=== PATIENT | female | born 1980 | race Caucasian/White ===

== ENCOUNTER → 2016-11-05 | Outpatient (CLI) | payer BC ==
[2016-11-05 16:00] LABS: Rheumatoid Factor, Qnt <9 IU/mL (<12)
[2016-11-06 10:05] LABS: HLA B27 NEGATIVE; HLA B27 Comment SEEBELOW
[2016-11-09 19:39] LABS: Lysozyme, Serum or Body Fluid 7.5 mcg/mL (5.0-11.0)
[2016-11-12 14:20] LABS: Mis test requested (Blood) Myasthenia GravisPnl
== END | disposition home or self-care (01) ==
LOC: LABWHC1 15:08
PROVIDERS: ATTEND Ophthalmology
DX: H20.9 Unspecified iridocyclitis (principal); E06.9 Thyroiditis, unspecified
CPT/HCPCS: 36415; 82164; 83519; 84439; 84443; 85549; 85652; 86038; 86140; 86431; 86812

== ENCOUNTER → 2016-11-22 | Outpatient (CLI) | payer BC ==
[2016-11-22 17:30] LABS: Basophils % (A) 0 %; CH 30.6; CHCM 33.2; Eosinophils # (A) 0.3 k/uL (0-0.7); Eosinophils % (A) 3 %; HCT 48.5 % (34.0-46.0); HDW 2.75; HGB 15.7 gm/dL (11.4-16.0); Luc # (Auto) 0.11; Luc % (Auto) 1; Lymphocytes # (A) 2.6 k/uL (1.0-4.8); Lymphocytes % (A) 25 %; MCH 29.9 pg (25.0-35.0); MCHC 32.3 g/dL (31.0-37.0); MCV 92.7 fL (80.0-100.0); Mean Platelet Volume 7.2; Monocytes # (A) 0.3 k/uL (0-1.0); Monocytes % (A) 3 %; Neutrophils # (A) 6.9 k/uL (1.3-7.7); Neutrophils % (A) 68 %; RBC 5.23 m/uL (3.80-5.40); RDW 13.6 % (11.5-15.5); WBC 10.2 k/uL (3.8-10.6)
[2016-11-22 17:51] LABS: ALT 59 U/L (9-52); AST 50 U/L (14-36); Alkaline Phosphatase 44 U/L (38-126); Anion Gap 10 mmol/L; Blood Urea Nitrogen 14 mg/dL (7-17); Calcium 9.4 mg/dL (8.4-10.2); Carbon Dioxide 24 mmol/L (22-30); Chloride 109 mmol/L (98-107); Glucose 82 mg/dL (74-99); Non-African American GFR(MDRD) >60 (>60 ml/min/1.73 sqM); Potassium 4.4 mmol/L (3.5-5.1); Sodium 143 mmol/L (137-145); Total Bilirubin 0.6 mg/dL (0.2-1.3); Total Protein 7.5 g/dL (6.3-8.2)
[2016-11-23 06:26] LABS: Cyclic Citrullinated Pep IgG 5 UNITS (<20)
== END | disposition home or self-care (01) ==
LOC: LABWHC1 16:38
PROVIDERS: ATTEND Psychiatry & Neurology Pain Medicine
DX: E55.9 Vitamin D deficiency, unspecified (principal); M25.50 Pain in unspecified joint
CPT/HCPCS: 36415; 80053; 82306; 85025; 86200; 86235

== ENCOUNTER → 2016-12-05 | Outpatient (CLI) | payer BC ==
--- NOTE | 2016-12-05 10:53 | MR ---
EXAMINATION TYPE: MR brain wo/w con DATE OF EXAM: 12/05/2016 8:58 AM COMPARISON: NONE HISTORY: Vision changes CONTRAST: Performed utilizing 20 mL intravenous MultiHance gadolinium contrast. TECHNIQUE: Multiplanar, multiecho imaging on a 3.0 Tila magnet is performed through the brain. Stud y is performed within 24 hours of arrival to the hospital. The craniovertebral junction is normal. The pituitary is normal. Optic chiasm is normal. Diffusion-weighted imaging is performed. No abnormal hyperintensity is present to suggest an acute i ntracranial infarct or acute ischemic change. Signal within the brain is unremarkable. Following contrast administration, no abnormal enhancement i s evident. Ventricles and sulci are appropriate for the patient age. IMPRESSIONS: 1. No acute intracranial changes.
== END | disposition home or self-care (01) ==
LOC: RADMRIMAIN 08:15
PROVIDERS: ATTEND Psychiatry & Neurology Pain Medicine
DX: H53.9 Unspecified visual disturbance (principal)
CPT/HCPCS: 70553; A9577

== ENCOUNTER → 2017-02-15 | Outpatient (CLI) | payer BC ==
[2017-02-15 14:53] LABS: Blood Urea Nitrogen 17 mg/dL (7-17); Non-African American GFR(MDRD) >60 (>60 ml/min/1.73 sqM)
== END | disposition home or self-care (01) ==
LOC: LABWHC1 14:07
PROVIDERS: ATTEND Psychiatry & Neurology Pain Medicine
DX: R32 Unspecified urinary incontinence (principal)
CPT/HCPCS: 36415; 82565; 84520

== ENCOUNTER → 2017-02-28 | Outpatient (CLI) | payer BC | LOC: LABWHC1 14:42 | PROVIDERS: ATTEND Psychiatry & Neurology Neurology | DX: E55.9 Vitamin D deficiency, unspecified (principal) | CPT/HCPCS: 36415; 82306 ==

== ENCOUNTER → 2017-03-11 | Outpatient (CLI) | payer BC ==
--- NOTE | 2017-03-11 10:53 | MR ---
EXAMINATION TYPE: MR cspine/lspine wo/w con DATE OF EXAM: 03/11/2017 COMPARISON: Prior lumbar MRI 10/09/2012 HISTORY: cervicalgia, lumbago, ms TECHNIQUE: Multiplanar, multisequence images of the lumbar spine is performed without and with IV contrast, util izing 20 mL intravenous MultiHance FINDINGS: Cervical spine MRI: Cervical vertebral bodies show preserved height, alignment, and bone marrow signa l. Small posterior disc bulge is present at C6-7 causing minimal anterior mass effect on the thecal s ac. No evident foraminal encroachment or significant central canal stenosis. No abnormal enhancement following contrast administration. Cervical cord signal is maintained. IMPRESSION: Mild degenerative disc disease. Lumbar spine MRI: Lumbar vertebral bodies show preserved height and alignment. There is multilevel sp ondylosis, endplate discogenic marrow signal changes are present. No significant foraminal encroachme nt or central canal stenosis. Some loss of disc height and signal present at L5-S1. L5-S1: There is a small posterior central disc bulge possibly contacting the anterior thecal sac. Sim ilar findings on previous exam. L4-5: Mild facet arthropathy with hypertrophy of ligamentum flavum encroaching on the lateral recesse s. L3-4: Unremarkable L2-3: Within normal limits L1-2: No significant abnormality The conus is at T12-L1 shows an unremarkable appearance. Multiple cystic foci are associated with the kidneys as on prior exam, correlate for possible APKD. IMPRESSION: Essentially stable exam. Axial images show no focal disc disease, or facet degenerative change at any lumbar level. There is no spinal canal stenosis, neural foraminal narrowing, or evidence of nerve root compromise. IMPRESSION: Mild degenerative disc disease shows a stable appearance.
== END | disposition home or self-care (01) ==
LOC: RADMRIMAIN 02-16 14:03
PROVIDERS: ATTEND Psychiatry & Neurology Pain Medicine
DX: M51.36 Other intervertebral disc degeneration, lumbar region (principal); M54.2 Cervicalgia
CPT/HCPCS: 72156; 72158; A9577

== ENCOUNTER 2017-03-15 07:09 | Day surgery (SDC) | payer BC ==
[2017-03-13 15:45] VITALS: BMI 49.3
[~2017-03-15 07:09] MED LIST: LACTATED RINGERS 1,000 ML IV SCH; LIDOCAINE 1% 20 ML VIAL (10MG/ML) FOR IV START INTRADERMA PRN
[2017-03-15 07:25] VITALS: TEMP 98.2
[2017-03-15] MEDS ORDERED: PROPOFOL 10 MG/ML 20 ML VIAL IV ONE (08:14)
--- NOTE | 2017-03-15 08:34 | P.PCN ---
Date of Procedure: 03/15/17 Preoperative Diagnosis: Postoperative Diagnosis: Procedure(s) Performed: BRIEF HISTORY: Patient is a 37-year-old pleasant white female, scheduled for an elective colonoscopy as a part of evaluation of change in bowel habits and intermittent fecal incontinence for the last 1 month duration. PROCEDURE PERFORMED: Colonoscopy. PREOPERATIVE DIAGNOSIS: Change in bowel habits. IV sedation per Anesthesia. PROCEDURE: After informed consent was obtained, the patient, was brought into the endoscopy unit. IV sedation was administered by Anesthesia under continuous monitoring. Digital rectal examination was normal. Initially the Olympus CF- 160 flexible video colonoscope was then inserted in the rectum, gradually advanced into the cecum without any difficulty. Careful examination was performed as the scope was gradually being withdrawn. Ileocecal valve and the appendiceal orifice were visualized and appeared normal. Prep was excellent. Mucosa of the cecum, ascending colon, transverse colon, descending colon, sigmoid colon, and rectum appeared normal. Retroflexion was performed in the rectum and no lesions were seen. The patient tolerated the procedure well. IMPRESSION: Normal-appearing colon from rectum to cecum with no evidence of colitis or colorectal neoplasia. RECOMMENDATIONS: Findings of this examination were discussed with the patient as well as a family. She was advised to be a high-fiber diet and take fiber supplements on a regular basis. She can have a repeat colonoscopy at age 50. Implants: Indications for Procedure: Operative Findings: Description of Procedure:
[2017-03-15 08:54] VITALS: BP 132/84; PULSE 81; RESP 16
== END 2017-03-15 09:22 | disposition home or self-care (01) ==
LOC: ORWHC2ENDO 07:09
PROVIDERS: ATTEND Internal Medicine Gastroenterology
DX: R19.4 Change in bowel habit (principal); R15.9 Full incontinence of feces; K21.9 Gastro-esophageal reflux disease without esophagitis; I10 Essential (primary) hypertension; E78.5 Hyperlipidemia, unspecified; E11.9 Type 2 diabetes mellitus without complications; Z79.84 Long term (current) use of oral hypoglycemic drugs; Z79.899 Other long term (current) drug therapy; Z88.2 Allergy status to sulfonamides; Z88.8 Allergy status to other drugs, medicaments and biological substances; Z91.041 Radiographic dye allergy status
CPT/HCPCS: 45378; J2704

== ENCOUNTER 2017-05-26 13:57 | Emergency (ER) | payer BC ==
[2017-05-26 14:36] VITALS: RESP 18
[2017-05-26] MEDS ORDERED: SODIUM CHLORIDE 0.9% 500 ML IV STA (14:59)
[2017-05-26] MEDS ORDERED: KETOROLAC 30 MG/ML 1 ML VIAL IVP STA (14:59)
--- NOTE | 2017-05-26 15:33 | ED ---
General Adult HPI - General Chief complaint: Abdominal Pain Stated complaint: Flank Pain/Nausea Time Seen by Provider: 05/26/17 14:31 Source: patient Mode of arrival: ambulatory Limitations: no limitations - History of Present Illness Initial comments: 37-year-old female with past medical history of CVA/TIA, DM, HLD, HTN , OA, polycystic kidney disease, migraines presented for evaluation of right flank pain with radiation to the right lower quadrant/pelvis. She states that she started to feel nauseated on Saturday and then started having her symptoms a couple days ago. It progressively worsened since that time. She denies any vaginal bleeding/discharge, increased or decreased urinary frequency, hematuria , chest pain, shortness of breath. She went to an urgent care today and was found to have microscopic hematuria and sent to the ED for further treatment and evaluation of kidney stone. She has no history of kidney stones, ovarian cysts, and she still has her appendix. - Related Data Home Medications Medication Instructions Recorded Confirmed ALPRAZolam [Xanax] 0.5 mg PO BID PRN 04/26/14 05/26/17 Fenofibrate Nanocrystallized 145 mg PO HS 09/29/15 05/26/17 [Tricor] Meloxicam 15 mg PO HS 12/31/16 05/26/17 amLODIPine BESYLATE/BENAZEPRIL 1 cap PO HS 03/13/17 05/26/17 [Lotrel 5-10 mg Capsule] metFORMIN HCL [Glucophage] 1,000 mg PO HS 03/13/17 05/26/17 prednisoLONE ACETATE [Pred Forte] 2 drop BOTH EYES DAILY PRN 03/13/17 05/26/17 Baclofen [Lioresal] 20 mg PO HS PRN 05/26/17 05/26/17 Cetirizine HCl [Zyrtec] 10 mg PO HS 05/26/17 05/26/17 Cholecalciferol (Vitamin D3) 2,000 unit PO HS 05/26/17 05/26/17 [Vitamin D3] FLUoxetine HCL [PROzac] 60 mg PO HS 05/26/17 05/26/17 Pramipexole [Mirapex] 0.5 mg PO HS 05/26/17 05/26/17 Previous Rx's Medication Instructions Recorded Ondansetron Odt [Zofran Odt] 4 mg PO Q8HR PRN #7 tab 05/26/17 Allergies Allergy/AdvReac Type Severity Reaction Status Date / Time Sulfa (Sulfonamide Allergy Severe Unknown Verified 05/26/17 15:45 Antibiotics) Childhood Iodinated Contrast- Oral and Allergy Unknown Anaphylaxis Verified 05/26/17 15:45 IV Dye [Iodinated Contrast Media - IV Dye] bupropion HCl AdvReac Severe Seizure Verified 05/26/17 15:45 [From Wellbutrin] Review of Systems ROS Statement: Those systems with pertinent positive or pertinent negative responses have been documented in the HPI. ROS Other: All systems not noted in ROS Statement are negative. Constitutional: Denies: fever, chills Eyes: Denies: eye pain, vision change ENT: Denies: ear pain, throat pain Respiratory: Denies: cough, dyspnea Cardiovascular: Denies: chest pain, palpitations Endocrine: Denies: fatigue, polydipsia Gastrointestinal: Reports: abdominal pain, nausea. Denies: vomiting, diarrhea, constipation, hematemesis, melena, hematochezia Genitourinary: Denies: urgency, dysuria, frequency, hematuria, discharge, abnormal menses Musculoskeletal: Denies: back pain (Although she does state she had some right flank discomfort), arthralgia Skin: Denies: rash, lesions Neurological: Denies: headache, weakness Psychiatric: Denies: anxiety, depression Hematological/Lymphatic: Denies: easy bleeding, easy bruising Past Medical History Past Medical History: CVA/TIA, Diabetes Mellitus, Hyperlipidemia, Hypertension, Osteoarthritis (OA) Additional Past Medical History / Comment(s): polycystic kidney disease, migraines, TIA 2012, varicose veins, hx anemia, History of Any Multi-Drug Resistant Organisms: None Reported Past Surgical History: Hysterectomy, Orthopedic Surgery Additional Past Surgical History / Comment(s): bilateral CTR, D&C, LUMP REMOVED from throat Past Anesthesia/Blood Transfusion Reactions: Previous Problems w/ Anesthesia Additional Past Anesthesia/Blood Transfusion Reaction / Comment(s): "body pain"- severe AFTER D & C Past Psychological History: Anxiety, Depression Smoking Status: Current every day smoker Past Alcohol Use History: Occasional Past Drug Use History: None Reported - Past Family History Mother Family Medical History: Cancer Additional Family Medical History / Comment(s): BREAST,THYROID CANCER General Exam Limitations: no limitations General appearance: alert, in no apparent distress Head exam: Present: atraumatic, normocephalic, normal inspection Eye exam: Present: normal appearance, PERRL, EOMI. Absent: scleral icterus, conjunctival injection, periorbital swelling ENT exam: Present: normal exam, mucous membranes moist Neck exam: Present: normal inspection. Absent: tenderness, meningismus, lymphadenopathy Respiratory exam: Present: normal lung sounds bilaterally. Absent: respiratory distress, wheezes, rales, rhonchi, stridor Cardiovascular Exam: Present: regular rate, normal rhythm, normal heart sounds. Absent: systolic murmur, diastolic murmur, rubs, gallop, clicks GI/Abdominal exam: Present: soft, tenderness (right lower quadrant). Absent: distended, guarding, rebound, rigid Rectal exam: Present: deferred Extremities exam: Present: normal inspection, full ROM, normal capillary refill. Absent: tenderness, pedal edema, joint swelling, calf tenderness Back exam: Present: normal inspection Neurological exam: Present: alert, oriented X3, CN II-XII intact Psychiatric exam: Present: normal affect, normal mood Skin exam: Present: warm, dry, intact, normal color. Absent: rash Course Vital Signs 05/26/17 05/26/17 14:32 18:11 Temperature 98.1 F 97.6 F Pulse Rate 87 85 Respiratory 18 18 Rate Blood Pressure 115/67 139/79 O2 Sat by Pulse 95 96 Oximetry Medical Decision Making - Medical Decision Making 37-year-old female presented for evaluation of right lower quadrant abdominal pain. She states that the pain started in her right flank and around to right lower quadrant. She was seen at an urgent care and they noted that she had discomfort hematuria and center to the ED for further treatment and evaluation. On physical examination she does have tenderness to palpation on the right flank and right lower quadrant of her abdomen however there is no CVA tenderness. Abdomen is soft non-peritoneal without signs of guarding, rigidity , rebound. Concern for ureterolithiasis and will obtain CT renal stone, labs, urinalysis, and provide symptom control. Labs revealed no significant abnormalities and CT renal stone showed a normal appendix and no obstructive uropathy. The patient was reevaluated and had resolution of her symptoms. She is informed of all results and through shared decision making it was determined that she would be discharged with instructions to follow with her primary care physician but to return to this facility if her symptoms should worsen or persist. The patient acknowledged an understanding of all information provided and agreed with this plan of care. - Lab Data Result diagrams: 05/26/17 15:30 05/26/17 15:30 Lab Results 05/26/17 05/26/17 05/26/17 Range/Units 15:30 15:30 15:30 WBC 12.6 H (3.8-10.6) k/uL RBC 5.04 (3.80-5.40) m/uL Hgb 15.4 (11.4-16.0) gm/dL Hct 45.5 (34.0-46.0) % MCV 90.4 (80.0-100.0) fL MCH 30.5 (25.0-35.0) pg MCHC 33.7 (31.0-37.0) g/dL RDW 14.0 (11.5-15.5) % Plt Count 190 (150-450) k/uL Neutrophils % 68 % Lymphocytes % 25 % Monocytes % 4 % Eosinophils % 2 % Basophils % 1 % Neutrophils # 8.6 H (1.3-7.7) k/uL Lymphocytes # 3.1 (1.0-4.8) k/uL Monocytes # 0.5 (0-1.0) k/uL Eosinophils # 0.3 (0-0.7) k/uL Basophils # 0.1 (0-0.2) k/uL ESR 10 (0-20) mm/hr Sodium 138 (137-145) mmol/L Potassium 4.1 (3.5-5.1) mmol/L Chloride 106 (98-107) mmol/L Carbon Dioxide 22 (22-30) mmol/L Anion Gap 10 mmol/L BUN 15 (7-17) mg/dL Creatinine 0.70 (0.52-1.04) mg/dL Est GFR (MDRD) Af Amer >60 (>60 ml/min/1.73 sqM) Est GFR (MDRD) Non-Af >60 (>60 ml/min/1.73 sqM) Glucose 90 (74-99) mg/dL Calcium 9.5 (8.4-10.2) mg/dL C-Reactive Protein 14.8 H (<10.0) mg/L Urine Color Yellow Urine Appearance Clear (Clear) Urine pH 5.5 (5.0-8.0) Ur Specific [place] 1.014 (1.001-1.035) Urine Protein 2+ H (Negative) Urine Glucose (UA) Negative (Negative) Urine Ketones Negative (Negative) Urine Blood Trace H (Negative) Urine Nitrite Negative (Negative) Urine Bilirubin Negative (Negative) Urine Urobilinogen <2.0 (<2.0) mg/dL Ur Leukocyte Esterase Negative (Negative) Urine RBC 1 (0-5) /hpf Urine WBC 2 (0-5) /hpf Ur Squamous Epith Cells 1 (0-4) /hpf Urine Mucus Rare H (None) /hpf Disposition Clinical Impression: Abdominal pain, Nausea Disposition: HOME SELF-CARE Condition: Stable Instructions: Abdominal Pain (ED) Additional Instructions: Please use medication as discussed. Please follow up with family doctor if symptoms have not improved over the next two days. Please return to the emergency room if your symptoms increase or worsen or for any other concerns. Prescriptions: Ondansetron Odt [Zofran Odt] 4 mg PO Q8HR PRN #7 tab PRN Reason: Nausea Referrals: Robinson Okeefe MD [Primary Care Provider] - 1-2 days Time of Disposition: 17:51
[2017-05-26 15:47] LABS: Basophils # (A) 0.1 k/uL (0-0.2); Basophils % (A) 1 %; CH 31.7; CHCM 35.2; Eosinophils # (A) 0.3 k/uL (0-0.7); Eosinophils % (A) 2 %; HCT 45.5 % (34.0-46.0); HDW 2.63; HGB 15.4 gm/dL (11.4-16.0); Luc # (Auto) 0.14; Luc % (Auto) 1; Lymphocytes # (A) 3.1 k/uL (1.0-4.8); Lymphocytes % (A) 25 %; MCH 30.5 pg (25.0-35.0); MCHC 33.7 g/dL (31.0-37.0); MCV 90.4 fL (80.0-100.0); Mean Platelet Volume 8.3; Monocytes # (A) 0.5 k/uL (0-1.0); Monocytes % (A) 4 %; Neutrophils # (A) 8.6 k/uL (1.3-7.7); Neutrophils % (A) 68 %; RBC 5.04 m/uL (3.80-5.40); WBC 12.6 k/uL (3.8-10.6); WBC (Perox) 11.92
[2017-05-26 16:01] LABS: Anion Gap 10 mmol/L; Blood Urea Nitrogen 15 mg/dL (7-17); C Reactive Protein 14.8 mg/L (<10.0); Calcium 9.5 mg/dL (8.4-10.2); Carbon Dioxide 22 mmol/L (22-30); Chloride 106 mmol/L (98-107); Glucose 90 mg/dL (74-99); Non-African American GFR(MDRD) >60 (>60 ml/min/1.73 sqM); Potassium 4.1 mmol/L (3.5-5.1); Sodium 138 mmol/L (137-145)
[2017-05-26 16:10] LABS: Appearance,Urine Clear (Clear); Bilirubin,Urine Negative (Negative); Glucose,Urine (UA) Negative (Negative); Ketones,Urine Negative (Negative); Leukocyte Esterase,Urine Negative (Negative); Mucus,Urine Rare /hpf; Nitrite,Urine Negative (Negative); PH, Urine 5.5 (5.0-8.0); Particle Count 2989; Protein,Urine 2+ (Negative); RBC,Urine 1 /hpf (0-5); Specific Gravity,Urine 1.014 (1.001-1.035); Squamous Epithelial Cell,Urine 1 /hpf (0-4); UA Billing (MACRO vs. MICRO) MICRO; Urobilinogen,Urine <2.0 mg/dL (<2.0); WBC,Urine 2 /hpf (0-5)
[2017-05-26 16:55] LABS: Erythrocyte Sedimentation Rate 10 mm/hr (0-20)
--- NOTE | 2017-05-26 17:20 | CT ---
EXAMINATION TYPE: CT renal stones wo con DATE OF EXAM: 05/26/2017 COMPARISON: NONE INDICATION: Patient complains of RLQ pain. DLP: 1527.1 mGycm, Automated exposure control for dose reduction was used. CONTRAST: 0 mL of Omnipaque 350. Study performed without Oral Contrast TECHNIQUE: Axial images were obtained from above the diaphragm to the pubic rami in the axial plane a t 5 mm thick sections. Reconstructed images are reviewed on the computer in the coronal plane. FINDINGS: Limited CT sections are obtained the lung bases. The lung bases are clear. CT ABDOMEN: Liver: There is moderate fatty infiltration throughout the liver. No discrete masses or cysts are maninder dent. Spleen: Enlarged at 13.7 cm. Normal less than 12.5. Pancreas: Normal Adrenal glands: The adrenal glands are normal. Gallbladder: Normal Kidneys: Polycystic kidneys are present. Numerous cystlike structures extending from the kidneys. The re are some scattered punctate calcifications compatible with small renal stones. No right hydronephr osis is evident. A left hydronephrosis is not evident. No hydroureter is evident. Aorta: Vascular calcification is within the aorta. Inferior vena cava: Normal. CT PELVIS: Loops of bowel within the abdomen and pelvis are normal. Appendix: Normal as visualized. Urinary bladder: Normal. Genitourinary structures: Uterus appears to be absent. Ovaries appear to be normal. Correlate with driscoll rgical history Osseous structures: No suspicious lytic or sclerotic lesions. IMPRESSIONS: 1. Polycystic kidneys. 2. There are multiple punctate calcifications scattered within the kidneys. No hydronephrosis or hydr oureter is evident however. 3. Appendix is normal.
[2017-05-26 18:12] VITALS: BP 139/79; PULSE 85; TEMP 97.6
== END 2017-05-26 18:30 | disposition home or self-care (01) ==
LOC: EC 13:57
DX: R10.31 Right lower quadrant pain (principal); R11.0 Nausea; E11.9 Type 2 diabetes mellitus without complications; E78.5 Hyperlipidemia, unspecified; I10 Essential (primary) hypertension; M19.90 Unspecified osteoarthritis, unspecified site; F32.9 Major depressive disorder, single episode, unspecified; F41.9 Anxiety disorder, unspecified; F17.200 Nicotine dependence, unspecified, uncomplicated; Z86.73 Personal history of transient ischemic attack (TIA), and cerebral infarction without residual deficits; Z79.1 Long term (current) use of non-steroidal anti-inflammatories (NSAID); Z79.84 Long term (current) use of oral hypoglycemic drugs; Z79.899 Other long term (current) drug therapy; Z88.2 Allergy status to sulfonamides; Z88.8 Allergy status to other drugs, medicaments and biological substances; Z91.041 Radiographic dye allergy status; Z90.710 Acquired absence of both cervix and uterus
CPT/HCPCS: 36415; 80048; 85652; 85025; 86140; 81001; 74150; 99284; 96374; J1885

== ENCOUNTER 2017-06-12 23:14 | Emergency (ER) | payer BC ==
[2017-06-12 23:37] VITALS: RESP 16
[2017-06-12] MEDS ORDERED: SODIUM CHLORIDE 0.9% 1,000 ML IV STA (23:48)
[2017-06-13 00:13] LABS: Basophils # (A) 0.1 k/uL (0-0.2); Basophils % (A) 0 %; CH 31.4; CHCM 34.2; Eosinophils # (A) 0.4 k/uL (0-0.7); Eosinophils % (A) 3 %; HCT 45.2 % (34.0-46.0); HDW 2.59; HGB 15.1 gm/dL (11.4-16.0); Luc # (Auto) 0.12; Luc % (Auto) 1; Lymphocytes % (A) 27 %; MCH 30.8 pg (25.0-35.0); MCHC 33.4 g/dL (31.0-37.0); MCV 92.1 fL (80.0-100.0); Mean Platelet Volume 8.3; Monocytes # (A) 0.5 k/uL (0-1.0); Monocytes % (A) 4 %; Neutrophils # (A) 10.1 k/uL (1.3-7.7); Neutrophils % (A) 66 %; WBC 15.2 k/uL (3.8-10.6); WBC (Perox) 14.92
[2017-06-13 00:16] LABS: Appearance,Urine Clear (Clear); Bacteria,Urine Rare /hpf; Bilirubin,Urine Negative (Negative); Glucose,Urine (UA) Negative (Negative); Ketones,Urine Negative (Negative); Leukocyte Esterase,Urine Negative (Negative); Mucus,Urine Rare /hpf; Nitrite,Urine Negative (Negative); PH, Urine 5.5 (5.0-8.0); Particle Count 2437; Protein,Urine 2+ (Negative); RBC,Urine 2 /hpf (0-5); Specific Gravity,Urine 1.015 (1.001-1.035); Squamous Epithelial Cell,Urine 4 /hpf (0-4); UA Billing (MACRO vs. MICRO) MICRO; Urobilinogen,Urine <2.0 mg/dL (<2.0); WBC,Urine 8 /hpf (0-5)
[2017-06-13 00:24] LABS: ALT 56 U/L (9-52); AST 39 U/L (14-36); Alkaline Phosphatase 54 U/L (38-126); Amylase 51 U/L (30-110); Anion Gap 13 mmol/L; Blood Urea Nitrogen 18 mg/dL (7-17); Calcium 9.8 mg/dL (8.4-10.2); Carbon Dioxide 19 mmol/L (22-30); Chloride 106 mmol/L (98-107); Glucose 137 mg/dL (74-99); Non-African American GFR(MDRD) >60 (>60 ml/min/1.73 sqM); Sodium 138 mmol/L (137-145); Total Bilirubin 0.3 mg/dL (0.2-1.3); Total Protein 6.7 g/dL (6.3-8.2)
--- NOTE | 2017-06-13 01:03 | ED ---
Abdominal Pain HPI - General Chief Complaint: Abdominal Pain Stated Complaint: Abd Pain Time Seen by Provider: 06/12/17 23:47 Source: patient, RN notes reviewed Mode of arrival: ambulatory Limitations: no limitations - History of Present Illness Initial Comments: This a 37-year-old female presents emergency Department to complaint of right lower quadrant abdominal pain. Patient states that she had similar pain past few weeks which was in the hospital for. Patient states that he cannot primary care abnormality's. Patient did have some hematuria that time and she follow- up which that continued. Patient states 9 she has sudden onset of worsening pain the right side. Patient states the pain is unbearable states that she hurts diffusely over her abdomen. Patient had some nausea no vomiting no diarrhea no constipation. Patient did have a ball at today without difficulty. She denies any urinary frequency or dysuria. Denies any vaginal bleeding or vaginal discharge that she's had a prior hysterectomy. - Related Data Home Medications Medication Instructions Recorded Confirmed ALPRAZolam [Xanax] 0.5 mg PO BID PRN 04/26/14 06/12/17 Fenofibrate Nanocrystallized 145 mg PO HS 09/29/15 06/12/17 [Tricor] Meloxicam 15 mg PO HS 12/31/16 06/12/17 metFORMIN HCL [Glucophage] 1,000 mg PO HS 03/13/17 06/12/17 prednisoLONE ACETATE [Pred Forte] 2 drop BOTH EYES DAILY PRN 03/13/17 06/12/17 Baclofen [Lioresal] 20 mg PO HS PRN 05/26/17 06/12/17 Cetirizine HCl [Zyrtec] 10 mg PO HS 05/26/17 06/12/17 Cholecalciferol (Vitamin D3) 2,000 unit PO HS 05/26/17 06/12/17 [Vitamin D3] FLUoxetine HCL [PROzac] 40 mg PO HS 05/26/17 06/12/17 Pramipexole [Mirapex] 0.5 mg PO HS 05/26/17 06/12/17 ARIPiprazole [Abilify] 15 mg PO DAILY 06/12/17 06/12/17 amLODIPine BES/OLMESARTAN MED 1 each PO DAILY 06/12/17 06/12/17 [amLODIPine BES/OLMESARTAN MED 5-20 mg] Previous Rx's Medication Instructions Recorded Ondansetron Odt [Zofran Odt] 4 mg PO Q8HR PRN #7 tab 05/26/17 Allergies Allergy/AdvReac Type Severity Reaction Status Date / Time Sulfa (Sulfonamide Allergy Severe Unknown Verified 06/12/17 23:37 Antibiotics) Childhood Iodinated Contrast- Oral and Allergy Unknown Anaphylaxis Verified 06/12/17 23:37 IV Dye [Iodinated Contrast Media - IV Dye] bupropion HCl AdvReac Severe Seizure Verified 06/12/17 23:37 [From Wellbutrin] Review of Systems ROS Statement: Those systems with pertinent positive or pertinent negative responses have been documented in the HPI. ROS Other: All systems not noted in ROS Statement are negative. Past Medical History Past Medical History: CVA/TIA, Diabetes Mellitus, Hyperlipidemia, Hypertension, Osteoarthritis (OA) Additional Past Medical History / Comment(s): polycystic kidney disease, migraines, TIA 2013, varicose veins, hx anemia, History of Any Multi-Drug Resistant Organisms: None Reported Past Surgical History: Hysterectomy, Orthopedic Surgery Additional Past Surgical History / Comment(s): bilateral CTR, D&C, LUMP REMOVED from throat Past Anesthesia/Blood Transfusion Reactions: Previous Problems w/ Anesthesia Additional Past Anesthesia/Blood Transfusion Reaction / Comment(s): "body pain"- severe AFTER D & C Past Psychological History: Anxiety, Depression Smoking Status: Current every day smoker Past Alcohol Use History: Occasional Past Drug Use History: None Reported - Past Family History Mother Family Medical History: Cancer Additional Family Medical History / Comment(s): BREAST,THYROID CANCER General Exam Limitations: no limitations General appearance: alert, in no apparent distress Head exam: Present: atraumatic, normocephalic, normal inspection Respiratory exam: Present: normal lung sounds bilaterally. Absent: respiratory distress, wheezes, rales, rhonchi, stridor Cardiovascular Exam: Present: regular rate, normal rhythm, normal heart sounds. Absent: systolic murmur, diastolic murmur, rubs, gallop, clicks GI/Abdominal exam: Present: soft, tenderness (Moderate right-sided abdominal tenderness), normal bowel sounds. Absent: distended, guarding, rebound, rigid Back exam: Absent: CVA tenderness (R), CVA tenderness (L) Skin exam: Present: warm, dry, intact, normal color. Absent: rash Course Vital Signs 06/12/17 23:31 Temperature 97.1 F L Pulse Rate 98 Respiratory 16 Rate Blood Pressure 145/85 O2 Sat by Pulse 95 Oximetry Medical Decision Making - Medical Decision Making 37-year-old female presented for lower abdominal pain. Patient CT does not show an acute abnormality. Patient's pain may related to her ovarian issues. Patient states her pain is improving with no pain medication here. Patient will follow-up with her primary care physician and [employer]. Return parameters were discussed. - Lab Data Result diagrams: 06/13/17 00:01 06/13/17 00:01 Lab Results 06/13/17 06/13/17 06/13/17 Range/Units 00:01 00:01 00:01 WBC 15.2 H (3.8-10.6) k/uL RBC 4.90 (3.80-5.40) m/uL Hgb 15.1 (11.4-16.0) gm/dL Hct 45.2 (34.0-46.0) % MCV 92.1 (80.0-100.0) fL MCH 30.8 (25.0-35.0) pg MCHC 33.4 (31.0-37.0) g/dL RDW 14.0 (11.5-15.5) % Plt Count 212 (150-450) k/uL Neutrophils % 66 % Lymphocytes % 27 % Monocytes % 4 % Eosinophils % 3 % Basophils % 0 % Neutrophils # 10.1 H (1.3-7.7) k/uL Lymphocytes # 4.0 (1.0-4.8) k/uL Monocytes # 0.5 (0-1.0) k/uL Eosinophils # 0.4 (0-0.7) k/uL Basophils # 0.1 (0-0.2) k/uL Sodium 138 (137-145) mmol/L Potassium 4.0 (3.5-5.1) mmol/L Chloride 106 (98-107) mmol/L Carbon Dioxide 19 L (22-30) mmol/L Anion Gap 13 mmol/L BUN 18 H (7-17) mg/dL Creatinine 0.80 (0.52-1.04) mg/dL Est GFR (MDRD) Af Amer >60 (>60 ml/min/1.73 sqM) Est GFR (MDRD) Non-Af >60 (>60 ml/min/1.73 sqM) Glucose 137 H (74-99) mg/dL Plasma Lactic Acid [place] 1.7 (0.7-2.0) mmol/L Calcium 9.8 (8.4-10.2) mg/dL Total Bilirubin 0.3 (0.2-1.3) mg/dL AST 39 H (14-36) U/L ALT 56 H (9-52) U/L Alkaline Phosphatase 54 (38-126) U/L Total Protein 6.7 (6.3-8.2) g/dL Albumin 4.0 (3.5-5.0) g/dL Amylase 51 (30-110) U/L Lipase 368 H (23-300) U/L Urine Color Urine Appearance (Clear) Urine pH (5.0-8.0) Ur Specific [place] (1.001-1.035) Urine Protein (Negative) Urine Glucose (UA) (Negative) Urine Ketones (Negative) Urine Blood (Negative) Urine Nitrite (Negative) Urine Bilirubin (Negative) Urine Urobilinogen (<2.0) mg/dL Ur Leukocyte Esterase (Negative) Urine RBC (0-5) /hpf Urine WBC (0-5) /hpf Ur Squamous Epith Cells (0-4) /hpf Urine Bacteria (None) /hpf Urine Mucus (None) /hpf 06/13/17 Range/Units 00:01 WBC (3.8-10.6) k/uL RBC (3.80-5.40) m/uL Hgb (11.4-16.0) gm/dL Hct (34.0-46.0) % MCV (80.0-100.0) fL MCH (25.0-35.0) pg MCHC (31.0-37.0) g/dL RDW (11.5-15.5) % Plt Count (150-450) k/uL Neutrophils % % Lymphocytes % % Monocytes % % Eosinophils % % Basophils % % Neutrophils # (1.3-7.7) k/uL Lymphocytes # (1.0-4.8) k/uL Monocytes # (0-1.0) k/uL Eosinophils # (0-0.7) k/uL Basophils # (0-0.2) k/uL Sodium (137-145) mmol/L Potassium (3.5-5.1) mmol/L Chloride (98-107) mmol/L Carbon Dioxide (22-30) mmol/L Anion Gap mmol/L BUN (7-17) mg/dL Creatinine (0.52-1.04) mg/dL Est GFR (MDRD) Af Amer (>60 ml/min/1.73 sqM) Est GFR (MDRD) Non-Af (>60 ml/min/1.73 sqM) Glucose (74-99) mg/dL Plasma Lactic Acid [place] (0.7-2.0) mmol/L Calcium (8.4-10.2) mg/dL Total Bilirubin (0.2-1.3) mg/dL AST (14-36) U/L ALT (9-52) U/L Alkaline Phosphatase (38-126) U/L Total Protein (6.3-8.2) g/dL Albumin (3.5-5.0) g/dL Amylase (30-110) U/L Lipase (23-300) U/L Urine Color Yellow Urine Appearance Clear (Clear) Urine pH 5.5 (5.0-8.0) Ur Specific [place] 1.015 (1.001-1.035) Urine Protein 2+ H (Negative) Urine Glucose (UA) Negative (Negative) Urine Ketones Negative (Negative) Urine Blood Negative (Negative) Urine Nitrite Negative (Negative) Urine Bilirubin Negative (Negative) Urine Urobilinogen <2.0 (<2.0) mg/dL Ur Leukocyte Esterase Negative (Negative) Urine RBC 2 (0-5) /hpf Urine WBC 8 H (0-5) /hpf Ur Squamous Epith Cells 4 (0-4) /hpf Urine Bacteria Rare H (None) /hpf Urine Mucus Rare H (None) /hpf Disposition Clinical Impression: Abdominal pain Disposition: HOME SELF-CARE Condition: Stable Instructions: Abdominal Pain (ED) Additional Instructions: Please return to the Emergency Department if symptoms worsen or any other concerns. Referrals: Robinson Okeefe MD [Primary Care Provider] - 1-2 days Time of Disposition: 01:47
--- NOTE | 2017-06-13 01:04 | XR ---
EXAM: XR Abdomen Complete, 2 or More Views CLINICAL HISTORY: Reason: abdominal pain increasing RLQ pain since 05/26, hysterectomy TECHNIQUE: Frontal view of the abdomen/pelvis with upright view of the abdomen. 3 images COMPARISON: No relevant prior studies available. FINDINGS: Intraperitoneal space: No free air. Gastrointestinal tract: Unremarkable. No dilation. Bones/joints: Unremarkable. IMPRESSION: Normal abdominal x-rays.
--- NOTE | 2017-06-13 01:35 | CT ---
EXAM: CT Abdomen and Pelvis Without Intravenous Contrast CLINICAL HISTORY: Reason: Pain,increasing RLQ pain since 05/26, TECHNIQUE: Axial computed tomography images of the abdomen and pelvis without intravenous contrast. CTDI is 42.70 mGy and DLP is 2346.30 mGy-cm. This CT exam was performed using one or more of the following dose reduction techniques: automated exposure control, adjustment of the mA and/or kV according to patient size, and/or use of iterative reconstruction technique. COMPARISON: 05/26/17 FINDINGS: Lower thorax: No acute findings. ABDOMEN: Liver: Fatty, enlarged liver. Gallbladder and bile ducts: Unremarkable. No calcified stones. No ductal dilation. Pancreas: Unremarkable. No ductal dilation. Spleen: Mild splenomegaly. Adrenals: Unremarkable. No mass. Kidneys and ureters: Polycystic kidneys as on prior. Some low-density and some high density cystic lesions. Somewhat limited evaluation of the lesions on this noncontrast study Some nonobstructing bilateral renal calcifications. No hydroureteronephrosis. Findings are stable. Stomach and bowel: Unremarkable. No obstruction. No mucosal thickening. Appendix: Normal appendix PELVIS: Bladder: Unremarkable. No stones. Reproductive: Hysterectomy. ABDOMEN and PELVIS: Intraperitoneal space: Unremarkable. No free air. No significant fluid collection. Bones/joints: No acute fracture. No dislocation. Soft tissues: Unremarkable. Vasculature: Unremarkable. No abdominal aortic aneurysm. Lymph nodes: Unremarkable. No enlarged lymph nodes. . IMPRESSION: 1. No evidence of acute abnormality. 2. Normal appendix. 3. Polycystic kidneys. 4. Small nonobstructing bilateral renal calcifications. No hydronephrosis.
[2017-06-13 02:04] VITALS: BP 138/75; PULSE 91; TEMP 97.4
== END 2017-06-13 02:03 | disposition home or self-care (01) ==
LOC: EC 23:14
DX: R10.31 Right lower quadrant pain (principal); R11.0 Nausea; E78.5 Hyperlipidemia, unspecified; I10 Essential (primary) hypertension; E11.9 Type 2 diabetes mellitus without complications; M19.90 Unspecified osteoarthritis, unspecified site; F32.9 Major depressive disorder, single episode, unspecified; F41.9 Anxiety disorder, unspecified; F17.200 Nicotine dependence, unspecified, uncomplicated; Z79.1 Long term (current) use of non-steroidal anti-inflammatories (NSAID); Z79.84 Long term (current) use of oral hypoglycemic drugs; Z79.899 Other long term (current) drug therapy; Z88.2 Allergy status to sulfonamides; Z88.8 Allergy status to other drugs, medicaments and biological substances; Z91.041 Radiographic dye allergy status; Z86.73 Personal history of transient ischemic attack (TIA), and cerebral infarction without residual deficits; Z90.710 Acquired absence of both cervix and uterus
CPT/HCPCS: 36415; 74000; 74176; 80053; 81001; 82150; 83605; 83690; 85025; 96360; 99284

== ENCOUNTER → 2017-10-08 | Day surgery (SDC) | payer BC ==
[2017-10-08 12:12] VITALS: BP 108/73; RESP 16; TEMP 98.1; BMI 49.6
--- NOTE | 2017-10-08 13:56 | USB ---
EXAMINATION TYPE: US biopsy breast VAD RT, MG diagnostic mammo RT wo CAD DATE OF EXAM: 10/08/2017 CLINICAL HISTORY: R92.8 Abnormal Mamogram. TECHNIQUE: Ultrasound guided core biopsy of right 10:00 breast. COMPARISON: NONE FINDINGS: The procedure of ultrasound guided core biopsy was explained to the patient. Benefits, alternatives, and risks were discussed. An informed consent was then obtained. The patient was placed in supine positioning for imaging and for the procedure. The overlying skin was prepped and draped in usual sterile fashion. Lidocaine buffered with bicarbonate was used as anesthetic into the skin and subcutaneous tissue up to area of concern in the right 10:00 breast. A roberto was made with surgical scalpel. Under ultrasound guidance, a 12-gauge vacuum assisted biopsy gun device was used to obtain 3 core samples. Following this, a biopsy clip was left in lesion. Postprocedural mammogram demonstrates appropriate clip placement. The patient tolerated the procedure well without any immediate complication. The patient was kept in the radiology department for short stay after the procedure and then discharged home in stable condition. IMPRESSION: Successful, uncomplicated ultrasound guided core biopsy of area of concern in the right 10:00 breast, full pathology results to follow. Pathology Results: Benign BREAST, RIGHT, ULTRASOUND GUIDED CORE BIOPSY: FIBROCYSTIC CHANGE (FIBROSIS, CYST FORMATION, APOCRINE METAPLASIA, ADENOSIS AND DUCT HYPERPLASIA). Recommendation Follow up mammogram of the right breast in 6 months. PEARL
[2017-10-08 14:19] VITALS: PULSE 81
== END ==
LOC: RADUSWWP 11:33
PROVIDERS: ATTEND Surgery
DX: N60.31 Fibrosclerosis of right breast (principal); N60.81 Other benign mammary dysplasias of right breast; N60.21 Fibroadenosis of right breast; N60.91 Unspecified benign mammary dysplasia of right breast
CPT/HCPCS: 88305; 77065; 19083; A4648; J2001

== ENCOUNTER → 2018-03-25 | Outpatient (CLI) | payer BC ==
--- NOTE | 2018-03-25 09:48 | US ---
EXAMINATION TYPE: US liver DATE OF EXAM: 03/25/2018 COMPARISON: 05/26/2017 CT CLINICAL HISTORY: R94.5 ABN LIVER FUNCTIONS. Elevated liver enzymes. Polycystic kidney disease EXAM MEASUREMENTS: Liver Length: 21.4 cm Gallbladder Wall: 0.3 cm CBD: 0.5 cm Right Kidney: 18.8 x 7.2 x 8.7 cm Technical limitations due to patient's body habitus and overlying bowel content Pancreas: Obscured by bowel gas Liver: unable to penetrate, enlarged, attenuating. This finding is most compatible with hepatic stea tosis and limits evaluation for underlying hepatic masses. This was appreciated on the prior CT of . Gallbladder: no evidence of stones Evidence for sonographic Judd's sign: no CBD: limited evaluation Right Kidney: enlarged with multiple cystic areas noted, largest = 5.0 x 4.3 x 4.2cm. multiple dense echogenic areas IMPRESSION: 1. Findings most compatible with hepatic steatosis appearing moderate in degree as seen on the prior CT of 06/13/2017. 2. Redemonstration of polycystic kidney disease with multiple echogenic foci representing cortical an d intracystic calcifications as well as known renal calculi. No hydronephrosis. Surveillance for enha ncing solid masses should be performed with dynamic enhanced CT or MR.
== END | disposition home or self-care (01) ==
LOC: RADUSWWP 07:17
PROVIDERS: ATTEND Internal Medicine
DX: Q61.3 Polycystic kidney, unspecified (principal); N20.0 Calculus of kidney; N28.89 Other specified disorders of kidney and ureter
CPT/HCPCS: 76705

== ENCOUNTER → 2018-03-27 | Outpatient (CLI) | payer BC ==
--- NOTE | 2018-03-27 11:12 | USB ---
Reason for exam: follow-up at short interval from prior study. History: Family history of breast cancer in mother, breast cancer in maternal aunt, and breast cancer in paternal aunt. Benign US biopsy breast VAD RT of the right breast, October 08, 2017. Took hormonal contraceptives for 1 year. Physical Findings: Nurse did not find any significant physical abnormalities on exam. US Breast RT Right complete breast ultrasound includes all four quadrants, the retroareolar region and axilla. Finding demonstrates no cystic or solid lesion seen. The biopsied 10 o'clock area is no longer seen. Mammographic correlation recommended. These results were verbally communicated with the patient and result sheet given to the patient on 03/27/18. ASSESSMENT: Incomplete: need additional imaging evaluation, BI-RAD 0 RECOMMENDATION: Special view mammogram of the right breast.
--- NOTE | 2018-03-27 11:14 | MM ---
Reason for exam: follow-up at short interval from prior study. Last mammogram was performed 6 months ago. History: Family history of breast cancer in mother, breast cancer in maternal aunt, and breast cancer in paternal aunt. Benign US biopsy breast VAD RT of the right breast, October 08, 2017. Took hormonal contraceptives for 1 year. MG Diagnostic Mammo RT w CAD CC, MLO, and LM view(s) were taken of the right breast. Prior study comparison: October 08, 2017, right breast MG diagnostic mammo RT wo CAD. September 02, 2017, bilateral MG diagnostic mammo w CAD DIEGO. There are scattered fibroglandular densities. The previously lateral nodule is no longer identified. Microclip is here from patient's bipsy. No significant new findings when compared with previous films. These results were verbally communicated with the patient and result sheet given to the patient on 03/27/18. ASSESSMENT: Negative, BI-RAD 1 RECOMMENDATION: Routine screening mammogram of both breasts at age 40.
== END | disposition home or self-care (01) ==
LOC: RADUSWWP 09:23
PROVIDERS: ATTEND Internal Medicine
DX: N63.10 Unspecified lump in the right breast, unspecified quadrant (principal); N64.59 Other signs and symptoms in breast; R92.8 Other abnormal and inconclusive findings on diagnostic imaging of breast
CPT/HCPCS: 77065

== ENCOUNTER 2018-11-16 01:40 | Emergency (ER) | payer BC ==
[2018-11-16 01:46] VITALS: BP 144/95; PULSE 88; RESP 18; TEMP 98.1
[2018-11-16] MEDS ORDERED: SODIUM CHLORIDE 0.9% 1,000 ML IV ONE (01:51)
[2018-11-16 01:57] LABS: Glucose,Whole Blood 168 mg/dL (75-99)
--- NOTE | 2018-11-16 02:10 | ED ---
General Adult HPI - General Chief complaint: Recheck/Abnormal Lab/Rx Stated complaint: High Blood Sugar Time Seen by Provider: 11/16/18 01:50 Source: patient, RN notes reviewed, old records reviewed Mode of arrival: ambulatory Limitations: no limitations - History of Present Illness Initial comments: 38-year-old female presents for evaluation of hyper glycemia. Patient states she felt shaky, checked her blood sugar, noted to be over 300. She does have history type 2 diabetes, has been on metformin for the past several years. She is not currently on insulin. Symptoms resolved prior to arrival. She does admit to drinking soda pop and having sinhala fries popcorn. She has no complaints time my evaluation. - Related Data Home Medications Medication Instructions Recorded Confirmed ALPRAZolam [Xanax] 0.5 mg PO BID PRN 04/26/14 10/08/17 Fenofibrate Nanocrystallized 145 mg PO HS 09/29/15 10/08/17 [Tricor] Meloxicam 15 mg PO HS 12/31/16 10/08/17 metFORMIN HCL [Glucophage] 1,000 mg PO HS 03/13/17 10/08/17 prednisoLONE ACETATE [Pred Forte] 2 drop BOTH EYES DAILY PRN 03/13/17 10/08/17 Baclofen [Lioresal] 20 mg PO HS PRN 05/26/17 10/08/17 Cetirizine HCl [Zyrtec] 10 mg PO HS 05/26/17 10/08/17 Cholecalciferol (Vitamin D3) 4,000 unit PO HS 05/26/17 10/08/17 [Vitamin D3] FLUoxetine HCL [PROzac] 40 mg PO HS 05/26/17 10/08/17 Pramipexole [Mirapex] 0.5 mg PO HS 05/26/17 10/08/17 ARIPiprazole [Abilify] 15 mg PO DAILY 06/12/17 10/08/17 amLODIPine BES/OLMESARTAN MED 1 each PO DAILY 06/12/17 10/08/17 [amLODIPine BES/OLMESARTAN MED 5-20 mg] Allergies Allergy/AdvReac Type Severity Reaction Status Date / Time Sulfa (Sulfonamide Allergy Severe Unknown Verified 10/08/17 11:51 Antibiotics) Childhood Iodinated Contrast- Oral and Allergy Unknown Anaphylaxis Verified 10/08/17 11:51 IV Dye [Iodinated Contrast Media - IV Dye] bupropion HCl AdvReac Severe Seizure Verified 10/08/17 11:51 [From Wellbutrin] Review of Systems ROS Statement: Those systems with pertinent positive or pertinent negative responses have been documented in the HPI. ROS Other: All systems not noted in ROS Statement are negative. Past Medical History Past Medical History: CVA/TIA, Diabetes Mellitus, Hyperlipidemia, Hypertension, Osteoarthritis (OA) Additional Past Medical History / Comment(s): polycystic kidney disease, migraines, TIA 2012, varicose veins, hx anemia, History of Any Multi-Drug Resistant Organisms: None Reported Past Surgical History: Hysterectomy, Orthopedic Surgery Additional Past Surgical History / Comment(s): bilateral Carpal tunnel sx, D&C, LUMP REMOVED from throat Past Anesthesia/Blood Transfusion Reactions: Previous Problems w/ Anesthesia Additional Past Anesthesia/Blood Transfusion Reaction / Comment(s): "body pain"- severe AFTER D & C Past Psychological History: Anxiety, Depression Smoking Status: Current every day smoker Past Alcohol Use History: Occasional Past Drug Use History: None Reported - Past Family History Mother Family Medical History: Cancer Additional Family Medical History / Comment(s): BREAST,THYROID CANCER General Exam Limitations: no limitations General appearance: alert, in no apparent distress Head exam: Present: atraumatic, normocephalic Eye exam: Present: normal appearance, PERRL, EOMI ENT exam: Present: normal exam Neck exam: Present: normal inspection. Absent: tenderness, meningismus Respiratory exam: Present: normal lung sounds bilaterally. Absent: respiratory distress, wheezes Cardiovascular Exam: Present: regular rate, normal rhythm GI/Abdominal exam: Present: soft. Absent: distended, tenderness, guarding Extremities exam: Present: normal capillary refill. Absent: pedal edema Neurological exam: Present: alert, oriented X3 Psychiatric exam: Present: normal affect, normal mood Skin exam: Present: warm, dry, intact Course Vital Signs 11/16/18 01:41 Temperature 98.1 F Pulse Rate 88 Respiratory 18 Rate Blood Pressure 144/95 O2 Sat by Pulse 98 Oximetry Medical Decision Making - Medical Decision Making Blood sugar rechecked in the emergency department, 168, down trending from the reported 320 at home. Patient is asymptomatic. She is instructed on dietary recommendations including refraining from sugary beverages, and low carbohydrate diet. She will return with worsening or changing symptoms. She will monitor her blood glucose at home. - Lab Data Lab Results 11/16/18 Range/Units 01:54 POC Glucose (mg/dL) 168 H (75-99) mg/dL POC Glu Voice Coach ID Smiley Lawson Disposition Clinical Impression: Hyperglycemia Disposition: HOME SELF-CARE Condition: Good Instructions (If sedation given, give patient instructions): Diabetes and Nutrition (ED) Is patient prescribed a controlled substance at d/c from ED?: No Referrals: Robinson Okeefe MD [Primary Care Provider] - 1-2 days Time of Disposition: 02:09
== END 2018-11-16 02:23 | disposition home or self-care (01) ==
LOC: EC 01:40
DX: E11.65 Type 2 diabetes mellitus with hyperglycemia (principal); E78.5 Hyperlipidemia, unspecified; I10 Essential (primary) hypertension; M19.90 Unspecified osteoarthritis, unspecified site; F41.9 Anxiety disorder, unspecified; F32.9 Major depressive disorder, single episode, unspecified; F17.200 Nicotine dependence, unspecified, uncomplicated; Z86.73 Personal history of transient ischemic attack (TIA), and cerebral infarction without residual deficits; Z79.1 Long term (current) use of non-steroidal anti-inflammatories (NSAID); Z79.84 Long term (current) use of oral hypoglycemic drugs; Z79.899 Other long term (current) drug therapy; Z88.2 Allergy status to sulfonamides; Z88.8 Allergy status to other drugs, medicaments and biological substances; Z91.041 Radiographic dye allergy status; Z53.8 Procedure and treatment not carried out for other reasons
CPT/HCPCS: 36415; 99284

== ENCOUNTER → 2019-10-30 | Outpatient (CLI) | payer BC ==
--- NOTE | 2019-10-30 11:59 | MR ---
EXAMINATION TYPE: MR knee RT wo con DATE OF EXAM: 10/30/2019 7:18 AM COMPARISON: NONE HISTORY: Right knee pain TECHNIQUE: Multiplanar, multisequence imaging of the right knee was performed. FINDINGS: MEDIAL MENISCUS: There is an oblique tear posterior horn medial meniscus. The body and anterior horn are intact. LATERAL MENISCUS: Anterior and posterior horns are intact without tear. CRUCIATE LIGAMENTS: The anterior and posterior cruciate ligaments are intact and unremarkable. COLLATERAL LIGAMENTS: The medial collateral ligament and lateral collateral ligament complex are intact and unremarkable. EXTENSOR MECHANISM: Visualized quadriceps and patellar tendons are intact. EFFUSION: Small suprapatellar joint effusion noted. Small amount of fluid is seen adjacent to the PCL . POPLITEAL CYST: No popliteal/wilson cyst. TRICOMPARTMENT SPACES: The tricompartment joint spaces appear within normal limits. CARTILAGE: The articular cartilage is maintained without abnormal signal or full-thickness defect. BONE MARROW SIGNAL: No focal abnormal marrow signal is appreciated: OTHER: No additional significant abnormality is appreciated. IMPRESSION: 1. Oblique tear posterior horn medial meniscus and small joint effusion.
== END | disposition home or self-care (01) ==
LOC: RADMRIMAIN 06:47
PROVIDERS: ATTEND Orthopaedic Surgery
DX: S83.241A Other tear of medial meniscus, current injury, right knee, initial encounter (principal)

== ENCOUNTER → 2019-11-18 | Outpatient (CLI) | payer BC ==
[2019-11-18 12:36] LABS: Basophils % (A) 0 %; Eosinophils # (A) 0.3 k/uL (0-0.7); Eosinophils % (A) 3 %; HCT 42.4 % (34.0-46.0); HGB 13.4 gm/dL (11.4-16.0); Lymphocytes # (A) 1.6 k/uL (1.0-4.8); Lymphocytes % (A) 19 %; MCH 29.4 pg (25.0-35.0); MCHC 31.7 g/dL (31.0-37.0); MCV 92.9 fL (80.0-100.0); Mean Platelet Volume 8.4; Monocytes # (A) 0.3 k/uL (0-1.0); Monocytes % (A) 3 %; Neutrophils # (A) 6.2 k/uL (1.3-7.7); Neutrophils % (A) 73 %; Platelet Count 175 k/uL (150-450); RBC 4.57 m/uL (3.80-5.40); RDW 13.4 % (11.5-15.5); WBC 8.5 k/uL (3.8-10.6)
[2019-11-18 12:47] LABS: Potassium 4.5 mmol/L (3.5-5.1)
== END ==
LOC: LABPAT 12:07
PROVIDERS: ATTEND Orthopaedic Surgery
DX: Z01.810 Encounter for preprocedural cardiovascular examination (principal); Z01.812 Encounter for preprocedural laboratory examination
CPT/HCPCS: 36415; 80051; 85025; 93005

== ENCOUNTER 2019-12-01 07:01 | Day surgery (SDC) | payer BC ==
[2019-11-27 11:29] VITALS: BMI 48.6
--- NOTE | 2019-11-30 09:46 | HP ---
HISTORY AND PHYSICAL CHIEF COMPLAINT: Right knee pain. HISTORY OF PRESENT ILLNESS: The patient is a 39-year-old female who presents with right knee pain after an injury June of 2019. She notes persistent pain with twisting along with intermittent giving way. She has tried medications in addition to a previous injection with persistence of her symptoms. She notes the symptoms to limit her daily. PAST MEDICAL HISTORY: Significant for asthma, anemia, type 2 diabetes, hypercholesteremia, hypertension, obesity, polycystic kidney disease. PAST SURGICAL HISTORY: Significant for carpal tunnel release and hysterectomy. CURRENT MEDICATIONS: 1. Diclofenac. 2. Lotrel. 3. Metformin. 4. Prozac. 5. Trileptal. 6. Ventolin. 7. Xanax. ALLERGIES: She has allergies to WELLBUTRIN, SULFA, and IODINE CONTRAST. FAMILY HISTORY: Significant for cancer and multiple sclerosis. SOCIAL HISTORY: Significant for one pack per day tobacco use. REVIEW OF SYSTEMS: Sixteen-point review of systems otherwise reviewed and is noncontributory. PHYSICAL EXAMINATION: On examination, the patient is approximately 5 feet 8 inches, 325 pounds of endomorphic habitus. HEENT exam is nonfocal. Neck is supple. She has painless passive motion of the right hip. Straight leg raise is negative. Active motion right knee -10 to 100 degrees of flexion. She has a moderate effusion. She is tender about the medial joint line. Collaterals are stable, Gisela is negative, Spike's elicits medial pain. Her distal neurovascular exam appears intact in the right lower extremity. MRI report right knee from 10/30/2019 shows a posterior medial meniscal tear. IMPRESSION: 1. Internal derangement right knee with symptomatic medial meniscal tear. 2. Jpx-[id number]-[id number] diabetes. 3. Obesity. RECOMMENDATIONS: I talked to the patient at length regarding her condition and treatment options. At this point, she is quite symptomatic, having pain and mechanical symptoms despite conservative measures. After thorough discussion, she opts to proceed with surgery. We will plan to proceed with arthroscopic evaluation with probable partial medial meniscectomy. We will likely perform that as an outpatient procedure. Risks and benefits were discussed at length in layman's terms. MMODL / IJN: [id number] /
[~2019-12-01 07:01] MED LIST changes: +DEXAMETHASONE SOD PHOSPHATE 10 MG/ML 1 ML VIAL IV ONE; +HYDROmorphone 0.5 MG/0.5 ML SYRINGE IVP PRN; +LIDOCAINE 1% (10MG/ML) FOR IV START INTRADERMA PRN; -LIDOCAINE 1% 20 ML VIAL (10MG/ML) FOR IV START INTRADERMA PRN; +MIDAZOLAM 2 MG/2 ML VIAL IV PRN; +ONDANSETRON 4 MG/2 ML VIAL IVP ONE; +ceFAZolin 3 GM in SODIUM CHLORIDE 0.9% 100 ML IVPB ONE; +fentaNYL (PF) 50 MCG/ML 2 ML AMP IV PRN
[2019-12-01 07:44] LABS: Glucose,Whole Blood 150 mg/dL (75-99)
[2019-12-01] MEDS ORDERED: PROPOFOL 10 MG/ML 20 ML VIAL IV ONE (08:10)
[2019-12-01] MEDS ORDERED: GLYCOPYRROLATE 0.2 MG/ML 2 ML VIAL ONE (08:10)
[2019-12-01] MEDS ORDERED: ROCURONIUM BROMIDE 10 MG/ML 5 ML VIAL IV ONE (08:10)
[2019-12-01] MEDS ORDERED: NEOSTIGMINE 1 MG/ML 10 ML VIAL ONE (08:10)
[2019-12-01] MEDS ORDERED: MIDAZOLAM 2 MG/2 ML VIAL ONE (08:10)
[2019-12-01] MEDS ORDERED: PHENYLEPHRINE-0.9% NACL SYG 1 MG/10 ML SYRINGE ONE (08:10)
[2019-12-01] MEDS ORDERED: LIDOCAINE 1% INJ 10MG/ML (20 ML MDV) ONE (08:10)
[2019-12-01] MEDS ORDERED: fentaNYL (PF) 50 MCG/ML 2 ML AMP ONE (08:10)
--- NOTE | 2019-12-01 09:17 | P.OP ---
Date of Procedure: 12/01/19 Preoperative Diagnosis: Right knee internal derangement Postoperative Diagnosis: Right knee posterior medial meniscal tear/grade 3 chondral injury central posterior medial femoral condyle Procedure(s) Performed: Right knee arthroscopic partial medial meniscectomy/microfracture medial femoral condyle Anesthesia: GETA Surgeon: Jose Redding Estimated Blood Loss (ml): 10 Pathology: none sent Condition: stable Disposition: PACU Indications for Procedure: The patient's a 39-year-old female presents with progressive right knee pain and mechanical symptoms after a recent injury. A discussion of the risks and benefits of operative intervention versus continued conservative measures was made with patient. She opted to proceed with surgery. Operative risks to include infection, neurovascular injury, development of blood clots, possible incomplete resolution of symptoms, possible worsening symptoms and need for subsequent procedures was discussed. Informed consent was obtained. Operative Findings: As below Description of Procedure: The patient was brought to the operating room, and after induction of general anesthesia examined the right knee. Collaterals were stable, Gisela was negative, and posterior drawer was negative. The right lower extremity was prepped and draped in a normal fashion. A lateral portal was made through a 5 mm vertical skin incision lateral to the patella tendon above the joint line. Diagnostic arthroscopy was performed. On inspection of the medial compartment, an oblique tear involving the posterior most aspect the medial meniscus was noted in the white-red junction. This was debrided back to stable base with straight baskets and a motorized shaver. A corresponding grade 3 chondral injury was noted involving the central posterior portion medial femoral condyle. A loose chondral flap was debrided back to stable base with a motorized shaver. Microfracture was performed with a power moreno breaching the subchondral surface down to the bone marrow elements. On inspection of the notch, the anterior cruciate ligament appeared to be intact. On inspection of the lateral compartment, no significant cartilage or meniscal pathology was noted. On inspection of the patellofemoral articulation there was chondral fibrillation however no loose chondral fragments. The gutters were clear debris. The knee was then thoroughly irrigated. The portals were closed with Steri-Strips. A sterile dressing was applied in addition to a compression stocking. The patient was awoken from general anesthesia and transferred to recovery room in good condition. Blood loss was estimated at 10 mL. No complications were incurred.
[2019-12-01 09:20] VITALS: TEMP 98
[2019-12-01 09:32] VITALS: RESP 16
[2019-12-01] MEDS ORDERED: KETOROLAC 30 MG/ML 1 ML VIAL IVP ONE (09:57)
[2019-12-01] MEDS ORDERED: HYDROcodone/APAP 7.5-325MG 1 EACH TAB PO ONE (10:32)
[2019-12-01 10:59] VITALS: BP 118/80; PULSE 85
== END 2019-12-01 11:18 | disposition home or self-care (01) ==
LOC: OR 07:01
PROVIDERS: ATTEND Orthopaedic Surgery
DX: S83.241A Other tear of medial meniscus, current injury, right knee, initial encounter (principal); X58.XXXA Exposure to other specified factors, initial encounter; D64.9 Anemia, unspecified; E11.9 Type 2 diabetes mellitus without complications; E78.00 Pure hypercholesterolemia, unspecified; I10 Essential (primary) hypertension; E66.9 Obesity, unspecified; Z68.42 Body mass index [BMI] 45.0-49.9, adult; Q61.3 Polycystic kidney, unspecified; Z90.710 Acquired absence of both cervix and uterus; Z98.890 Other specified postprocedural states; J44.9 Chronic obstructive pulmonary disease, unspecified; F39 Unspecified mood [affective] disorder; F17.210 Nicotine dependence, cigarettes, uncomplicated; Z79.84 Long term (current) use of oral hypoglycemic drugs; Z79.899 Other long term (current) drug therapy; Z79.52 Long term (current) use of systemic steroids; Z88.2 Allergy status to sulfonamides; Z88.8 Allergy status to other drugs, medicaments and biological substances; Z91.041 Radiographic dye allergy status
CPT/HCPCS: 29881; 29879; J2250; J1100; J2710; J0690; J2405; J2001; J3010; J1885; J2370; J2704; J1170

== ENCOUNTER → 2020-02-24 | Outpatient (CLI) | payer BC | END | disposition home or self-care (01) | LOC: LABWHC1 11:57 | PROVIDERS: ATTEND Internal Medicine Gastroenterology | DX: Z11.59 Encounter for screening for other viral diseases (principal) ==

== ENCOUNTER 2020-02-26 07:23 | Day surgery (SDC) | payer BC ==
[2020-02-24 15:51] VITALS: BMI 49.8
[~2020-02-26 07:23] MED LIST changes: -DEXAMETHASONE SOD PHOSPHATE 10 MG/ML 1 ML VIAL IV ONE; -HYDROmorphone 0.5 MG/0.5 ML SYRINGE IVP PRN; -LIDOCAINE 1% (10MG/ML) FOR IV START INTRADERMA PRN; -MIDAZOLAM 2 MG/2 ML VIAL IV PRN; -ONDANSETRON 4 MG/2 ML VIAL IVP ONE; -ceFAZolin 3 GM in SODIUM CHLORIDE 0.9% 100 ML IVPB ONE; -fentaNYL (PF) 50 MCG/ML 2 ML AMP IV PRN
[2020-02-26 07:47] VITALS: TEMP 98
[2020-02-26 07:54] LABS: Glucose,Whole Blood 165 mg/dL (75-99)
[2020-02-26] MEDS ORDERED: PROPOFOL 10 MG/ML 20 ML VIAL IV ONE (08:02)
[2020-02-26] MEDS ORDERED: LIDOCAINE 1% INJ 10MG/ML (20 ML MDV) ONE (08:02)
--- NOTE | 2020-02-26 08:17 | P.PCN ---
Date of Procedure: 02/26/20 Procedure(s) Performed: BRIEF HISTORY: Patient is a 40-year-old, pleasant, female with history of GERD, is scheduled for an upper endoscopy as a part of evaluation of abdominal pain and nausea vomiting for the last several weeks duration. He has 7-8 episodes of nausea vomiting daily. Has been on omeprazole 20 mg daily with no help. PROCEDURE PERFORMED: Esophagogastroduodenoscopy with biopsy. PREOPERATIVE DIAGNOSIS: GERD/epigastric pain/nausea vomiting for the last few weeks duration. IV sedation per anesthesia. PROCEDURE: After informed consent was obtained, the patient was brought into the endoscopy unit. IV sedation was administered by Anesthesia under continuous monitoring. Initially the Olympus GIF-140 video endoscope was inserted into the mouth. Esophagus intubated without any difficulty. It was gradually advanced into the stomach and duodenum and carefully examined. The bulb and the second part of the duodenum appeared normal. Abscesses were done from the duodenum to rule out celiac disease. The scope at this time was withdrawn to the stomach, adequately insufflated with air, and upon careful examination, mucosa of the antrum had mild gastritis and biopsies were done from this area. The body, cardia and the fundus appeared normal. The scope was then withdrawn into the e sophagus. The GE junction was located at 39 cm from the incisors. The esophagus appeared normal. There were no erosions or ulcerations seen and the patient tolerated the procedure well. IMPRESSION: 1. Mild antral gastritis. 2. No evidence of esophagitis or gastric outlet obstruction. RECOMMENDATIONS: The findings of this examination were discussed with the patient as well as a family. She was advised to increase omeprazole 20 mg twice daily to be taken half hour before breakfast and dinner and follow antireflux measures. She'll be seen back in office in 2 weeks
[2020-02-26] MEDS ORDERED: ONDANSETRON 4 MG/2 ML VIAL IVP ONE (08:26)
[2020-02-26 08:29] VITALS: RESP 18
[2020-02-26 08:42] VITALS: BP 143/83; PULSE 84
== END 2020-02-26 09:00 | disposition home or self-care (01) ==
LOC: ORWHC2ENDO 07:23
PROVIDERS: ATTEND Internal Medicine Gastroenterology
DX: K21.0 Gastro-esophageal reflux disease with esophagitis (principal); K29.50 Unspecified chronic gastritis without bleeding; E11.9 Type 2 diabetes mellitus without complications; I10 Essential (primary) hypertension; E78.5 Hyperlipidemia, unspecified; J45.909 Unspecified asthma, uncomplicated; G47.33 Obstructive sleep apnea (adult) (pediatric); F17.200 Nicotine dependence, unspecified, uncomplicated; Q61.3 Polycystic kidney, unspecified; F41.9 Anxiety disorder, unspecified; F32.9 Major depressive disorder, single episode, unspecified; E66.9 Obesity, unspecified; Z68.42 Body mass index [BMI] 45.0-49.9, adult; Z88.2 Allergy status to sulfonamides; Z91.048 Other nonmedicinal substance allergy status; Z88.8 Allergy status to other drugs, medicaments and biological substances; Z79.51 Long term (current) use of inhaled steroids; Z79.84 Long term (current) use of oral hypoglycemic drugs; Z79.899 Other long term (current) drug therapy; Z99.89 Dependence on other enabling machines and devices; Z86.73 Personal history of transient ischemic attack (TIA), and cerebral infarction without residual deficits; Z90.710 Acquired absence of both cervix and uterus
CPT/HCPCS: 88305; 43239; J2405; J2001; J2704

== ENCOUNTER → 2020-03-04 | Outpatient (CLI) | payer BC ==
[2020-03-05 00:04] LABS: Protein, Total 6.1 g/dL (6.2-8.2)
[2020-03-05 00:19] LABS: Creatine Kinase 69 U/L (26-186); Rheumatoid Factor, Qnt 6 IU/mL (0-15)
[2020-03-05 03:37] LABS: Hemoglobin A1C 8.3 % (4.0-6.0)
[2020-03-08 10:21] LABS: Albumin 3.43 g/dL (3.80-4.90); Gamma Globulin 0.82 g/dL (0.70-1.50)
== END | disposition home or self-care (01) ==
LOC: LABWHC1 13:46
PROVIDERS: ATTEND Psychiatry & Neurology Neurology
DX: M79.10 Myalgia, unspecified site (principal); M25.50 Pain in unspecified joint; G90.09 Other idiopathic peripheral autonomic neuropathy
CPT/HCPCS: 36415; 82175; 82550; 82570; 82607; 82746; 83036; 83655; 83825; 84165; 84439; 84443; 85652; 86038; 86235; 86431; 86618

== ENCOUNTER → 2020-03-10 | Outpatient (CLI) | payer BC ==
[2020-03-13 09:38] LABS: Arsenic Whole Blood <3 mcg/L (< 23); Mercury Whole Blood <2 mcg/L (< 11)
== END | disposition home or self-care (01) ==
LOC: LABWHC1 14:23
PROVIDERS: ATTEND Psychiatry & Neurology Neurology
DX: E11.42 Type 2 diabetes mellitus with diabetic polyneuropathy (principal); M25.50 Pain in unspecified joint; M79.10 Myalgia, unspecified site
CPT/HCPCS: 36415; 82175; 82570; 83655; 83825

== ENCOUNTER → 2020-03-28 | Outpatient (CLI) | payer BC | END | disposition home or self-care (01) | LOC: RADMRIMAIN 07:23 | PROVIDERS: ATTEND Psychiatry & Neurology Neurology | DX: Z53.9 Procedure and treatment not carried out, unspecified reason (principal) ==

== ENCOUNTER → 2020-04-01 | Outpatient (CLI) | payer BC ==
[2020-04-01 13:36] LABS: Appearance,Urine Cloudy (Clear); Bacteria,Urine Rare /hpf; Bilirubin,Urine Negative (Negative); Blood,Urine Negative (Negative); Color,Urine Yellow; Glucose,Urine (UA) Negative (Negative); Ketones,Urine Negative (Negative); Leukocyte Esterase,Urine Negative (Negative); Mucus,Urine Rare /hpf; Nitrite,Urine Negative (Negative); Protein,Urine 1+ (Negative); RBC,Urine 1 /hpf (0-5); Specific Gravity,Urine 1.013 (1.001-1.035); Squamous Epithelial Cell,Urine 5 /hpf (0-4); Urobilinogen,Urine <2.0 mg/dL (<2.0); WBC,Urine 1 /hpf (0-5)
[2020-04-01 19:25] LABS: African American GFR (CKD) 72.7 (60.0-200.0); Albumin 4.5 g/dL (3.80-4.90); Albumin/Globulin Ratio 1.88 (1.60-3.17); Anion Gap 7.9 mmol/L (4.00-12.00); BUN/Creat Ratio 31.82 Ratio (12.00-20.00); Calcium 9.8 mg/dL (8.7-10.3); Carbon Dioxide 24.1 mmol/L (21.6-31.8); Globulin 2.4 g/dL (1.6-3.3); Non-African American GFR(CKD) 62.8 (60.0-200.0); Potassium 4.9 mmol/L (3.5-5.5); Total Bilirubin 0.3 mg/dL (0.2-1.2); Total Protein 6.9 g/dL (6.2-8.2)
== END | disposition home or self-care (01) ==
LOC: LABWHC1 12:07
PROVIDERS: ATTEND Internal Medicine Nephrology
DX: Q61.3 Polycystic kidney, unspecified (principal)
CPT/HCPCS: 36415; 80053; 81001

== ENCOUNTER → 2020-04-11 | Outpatient (CLI) | payer BC ==
--- NOTE | 2020-04-11 12:54 | US ---
EXAMINATION TYPE: US kidneys/renal and bladder DATE OF EXAM: 04/11/2020 COMPARISON: NONE CLINICAL HISTORY: Q61.3 Polycystic kidney disease, unspecified. PKD EXAM MEASUREMENTS: Right Kidney: 13.3 x 7.2 x 5.7 cm Left Kidney: 13.3 x 7.2 x 6.1 cm Right Kidney: Polycystic Left Kidney: Polycystic Bladder: wnl Bilateral Jets seen: Yes Cortical echogenicity is increased, there is loss of cortical medullary differentiation. No hydroneph rosis or pathologic calcification. IMPRESSION: Correlate for autosomal dominant polycystic kidney disease
== END | disposition home or self-care (01) ==
LOC: RADUSWWP 10:11
PROVIDERS: ATTEND Internal Medicine Nephrology
DX: Q61.3 Polycystic kidney, unspecified (principal)
CPT/HCPCS: 76770

== ENCOUNTER 2020-07-05 05:33 | Emergency (ER) | payer BC ==
[2020-07-05] MEDS ORDERED: KETOROLAC 15 MG/ML 1 ML VIAL IVP STA (06:07)
[2020-07-05] MEDS ORDERED: SODIUM CHLORIDE 0.9% 1,000 ML IV ONE (06:07)
[2020-07-05 06:08] LABS: Basophils # (A) 0.1 k/uL (0-0.2); Basophils % (A) 1 %; Eosinophils # (A) 0.5 k/uL (0-0.7); Eosinophils % (A) 3 %; HCT 40.4 % (34.0-46.0); HGB 13.3 gm/dL (11.4-16.0); Lymphocytes # (A) 2.7 k/uL (1.0-4.8); Lymphocytes % (A) 17 %; MCHC 32.8 g/dL (31.0-37.0); MCV 91.4 fL (80.0-100.0); Mean Platelet Volume 7.3; Monocytes # (A) 0.5 k/uL (0-1.0); Monocytes % (A) 3 %; Neutrophils # (A) 11.6 k/uL (1.3-7.7); Neutrophils % (A) 75 %; Platelet Count 223 k/uL (150-450); RBC 4.42 m/uL (3.80-5.40); RDW 13.9 % (11.5-15.5); WBC 15.4 k/uL (3.8-10.6)
[2020-07-05 06:11] LABS: Appearance,Urine Clear (Clear); Bacteria,Urine Rare /hpf; Bilirubin,Urine Negative (Negative); Blood,Urine Negative (Negative); Color,Urine Light Yellow; Glucose,Urine (UA) Negative (Negative); Ketones,Urine Negative (Negative); Leukocyte Esterase,Urine Moderate (Negative); Mucus,Urine Rare /hpf; Nitrite,Urine Negative (Negative); Protein,Urine Trace (Negative); RBC,Urine 1 /hpf (0-5); Specific Gravity,Urine 1.014 (1.001-1.035); Squamous Epithelial Cell,Urine 1 /hpf (0-4); Urobilinogen,Urine <2.0 mg/dL (<2.0); WBC,Urine 1 /hpf (0-5)
[2020-07-05 06:22] LABS: Albumin 4.1 g/dL (3.5-5.0); Calcium 9.9 mg/dL (8.4-10.2); Total Bilirubin 0.4 mg/dL (0.2-1.3); Total Protein 7.3 g/dL (6.3-8.2)
--- NOTE | 2020-07-05 06:26 | ED ---
General Adult HPI - General Chief complaint: Abdominal Pain Stated complaint: ABD PAIN Time Seen by Provider: 07/05/20 06:08 Source: patient, RN notes reviewed Mode of arrival: ambulatory Limitations: no limitations - History of Present Illness Initial comments: 40-year-old female with a past medical history of diabetes mellitus, hyperlipidemia, hypertension, polycystic kidney disease, hysterectomy presents to the emergency room for a chief complaint of abdominal pain. States that when she got off work she went to get in her car and started to have some abdominal pain. This happened around 1245. Patient states that pain is in the lower abdomen. She reports it as a sharp pain. Reports that the pain is constant in nature. Patient reports that standing up straight worsens this pain. She denies any nausea or vomiting. Denies diarrhea. Denies fevers or chills.Patient has no other complaints at this time including shortness of breath, chest pain, abdominal pain, nausea or vomiting, headache, or visual changes. - Related Data Home Medications Medication Instructions Recorded Confirmed ALPRAZolam [Xanax] 0.5 mg PO BID PRN 04/26/14 06/27/20 Fenofibrate Nanocrystallized 145 mg PO HS 09/29/15 06/27/20 [Tricor] Cetirizine HCl [Zyrtec] 10 mg PO HS 05/26/17 06/27/20 FLUoxetine HCL [PROzac] 40 mg PO HS 05/26/17 06/27/20 Pramipexole [Mirapex] 1 mg PO HS 05/26/17 06/27/20 Albuterol Inhaler (Mhu) [Ventolin 1 - 2 puff INHALATION RT-Q6H PRN 11/27/19 06/27/20 Hfa Inhaler] amLODIPine BESYLATE/BENAZEPRIL 1 cap PO HS 11/27/19 06/27/20 [Lotrel 5-20 MG] Beclomethasone Dipropionate [Qvar 2 puff INHALATION BID 02/24/20 06/27/20 40 mcg Redihaler] FLUoxetine HCL [PROzac] 1 tab PO DAILY 06/20/20 06/27/20 metFORMIN HCL 1 tab PO BID 06/20/20 06/27/20 Allergies Allergy/AdvReac Type Severity Reaction Status Date / Time Sulfa (Sulfonamide Allergy Severe Unknown Verified 07/05/20 05:43 Antibiotics) Childhood Iodinated Contrast Media Allergy Unknown Anaphylaxis Verified 07/05/20 05:43 [Iodinated Contrast Media - IV Dye] lactose Allergy Unknown Verified 07/05/20 05:43 bupropion HCl AdvReac Severe Seizure Verified 07/05/20 05:43 [From Wellbutrin] Review of Systems ROS Statement: Those systems with pertinent positive or pertinent negative responses have been documented in the HPI. ROS Other: All systems not noted in ROS Statement are negative. Past Medical History Past Medical History: CVA/TIA, Diabetes Mellitus, Hyperlipidemia, Hypertension, Osteoarthritis (OA) Additional Past Medical History / Comment(s): polycystic kidney disease, migraines, TIA 2012, varicose veins, hx anemia, History of Any Multi-Drug Resistant Organisms: None Reported Past Surgical History: Hysterectomy, Orthopedic Surgery Additional Past Surgical History / Comment(s): bilateral Carpal tunnel sx, D&C, LUMP REMOVED from throat Past Anesthesia/Blood Transfusion Reactions: Previous Problems w/ Anesthesia Additional Past Anesthesia/Blood Transfusion Reaction / Comment(s): "body pain"- severe AFTER D & C Past Psychological History: Anxiety, Depression, PTSD Smoking Status: Current every day smoker Past Alcohol Use History: None Reported Past Drug Use History: None Reported - Past Family History Mother Family Medical History: Cancer Additional Family Medical History / Comment(s): BREAST,THYROID CANCER General Exam Limitations: no limitations General appearance: alert, in no apparent distress Head exam: Present: atraumatic, normocephalic, normal inspection Eye exam: Present: normal appearance, PERRL, EOMI. Absent: scleral icterus, conjunctival injection, periorbital swelling ENT exam: Present: normal exam, mucous membranes moist Neck exam: Present: normal inspection, full ROM. Absent: tenderness, meningismus, lymphadenopathy Respiratory exam: Present: normal lung sounds bilaterally. Absent: respiratory distress, wheezes, rales, rhonchi, stridor Cardiovascular Exam: Present: regular rate, normal rhythm, normal heart sounds. Absent: systolic murmur, diastolic murmur, rubs, gallop, clicks GI/Abdominal exam: Present: soft, tenderness (Tenderness noted throughout the lower abdomen.), normal bowel sounds. Absent: distended, guarding, rebound, rigid Neurological exam: Present: alert Course Vital Signs 07/05/20 07/05/20 07/05/20 05:37 06:43 07:19 Temperature 98 F Pulse Rate 102 H 95 Respiratory 18 16 Rate Blood Pressure 85/32 114/61 107/54 O2 Sat by Pulse 97 96 Oximetry 07/05/20 08:13 Temperature 97.3 F L Pulse Rate 78 Respiratory 18 Rate Blood Pressure 121/51 O2 Sat by Pulse 98 Oximetry Medical Decision Making - Medical Decision Making Patient initially presents hypotensive with a blood pressure 80/32. However on rechecks blood pressures have been normal. Patient does have lower abdominal tenderness without guarding or rebound. CBC does show leukocytosis which is likely reactive in nature. CMP unremarkable. Urinalysis unremarkable. CT abdomen and pelvis was performed without contrast given patient's anaphylactic ALLERGY. This showed likely a hemorrhagic cyst. No evidence of diverticulitis or appendicitis. There are bilateral cysts consistent with polycystic kidney disease. Patient was reevaluated after Toradol and had complete resolution of pain. At this time patient discharged home to follow up with primary care. However I did recommend she return here if symptoms worsen or she develops fevers and she is agreeable to this. - Lab Data Result diagrams: 07/05/20 05:55 07/05/20 05:55 Lab Results 07/05/20 07/05/20 07/05/20 Range/Units 05:55 05:55 05:55 WBC 15.4 H (3.8-10.6) k/uL RBC 4.42 (3.80-5.40) m/uL Hgb 13.3 (11.4-16.0) gm/dL Hct 40.4 (34.0-46.0) % MCV 91.4 (80.0-100.0) fL MCH 30.0 (25.0-35.0) pg MCHC 32.8 (31.0-37.0) g/dL RDW 13.9 (11.5-15.5) % Plt Count 223 (150-450) k/uL Neutrophils % 75 % Lymphocytes % 17 % Monocytes % 3 % Eosinophils % 3 % Basophils % 1 % Neutrophils # 11.6 H (1.3-7.7) k/uL Lymphocytes # 2.7 (1.0-4.8) k/uL Monocytes # 0.5 (0-1.0) k/uL Eosinophils # 0.5 (0-0.7) k/uL Basophils # 0.1 (0-0.2) k/uL Sodium 138 (137-145) mmol/L Potassium 5.0 (3.5-5.1) mmol/L Chloride 109 H (98-107) mmol/L Carbon Dioxide 21 L (22-30) mmol/L Anion Gap 8 mmol/L BUN 34 H (7-17) mg/dL Creatinine 1.06 H (0.52-1.04) mg/dL Est GFR (CKD-EPI)AfAm 76 (>60 ml/min/1.73 sqM) Est GFR (CKD-EPI)NonAf 66 (>60 ml/min/1.73 sqM) Glucose 123 H (74-99) mg/dL Calcium 9.9 (8.4-10.2) mg/dL Total Bilirubin 0.4 (0.2-1.3) mg/dL AST 24 (14-36) U/L ALT 19 (4-34) U/L Alkaline Phosphatase 46 (38-126) U/L Total Protein 7.3 (6.3-8.2) g/dL Albumin 4.1 (3.5-5.0) g/dL Lipase (23-300) U/L Urine Color Light Yellow Urine Appearance Clear (Clear) Urine pH 5.0 (5.0-8.0) Ur Specific [place] 1.014 (1.001-1.035) Urine Protein Trace H (Negative) Urine Glucose (UA) Negative (Negative) Urine Ketones Negative (Negative) Urine Blood Negative (Negative) Urine Nitrite Negative (Negative) Urine Bilirubin Negative (Negative) Urine Urobilinogen <2.0 (<2.0) mg/dL Ur Leukocyte Esterase Moderate H (Negative) Urine RBC 1 (0-5) /hpf Urine WBC 1 (0-5) /hpf Ur Squamous Epith Cells 1 (0-4) /hpf Urine Bacteria Rare H (None) /hpf Urine Mucus Rare H (None) /hpf 07/05/20 Range/Units 05:55 WBC (3.8-10.6) k/uL RBC (3.80-5.40) m/uL Hgb (11.4-16.0) gm/dL Hct (34.0-46.0) % MCV (80.0-100.0) fL MCH (25.0-35.0) pg MCHC (31.0-37.0) g/dL RDW (11.5-15.5) % Plt Count (150-450) k/uL Neutrophils % % Lymphocytes % % Monocytes % % Eosinophils % % Basophils % % Neutrophils # (1.3-7.7) k/uL Lymphocytes # (1.0-4.8) k/uL Monocytes # (0-1.0) k/uL Eosinophils # (0-0.7) k/uL Basophils # (0-0.2) k/uL Sodium (137-145) mmol/L Potassium (3.5-5.1) mmol/L Chloride (98-107) mmol/L Carbon Dioxide (22-30) mmol/L Anion Gap mmol/L BUN (7-17) mg/dL Creatinine (0.52-1.04) mg/dL Est GFR (CKD-EPI)AfAm (>60 ml/min/1.73 sqM) Est GFR (CKD-EPI)NonAf (>60 ml/min/1.73 sqM) Glucose (74-99) mg/dL Calcium (8.4-10.2) mg/dL Total Bilirubin (0.2-1.3) mg/dL AST (14-36) U/L ALT (4-34) U/L Alkaline Phosphatase (38-126) U/L Total Protein (6.3-8.2) g/dL Albumin (3.5-5.0) g/dL Lipase 307 H (23-300) U/L Urine Color Urine Appearance (Clear) Urine pH (5.0-8.0) Ur Specific [place] (1.001-1.035) Urine Protein (Negative) Urine Glucose (UA) (Negative) Urine Ketones (Negative) Urine Blood (Negative) Urine Nitrite (Negative) Urine Bilirubin (Negative) Urine Urobilinogen (<2.0) mg/dL Ur Leukocyte Esterase (Negative) Urine RBC (0-5) /hpf Urine WBC (0-5) /hpf Ur Squamous Epith Cells (0-4) /hpf Urine Bacteria (None) /hpf Urine Mucus (None) /hpf Disposition Clinical Impression: Abdominal pain Disposition: HOME SELF-CARE Condition: Good Instructions (If sedation given, give patient instructions): Ovarian Cyst (ED) Additional Instructions: Please take tylenol for pain. Please follow up with primary care in 1-2 days. Return to the ER for any worsening symptoms. Is patient prescribed a controlled substance at d/c from ED?: No Referrals: Robinson Okeefe MD [Primary Care Provider] - 1-2 days Time of Disposition: 07:58
--- NOTE | 2020-07-05 07:33 | CT ---
EXAM: CT Abdomen and Pelvis Without Intravenous Contrast CLINICAL HISTORY: ITS.REASON CT Reason: pain TECHNIQUE: Axial computed tomography images of the abdomen and pelvis without intravenous contrast. CTDI is 30.227 mGy and DLP is 1841.2 mGy-cm. This CT exam was performed using one or more of the following dose reduction techniques: automated exposure control, adjustment of the mA and/or kV according to patient size, and/or use of iterative reconstruction technique. COMPARISON: CT abdomen and pelvis June 13, 2017 FINDINGS: Lung bases: Atelectasis at the lung bases. Mediastinum: Small hiatal hernia. ABDOMEN: Liver: Hepatic steatosis. Gallbladder and bile ducts: Unremarkable. No calcified stones. No ductal dilation. Pancreas: Unremarkable. No ductal dilation. Spleen: Unremarkable. No splenomegaly. Adrenals: Unremarkable. No mass. Kidneys and ureters: Innumerable bilateral renal cysts consistent with polycystic kidney disease. Many of the cysts demonstrate hyperdensity and may contain hemorrhagic or proteinaceous components. A few cysts demonstrate peripheral calcifications. No hydronephrosis. Stomach and bowel: Mild diverticulosis, without acute diverticulitis. No small bowel obstruction. PELVIS: Appendix: Normal appendix. Bladder: Decompressed urinary bladder. No stones. Reproductive: Status post hysterectomy. Soft tissue densities in the pelvis likely represent the patient's bilateral ovaries. 8 mm hyperdense focus in the presumed right ovary (series 202 image 77), which may represent a hemorrhagic cyst. Since there is lower abdominal pain (and no diverticulitis or appendicitis), correlate with pelvic ultrasound. ABDOMEN and PELVIS: Intraperitoneal space: No free intraperitoneal air. No significant fluid collection. Bones/joints: No acute fracture. No dislocation. Soft tissues: Unremarkable. Vasculature: Unremarkable. No abdominal aortic aneurysm. Lymph nodes: Unremarkable. No enlarged lymph nodes. IMPRESSION: 1. Status post hysterectomy. Soft tissue densities in the pelvis likely represent the patient's bilateral ovaries. Associated, 8 mm hyperdense focus in the presumed right ovary (series 202 image 77), which may represent a hemorrhagic cyst. Since there is lower abdominal pain (and no diverticulitis or appendicitis), correlate with pelvic ultrasound. 2. Innumerable bilateral renal cysts consistent with polycystic kidney disease. Many of the cysts demonstrate hyperdensity and may contain hemorrhagic or proteinaceous components. A few cysts demonstrate peripheral calcifications. No hydronephrosis. 3. Mild diverticulosis, without acute diverticulitis. No small bowel obstruction. Normal appendix. 4. Hepatic steatosis. Small hiatal hernia.
[2020-07-05 08:13] VITALS: BP 121/51; PULSE 78; RESP 18; TEMP 97.3
== END 2020-07-05 08:00 | disposition home or self-care (01) ==
LOC: EC 05:33
DX: N28.1 Cyst of kidney, acquired (principal); I95.9 Hypotension, unspecified; R10.819 Abdominal tenderness, unspecified site; D72.829 Elevated white blood cell count, unspecified; E11.9 Type 2 diabetes mellitus without complications; I10 Essential (primary) hypertension; E78.5 Hyperlipidemia, unspecified; F41.9 Anxiety disorder, unspecified; F32.9 Major depressive disorder, single episode, unspecified; F43.10 Post-traumatic stress disorder, unspecified; F17.200 Nicotine dependence, unspecified, uncomplicated; Z79.84 Long term (current) use of oral hypoglycemic drugs; Z91.041 Radiographic dye allergy status; Z91.011 Allergy to milk products; Z88.8 Allergy status to other drugs, medicaments and biological substances; Z86.73 Personal history of transient ischemic attack (TIA), and cerebral infarction without residual deficits; Z88.2 Allergy status to sulfonamides; Z90.710 Acquired absence of both cervix and uterus
CPT/HCPCS: 99284; 96374; 36415; 80053; 83690; 85025; 81001; 74176; J1885

== ENCOUNTER → 2020-07-29 | Outpatient (CLI) | payer BC ==
--- NOTE | 2020-08-01 11:12 | MM ---
Reason for exam: screening (asymptomatic). Last mammogram was performed 2 years and 4 months ago. History: Family history of breast cancer in mother, breast cancer in maternal aunt, and breast cancer in paternal aunt. Benign US biopsy breast VAD RT of the right breast, October 08, 2017. Took hormonal contraceptives for 1 year. Physical Findings: A clinical breast exam by your physician is recommended on an annual basis and results should be correlated with mammographic findings. MG 3D Screening Mammo W/Cad Bilateral CC and MLO view(s) were taken. Prior study comparison: March 27, 2018, right breast MG diagnostic mammo RT w CAD. October 08, 2017, right breast MG diagnostic mammo RT wo CAD. The breast tissue is heterogeneously dense. This may lower the sensitivity of mammography. There is no discrete abnormality. No significant changes when compared with prior studies. ASSESSMENT: Negative, BI-RAD 1 RECOMMENDATION: Routine screening mammogram of both breasts in 1 year.
== END | disposition home or self-care (01) ==
LOC: RADMAMWWP 07:32
PROVIDERS: ATTEND Internal Medicine
DX: Z12.31 Encounter for screening mammogram for malignant neoplasm of breast (principal); Z80.3 Family history of malignant neoplasm of breast
CPT/HCPCS: 77063; 77067

== ENCOUNTER → 2020-07-29 | Outpatient (CLI) | payer BC ==
--- NOTE | 2020-07-29 11:02 | MR ---
EXAMINATION TYPE: MR brain wo con DATE OF EXAM: 07/29/2020 COMPARISON: Prior MRI brain December 05, 2016 HISTORY: Headaches TECHNIQUE: Multiplanar, multisequence imaging of the brain and brainstem is performed without IV cont rast. FINDINGS: Some motion artifact degradation is present on current study. Diffusion weighted images demonstrate no evidence of a recent infarct or other diffusion abnormality. There is no extraaxial fluid collection or significant white matter signal abnormality. Few scattered tiny white matter changes spell 3 demonstrated, less than 5 tiny lesions noted. The ventricular sys tem and cisternal spaces are normal in size and appearance. The brain volume is age appropriate. Adrian e subcutaneous nodules in the posterior right scalp near axial image 5 reference are redemonstrated p resumed benign. Midline structures demonstrate normal morphology. The craniocervical junction appears within normal limits. Normal vascular flow voids are present. Small mucous retention cyst or polyp in the inferior left maxillary sinus with mild posterior mucosal thickening redemonstrated. Otherwise paranasal sinus es are clear and globes are intact. IMPRESSION: Minimal nonspecific white matter changes could be on the basis of altered vascular mechan ics related to product of migraine headaches. No significant change from prior study. Suboptimal stud y due to motion artifact degradation.
== END | disposition home or self-care (01) ==
LOC: RADMRIMAIN 07:51
PROVIDERS: ATTEND Internal Medicine
DX: R90.82 White matter disease, unspecified (principal)
CPT/HCPCS: 70551

== ENCOUNTER → 2020-10-24 | Outpatient (CLI) | payer BC ==
[2020-10-24 09:00] LABS: Appearance,Urine Clear (Clear); Bilirubin,Urine Negative (Negative); Blood,Urine Negative (Negative); Color,Urine Light Yellow; Glucose,Urine (UA) Negative (Negative); Ketones,Urine Negative (Negative); Leukocyte Esterase,Urine Negative (Negative); Nitrite,Urine Negative (Negative); Protein,Urine Trace (Negative); Specific Gravity,Urine 1.012 (1.001-1.035); Urobilinogen,Urine <2.0 mg/dL (<2.0)
[2020-10-24 15:32] LABS: HCT 43.8 % (37.2-46.3); MCH 30.1 pg (27.0-32.0); MCV 94.2 fL (80.0-97.0); Mean Platelet Volume 11.4 fL (9.5-12.2); Platelet Count 227 X 10*3/uL (140-440); RBC 4.65 X 10*6/uL (4.10-5.20); RDW 12.8 % (11.5-14.5); WBC 13.57 X 10*3/uL (4.50-10.00)
[2020-10-24 16:13] LABS: Ferritin 228.8 ng/mL (10.0-291.0)
[2020-10-24 16:22] LABS: % Iron Saturation 18.71 (12.00-45.00); African American GFR (CKD) 92.7 (60.0-200.0); Albumin 4.4 g/dL (3.80-4.90); Albumin/Globulin Ratio 2.1 (1.60-3.17); BUN/Creat Ratio 24.44 Ratio (12.00-20.00); Calcium 9.3 mg/dL (8.7-10.3); Globulin 2.1 g/dL (1.6-3.3); Magnesium 1.7 mg/dL (1.5-2.4); Phosphorus 3.7 mg/dL (2.4-5.1); Potassium 4.6 mmol/L (3.5-5.5); Total Bilirubin 0.2 mg/dL (0.3-1.2); Total Protein 6.5 g/dL (6.2-8.2); Uric Acid 6.5 mg/dL (2.9-7.7)
[2020-10-25 02:42] LABS: Urine Creatinine 52.9 mg/dL
== END | disposition home or self-care (01) ==
LOC: LABWHC1 08:07
PROVIDERS: ATTEND Nurse Practitioner Family
DX: Q61.3 Polycystic kidney, unspecified (principal)
CPT/HCPCS: 36415; 80053; 81003; 82043; 82306; 82570; 82728; 83540; 83550; 83735; 83970; 84100; 84550; 85027

== ENCOUNTER 2021-07-08 01:41 | Emergency (ER) | payer BC, OTHER ==
[2021-07-08 01:49] VITALS: RESP 20; TEMP 97.8
--- NOTE | 2021-07-08 02:21 | ED ---
Chest Pain HPI - General Chief Complaint: Chest Pain Stated Complaint: Chest Pain Time Seen by Provider: 07/08/21 01:52 Source: patient Mode of arrival: ambulatory - History of Present Illness Complaint: chest pain -: hour(s) Onset: during rest Pain Location: substernal Pain Radiation: none Severity: moderate Quality: tightness Consistency: intermittent Improves With: nothing Worsens With: nothing Treatments Prior to Arrival: other (xanax) - Related Data Home Medications Medication Instructions Recorded Confirmed ALPRAZolam [Xanax] 0.5 mg PO BID PRN 04/26/14 06/27/20 Fenofibrate Nanocrystallized 145 mg PO HS 09/29/15 06/27/20 [Tricor] Cetirizine HCl [Zyrtec] 10 mg PO HS 05/26/17 06/27/20 FLUoxetine HCL [PROzac] 40 mg PO HS 05/26/17 06/27/20 Pramipexole [Mirapex] 1 mg PO HS 05/26/17 06/27/20 Albuterol Inhaler (Mhu) [Ventolin 1 - 2 puff INHALATION RT-Q6H PRN 11/27/19 1 Hfa Inhaler] amLODIPine BESYLATE/BENAZEPRIL 1 cap PO HS 11/27/19 06/27/20 [Lotrel 5-20 MG] Beclomethasone Dipropionate [Qvar 2 puff INHALATION BID 02/24/20 06/27/20 40 mcg Redihaler] FLUoxetine HCL [PROzac] 1 tab PO DAILY 06/20/20 06/27/20 metFORMIN HCL [Glucophage] 1 tab PO BID 06/20/20 06/27/20 Allergies Allergy/AdvReac Type Severity Reaction Status Date / Time Sulfa (Sulfonamide Allergy Severe Unknown Verified 07/05/20 05:43 Antibiotics) Childhood Iodinated Contrast Media Allergy Unknown Anaphylaxis Verified 07/05/20 05:43 [Iodinated Contrast Media - IV Dye] lactose Allergy Unknown Verified 07/05/20 05:43 bupropion HCl AdvReac Severe Seizure Verified 07/05/20 05:43 [From Wellbutrin] iron AdvReac Unknown Verified 07/08/21 01:50 Review of Systems ROS Statement: Those systems with pertinent positive or pertinent negative responses have been documented in the HPI. ROS Other: All systems not noted in ROS Statement are negative. Past Medical History Past Medical History: CVA/TIA, Diabetes Mellitus, Hyperlipidemia, Hypertension, Osteoarthritis (OA) Additional Past Medical History / Comment(s): polycystic kidney disease, migraines, TIA 2013, varicose veins, hx anemia, History of Any Multi-Drug Resistant Organisms: None Reported Past Surgical History: Hysterectomy, Orthopedic Surgery Additional Past Surgical History / Comment(s): bilateral Carpal tunnel sx, D&C, LUMP REMOVED from throat Past Anesthesia/Blood Transfusion Reactions: Previous Problems w/ Anesthesia Additional Past Anesthesia/Blood Transfusion Reaction / Comment(s): "body pain"- severe AFTER D & C Past Psychological History: Anxiety, Depression, PTSD Smoking Status: Current every day smoker, Vaper Past Alcohol Use History: Rare Past Drug Use History: Marijuana - Past Family History Mother Family Medical History: Cancer Additional Family Medical History / Comment(s): BREAST,THYROID CANCER Course Vital Signs 07/08/21 01:43 Temperature 97.8 F Pulse Rate 91 Respiratory 20 Rate Blood Pressure 128/71 O2 Sat by Pulse 98 Oximetry Disposition Clinical Impression: Atypical chest pain Disposition: HOME SELF-CARE Condition: Good Instructions (If sedation given, give patient instructions): Chest Pain (ED) Is patient prescribed a controlled substance at d/c from ED?: No Referrals: Robinson Okeefe MD [Primary Care Provider] - 1-2 days
[2021-07-08 02:58] LABS: Basophils # (A) 0.1 k/uL (0-0.2); Basophils % (A) 1 %; Eosinophils # (A) 0.4 k/uL (0-0.7); Eosinophils % (A) 3 %; HCT 42.9 % (34.0-46.0); HGB 14.1 gm/dL (11.4-16.0); Lymphocytes % (A) 23 %; MCH 30.1 pg (25.0-35.0); MCHC 32.7 g/dL (31.0-37.0); MCV 92.1 fL (80.0-100.0); Mean Platelet Volume 7.9; Monocytes # (A) 0.6 k/uL (0-1.0); Monocytes % (A) 4 %; Neutrophils # (A) 8.8 k/uL (1.3-7.7); Neutrophils % (A) 68 %; Platelet Count 218 k/uL (150-450); RBC 4.66 m/uL (3.80-5.40); RDW 13.2 % (11.5-15.5)
[2021-07-08 03:14] LABS: ALT 19 U/L (4-34); AST 23 U/L (14-36); African American GFR (CKD) >90 (>60 ml/min/1.73 sqM); Albumin 3.7 g/dL (3.5-5.0); Alkaline Phosphatase 47 U/L (38-126); Anion Gap 9 mmol/L; Blood Urea Nitrogen 24 mg/dL (7-17); Calcium 9.2 mg/dL (8.4-10.2); Carbon Dioxide 23 mmol/L (22-30); Chloride 104 mmol/L (98-107); Glucose 194 mg/dL (74-99); Magnesium 1.6 mg/dL (1.6-2.3); Non-African American GFR(CKD) 83 (>60 ml/min/1.73 sqM); Potassium 4.3 mmol/L (3.5-5.1); Sodium 136 mmol/L (137-145); Total Bilirubin 0.2 mg/dL (0.2-1.3); Total Protein 6.6 g/dL (6.3-8.2)
--- NOTE | 2021-07-08 03:21 | XR ---
EXAMINATION TYPE: XR chest 2V DATE OF EXAM: 07/08/2021 COMPARISON: 08/14/2019 HISTORY: Chest pain TECHNIQUE: FINDINGS: Heart and mediastinum are normal. Lungs are clear. Diaphragm is normal. Bony thorax appears normal. There are chest leads. IMPRESSION: Normal chest. No change.
[2021-07-08 04:31] VITALS: BP 110/84; PULSE 81
== END 2021-07-08 04:31 | disposition home or self-care (01) ==
LOC: EC 01:41
DX: R07.89 Other chest pain (principal); E11.9 Type 2 diabetes mellitus without complications; I10 Essential (primary) hypertension; E78.5 Hyperlipidemia, unspecified; M19.90 Unspecified osteoarthritis, unspecified site; F32.9 Major depressive disorder, single episode, unspecified; F41.9 Anxiety disorder, unspecified; F17.290 Nicotine dependence, other tobacco product, uncomplicated; F12.90 Cannabis use, unspecified, uncomplicated; Z79.84 Long term (current) use of oral hypoglycemic drugs; Z79.51 Long term (current) use of inhaled steroids; Z79.899 Other long term (current) drug therapy; Z88.2 Allergy status to sulfonamides
CPT/HCPCS: 36415; 71046; 80053; 83735; 84484; 85025; 93005; 99285

== ENCOUNTER → 2021-08-21 | Outpatient (CLI) | payer OTHER ==
--- NOTE | 2021-08-22 12:01 | MM ---
Reason for exam: screening (asymptomatic). Last mammogram was performed 1 year and 1 month ago. History: Family history of breast cancer in mother, breast cancer in maternal aunt, and breast cancer in paternal aunt. Benign US biopsy breast VAD RT of the right breast, October 08, 2017. Took hormonal contraceptives for 1 year. Physical Findings: A clinical breast exam by your physician is recommended on an annual basis and results should be correlated with mammographic findings. MG 3D Screening Mammo W/Cad Bilateral CC and MLO view(s) were taken. Prior study comparison: July 29, 2020, bilateral MG 3d screening mammo w/cad. March 27, 2018, right breast MG diagnostic mammo RT w CAD. There are scattered fibroglandular densities. There are benign appearing round calcifications bilaterally. Previous mammotome biopsy in the right breast. There is no discrete abnormality. ASSESSMENT: Benign, BI-RAD 2 RECOMMENDATION: Routine screening mammogram of both breasts in 1 year.
== END | disposition home or self-care (01) ==
LOC: RADMAMWWP 08:09
PROVIDERS: ATTEND Internal Medicine
DX: Z12.31 Encounter for screening mammogram for malignant neoplasm of breast (principal); Z80.3 Family history of malignant neoplasm of breast
CPT/HCPCS: 77063; 77067

== ENCOUNTER 2021-09-19 02:51 | Emergency (ER) | payer OTHER ==
[2021-09-19 03:06] VITALS: RESP 18; TEMP 99.3
[2021-09-19] MEDS ORDERED: cloNIDine HCL 0.2 MG TAB PO STA (03:32)
--- NOTE | 2021-09-19 03:33 | ED ---
General Adult HPI - General Chief complaint: Recheck/Abnormal Lab/Rx Stated complaint: High BP Time Seen by Provider: 09/19/21 03:14 Source: patient Mode of arrival: ambulatory Limitations: no limitations - History of Present Illness Initial comments: Patient is a 41-year-old woman with history of hypertension. She presents with complaint that she noticed that her blood pressure is been running high tonight. The patient notice that it was elevated when she routinely took her blood pressure tonight she also has been having a little bit of headache the past she has associated with hypertension. She was recently changed from the Lotrel 02/11 straight amlodipine 5 mg. Patient states she also has had a lot of stress. Her mother at July. Another family member is an ICU. When her blood pressure was elevated tonight she did take an extra. -: hour(s) Location: head Severity scale (1-10): 2 Quality: dull Consistency: constant Improves with: none Worsens with: none Associated Symptoms: denies other symptoms Treatments Prior to Arrival: none - Related Data Home Medications Medication Instructions Recorded Confirmed ALPRAZolam [Xanax] 0.5 mg PO BID PRN 04/26/14 06/27/20 Fenofibrate Nanocrystallized 145 mg PO HS 09/29/15 06/27/20 [Tricor] Cetirizine HCl [Zyrtec] 10 mg PO HS 05/26/17 06/27/20 FLUoxetine HCL [PROzac] 40 mg PO HS 05/26/17 06/27/20 Pramipexole [Mirapex] 1 mg PO HS 05/26/17 06/27/20 Albuterol Inhaler (Mhu) [Ventolin 1 - 2 puff INHALATION RT-Q6H PRN 11/27/19 06/27/20 Hfa Inhaler] amLODIPine BESYLATE/BENAZEPRIL 1 cap PO HS 11/27/19 06/27/20 [Lotrel 5-20 MG] Beclomethasone Dipropionate [Qvar 2 puff INHALATION BID 02/24/20 06/27/20 40 mcg Redihaler] FLUoxetine HCL [PROzac] 1 tab PO DAILY 06/20/20 06/27/20 metFORMIN HCL [Glucophage] 1 tab PO BID 06/20/20 06/27/20 Allergies Allergy/AdvReac Type Severity Reaction Status Date / Time Sulfa (Sulfonamide Allergy Severe Unknown Verified 09/19/21 03:06 Antibiotics) Childhood Iodinated Contrast Media Allergy Unknown Anaphylaxis Verified 09/19/21 03:06 [Iodinated Contrast Media - IV Dye] lactose Allergy Unknown Verified 09/19/21 03:06 bupropion HCl AdvReac Severe Seizure Verified 09/19/21 03:06 [From Wellbutrin] iron AdvReac Unknown Verified 09/19/21 03:06 Review of Systems ROS Statement: Those systems with pertinent positive or pertinent negative responses have been documented in the HPI. ROS Other: All systems not noted in ROS Statement are negative. Constitutional: Denies: fever, chills, weakness Eyes: Denies: eye pain, vision change Respiratory: Denies: cough, dyspnea Cardiovascular: Denies: chest pain, palpitations, orthopnea, edema Gastrointestinal: Denies: abdominal pain, nausea, vomiting Genitourinary: Denies: dysuria, hematuria Musculoskeletal: Denies: back pain Skin: Denies: rash Neurological: Reports: headache. Denies: weakness, numbness Past Medical History Past Medical History: CVA/TIA, Diabetes Mellitus, Hyperlipidemia, Hypertension, Osteoarthritis (OA) Additional Past Medical History / Comment(s): polycystic kidney disease, migraines, TIA 2013, varicose veins, hx anemia, History of Any Multi-Drug Resistant Organisms: None Reported Past Surgical History: Hysterectomy, Orthopedic Surgery Additional Past Surgical History / Comment(s): bilateral Carpal tunnel sx, D&C, LUMP REMOVED from throat Past Anesthesia/Blood Transfusion Reactions: Previous Problems w/ Anesthesia Additional Past Anesthesia/Blood Transfusion Reaction / Comment(s): "body pain"- severe AFTER D & C Past Psychological History: Anxiety, Depression, PTSD Smoking Status: Current every day smoker, Vaper Past Alcohol Use History: Rare Past Drug Use History: Marijuana - Past Family History Mother Family Medical History: Cancer Additional Family Medical History / Comment(s): BREAST,THYROID CANCER General Exam Limitations: no limitations General appearance: alert, in no apparent distress Head exam: Present: atraumatic, normocephalic Eye exam: Present: normal appearance, PERRL, EOMI. Absent: scleral icterus, conjunctival injection ENT exam: Present: normal oropharynx Neck exam: Present: normal inspection Respiratory exam: Present: normal lung sounds bilaterally. Absent: respiratory distress, wheezes, rales, rhonchi, stridor Cardiovascular Exam: Present: regular rate, normal rhythm, normal heart sounds. Absent: systolic murmur, diastolic murmur, rubs, gallop GI/Abdominal exam: Present: soft. Absent: distended, tenderness, guarding, rebound, rigid, mass Extremities exam: Present: normal inspection, normal capillary refill. Absent: pedal edema, calf tenderness Back exam: Present: normal inspection. Absent: CVA tenderness (R), CVA t enderness (L) Neurological exam: Present: alert, oriented X3, CN II-XII intact. Absent: motor sensory deficit Skin exam: Present: warm, dry, intact, normal color. Absent: rash Course Vital Signs 09/19/21 09/19/21 03:05 03:35 Temperature 99.3 F Pulse Rate 99 108 H Respiratory 18 18 Rate Blood Pressure 143/91 161/97 O2 Sat by Pulse 98 96 Oximetry Disposition Clinical Impression: Hypertension Disposition: HOME SELF-CARE Condition: Good Instructions (If sedation given, give patient instructions): Hypertension (ED) Is patient prescribed a controlled substance at d/c from ED?: No Referrals: Robinson Okeefe MD [Primary Care Provider] - 1-2 days
[2021-09-19 04:30] VITALS: BP 127/67; PULSE 96
== END 2021-09-19 04:33 | disposition home or self-care (01) ==
LOC: EC 02:51
DX: I10 Essential (primary) hypertension (principal); E11.9 Type 2 diabetes mellitus without complications; E78.5 Hyperlipidemia, unspecified; M19.90 Unspecified osteoarthritis, unspecified site; F32.A Depression, unspecified; F41.9 Anxiety disorder, unspecified; F17.200 Nicotine dependence, unspecified, uncomplicated; F12.90 Cannabis use, unspecified, uncomplicated; Z79.84 Long term (current) use of oral hypoglycemic drugs; Z79.51 Long term (current) use of inhaled steroids; Z79.899 Other long term (current) drug therapy
CPT/HCPCS: 99283

== ENCOUNTER → 2021-11-01 | Outpatient (CLI) | payer OTHER ==
[2021-11-01 17:01] LABS: ALT 36 U/L (8-44); AST 27 U/L (13-35); African American GFR (CKD) 78.2 (60.0-200.0); Albumin/Globulin Ratio 1.57 (1.60-3.17); Alkaline Phosphatase 61 U/L (41-126); BUN/Creat Ratio 15.53 Ratio (12.00-20.00); Calcium 9.5 mg/dL (8.7-10.3); Carbon Dioxide 26.9 mmol/L (20.0-27.5); Chloride 100 mmol/L (96-109); Globulin 2.6 g/dL (1.6-3.3); Glucose 160 mg/dL (70-110); Non-African American GFR(CKD) 67.5 (60.0-200.0); Sodium 140 mmol/L (135-145); Total Bilirubin <0.15 mg/dL (0.30-1.20); Total Protein 6.6 g/dL (6.2-8.2)
== END | disposition home or self-care (01) ==
LOC: LABWHC1 06:54
PROVIDERS: ATTEND Internal Medicine
DX: Q61.3 Polycystic kidney, unspecified (principal)
CPT/HCPCS: 36415; 80053

== ENCOUNTER → 2021-11-30 | Outpatient (CLI) | payer OTHER ==
[2021-11-30 11:41] LABS: ALT 37 U/L (4-34); AST 34 U/L (14-36); African American GFR (CKD) 84 (>60 ml/min/1.73 sqM); Albumin 3.9 g/dL (3.5-5.0); Albumin/Globulin Ratio 1.1; Alkaline Phosphatase 54 U/L (38-126); Anion Gap 9 mmol/L; Blood Urea Nitrogen 18 mg/dL (7-17); Calcium 9.3 mg/dL (8.4-10.2); Carbon Dioxide 24 mmol/L (22-30); Chloride 105 mmol/L (98-107); Globulin 3.6 g/dL; Glucose 125 mg/dL (74-99); Non-African American GFR(CKD) 73 (>60 ml/min/1.73 sqM); Potassium 4.3 mmol/L (3.5-5.1); Sodium 138 mmol/L (137-145); Total Bilirubin 0.5 mg/dL (0.2-1.3); Total Protein 7.5 g/dL (6.3-8.2)
== END | disposition home or self-care (01) ==
LOC: LABWHC1 10:13
PROVIDERS: ATTEND Internal Medicine
DX: Q61.3 Polycystic kidney, unspecified (principal)
CPT/HCPCS: 36415; 80053

== ENCOUNTER 2021-12-19 15:16 | Emergency (ER) | payer OTHER ==
[2021-12-19 15:38] VITALS: PULSE 92; RESP 18
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
[2021-12-19 17:12] LABS: Amphetamine Screen,Urine Not Detected (NotDetected); Barbiturate Screen,Urine Not Detected (NotDetected); Benzodiazepines Screen,Urine Detected (NotDetected); Cocaine Screen,Urine Not Detected (NotDetected); Methadone Screen, Urine Not Detected (NotDetected); Opiate Screen,Urine Not Detected (NotDetected); Oxycodone Screen, Urine Not Detected (NotDetected); Phencyclidine Screen,Urine Not Detected (NotDetected); Tricyclic Antidepressant,Urine Not Detected (NotDetected); Urn Cannabinoid Scrn Not Detected (NotDetected)
[2021-12-19 19:18] VITALS: BP 140/102; TEMP 97.3
== END 2021-12-19 19:53 | disposition home or self-care (01) ==
LOC: EC 15:16
DX: F41.9 Anxiety disorder, unspecified (principal); F43.9 Reaction to severe stress, unspecified; E11.9 Type 2 diabetes mellitus without complications; E78.5 Hyperlipidemia, unspecified; I10 Essential (primary) hypertension; M19.90 Unspecified osteoarthritis, unspecified site; F32.A Depression, unspecified; F43.10 Post-traumatic stress disorder, unspecified; F17.290 Nicotine dependence, other tobacco product, uncomplicated; F12.90 Cannabis use, unspecified, uncomplicated; Z79.84 Long term (current) use of oral hypoglycemic drugs; Z88.2 Allergy status to sulfonamides; Z88.1 Allergy status to other antibiotic agents; Z86.73 Personal history of transient ischemic attack (TIA), and cerebral infarction without residual deficits; Z90.49 Acquired absence of other specified parts of digestive tract
CPT/HCPCS: 80306; 82075; 99284

== ENCOUNTER 2022-01-08 23:18 | Emergency (ER) | payer OTHER ==
[2022-01-08 23:37] VITALS: RESP 20
[2022-01-09] MEDS ORDERED: ONDANSETRON 4 MG/2 ML VIAL IVP STA (02:39)
[2022-01-09] MEDS ORDERED: SODIUM CHLORIDE 0.9% 1,000 ML IV STA (02:39)
[2022-01-09] MEDS ORDERED: KETOROLAC 15 MG/ML 1 ML VIAL IVP STA (02:40)
--- NOTE | 2022-01-09 02:45 | ED ---
General Adult HPI - General Source: patient, RN notes reviewed, old records reviewed Mode of arrival: ambulatory Limitations: no limitations - History of Present Illness -: days(s) (1) Location: abdomen (Diffuse) Radiation: back (From shoulder blades to tailbone) Severity scale (1-10): 10 Quality: constant Consistency: constant Improves with: none Associated Symptoms: nausea/vomiting Treatments Prior to Arrival: none <Marc Art - Last Filed: 01/09/22 04:03> <Daniel Farrell - Last Filed: 01/09/22 04:58> - General Chief complaint: Nausea/Vomiting/Diarrhea Stated complaint: vomiting, abdominal pain Time Seen by Provider: 01/08/22 23:47 - History of Present Illness Initial comments: 41-year-old female, well-appearing alert and oriented 4 presents with complaints of sudden onset of nausea and vomiting at 8:30. She states that she has vomited 6 times looks like chunks of food, denies any blood. She states that she has been in the waiting room for a couple hours has not vomited here. She states she has diffuse abdominal pain radiates into her back from her shoul sunitha blades down to her tailbone. She states that she started to have a panic attack and started a chest pain which brought her to the emergency room. She denies any fevers. No diarrhea. No cough. She does have a history of stroke, diabetes, hypertension. She denies any abdominal surgeries. (Marc Art) - Related Data Home Medications Medication Instructions Recorded Confirmed ALPRAZolam [Xanax] 0.5 mg PO DAILY PRN 04/26/14 12/19/21 Fenofibrate Nanocrystallized 145 mg PO DAILY 09/29/15 12/19/21 [Tricor] Cetirizine HCl [Zyrtec] 10 mg PO DAILY 05/26/17 12/19/21 Beclomethasone Dipropionate [Qvar 2 puff INHALATION RT-BID 02/24/20 12/19/21 40 mcg Redihaler] metFORMIN HCL [Glucophage] 1,000 mg PO BID 06/20/20 12/19/21 Albuterol Sulfate [Ventolin HFA] 2 puff INHALATION RT-Q6H PRN 12/19/21 12/19/21 FLUoxetine HCL [Sarafem] 60 mg PO DAILY 12/19/21 12/19/21 Ferrous Sulfate [Slow Release Iron] 140 mg PO CHASE 12/19/21 12/19/21 Furosemide [Lasix] 20 mg PO DAILY 12/19/21 12/19/21 Oxybutynin Chloride [Ditropan XL] 5 mg PO DAILY 12/19/21 12/19/21 Pramipexole [Mirapex] 1 mg PO HS 12/19/21 12/19/21 Spironolactone [Aldactone] 12.5 mg PO DAILY 12/19/21 12/19/21 Tolvaptan [Jynarque] 15 mg PO BID 12/19/21 12/19/21 amLODIPine [Norvasc] 10 mg PO DAILY 12/19/21 12/19/21 Allergies Allergy/AdvReac Type Severity Reaction Status Date / Time Sulfa (Sulfonamide Allergy Severe Unknown Verified 01/08/22 23:37 Antibiotics) Childhood Iodinated Contrast Media Allergy Unknown Anaphylaxis Verified 01/08/22 23:37 [Iodinated Contrast Media - IV Dye] lactose Allergy Unknown Verified 01/08/22 23:37 bupropion HCl AdvReac Severe Seizure Verified 01/08/22 23:37 [From Wellbutrin] iron AdvReac NAUSEA, Verified 01/08/22 23:37 VOMITING. Review of Systems ROS Other: All systems not noted in ROS Statement are negative. <Marc Art - Last Filed: 01/09/22 04:03> ROS Other: All systems not noted in ROS Statement are negative. <Daniel Farrell - Last Filed: 01/09/22 04:58> ROS Statement: Those systems with pertinent positive or pertinent negative responses have been documented in the HPI. Past Medical History Past Medical History: CVA/TIA, Diabetes Mellitus, Hyperlipidemia, Hypertension, Osteoarthritis (OA) Additional Past Medical History / Comment(s): polycystic kidney disease, migraines, TIA 2012, varicose veins, hx anemia, History of Any Multi-Drug Resistant Organisms: None Reported Past Surgical History: Hysterectomy, Orthopedic Surgery Additional Past Surgical History / Comment(s): bilateral Carpal tunnel sx, D&C, LUMP REMOVED from throat Past Anesthesia/Blood Transfusion Reactions: Previous Problems w/ Anesthesia Additional Past Anesthesia/Blood Transfusion Reaction / Comment(s): "body pain"- severe AFTER D & C Past Psychological History: Anxiety, Depression, PTSD Smoking Status: Current every day smoker, Vaper Past Alcohol Use History: Rare Past Drug Use History: Marijuana - Past Family History Mother Family Medical History: Cancer Additional Family Medical History / Comment(s): BREAST,THYROID CANCER <Marc Art - Last Filed: 01/09/22 04:03> General Exam Limitations: no limitations General appearance: alert, in no apparent distress Eye exam: Absent: scleral icterus, conjunctival injection Respiratory exam: Absent: respiratory distress, accessory muscle use Cardiovascular Exam: Present: tachycardia, normal heart sounds GI/Abdominal exam: Present: distended, tenderness, hyperactive bowel sounds. Absent: guarding, rebound, rigid Extremities exam: Present: normal capillary refill. Absent: pedal edema Back exam: Present: full ROM, tenderness (Tenderness to light touch entire back, no bruising or erythema noted). Absent: rash noted Neurological exam: Present: alert, oriented X3 Psychiatric exam: Present: anxious Skin exam: Present: warm, dry, normal color. Absent: rash, cyanosis, diaphoretic, erythema, petechiae, pallor, mottled <Marc Art - Last Filed: 01/09/22 04:03> Course - Reevaluation(s) Time: 04:04 <Marc Art - Last Filed: 01/09/22 04:03> Vital Signs 01/08/22 23:35 Temperature 98.3 F Pulse Rate 118 H Respiratory 20 Rate Blood Pressure 121/76 O2 Sat by Pulse 96 Oximetry - Reevaluation(s) Reevaluation #1: 01/09/22 04:04 (Marc Art) EKG Findings - EKG Results: EKG: sinus rhythm (EKG shows sinus rhythm with a ventricular rate of 91, OR interval 0.143, QRS 0.84, QTC 0.397), normal axis, not changed from: (07/08/21) <Marc Art - Last Filed: 01/09/22 04:03> Medical Decision Making - Lab Data Result diagrams: 01/09/22 02:52 01/09/22 02:52 <Marc Art - Last Filed: 01/09/22 04:03> - Lab Data Result diagrams: 01/09/22 02:52 01/09/22 02:52 <Daniel Farrell - Last Filed: 01/09/22 04:58> - Medical Decision Making Patient presents with sudden onset of nausea and vomiting last night. She is also complaining of diffuse abdominal pain that radiates into her back pain from her shoulder blades to her tailbone. She denies any dysuria or hematemesis. No diarrhea. No fevers, cough or sick contacts. Patient does have a history of diabetes and diverticulosis. Influenza and coronavirus swabs are negative X-ray shows a nonacute abdomen with no evidence of obstruction or pneumoperiton eum. No calcifications of the kidneys. Due to patient's complaints of chest pain, which she contributed to anxiety, a Troponin was drawn and negative at 0.012, EKG shows sinus rhythm with no ST elevation or acute changes. Patient's sodium was 130, glucose 200 therefore she was given a liter of normal saline. Labs show leukocytosis and with patient's history of diverticulosis and diffuse abdominal pain, a CT was ordered to rule out diverticulitis. Case was signed out to Dr. Farrell who will follow-up on the CT. (Marc Art) - Lab Data Lab Results 01/09/22 01/09/22 01/09/22 Range/Units 02:52 02:52 02:52 WBC 17.6 H (3.8-10.6) k/uL RBC 4.60 (3.80-5.40) m/uL Hgb 14.2 (11.4-16.0) gm/dL Hct 42.6 (34.0-46.0) % MCV 92.6 (80.0-100.0) fL MCH 30.8 (25.0-35.0) pg MCHC 33.3 (31.0-37.0) g/dL RDW 14.4 (11.5-15.5) % Plt Count 194 (150-450) k/uL MPV 8.3 Neutrophils % 88 % Lymphocytes % 7 % Monocytes % 3 % Eosinophils % 2 % Basophils % 0 % Neutrophils # 15.4 H (1.3-7.7) k/uL Lymphocytes # 1.1 (1.0-4.8) k/uL Monocytes # 0.6 (0-1.0) k/uL Eosinophils # 0.3 (0-0.7) k/uL Basophils # 0.0 (0-0.2) k/uL Sodium 130 L (137-145) mmol/L Potassium 5.3 H (3.5-5.1) mmol/L Chloride 103 (98-107) mmol/L Carbon Dioxide 22 (22-30) mmol/L Anion Gap 5 mmol/L BUN 25 H (7-17) mg/dL Creatinine 1.00 (0.52-1.04) mg/dL Est GFR (CKD-EPI)AfAm 81 (>60 ml/min/1.73 sqM) Est GFR (CKD-EPI)NonAf 71 (>60 ml/min/1.73 sqM) Glucose 200 H (74-99) mg/dL Plasma Lactic Acid [place] (0.7-2.0) mmol/L Calcium 7.9 L (8.4-10.2) mg/dL Total Bilirubin 0.9 (0.2-1.3) mg/dL AST 54 H (14-36) U/L ALT 25 (4-34) U/L Alkaline Phosphatase 28 L (38-126) U/L Troponin I (0.000-0.034) ng/mL Total Protein 6.6 (6.3-8.2) g/dL Albumin 3.3 L (3.5-5.0) g/dL Amylase 54 (30-110) U/L Lipase 288 (23-300) U/L Urine Color Yellow Urine Appearance Clear (Clear) Urine pH 6.0 (5.0-8.0) Ur Specific [place] 1.015 (1.001-1.035) Urine Protein 3+ H (Negative) Urine Glucose (UA) 1+ H (Negative) Urine Ketones Negative (Negative) Urine Blood Trace H (Negative) Urine Nitrite Negative (Negative) Urine Bilirubin Negative (Negative) Urine Urobilinogen <2.0 (<2.0) mg/dL Ur Leukocyte Esterase Negative (Negative) Urine RBC 1 (0-5) /hpf Urine WBC 3 (0-5) /hpf Ur Squamous Epith Cells 2 (0-4) /hpf Urine Bacteria Occasional H (None) /hpf Urine Mucus Rare H (None) /hpf Influenza Type A (PCR) (Not Detectd) Influenza Type B (PCR) (Not Detectd) RSV (PCR) (Not Detectd) SARS-CoV-2 (PCR) (Not Detectd) 01/09/22 01/09/22 01/09/22 Range/Units 02:52 02:52 03:20 WBC (3.8-10.6) k/uL RBC (3.80-5.40) m/uL Hgb (11.4-16.0) gm/dL Hct (34.0-46.0) % MCV (80.0-100.0) fL MCH (25.0-35.0) pg MCHC (31.0-37.0) g/dL RDW (11.5-15.5) % Plt Count (150-450) k/uL MPV Neutrophils % % Lymphocytes % % Monocytes % % Eosinophils % % Basophils % % Neutrophils # (1.3-7.7) k/uL Lymphocytes # (1.0-4.8) k/uL Monocytes # (0-1.0) k/uL Eosinophils # (0-0.7) k/uL Basophils # (0-0.2) k/uL Sodium (137-145) mmol/L Potassium (3.5-5.1) mmol/L Chloride (98-107) mmol/L Carbon Dioxide (22-30) mmol/L Anion Gap mmol/L BUN (7-17) mg/dL Creatinine (0.52-1.04) mg/dL Est GFR (CKD-EPI)AfAm (>60 ml/min/1.73 sqM) Est GFR (CKD-EPI)NonAf (>60 ml/min/1.73 sqM) Glucose (74-99) mg/dL Plasma Lactic Acid [place] 1.1 (0.7-2.0) mmol/L Calcium (8.4-10.2) mg/dL Total Bilirubin (0.2-1.3) mg/dL AST (14-36) U/L ALT (4-34) U/L Alkaline Phosphatase (38-126) U/L Troponin I <0.012 (0.000-0.034) ng/mL Total Protein (6.3-8.2) g/dL Albumin (3.5-5.0) g/dL Amylase (30-110) U/L Lipase (23-300) U/L Urine Color Urine Appearance (Clear) Urine pH (5.0-8.0) Ur Specific [place] (1.001-1.035) Urine Protein (Negative) Urine Glucose (UA) (Negative) Urine Ketones (Negative) Urine Blood (Negative) Urine Nitrite (Negative) Urine Bilirubin (Negative) Urine Urobilinogen (<2.0) mg/dL Ur Leukocyte Esterase (Negative) Urine RBC (0-5) /hpf Urine WBC (0-5) /hpf Ur Squamous Epith Cells (0-4) /hpf Urine Bacteria (None) /hpf Urine Mucus (None) /hpf Influenza Type A (PCR) Not Detected (Not Detectd) Influenza Type B (PCR) Not Detected (Not Detectd) RSV (PCR) Not Detected (Not Detectd) SARS-CoV-2 (PCR) Not Detected (Not Detectd) Disposition <Marc Art - Last Filed: 01/09/22 04:03> Is patient prescribed a controlled substance at d/c from ED?: No <Daniel Farrell - Last Filed: 01/09/22 04:58> Clinical Impression: Abdominal pain Disposition: HOME SELF-CARE Condition: Good Instructions (If sedation given, give patient instructions): Abdominal Pain (ED) Additional Instructions: As we discussed, if you have other episodes of pain similar to this follow with the surgeon to see about having a HIDA scan. Referrals: Robinson Okeefe MD [Primary Care Provider] - 1-2 days Ernie Jo MD [STAFF PHYSICIAN] - 1-2 days
[2022-01-09 03:11] LABS: Basophils % (A) 0 %; Eosinophils # (A) 0.3 k/uL (0-0.7); Eosinophils % (A) 2 %; HCT 42.6 % (34.0-46.0); HGB 14.2 gm/dL (11.4-16.0); Lymphocytes # (A) 1.1 k/uL (1.0-4.8); Lymphocytes % (A) 7 %; MCH 30.8 pg (25.0-35.0); MCHC 33.3 g/dL (31.0-37.0); MCV 92.6 fL (80.0-100.0); Mean Platelet Volume 8.3; Monocytes # (A) 0.6 k/uL (0-1.0); Monocytes % (A) 3 %; Neutrophils # (A) 15.4 k/uL (1.3-7.7); Neutrophils % (A) 88 %; Platelet Count 194 k/uL (150-450); RDW 14.4 % (11.5-15.5); WBC 17.6 k/uL (3.8-10.6)
[2022-01-09] MEDS ORDERED: HYDROmorphone 0.5 MG/0.5 ML SYRINGE IVP PRN (03:24)
[2022-01-09 03:25] LABS: Albumin 3.3 g/dL (3.5-5.0); Calcium 7.9 mg/dL (8.4-10.2); Total Bilirubin 0.9 mg/dL (0.2-1.3); Total Protein 6.6 g/dL (6.3-8.2)
[2022-01-09 03:29] LABS: Appearance,Urine Clear (Clear); Bacteria,Urine Occasional /hpf; Bilirubin,Urine Negative (Negative); Blood,Urine Trace (Negative); Color,Urine Yellow; Glucose,Urine (UA) 1+ (Negative); Ketones,Urine Negative (Negative); Leukocyte Esterase,Urine Negative (Negative); Mucus,Urine Rare /hpf; Nitrite,Urine Negative (Negative); Protein,Urine 3+ (Negative); RBC,Urine 1 /hpf (0-5); Specific Gravity,Urine 1.015 (1.001-1.035); Squamous Epithelial Cell,Urine 2 /hpf (0-4); Urobilinogen,Urine <2.0 mg/dL (<2.0); WBC,Urine 3 /hpf (0-5)
--- NOTE | 2022-01-09 03:35 | XR ---
EXAMINATION TYPE: XR KUB DATE OF EXAM: 01/09/2022 COMPARISON: 06/13/2017 HISTORY: Pain TECHNIQUE: 2 views FINDINGS: There is no sign of intestinal obstruction or pneumoperitoneum. Fecal pattern is normal. Th ere is no evidence of a mass. There are no calcifications over the kidneys. IMPRESSION: Nonacute abdomen. No adverse change.
[2022-01-09 03:42] LABS: Potassium 5.3 mmol/L (3.5-5.1)
--- NOTE | 2022-01-09 04:08 | CT ---
EXAMINATION TYPE: CT abdomen pelvis wo con DATE OF EXAM: 01/09/2022 COMPARISON: 07/05/2020 HISTORY: Abd Pain CT DLP: 2259 mGycm Automated exposure control for dose reduction was used. Images obtained from the diaphragm to the floor of the pelvis without contrast. Lung bases are clear of infiltrate. No pleural effusion. Heart size is normal. No pericardial effusio n. There is fatty infiltration of the liver. Spleen is intact. There is no pancreatic mass. Stomach is i ntact. The bile ducts are not dilated. Gallbladder appears normal. There are numerous cysts in both kidneys. Some of these contain calcium. The largest cyst measures 6 cm. There is no hydronephrosis. Ureters are not dilated. There is no retroperitoneal adenopathy. Blad sunitha distends smoothly. There is no inguinal hernia. There is no free fluid in the pelvis. There is no mesenteric edema. No ascites or free air. There is no bowel obstruction. Appendix appears normal. The lumbar vertebrae have normal alignment. Disc spaces are normal. Posterior elements are intact. No compression fracture. Bony pelvis is intact. Hip joints are intact. IMPRESSION: Numerous renal cysts consistent with adult type polycystic kidney disease. No renal obstruction. Fatt y infiltration of the liver. No adverse change compared to old exam
[2022-01-09 05:28] VITALS: BP 135/72; PULSE 85; TEMP 97.8
== END 2022-01-09 05:28 | disposition home or self-care (01) ==
LOC: EC 23:18
DX: R10.9 Unspecified abdominal pain (principal); I10 Essential (primary) hypertension; E11.9 Type 2 diabetes mellitus without complications; Z86.73 Personal history of transient ischemic attack (TIA), and cerebral infarction without residual deficits; F17.200 Nicotine dependence, unspecified, uncomplicated; Z20.822 Contact with and (suspected) exposure to COVID-19; Z88.2 Allergy status to sulfonamides; Z91.041 Radiographic dye allergy status; Z91.011 Allergy to milk products; Z88.5 Allergy status to narcotic agent; Z91.048 Other nonmedicinal substance allergy status
CPT/HCPCS: 36415; 93005; 80053; 82150; 83605; 83690; 84484; 85025; 81001; 87636; 74018; 74176; 99284; 96374; 96375; 96361; J2405; J1885

== ENCOUNTER → 2022-01-24 | Outpatient (CLI) | payer OTHER ==
--- NOTE | 2022-01-25 06:37 | US ---
EXAMINATION TYPE: US abdomen limited DATE OF EXAM: 01/24/2022 COMPARISON: CT January 09, 2022 CLINICAL HISTORY: K80.50 CALCULUS OF BILE DUCT WITHOUT CHOLANGITIS. Biliary colic per order, hx polyc ystic kidney disease. EXAM MEASUREMENTS: Liver Length: Limited, measured at 23.9 cm Gallbladder Wall: 0.29 cm CBD: Obscured Right Kidney: Limited, measured at 14.2 x 8.3 x 7.2 cm. Borders are unclear. Very limited exam due to patient body habitus and overlying bowel gas. Pancreas: Limited visibility. Liver: Appears enlarged and very heterogeneous/coarse. Increased attenuation. Increased echogenicity . Gallbladder: Appears distended measuring 11.3 cm. in length and 3.7 cm in width. Evidence for sonographic Judd's sign: No CBD: Obscured. Right Kidney: Appears enlarged. Multiple anechoic and septated anechoic areas seen throughout the kid reg. Very limited visibility of kidney borders. Large anechoic area seen lower pole: 6.0 x 5.3 x 5.6 cm. Largest septated anechoic area seen upper pole: 5.2 x 7.3 x 4.4 cm. Visualized portion of pancreas shows no worrisome mass or ductal dilatation. Visualized liver is rachel edly heterogeneously hyperechoic in appearance and enlarged in size. Evaluation for masses suboptimal due to the heterogeneity. Gallbladder has distended margins without mobile shadowing gallstones. No surrounding fluid or wall thickening. Suboptimal visualization of the common bile duct. Right kidney is poorly visualized due to its large size and cortical volume loss. There are thin-wall ed cysts of varying size and shape noted. No obvious hydronephrosis. IMPRESSION: Suboptimal study without obvious biliary dilatation. Hepatomegaly with fatty infiltrated hepatocellular disease redemonstrated. Innumerable cysts in the right kidney seen better on recent CT versus ultrasound.
== END | disposition home or self-care (01) ==
LOC: RADUSWWP 16:06
PROVIDERS: ATTEND Emergency Medicine
DX: R16.0 Hepatomegaly, not elsewhere classified (principal); K76.0 Fatty (change of) liver, not elsewhere classified
CPT/HCPCS: 76705

== ENCOUNTER → 2022-02-14 | Outpatient (CLI) | payer OTHER ==
[2022-02-14 13:23] LABS: ALT 51 U/L (4-34); AST 60 U/L (14-36); African American GFR (CKD) 87 (>60 ml/min/1.73 sqM); Albumin 3.6 g/dL (3.5-5.0); Albumin/Globulin Ratio 1.2; Alkaline Phosphatase 66 U/L (38-126); Amylase 48 U/L (30-110); Anion Gap 7 mmol/L; Blood Urea Nitrogen 21 mg/dL (7-17); Calcium 8.2 mg/dL (8.4-10.2); Carbon Dioxide 26 mmol/L (22-30); Chloride 102 mmol/L (98-107); Globulin 3.1 g/dL; Glucose 295 mg/dL (74-99); Lipase 286 U/L (23-300); Non-African American GFR(CKD) 75 (>60 ml/min/1.73 sqM); Potassium 4.6 mmol/L (3.5-5.1); Sodium 135 mmol/L (137-145); Total Bilirubin 0.3 mg/dL (0.2-1.3); Total Protein 6.7 g/dL (6.3-8.2)
[2022-02-14 13:24] LABS: Basophils # (A) 0.1 k/uL (0-0.2); Basophils % (A) 1 %; Eosinophils # (A) 0.3 k/uL (0-0.7); Eosinophils % (A) 2 %; HCT 45.9 % (34.0-46.0); HGB 14.4 gm/dL (11.4-16.0); Lymphocytes # (A) 2.4 k/uL (1.0-4.8); Lymphocytes % (A) 19 %; MCH 29.5 pg (25.0-35.0); MCHC 31.4 g/dL (31.0-37.0); MCV 93.9 fL (80.0-100.0); Mean Platelet Volume 8.1; Monocytes # (A) 0.5 k/uL (0-1.0); Monocytes % (A) 4 %; Neutrophils # (A) 9.1 k/uL (1.3-7.7); Neutrophils % (A) 73 %; Platelet Count 206 k/uL (150-450); RBC 4.89 m/uL (3.80-5.40); RDW 13.7 % (11.5-15.5); WBC 12.6 k/uL (3.8-10.6)
== END | disposition home or self-care (01) ==
LOC: LABWHC1 12:03
PROVIDERS: ATTEND Physician Assistant Medical
DX: R10.9 Unspecified abdominal pain (principal)
CPT/HCPCS: 36415; 80053; 82150; 83690; 85025

== ENCOUNTER 2022-02-16 13:22 | Emergency (ER) | payer OTHER ==
[2022-02-16 13:45] VITALS: TEMP 98.4
[2022-02-16] MEDS ORDERED: ONDANSETRON 4 MG/2 ML VIAL IVP STA (16:36)
[2022-02-16] MEDS ORDERED: SODIUM CHLORIDE 0.9% 1,000 ML IV STA (16:36)
[2022-02-16] MEDS ORDERED: ONDANSETRON ODT 4 MG TAB PO STA (16:39)
--- NOTE | 2022-02-16 16:46 | ED ---
Recheck HPI - General Chief Complaint: Recheck/Abnormal Lab/Rx Stated Complaint: Abnormal labs/Recheck Time Seen by Provider: 02/16/22 15:31 Source: patient, RN notes reviewed Mode of arrival: ambulatory Limitations: no limitations - History of Present Illness Initial Comments: This is a 42-year-old female who presents to the emergency department for abn ormal lab work. Her PCP, a colleague of Dr. Winchester, instructed her to come to the emergency department for abnormal labs. Patient states that she was not told which lab work was abnormal. Lab work was obtained at this facility 2 days ago. She does note that she has been sick over the last 2 weeks, and has been treated for pneumonia, UTI, kidney infection, oral HSV and a yeast infection. She has been taking Keflex since January 25 and started Acyclovir and Jardiance on February 14. Jardiance was started due to poorly controlled blood sugar per the patient. She does voice concern about her liver enzymes, states that she is on Jynarque for polycystic kidney disease, and requires lab work each month. She is told that with any elevation of liver enzymes, she must discontinue this medication. She sees Dr. Cullen, nephrology, for PCKD. Denies any fevers, chills, sore throat, cough, dyspnea, chest pain, palpitations, abdominal pain, nausea, vomiting, diarrhea, back pain, or headach es. Complaint: abnormal lab - Related Data Home Medications Medication Instructions Recorded Confirmed ALPRAZolam [Xanax] 0.5 mg PO DAILY PRN 04/26/14 12/19/21 Fenofibrate Nanocrystallized 145 mg PO DAILY 09/29/15 12/19/21 [Tricor] Cetirizine HCl [Zyrtec] 10 mg PO DAILY 05/26/17 12/19/21 Beclomethasone Dipropionate [Qvar 2 puff INHALATION RT-BID 02/24/20 12/19/21 40 mcg Redihaler] metFORMIN HCL [Glucophage] 1,000 mg PO BID 06/20/20 12/19/21 Albuterol Sulfate [Ventolin HFA] 2 puff INHALATION RT-Q6H PRN 12/19/21 12/19/21 FLUoxetine HCL [Sarafem] 60 mg PO DAILY 12/19/21 12/19/21 Ferrous Sulfate [Slow Release Iron] 140 mg PO CHASE 12/19/21 12/19/21 Furosemide [Lasix] 20 mg PO DAILY 12/19/21 12/19/21 Oxybutynin Chloride [Ditropan XL] 5 mg PO DAILY 12/19/21 12/19/21 Pramipexole [Mirapex] 1 mg PO HS 12/19/21 12/19/21 Spironolactone [Aldactone] 12.5 mg PO DAILY 12/19/21 12/19/21 Tolvaptan [Jynarque] 15 mg PO BID 12/19/21 12/19/21 amLODIPine [Norvasc] 10 mg PO DAILY 12/19/21 12/19/21 Allergies Allergy/AdvReac Type Severity Reaction Status Date / Time Sulfa (Sulfonamide Allergy Severe Unknown Verified 01/08/22 23:37 Antibiotics) Childhood Iodinated Contrast Media Allergy Unknown Anaphylaxis Verified 01/08/22 23:37 [Iodinated Contrast Media - IV Dye] lactose Allergy Unknown Verified 01/08/22 23:37 bupropion HCl AdvReac Severe Seizure Verified 01/08/22 23:37 [From Wellbutrin] iron AdvReac NAUSEA, Verified 01/08/22 23:37 VOMITING. Review of Systems ROS Statement: Those systems with pertinent positive or pertinent negative responses have been documented in the HPI. ROS Other: All systems not noted in ROS Statement are negative. Past Medical History Past Medical History: CVA/TIA, Diabetes Mellitus, Hyperlipidemia, Hypertension, Osteoarthritis (OA) Additional Past Medical History / Comment(s): polycystic kidney disease, migraines, TIA 2012, varicose veins, hx anemia, History of Any Multi-Drug Resistant Organisms: None Reported Past Surgical History: Hysterectomy, Orthopedic Surgery Additional Past Surgical History / Comment(s): bilateral Carpal tunnel sx, D&C, LUMP REMOVED from throat Past Anesthesia/Blood Transfusion Reactions: Previous Problems w/ Anesthesia Additional Past Anesthesia/Blood Transfusion Reaction / Comment(s): "body pain"- severe AFTER D & C Past Psychological History: Anxiety, Depression, PTSD Smoking Status: Current every day smoker, Vaper Past Alcohol Use History: Rare Past Drug Use History: Marijuana - Past Family History Mother Family Medical History: Cancer Additional Family Medical History / Comment(s): BREAST,THYROID CANCER General Exam Limitations: no limitations General appearance: alert, in no apparent distress Head exam: Present: atraumatic, normocephalic, normal inspection Respiratory exam: Present: normal lung sounds bilaterally. Absent: respiratory distress, wheezes, rales, rhonchi, stridor Cardiovascular Exam: Present: regular rate, normal rhythm, normal heart sounds. Absent: systolic murmur, diastolic murmur, rubs, gallop, clicks GI/Abdominal exam: Present: soft, normal bowel sounds. Absent: distended, tenderness, guarding, rebound, rigid Neurological exam: Present: alert, oriented X3, CN II-XII intact Psychiatric exam: Present: normal affect, normal mood Skin exam: Present: warm, dry, intact, normal color. Absent: rash Course Vital Signs 02/16/22 02/16/22 13:39 17:51 Temperature 98.4 F Pulse Rate 102 H 100 Respiratory 18 16 Rate Blood Pressure 139/85 155/90 O2 Sat by Pulse 96 98 Oximetry Medical Decision Making - Medical Decision Making This is a 42-year-old female who presents to the emergency department for abnormal lab work. Upon review of her lab work, both Dr. Gilbert and I could find no acute irregularities that would be managed in the emergency department. CBC and CMP were repeated for further evaluation. We did try to contact her primary care provider's office regarding their concern on her lab work, however they were not open when we tried to reach them. Repeat lab work also revealed no acute actionable results. I also reached out to Dr. Cullen, nephrology, regarding the Jynarque, and he advised that she hold the medication for now, she does have a minor increase in her liver enzymes. Patient did have 2 episodes of emesis in the emergency department. She declined treatment with any Zofran or fluids. States that she has been vomiting all month, and has a prescription for Zofran at home. Instructed her to continue taking the medications she has prescribed, and to contact her primary care provider's office next week to see which lab values they were concerned about. Also instructed her to follow up with Dr. Cullen, regarding the PCKD and Jynarque. Return precautions reviewed in depth, the patient is instructed to return to the emergency department with any new, worsening, or concerning symptoms. Patient verbalized understanding. This case was discussed in detail with the attending ED physician. Presentation, findings, and treatment plan discussed in detail as well. - Lab Data Result diagrams: 02/16/22 Unknown 02/16/22 Unknown Lab Results 02/16/22 02/16/22 Range/Units Unknown Unknown WBC 13.7 H (3.8-10.6) k/uL RBC 4.82 (3.80-5.40) m/uL Hgb 14.5 (11.4-16.0) gm/dL Hct 44.8 (34.0-46.0) % MCV 93.0 (80.0-100.0) fL MCH 30.2 (25.0-35.0) pg MCHC 32.5 (31.0-37.0) g/dL RDW 14.4 (11.5-15.5) % Plt Count 213 (150-450) k/uL MPV 7.9 Neutrophils % 75 % Lymphocytes % 18 % Monocytes % 3 % Eosinophils % 1 % Basophils % 0 % Neutrophils # 10.3 H (1.3-7.7) k/uL Lymphocytes # 2.5 (1.0-4.8) k/uL Monocytes # 0.5 (0-1.0) k/uL Eosinophils # 0.2 (0-0.7) k/uL Basophils # 0.1 (0-0.2) k/uL Sodium 135 L (137-145) mmol/L Potassium 4.1 (3.5-5.1) mmol/L Chloride 103 (98-107) mmol/L Carbon Dioxide 22 (22-30) mmol/L Anion Gap 10 mmol/L BUN 19 H (7-17) mg/dL Creatinine 1.18 H (0.52-1.04) mg/dL Est GFR (CKD-EPI)AfAm 66 (>60 ml/min/1.73 sqM) Est GFR (CKD-EPI)NonAf 57 (>60 ml/min/1.73 sqM) Glucose 274 H (74-99) mg/dL Calcium 9.2 (8.4-10.2) mg/dL Total Bilirubin 0.3 (0.2-1.3) mg/dL AST 41 H (14-36) U/L ALT 46 H (4-34) U/L Alkaline Phosphatase 72 (38-126) U/L Total Protein 7.3 (6.3-8.2) g/dL Albumin 3.9 (3.5-5.0) g/dL Disposition Clinical Impression: Elevated liver enzymes Disposition: HOME SELF-CARE Additional Instructions: Return to the emergency department with any new, worsening, or concerning symptoms. Contact your primary care provider's office on Saturday to discuss what their concerns were with your labs. Do not take your Jynarque until following up with Dr. Cullen. Continue your other medications as prescribed. Is patient prescribed a controlled substance at d/c from ED?: No Referrals: Allen Winchester MD [Primary Care Provider] - 1-2 days
[2022-02-16 17:16] LABS: Basophils # (A) 0.1 k/uL (0-0.2); Basophils % (A) 0 %; Eosinophils # (A) 0.2 k/uL (0-0.7); Eosinophils % (A) 1 %; HCT 44.8 % (34.0-46.0); HGB 14.5 gm/dL (11.4-16.0); Lymphocytes # (A) 2.5 k/uL (1.0-4.8); Lymphocytes % (A) 18 %; MCH 30.2 pg (25.0-35.0); MCHC 32.5 g/dL (31.0-37.0); Mean Platelet Volume 7.9; Monocytes # (A) 0.5 k/uL (0-1.0); Monocytes % (A) 3 %; Neutrophils # (A) 10.3 k/uL (1.3-7.7); Neutrophils % (A) 75 %; Platelet Count 213 k/uL (150-450); RBC 4.82 m/uL (3.80-5.40); RDW 14.4 % (11.5-15.5); WBC 13.7 k/uL (3.8-10.6)
[2022-02-16 17:22] LABS: Albumin 3.9 g/dL (3.5-5.0); Calcium 9.2 mg/dL (8.4-10.2); Potassium 4.1 mmol/L (3.5-5.1); Total Bilirubin 0.3 mg/dL (0.2-1.3); Total Protein 7.3 g/dL (6.3-8.2)
[2022-02-16 17:56] VITALS: BP 155/90; PULSE 100; RESP 16
== END 2022-02-16 17:56 | disposition home or self-care (01) ==
LOC: EC 13:22
DX: R74.8 Abnormal levels of other serum enzymes (principal); F17.290 Nicotine dependence, other tobacco product, uncomplicated; I10 Essential (primary) hypertension; E11.9 Type 2 diabetes mellitus without complications; E78.5 Hyperlipidemia, unspecified; M19.90 Unspecified osteoarthritis, unspecified site; Z79.84 Long term (current) use of oral hypoglycemic drugs; Z86.73 Personal history of transient ischemic attack (TIA), and cerebral infarction without residual deficits; Z88.2 Allergy status to sulfonamides; Z91.041 Radiographic dye allergy status; Z91.011 Allergy to milk products; Z88.8 Allergy status to other drugs, medicaments and biological substances; Z79.899 Other long term (current) drug therapy
CPT/HCPCS: 36415; 80053; 85025; 99283

== ENCOUNTER → 2022-03-07 | Outpatient (CLI) | payer OTHER ==
--- NOTE | 2022-03-07 14:53 | CT ---
EXAMINATION TYPE: CT abdomen pelvis wo con DATE OF EXAM: 03/07/2022 COMPARISON: CT dated 01/09/2022 HISTORY: Abdominal pain, vomiting. CT DLP: 1163 mGycm Automated exposure control for dose reduction was used. TECHNIQUE: Helical acquisition of images was performed from the lung bases through the pelvis. FINDINGS: LUNG BASES: No significant abnormality is appreciated. LIVER/GB: Enlarged liver with severe steatosis. With this limitation, no definite hepatic focal lesio n identified. No radiodense gallbladder calculi. PANCREAS: No significant abnormality is seen. SPLEEN: No significant abnormality is seen. ADRENALS: No significant abnormality is seen. KIDNEYS: Multiple variable size simple and hemorrhagic/proteinaceous renal cysts likely representing polycystic kidney disease. Other complex cyst, infection or small renal lesion cannot be excluded. No hydroureter or hydronephrosis. FREE AIR: No free air is visualized RETROPERITONEAL ADENOPATHY: No pathologically enlarged lymph nodes. REPRODUCTIVE ORGANS: Previous hysterectomy. Bilateral ovarian follicles/cysts, suboptimally assessed by this CT scan and expected for the patient's age. URINARY BLADDER: No significant abnormality is seen. PELVIC ADENOPATHY: No pathologically enlarged pelvic lymph nodes. OSSEOUS STRUCTURES: No significant abnormality is seen. BOWEL: No significant abnormality is seen. OTHER: Minimal arterial atherosclerotic calcifications. No ascites. Pelvic adhesions. IMPRESSION: Polycystic kidney disease as described above. New complicated cyst, small renal lesion or associated infection cannot be excluded by this CT scan. Hepatomegaly with severe hepatic steatosis. Other findings as described above.
== END | disposition home or self-care (01) ==
LOC: RADCTMAIN 12:48
PROVIDERS: ATTEND Family Medicine
DX: Q61.3 Polycystic kidney, unspecified (principal); K76.0 Fatty (change of) liver, not elsewhere classified
CPT/HCPCS: 74176

== ENCOUNTER → 2022-03-14 | Outpatient (CLI) | payer OTHER ==
--- NOTE | 2022-03-14 09:16 | MM ---
Reason for Exam: Clinical finding. Last screening mammogram was performed 7 month(s) ago. Indicated Problems: Lump or thickening of the right side (size 15) for 2 Month(s). Patient History: Menarche at age 13. First Full-Term at age 20. Hysterectomy at age 36. Patient used Hormonal Contraceptives for 1 year. 10/08/2017, Benign Core Biopsy on the right side. Paternal aunt had breast cancer, age 41. Maternal aunt had breast cancer, age 33. Paternal grandmother had breast cancer under age 50. Paternal aunt (karan) had breast cancer, age 43. Mother had breast cancer, age 52. Risk Values: Bonnie 5 year model risk: 2.0%. NCI Lifetime model risk: 21.6%. Prior Study Comparison: 03/27/2018 Right Diagnostic Mammogram, [facility]. 07/29/2020 Bilateral Screening Mammogram, [facility]. 08/21/2021 Bilateral Screening Mammogram, [facility]. Tissue Density: Right: The breast tissue is almost entirely fat. Findings: Analyzed By CAD. No discrete mass identified. Microclip marker at the site of clinical concern. No suspicious calcifications evident. Overall Assessment: Benign, BI-RAD 2 Management: Screening Mammogram of both breasts in 5 months. A clinical breast exam by your physician is recommended on an annual basis and results should be correlated with mammographic findings. This exam should not preclude additional follow-up of suspicious palpable abnormalities. Results were given to the patient verbally at the time of exam. Electronically signed and approved by: Jake Hillman M.D. Radiologis
== END | disposition home or self-care (01) ==
LOC: RADMAMWWP 07:58
PROVIDERS: ATTEND Family Medicine
DX: R92.8 Other abnormal and inconclusive findings on diagnostic imaging of breast (principal); Z80.3 Family history of malignant neoplasm of breast; Z78.0 Asymptomatic menopausal state
CPT/HCPCS: 77061; 77065

== ENCOUNTER 2022-03-27 19:58 | Emergency (ER) | payer OTHER ==
[2022-03-27 20:11] VITALS: TEMP 98.4
[2022-03-27] MEDS ORDERED: SODIUM CHLORIDE 0.9% 500 ML 500 ML IV STA (20:30)
--- NOTE | 2022-03-27 20:53 | ED ---
General Adult HPI - General Chief complaint: Chest Pain Stated complaint: Chest Pain, HBP, History of TIA Time Seen by Provider: 03/27/22 20:12 Source: patient, RN notes reviewed, old records reviewed Mode of arrival: ambulatory Limitations: no limitations - History of Present Illness Initial comments: 42-year-old female presents for evaluation of lightheadedness, and hypertension. She states she felt somewhat lightheaded at home and checked her blood pressure was 160 systolic. She contacted her primary care physician and was able to speak with the physician information technology assistant who recommended she recheck her pressure and presented emergency department if her symptoms persisted. Patient denied focal numbness or weakness. She is doing with multiple health issues over the past several months. She is a diabetic. She has a history of hypertension. She has a history of polycystic kidney disease. - Related Data Home Medications Medication Instructions Recorded Confirmed ALPRAZolam [Xanax] 0.5 mg PO DAILY PRN 04/26/14 03/09/22 Fenofibrate Nanocrystallized 145 mg PO DAILY 09/29/15 03/09/22 [Tricor] Cetirizine HCl [Zyrtec] 10 mg PO DAILY 05/26/17 03/09/22 Beclomethasone Dipropionate [Qvar 2 puff INHALATION RT-BID 02/24/20 03/09/22 40 mcg Redihaler] metFORMIN HCL [Glucophage] 1,000 mg PO BID 06/20/20 03/09/22 Albuterol Sulfate [Ventolin HFA] 2 puff INHALATION RT-Q6H PRN 12/19/21 03/09/22 FLUoxetine HCL [Sarafem] 60 mg PO DAILY 12/19/21 03/09/22 Ferrous Sulfate [Slow Release Iron] 140 mg PO CHASE 12/19/21 03/09/22 Furosemide [Lasix] 20 mg PO DAILY 12/19/21 03/09/22 Oxybutynin Chloride [Ditropan XL] 5 mg PO DAILY 12/19/21 03/09/22 Pramipexole [Mirapex] 1 mg PO HS 12/19/21 03/09/22 Spironolactone [Aldactone] 12.5 mg PO DAILY 12/19/21 03/09/22 amLODIPine [Norvasc] 10 mg PO DAILY 12/19/21 03/09/22 Allergies Allergy/AdvReac Type Severity Reaction Status Date / Time Sulfa (Sulfonamide Allergy Severe Unknown Verified 03/27/22 20:11 Antibiotics) Childhood Iodinated Contrast Media Allergy Unknown Anaphylaxis Verified 03/27/22 20:11 [Iodinated Contrast Media - IV Dye] lactose Allergy Unknown Verified 03/27/22 20:11 bupropion HCl AdvReac Severe Seizure Verified 03/27/22 20:11 [From Wellbutrin] iron AdvReac NAUSEA, Verified 03/27/22 20:11 VOMITING. Review of Systems ROS Statement: Those systems with pertinent positive or pertinent negative responses have been documented in the HPI. ROS Other: All systems not noted in ROS Statement are negative. Past Medical History Past Medical History: CVA/TIA, Diabetes Mellitus, Hyperlipidemia, Hypertension, Osteoarthritis (OA) Additional Past Medical History / Comment(s): polycystic kidney disease, migraines, TIA 2012, varicose veins, hx anemia, History of Any Multi-Drug Resistant Organisms: None Reported Past Surgical History: Hysterectomy, Orthopedic Surgery Additional Past Surgical History / Comment(s): bilateral Carpal tunnel sx, D&C, LUMP REMOVED from throat Past Anesthesia/Blood Transfusion Reactions: Previous Problems w/ Anesthesia Additional Past Anesthesia/Blood Transfusion Reaction / Comment(s): "body pain"- severe AFTER D & C Past Psychological History: Anxiety, Depression, PTSD Smoking Status: Former smoker Past Alcohol Use History: Rare Past Drug Use History: Marijuana - Past Family History Mother Family Medical History: Cancer Additional Family Medical History / Comment(s): BREAST,THYROID CANCER General Exam Limitations: no limitations General appearance: alert, in no apparent distress Head exam: Present: atraumatic, normocephalic Eye exam: Present: normal appearance, PERRL ENT exam: Present: normal exam Neck exam: Present: normal inspection. Absent: tenderness, meningismus Respiratory exam: Present: normal lung sounds bilaterally. Absent: respiratory distress, wheezes Cardiovascular Exam: Present: regular rate, normal rhythm GI/Abdominal exam: Present: soft. Absent: distended, tenderness Extremities exam: Present: normal inspection, normal capillary refill. Absent: pedal edema Neurological exam: Present: alert, oriented X3, CN II-XII intact. Absent: motor sensory deficit Psychiatric exam: Present: normal affect, normal mood Skin exam: Present: warm, dry, intact. Absent: cyanosis, diaphoretic, erythema Course Vital Signs 03/27/22 03/27/22 20:05 21:08 Temperature 98.4 F Pulse Rate 84 90 Respiratory 20 18 Rate Blood Pressure 149/98 150/93 O2 Sat by Pulse 95 98 Oximetry EKG Findings - EKG Comments: EKG Findings:: EKG: Sinus rhythm with a rate of 87, SD interval 148, QRS duration 94, QTC [address] segment changes. Medical Decision Making - Medical Decision Making 42-year-old female presents with lightheadedness, elevated blood pressure. Patient is mildly hypertensive in the emergency department with a history of hypertension. She does have polycystic kidney disease and follows with nephrology. EKG showing sinus rhythm without ST segment elevation, chest x-rays clear, normal CBC, CMP shows a mild elevation in serum creatinine. Urinalysis shows glucose without ketosis or signs of infection. Patient should maintain hydration. She should follow closely with her primary care physician and her machine setter automatic. Return parameters discussed. - Lab Data Result diagrams: 03/27/22 20:30 03/27/22 21:26 Lab Results 03/27/22 03/27/22 03/27/22 Range/Units 20:30 20:30 20:30 WBC 10.1 (3.8-10.6) k/uL RBC 4.21 (3.80-5.40) m/uL Hgb 13.1 (11.4-16.0) gm/dL Hct 39.0 (34.0-46.0) % MCV 92.8 (80.0-100.0) fL MCH 31.1 (25.0-35.0) pg MCHC 33.5 (31.0-37.0) g/dL RDW 14.1 (11.5-15.5) % Plt Count 181 (150-450) k/uL MPV 8.1 Neutrophils % 73 % Lymphocytes % 20 % Monocytes % 3 % Eosinophils % 3 % Basophils % 1 % Neutrophils # 7.4 (1.3-7.7) k/uL Lymphocytes # 2.0 (1.0-4.8) k/uL Monocytes # 0.3 (0-1.0) k/uL Eosinophils # 0.3 (0-0.7) k/uL Basophils # 0.1 (0-0.2) k/uL PT 10.5 (9.0-12.0) sec INR 1.0 (<1.2) APTT 24.0 (22.0-30.0) sec Sodium (137-145) mmol/L Potassium (3.5-5.1) mmol/L Chloride (98-107) mmol/L Carbon Dioxide (22-30) mmol/L Anion Gap mmol/L BUN (7-17) mg/dL Creatinine (0.52-1.04) mg/dL Est GFR (CKD-EPI)AfAm (>60 ml/min/1.73 sqM) Est GFR (CKD-EPI)NonAf (>60 ml/min/1.73 sqM) Glucose (74-99) mg/dL Calcium (8.4-10.2) mg/dL Magnesium (1.6-2.3) mg/dL Total Bilirubin (0.2-1.3) mg/dL AST (14-36) U/L ALT (4-34) U/L Alkaline Phosphatase (38-126) U/L Troponin I (0.000-0.034) ng/mL Total Protein (6.3-8.2) g/dL Albumin (3.5-5.0) g/dL Urine Color Light Yellow Urine Appearance Clear (Clear) Urine pH 6.5 (5.0-8.0) Ur Specific Central 1.017 (1.001-1.035) Urine Protein 2+ H (Negative) Urine Glucose (UA) 4+ H (Negative) Urine Ketones Negative (Negative) Urine Blood Trace H (Negative) Urine Nitrite Negative (Negative) Urine Bilirubin Negative (Negative) Urine Urobilinogen <2.0 (<2.0) mg/dL Ur Leukocyte Esterase Negative (Negative) Urine RBC 5 (0-5) /hpf Urine WBC 1 (0-5) /hpf Urine Bacteria Rare H (None) /hpf 03/27/22 03/27/22 Range/Units 21:26 21:26 WBC (3.8-10.6) k/uL RBC (3.80-5.40) m/uL Hgb (11.4-16.0) gm/dL Hct (34.0-46.0) % MCV (80.0-100.0) fL MCH (25.0-35.0) pg MCHC (31.0-37.0) g/dL RDW (11.5-15.5) % Plt Count (150-450) k/uL MPV Neutrophils % % Lymphocytes % % Monocytes % % Eosinophils % % Basophils % % Neutrophils # (1.3-7.7) k/uL Lymphocytes # (1.0-4.8) k/uL Monocytes # (0-1.0) k/uL Eosinophils # (0-0.7) k/uL Basophils # (0-0.2) k/uL PT (9.0-12.0) sec INR (<1.2) APTT (22.0-30.0) sec Sodium 136 L (137-145) mmol/L Potassium 3.7 (3.5-5.1) mmol/L Chloride 104 (98-107) mmol/L Carbon Dioxide 27 (22-30) mmol/L Anion Gap 5 mmol/L BUN 30 H (7-17) mg/dL Creatinine 1.47 H (0.52-1.04) mg/dL Est GFR (CKD-EPI)AfAm 50 (>60 ml/min/1.73 sqM) Est GFR (CKD-EPI)NonAf 44 (>60 ml/min/1.73 sqM) Glucose 207 H (74-99) mg/dL Calcium 8.4 (8.4-10.2) mg/dL Magnesium 1.7 (1.6-2.3) mg/dL Total Bilirubin 0.2 (0.2-1.3) mg/dL AST 30 (14-36) U/L ALT 26 (4-34) U/L Alkaline Phosphatase 47 (38-126) U/L Troponin I <0.012 (0.000-0.034) ng/mL Total Protein 6.4 (6.3-8.2) g/dL Albumin 3.4 L (3.5-5.0) g/dL Urine Color Urine Appearance (Clear) Urine pH (5.0-8.0) Ur Specific Central (1.001-1.035) Urine Protein (Negative) Urine Glucose (UA) (Negative) Urine Ketones (Negative) Urine Blood (Negative) Urine Nitrite (Negative) Urine Bilirubin (Negative) Urine Urobilinogen (<2.0) mg/dL Ur Leukocyte Esterase (Negative) Urine RBC (0-5) /hpf Urine WBC (0-5) /hpf Urine Bacteria (None) /hpf Disposition Clinical Impression: Chronic hypertension, Lightheaded Disposition: HOME SELF-CARE Instructions (If sedation given, give patient instructions): Chronic Hypertension (ED), Lightheadedness (ED) Is patient prescribed a controlled substance at d/c from ED?: No Referrals: Allen Winchester MD [Primary Care Provider] - 1-2 days Time of Disposition: 22:37
[2022-03-27 21:09] VITALS: RESP 18
[2022-03-27 21:12] LABS: Basophils # (A) 0.1 k/uL (0-0.2); Basophils % (A) 1 %; Eosinophils # (A) 0.3 k/uL (0-0.7); Eosinophils % (A) 3 %; HGB 13.1 gm/dL (11.4-16.0); Lymphocytes % (A) 20 %; MCH 31.1 pg (25.0-35.0); MCHC 33.5 g/dL (31.0-37.0); MCV 92.8 fL (80.0-100.0); Mean Platelet Volume 8.1; Monocytes # (A) 0.3 k/uL (0-1.0); Monocytes % (A) 3 %; Neutrophils # (A) 7.4 k/uL (1.3-7.7); Neutrophils % (A) 73 %; Platelet Count 181 k/uL (150-450); RBC 4.21 m/uL (3.80-5.40); RDW 14.1 % (11.5-15.5); WBC 10.1 k/uL (3.8-10.6)
--- NOTE | 2022-03-27 21:31 | XR ---
EXAMINATION TYPE: XR chest 2V DATE OF EXAM: 03/27/2022 COMPARISON: 09/08/2021 HISTORY: Chest pain TECHNIQUE: FINDINGS: Heart and mediastinum are normal. Lungs are clear. Diaphragm is normal. Bony thorax is inta ct. There are chest leads. IMPRESSION: Normal chest. No change.
[2022-03-27 21:39] LABS: Appearance,Urine Clear (Clear); Bacteria,Urine Rare /hpf; Bilirubin,Urine Negative (Negative); Blood,Urine Trace (Negative); Color,Urine Light Yellow; Glucose,Urine (UA) 4+ (Negative); Ketones,Urine Negative (Negative); Leukocyte Esterase,Urine Negative (Negative); Nitrite,Urine Negative (Negative); PH, Urine 6.5 (5.0-8.0); Protein,Urine 2+ (Negative); RBC,Urine 5 /hpf (0-5); Specific Gravity,Urine 1.017 (1.001-1.035); Urobilinogen,Urine <2.0 mg/dL (<2.0); WBC,Urine 1 /hpf (0-5)
[2022-03-27 21:43] LABS: Prothrombin Time 10.5 sec (9.0-12.0)
[2022-03-27 21:55] LABS: Albumin 3.4 g/dL (3.5-5.0); Calcium 8.4 mg/dL (8.4-10.2); Magnesium 1.7 mg/dL (1.6-2.3); Potassium 3.7 mmol/L (3.5-5.1); Total Bilirubin 0.2 mg/dL (0.2-1.3); Total Protein 6.4 g/dL (6.3-8.2)
[2022-03-27 22:55] VITALS: BP 149/95; PULSE 86
== END 2022-03-27 22:55 | disposition home or self-care (01) ==
LOC: EC 19:58
DX: I10 Essential (primary) hypertension (principal); E11.9 Type 2 diabetes mellitus without complications; E78.5 Hyperlipidemia, unspecified; M19.90 Unspecified osteoarthritis, unspecified site; F32.A Depression, unspecified; F41.9 Anxiety disorder, unspecified; Z86.73 Personal history of transient ischemic attack (TIA), and cerebral infarction without residual deficits; Z87.891 Personal history of nicotine dependence; Z88.2 Allergy status to sulfonamides; Z91.041 Radiographic dye allergy status; Z91.011 Allergy to milk products; Z88.8 Allergy status to other drugs, medicaments and biological substances; L23.0 Allergic contact dermatitis due to metals; Z79.899 Other long term (current) drug therapy; Z79.84 Long term (current) use of oral hypoglycemic drugs
CPT/HCPCS: 36415; 71046; 80053; 81001; 83735; 84484; 85025; 85610; 85730; 93005; 99284

== ENCOUNTER → 2022-05-05 | Outpatient (CLI) | payer OTHER ==
--- NOTE | 2022-05-06 07:35 | MR ---
EXAMINATION TYPE: MR kidney wo/w con DATE OF EXAM: 05/05/2022 COMPARISON: None HISTORY: Renal cyst CONTRAST: Standard multiplanar, multisequence MRI departmental protocol images were obtained without contrast a nd with 14 mL intravenous Gadavist gadolinium contrast. Visualized liver and spleen appear intact. The bile ducts are not dilated. No evidence of pancreatic mass. Pancreatic duct is not dilated. The stomach is intact. There is no evidence of adrenal mass. There is extensive cystic changes throughout both kidneys which are enlarged. These cysts have variab le size and signal pattern. This is consistent with different amounts of calcium and protein. There i s no pathologic renal enhancement. No sign of hydronephrosis. The left kidney measures 17 cm. The rig ht kidney measures 15 cm. No retroperitoneal adenopathy. No sign of ascites. No evidence of bowel obs truction. IMPRESSION: Numerous bilateral renal cysts. Enlarged kidneys. Appearance is consistent with adult type polycystic kidney disease. No suspicious renal mass. No sign of renal obstruction.
== END | disposition home or self-care (01) ==
LOC: RADMRIMAIN 11:50
PROVIDERS: ATTEND Urology
DX: Q61.2 Polycystic kidney, adult type (principal)
CPT/HCPCS: 74183; A9585

== ENCOUNTER → 2022-08-01 | Outpatient (CLI) | payer OTHER ==
--- NOTE | 2022-08-01 11:39 | XR ---
EXAMINATION TYPE: XR hand complete RT DATE OF EXAM: 08/01/2022 CLINICAL HISTORY: Contusion injury with pain TECHNIQUE: Frontal, lateral and oblique images of the right hand are obtained. COMPARISON: None. FINDINGS: There is no acute fracture/dislocation evident in the right hand. Mild narrowing base of f irst metacarpal. The joint spaces in the right hand otherwise appear within normal limits. The overl amaris soft tissue appears unremarkable. IMPRESSION: There is no acute fracture or dislocation in the right hand.
== END | disposition home or self-care (01) ==
LOC: RADXRMAIN 11:20
PROVIDERS: ATTEND Emergency Medicine
DX: M79.641 Pain in right hand (principal)

== ENCOUNTER → 2022-08-24 | Outpatient (CLI) | payer OTHER ==
--- NOTE | 2022-08-25 08:00 | US ---
EXAMINATION TYPE: US thyroid st tissue head/neck DATE OF EXAM: 08/24/2022 COMPARISON: NONE CLINICAL HISTORY: R59.0 LOCALIZED ENLARGED LYMPH NODES. Patient states having a visual and physical p alp lump left lateral inferior neck x 6 weeks ago. Technique: Limited ultrasound of the neck in the area of concern Findings: Area of concern scanned. Superficial oval lesion seen which is hyperechoic and nonvascular measuring 1.6 x 1.3 x 0.6 cm. No suspicious masses or organizing fluid collections. Contralateral images taken. IMPRESSION: Area of concern to is favored to represent lipomatous lesion such as a lipoma. No suspicious masses o r organizing fluid collections.
== END | disposition home or self-care (01) ==
LOC: RADUSWWP 15:31
PROVIDERS: ATTEND Family Medicine
DX: R59.0 Localized enlarged lymph nodes (principal)
CPT/HCPCS: 76536

== ENCOUNTER → 2022-08-31 | Outpatient (CLI) | payer OTHER ==
--- NOTE | 2022-09-03 10:39 | MM ---
Reason for Exam: Screening (asymptomatic). Last mammogram was performed 1 year(s) and 1 month(s) ago. Patient History: Menarche at age 13. First Full-Term at age 20. Hysterectomy at age 36. Patient used Hormonal Contraceptives for 1 year. 10/08/2017, Benign Core Biopsy on the right side. Paternal aunt had breast cancer, age 41. Maternal aunt had breast cancer, age 33. Paternal grandmother had breast cancer under age 50. Paternal aunt (karan) had breast cancer, age 43. Mother had breast cancer, age 52. Risk Values: Bonnie 5 year model risk: 2.0%. NCI Lifetime model risk: 21.6%. Prior Study Comparison: 07/29/2020 Bilateral Screening Mammogram, [facility]. 08/21/2021 Bilateral Screening Mammogram, [facility]. 03/14/2022 Right MG 3D diag mammo w/cad RT, [facility]. Tissue Density: There are scattered fibroglandular densities. Findings: Analyzed By CAD. Right breast biopsy clip. There is no suspicious group of microcalcifications or new suspicious mass in either breast. Overall Assessment: Negative, BI-RAD 1 Management: Screening Mammogram of both breasts in 1 year. A clinical breast exam by your physician is recommended on an annual basis and results should be correlated with mammographic findings. [facility] will attempt to contact patient to return for supplemental views and ultrasound if indicated. Electronically signed and approved by: Dony West DO
== END | disposition home or self-care (01) ==
LOC: RADMAMWWP 10:29
PROVIDERS: ATTEND Family Medicine
DX: Z12.31 Encounter for screening mammogram for malignant neoplasm of breast (principal); Z80.3 Family history of malignant neoplasm of breast
CPT/HCPCS: 77063; 77067

== ENCOUNTER 2022-10-01 05:10 | Emergency (ER) | payer OTHER ==
[2022-10-01 05:25] VITALS: RESP 18; TEMP 97.9
[2022-10-01] MEDS ORDERED: KETOROLAC 15 MG/ML 1 ML VIAL IM STA (05:45)
--- NOTE | 2022-10-01 06:37 | XR ---
EXAMINATION TYPE: XR ankle complete LT, XR foot complete LT DATE OF EXAM: 10/01/2022 CLINICAL HISTORY: Twisting injury with pain TECHNIQUE: Frontal, lateral and oblique images of the left ankle and foot are obtained. COMPARISON: None. FINDINGS: There is no acute fracture/dislocation evident in the left ankle. The ankle mortise appea rs within normal limits. The overlying soft tissue appears unremarkable. There is no acute fracture or dislocation evident in the left foot. There is moderate to large size i nferior calcaneal spur. There is some calcification posterior superior calcaneus at distal Achilles t endon insertion. There is moderate midfoot spurring along the dorsal surface. Flexion in the toes is seen. Overlying soft tissue is unremarkable. IMPRESSION: There is no acute fracture or dislocation in the left ankle or foot.
--- NOTE | 2022-10-01 06:39 | ED ---
General Adult HPI - General Chief complaint: Extremity Injury, Lower Stated complaint: twisted ankle (work injury) Time Seen by Provider: 10/01/22 05:37 Source: patient Mode of arrival: wheelchair Limitations: no limitations - History of Present Illness Initial comments: This is a 42-year-old female with a past medical history including hypertension, diabetes and polycystic kidney disease presents emergency department for a left foot and ankle injury. The patient stated that she was at work when she backed up and had her left foot go into a square hole in the floor. The patient stated that she had pain at the base of her left heel and the sole of her left foot. The patient had full range of motion however and denied of any deformities noted. The patient stated that she had slightly decreased range of motion secondary to pain however was able to ambulate on the foot with discomfort. The patient denied falling, hitting her head or losing consciousness. - Related Data Home Medications Medication Instructions Recorded Confirmed ALPRAZolam [Xanax] 0.5 mg PO DAILY PRN 04/26/14 03/09/22 Fenofibrate Nanocrystallized 145 mg PO DAILY 09/29/15 03/09/22 [Tricor] Cetirizine HCl [Zyrtec] 10 mg PO DAILY 05/26/17 03/09/22 Beclomethasone Dipropionate [Qvar 2 puff INHALATION RT-BID 02/24/20 03/09/22 40 mcg Redihaler] metFORMIN HCL [Glucophage] 1,000 mg PO BID 06/20/20 03/09/22 Albuterol Sulfate [Ventolin HFA] 2 puff INHALATION RT-Q6H PRN 12/19/21 03/09/22 FLUoxetine HCL [Sarafem] 60 mg PO DAILY 12/19/21 03/09/22 Ferrous Sulfate [Slow Release Iron] 140 mg PO CHASE 12/19/21 03/09/22 Furosemide [Lasix] 20 mg PO DAILY 12/19/21 03/09/22 Oxybutynin Chloride [Ditropan XL] 5 mg PO DAILY 12/19/21 03/09/22 Pramipexole [Mirapex] 1 mg PO HS 12/19/21 03/09/22 Spironolactone [Aldactone] 12.5 mg PO DAILY 12/19/21 03/09/22 amLODIPine [Norvasc] 10 mg PO DAILY 12/19/21 03/09/22 Allergies Allergy/AdvReac Type Severity Reaction Status Date / Time Sulfa (Sulfonamide Allergy Severe Unknown Verified 10/01/22 05:22 Antibiotics) Childhood Iodinated Contrast Media Allergy Unknown Anaphylaxis Verified 10/01/22 05:22 [Iodinated Contrast Media - IV Dye] lactose Allergy Unknown Verified 10/01/22 05:22 bupropion HCl AdvReac Severe Seizure Verified 10/01/22 05:22 [From Wellbutrin] iron AdvReac NAUSEA, Verified 10/01/22 05:22 VOMITING. Review of Systems ROS Statement: Those systems with pertinent positive or pertinent negative responses have been documented in the HPI. ROS Other: All systems not noted in ROS Statement are negative. Past Medical History Past Medical History: CVA/TIA, Diabetes Mellitus, Hyperlipidemia, Hypertension, Osteoarthritis (OA) Additional Past Medical History / Comment(s): polycystic kidney disease, migraines, TIA 2012, varicose veins, hx anemia, History of Any Multi-Drug Resistant Organisms: None Reported Past Surgical History: Hysterectomy, Orthopedic Surgery Additional Past Surgical History / Comment(s): bilateral Carpal tunnel sx, D&C, LUMP REMOVED from throat Past Anesthesia/Blood Transfusion Reactions: Previous Problems w/ Anesthesia Additional Past Anesthesia/Blood Transfusion Reaction / Comment(s): "body pain"-severe AFTER D & C Past Psychological History: Anxiety, Depression, PTSD Smoking Status: Current every day smoker Past Alcohol Use History: Rare Past Drug Use History: Marijuana - Past Family History Mother Family Medical History: Cancer Additional Family Medical History / Comment(s): BREAST,THYROID CANCER General Exam Limitations: no limitations General appearance: alert, in no apparent distress, obese Head exam: Present: atraumatic, normocephalic, normal inspection Eye exam: Present: normal appearance, PERRL Pupils: Present: normal accommodation ENT exam: Present: normal exam, normal oropharynx, mucous membranes moist Neck exam: Present: normal inspection, full ROM Respiratory exam: Present: normal lung sounds bilaterally Cardiovascular Exam: Present: regular rate, normal rhythm, normal heart sounds GI/Abdominal exam: Present: soft, normal bowel sounds Extremities exam: Present: normal inspection, full ROM, other (Tenderness to palpation noted to the left lateral ankle however there was no decreased range of motion noted.) Back exam: Present: normal inspection, full ROM Neurological exam: Present: alert, oriented X3, CN II-XII intact Psychiatric exam: Present: normal affect, normal mood Skin exam: Present: warm, dry Course Vital Signs 10/01/22 05:22 Temperature 97.9 F Pulse Rate 94 Respiratory 18 Rate Blood Pressure 150/89 O2 Sat by Pulse 98 Oximetry Medical Decision Making - Medical Decision Making Was pt. sent in by a medical professional or institution (, BELINDA, STRAIGHT PIN MAKING MACHINE OPERATOR, urgent care, hospital, or fci...) When possible be specific @ -No Did you speak to anyone other than the patient for history (EMS, parent, family, police, friend...)? What history was obtained from this source @ -No Did you review nursing and triage notes (agree or disagree)? Why? @ -I reviewed and agree with nursing and triage notes Were old charts reviewed (outside hosp., previous admission, EMS record, old EKG, old radiological studies, urgent care reports/EKG's, fci records)? Report findings @ -No old charts were reviewed Differential Diagnosis (chest pain, altered mental status, abdominal pain women, abdominal pain men, vaginal bleeding, weakness, fever, dyspnea, syncope, headache, dizziness, GI bleed, back pain, seizure, CVA, palpatations, mental health)? @ -Left foot fracture, left ankle fracture, left ankle sprain EKG interpreted by me (3pts min.). @ -None X-rays interpreted by me (1pt min.). @ -X-ray of the left foot and left ankle were obtained and were interpreted by myself showing no acute fracture dislocation the left ankle or foot. CT interpreted by me (1pt min.). @ -None done U/S interpreted by me (1pt. min.). @ -None done What testing was considered but not performed or refused? (CT, X-rays, U/S, labs)? Why? @ -None What meds were considered but not given or refused? Why? @ -None Did you discuss the management of the patient with other professionals (professionals i.e. BELINDA Parrish, STRAIGHT PIN MAKING MACHINE OPERATOR, lab, RT, psych nurse, manager social media, perfect binder setter, teacher, court officer, case management director)? Give summary @ -No Was smoking cessation discussed for >3mins.? @ -Yes Was critical care preformed (if so, how long)? @ -No Were there social determinants of health that impacted care today? How? (Homelessness, low income, unemployed, alcoholism, drug addiction, transportation, low edu. Level, literacy, decrease access to med. care, care home, rehab)? @ -No Was there de-escalation of care discussed even if they declined (Discuss DNR or withdrawal of care, Hospice)? DNR status @ -No What co-morbidities impacted this encounter? (DM, HTN, Smoking, COPD, CAD, Cancer, CVA, ARF, Chemo, Hep., AIDS, mental health diagnosis, sleep apnea, morbid obesity)? @ -Hypertension, diabetes, polycystic kidney disease Was patient admitted / discharged? Hospital course, mention meds given and route, prescriptions, significant lab abnormalities, going to OR and other pertinent info. @ -Was seen and evaluated in the emergency department. Vital signs were stable. X-rays were obtained and were negative for any fractures. The patient had a left ankle sprain was placed in an Joe wrap. The patient did have improvement with Toradol and she was advised to use Tylenol at home for the pain. The patient was agreeable to this and all her questions were answered. The patient was discharged home in stable condition. Undiagnosed new problem with uncertain prognosis? @ -No Drug Therapy requiring intensive monitoring for toxicity (Heparin, Nitro, Insulin, Cardizem)? @ -No Were any procedures done? @ -No Diagnosis/symptom? @ -Left ankle sprain Acute, or Chronic, or Acute on Chronic? @ -Acute Uncomplicated (without systemic symptoms) or Complicated (systemic symptoms)? @ -Uncomplicated Side effects of treatment? @ -No Exacerbation, Progression, or Severe Exacerbation? @ -No Poses a threat to life or bodily function? How? (Chest pain, [place], NH, pneumonia, PE, COPD, DKA, ARF, appy, cholecystitis, CVA, Diverticulitis, Homicidal, Suicidal, threat to staff... and all critical care pts) @ -No Disposition Clinical Impression: Left ankle sprain Disposition: HOME SELF-CARE Condition: Stable Instructions (If sedation given, give patient instructions): Ankle Sprain (ED) Is patient prescribed a controlled substance at d/c from ED?: No Referrals: Allen Winchester MD [Primary Care Provider] - 1-2 days Time of Disposition: 06:35
[2022-10-01 07:02] VITALS: BP 153/98; PULSE 86
== END 2022-10-01 07:02 | disposition home or self-care (01) ==
LOC: EC 05:10
DX: S93.402A Sprain of unspecified ligament of left ankle, initial encounter (principal); I10 Essential (primary) hypertension; F32.A Depression, unspecified; F41.9 Anxiety disorder, unspecified; M19.90 Unspecified osteoarthritis, unspecified site; E11.9 Type 2 diabetes mellitus without complications; E78.5 Hyperlipidemia, unspecified; F17.200 Nicotine dependence, unspecified, uncomplicated; Z79.51 Long term (current) use of inhaled steroids; Z79.84 Long term (current) use of oral hypoglycemic drugs; Z79.899 Other long term (current) drug therapy; Z88.1 Allergy status to other antibiotic agents; Z88.2 Allergy status to sulfonamides; Z88.8 Allergy status to other drugs, medicaments and biological substances; X50.1XXA Overexertion from prolonged static or awkward postures, initial encounter
CPT/HCPCS: 73610; 73630; 99283; 96372; J1885

== ENCOUNTER → 2022-10-10 | Outpatient (CLI) | payer OTHER ==
--- NOTE | 2022-10-10 15:54 | XR ---
EXAMINATION TYPE: XR foot complete LT DATE OF EXAM: 10/10/2022 COMPARISON: 10/01/2022 HISTORY: Pain TECHNIQUE: Three views are submitted. FINDINGS: There is no acute fracture/dislocation evident in the left ankle. The ankle mortise appears within no rmal limits. The overlying soft tissue appears unremarkable. There is no acute fracture or dislocatio n evident in the left foot. There is moderate to large size inferior calcaneal spur. There is some calcification posterior superi or calcaneus at distal Achilles tendon insertion. There is moderate midfoot spurring along the dorsal surface. Flexion in the toes is seen. Overlying soft tissue is unremarkable. IMPRESSION: 1. No acute fracture or dislocation. If symptoms persist, follow-up exam in 7 to 10 days could be ob tained.
== END | disposition home or self-care (01) ==
LOC: RADXRMAIN 15:34
PROVIDERS: ATTEND Emergency Medicine
DX: S93.602A Unspecified sprain of left foot, initial encounter (principal)

== ENCOUNTER 2023-01-08 09:07 | Emergency (ER) | payer OTHER ==
[2023-01-08] MEDS ORDERED: SODIUM CHLORIDE 0.9% 1,000 ML IV ONE (09:21)
[2023-01-08] MEDS ORDERED: ONDANSETRON 4 MG/2 ML VIAL IVP STA (09:21)
[2023-01-08] MEDS ORDERED: FAMOTIDINE 20 MG/2 ML VIAL IV STA (09:21)
[2023-01-08 09:22] VITALS: RESP 18; TEMP 98
[2023-01-08 09:49] VITALS: BP 114/87; PULSE 110
--- NOTE | 2023-01-08 11:05 | ED ---
Allergic Reaction HPI - General Chief complaint: Allergic Reaction Stated complaint: Vomiting Time Seen by Provider: 01/08/23 09:15 Source: patient Mode of arrival: ambulatory Limitations: no limitations - History of Present Illness Initial Comments: 42-year-old female past history of CVA, diabetes, hypertension, hyperlipidemia who presents to the emergency department reporting ALLERGIC reaction. States that she was in outpatient CT getting a CAT scan of her chest. She does have an ALLERGY to contrast. They did treat treat her outpatient with Benadryl and steroids. States that she went for her imaging and when they placed the contrast she immediately had the sensation that she was going to pass out. She felt like her throat was closing off. She became flushed, nauseated with an episode of vomiting. She denies chest pain. Does admit to shortness of breath. No abdominal pain. No fevers. Did not feel ill before getting the contrast. No other alleviating, precipitating or modifying factors - Related Data Home Medications Medication Instructions Recorded Confirmed ALPRAZolam [Xanax] 0.5 mg PO DAILY PRN 04/26/14 11/15/22 Cetirizine HCl [Zyrtec] 10 mg PO DAILY 05/26/17 11/15/22 Albuterol Sulfate [Ventolin HFA] 2 puff INHALATION RT-Q6H PRN 12/19/21 11/15/22 Ferrous Sulfate [Slow Release Iron] 140 mg PO CHASE 12/19/21 11/15/22 Furosemide [Lasix] 20 mg PO DAILY 12/19/21 11/15/22 Azithromycin [Zithromax] 250 mg PO DAILY 11/01/22 11/15/22 Empagliflozin [Jardiance] 25 mg PO DAILY 11/01/22 11/15/22 Fluticasone/Umeclidin/Vilanter 1 puff INHALATION DAILY 11/01/22 11/15/22 [Trelegy Ellipta 200-62.5-25] Losartan Potassium 50 mg PO DAILY 11/01/22 11/15/22 Rosuvastatin [Crestor] 10 mg PO DAILY 11/01/22 11/15/22 Allergies Allergy/AdvReac Type Severity Reaction Status Date / Time Sulfa (Sulfonamide Allergy Severe Unknown Verified 01/08/23 09:22 Antibiotics) Childhood Iodinated Contrast Media Allergy Unknown Anaphylaxis Verified 01/08/23 09:22 [Iodinated Contrast Media - IV Dye] lactose Allergy Unknown Verified 01/08/23 09:22 bupropion HCl AdvReac Severe Seizure Verified 01/08/23 09:22 [From Wellbutrin] iron AdvReac NAUSEA, Verified 01/08/23 09:22 VOMITING. Review of Systems ROS Statement: Those systems with pertinent positive or pertinent negative responses have been documented in the HPI. ROS Other: All systems not noted in ROS Statement are negative. Past Medical History Past Medical History: CVA/TIA, Diabetes Mellitus, Hyperlipidemia, Hypertension, Osteoarthritis (OA) Additional Past Medical History / Comment(s): polycystic kidney disease, migraines, TIA 2012, varicose veins, hx anemia, History of Any Multi-Drug Resistant Organisms: None Reported Past Surgical History: Hysterectomy, Orthopedic Surgery Additional Past Surgical History / Comment(s): bilateral Carpal tunnel sx, D&C, LUMP REMOVED from throat Past Anesthesia/Blood Transfusion Reactions: Previous Problems w/ Anesthesia Additional Past Anesthesia/Blood Transfusion Reaction / Comment(s): "body pain"- severe AFTER D & C Past Psychological History: Anxiety, Depression, PTSD Smoking Status: Current every day smoker Past Alcohol Use History: None Reported Past Drug Use History: None Reported - Past Family History Mother Family Medical History: Cancer Additional Family Medical History / Comment(s): BREAST,THYROID CANCER General Exam Limitations: no limitations General appearance: alert, anxious, in distress Head exam: Present: atraumatic, normocephalic, normal inspection Eye exam: Present: normal appearance, PERRL, EOMI. Absent: scleral icterus, conjunctival injection, periorbital swelling ENT exam: Present: normal exam, mucous membranes moist Neck exam: Present: normal inspection. Absent: tenderness, meningismus, lymphadenopathy Respiratory exam: Present: normal lung sounds bilaterally. Absent: respiratory distress, wheezes, rales, rhonchi, stridor Cardiovascular Exam: Present: normal rhythm, tachycardia, normal heart sounds. Absent: systolic murmur, diastolic murmur, rubs, gallop, clicks GI/Abdominal exam: Present: soft, normal bowel sounds. Absent: distended, tenderness, guarding, rebound, rigid Extremities exam: Present: normal inspection, full ROM, normal capillary refill. Absent: tenderness, pedal edema, joint swelling, calf tenderness Back exam: Present: normal inspection Neurological exam: Present: alert, oriented X3, CN II-XII intact Psychiatric exam: Present: normal affect, normal mood Skin exam: Present: warm, dry, intact, normal color. Absent: rash Course Vital Signs 01/08/23 01/08/23 09:11 09:48 Temperature 98 F Pulse Rate 109 H 110 H Respiratory 18 18 Rate Blood Pressure 100/75 114/87 O2 Sat by Pulse 94 L Oximetry Medical Decision Making - Medical Decision Making Was pt. sent in by a medical professional or institution (BELINDA Parrish, [facility], urgent care, hospital, or usp...) When possible be specific @ -outpatient CT Did you speak to anyone other than the patient for history (EMS, parent, family, police, friend...)? What history was obtained from this source @ -No Did you review nursing and triage notes (agree or disagree)? Why? @ -I reviewed and agree with nursing and triage notes Were old charts reviewed (outside hosp., previous admission, EMS record, old EKG, old radiological studies, urgent care reports/EKG's, usp records)? Report findings @ -No old charts were reviewed Differential Diagnosis (chest pain, altered mental status, abdominal pain women, abdominal pain men, vaginal bleeding, weakness, fever, dyspnea, syncope, headache, dizziness, GI bleed, back pain, seizure, CVA, palpatations, mental health, musculoskeletal)? @ -allergic reaction, anaphylaxis, anxiety EKG interpreted by me (3pts min.). @ -Yes X-rays interpreted by me (1pt min.). @ -None done CT interpreted by me (1pt min.). @ -None done U/S interpreted by me (1pt. min.). @ -None done What testing was considered but not performed or refused? (CT, X-rays, U/S, labs)? Why? @ -None What meds were considered but not given or refused? Why? @ -benadryl - patient refused Did you discuss the management of the patient with other professionals (professionals i.e. EBLINDA Parrish, DIN[employer] COOK, lab, RT, psych nurse, social worker masters, mini baccarat dealer, teacher, resident medical officer, family service caseworker)? Give summary @ -No Was smoking cessation discussed for >3mins.? @ -No Was critical care preformed (if so, how long)? @ -No Were there social determinants of health that impacted care today? How? (Homelessness, low income, unemployed, alcoholism, drug addiction, transportation, low edu. Level, literacy, decrease access to med. care, assisted, rehab)? @ -No Was there de-escalation of care discussed even if they declined (Discuss DNR or withdrawal of care, Hospice)? DNR status @ -No What co-morbidities impacted this encounter? (DM, HTN, Smoking, COPD, CAD, Cancer, CVA, ARF, Chemo, Hep., AIDS, mental health diagnosis, sleep apnea, morbid obesity)? @ -obesity, dm Was patient admitted / discharged? Hospital course, mention meds given and route, prescriptions, significant lab abnormalities, going to OR and other pertinent info. @ -Upon arrival patient was placed into trauma 3. History and physical exam is performed. IV is established. She is given 20 mg of Pepcid. Benadryl and steroids are discussed with the patient however she reports she started feeling better at this time. She is given a liter bolus normal saline. Watched in the emergency department for several hours with complete resolution in her symptoms. Feels comfortable going home at this time. I did discuss the diagnosis and treatment plan. Offered to give the patient a perception for steroids for the next 2 days. She states that she would rather take Benadryl at home for her ALLERGY. She is injected to return for any new or worsening symptoms. Patient discharged home in stable condition Undiagnosed new problem with uncertain prognosis? Undiagnosed new problem with uncertain prognosis? @ -Yes Drug Therapy requiring intensive monitoring for toxicity (Heparin, Nitro, Insulin, Cardizem)? @ -No Were any procedures done? @ -No Diagnosis/symptom? @ -acute nausea and vomiting, acute tachycardia, suspected allergic reaction to contrast dye Acute, or Chronic, or Acute on Chronic? @ -acute Uncomplicated (without systemic symptoms) or Complicated (systemic symptoms)? @ -complicated Side effects of treatment? @ -No Exacerbation, Progression, or Severe Exacerbation? @ -No Poses a threat to life or bodily function? How? (Chest pain, [place], [place], pneumonia, PE, COPD, DKA, ARF, appy, cholecystitis, CVA, Diverticulitis, Homicidal, Suicidal, threat to staff... and all critical care pts) @ -yes - EKG Data EKG Comments: EKG done straight sinus tachycardia with a rate of 104. [place] interval 124. QRS 88. QTC of 412. No acute ST segment elevations or depressions Disposition Clinical Impression: Contrast reaction after premedication Disposition: HOME SELF-CARE Condition: Stable Instructions (If sedation given, give patient instructions): General Allergic Reaction (ED) Additional Instructions: Please take Benadryl every 6 hours. Follow-up with your doctor and return for any new or worsening symptoms. Recommend not using contrast in the future Is patient prescribed a controlled substance at d/c from ED?: No Referrals: Allen Winchester MD [Primary Care Provider] - 1-2 days Time of Disposition: 11:05
== END 2023-01-08 11:20 | disposition home or self-care (01) ==
LOC: EC 09:07
DX: R11.2 Nausea with vomiting, unspecified (principal); T50.8X5A Adverse effect of diagnostic agents, initial encounter; E11.9 Type 2 diabetes mellitus without complications; E78.5 Hyperlipidemia, unspecified; I10 Essential (primary) hypertension; M19.90 Unspecified osteoarthritis, unspecified site; Z86.73 Personal history of transient ischemic attack (TIA), and cerebral infarction without residual deficits; F41.9 Anxiety disorder, unspecified; F32.A Depression, unspecified; F17.200 Nicotine dependence, unspecified, uncomplicated; Z88.2 Allergy status to sulfonamides; Z91.041 Radiographic dye allergy status; Z91.011 Allergy to milk products; Z88.8 Allergy status to other drugs, medicaments and biological substances; Z79.899 Other long term (current) drug therapy
CPT/HCPCS: 93005; 99284; 96374; 96375; 96361; J2405

== ENCOUNTER → 2023-01-08 | Outpatient (CLI) | payer OTHER ==
--- NOTE | 2023-01-08 10:38 | CT ---
CT CHEST FOR PULMONARY EMBOLISM. EXAMINATION TYPE: CT angio chest DATE OF EXAM: 01/08/2023 INDICATION: Thoracic aortic ectasia. CT DLP: 1521.5 mGycm, Automated exposure control for dose reduction was used. CONTRAST: Patient injected with 100 mL of Isovue 370. Patient was premedicated but had a reaction to the contrast. Patient complained of throat swab tightening and diffuse redness. Patient was transferr ed to the ER. COMPARISON: None TECHNIQUE: CT of the chest is performed on a spiral scan at 5 mm thick sections. Study is performed w ithout intravenous contrast. 2 mm reconstructed axial coronal and sagittal plane images were obtained . Three-D reconstructed images FINDINGS: No persistent filling defects are evident to suggest an acute pulmonary embolism. Contrast timing was optimized for evaluation of the aorta limiting pulmonary embolism evaluation. Aorta tapers normally through its visualized course. Ascending thoracic aorta at the aortic root is 4 .1 cm. Ascending thoracic aorta the main pulmonary artery is 4.0 cm. Thoracic aorta transverse dimens ion at the aortic arch is 2.5 cm. Descending thoracic aorta at the level of the diaphragm is 2.1 cm. Celiac axis and superior mesenteric arteries appear normal. Renal artery takeoff within the field of view appears normal. No mediastinal or hilar adenopathy enlarged by CT criteria is evident. The ascending aorta diameter at the level of the main pulmonary artery is 4.0 cm. The main pulmonary artery diameter at the bifur cation is 3.5 cm. Lung windows are clear. Limited CT section through the upper abdomen. Extensive cysts on the bilateral kidneys is present. Th ere is a small cyst in the anterior tip of the spleen. Adrenal glands appear normal. Fatty infiltrati on of liver is present. IMPRESSIONS: 1. Contrast reaction despite premedication. Patient was transferred to the ER for further evaluation and treatment. 2. Mild ascending thoracic aortic aneurysm of 4.1 cm at the aortic root.
== END | disposition home or self-care (01) ==
LOC: RADCTMAIN 08:05
PROVIDERS: ATTEND Family Medicine
DX: I71.21 Aneurysm of the ascending aorta, without rupture (principal)
CPT/HCPCS: 82565; 84520; 71275; 36415; Q9967

== ENCOUNTER → 2023-01-09 | Outpatient (CLI) | payer OTHER ==
--- NOTE | 2023-01-09 18:48 | US ---
EXAMINATION TYPE: US thyroid st tissue head/neck DATE OF EXAM: 01/09/2023 COMPARISON: US 08-24-22, but patient states this is a different area of concern. CLINICAL INDICATION: Female, 42 years old with history of R22.1 LOCALIZED SWELLING, MASS AND LUMP, NE CK; Palpable areas within the right and left lateral neck x 2 months. FINDINGS/IMPRESSION: Bilateral neck scanned at patient's palpable areas of concern. No abnormalities seen within the right lateral neck at patient's palpable area. Scanned patient's lef t lateral neck at palpable. Benign-appearing lymph node with central fatty hilum. This measures 0.9 x 1.1 x 0.6 cm. No organized fluid collection or other abnormality identified.
== END | disposition home or self-care (01) ==
LOC: RADUSWWP 15:24
PROVIDERS: ATTEND Family Medicine
DX: R22.1 Localized swelling, mass and lump, neck (principal)
CPT/HCPCS: 76536

== ENCOUNTER 2023-01-12 13:29 | Observation (INO) | payer OTHER ==
--- NOTE | 2023-01-12 14:13 | ED ---
General Adult HPI - General Chief complaint: Chest Pain Stated complaint: chest pain Source: patient Mode of arrival: ambulatory Limitations: no limitations - History of Present Illness Initial comments: 42-year-old female with a past medical history of TIA, diabetes mellitus, hy perlipidemia, hypertension, polycystic kidney disease, migraines presents to the emergency room for a chief complaint of chest pain. Patient describes the pain as a dull ache in the center of her chest. Patient states it has been ongoing for the past 5 days. It started when she was getting a CT scan of her chest with contrast had an ALLERGIC reaction despite premedication. Of note, patient's doctor ordered the CT scan after an XR was obtained for cough and thought the mediastinum was widened. Patient states that when she gets really worked up the pain worsens. When that happenstThe pain radiates down her left shoulder into her back. She states that climbing the stairs to her house she felt short of breath. Patient does have a smoking history as well as diabetes. Patient has no other complaints at this time including abdominal pain, nausea or vomiting, headache, or visual changes. - Related Data Home Medications Medication Instructions Recorded Confirmed ALPRAZolam [Xanax] 0.5 mg PO DAILY PRN 04/26/14 01/12/23 Cetirizine HCl [Zyrtec] 10 mg PO DAILY 05/26/17 01/12/23 Albuterol Sulfate [Ventolin HFA] 2 puff INHALATION RT-Q6H PRN 12/19/21 01/12/23 Ferrous Sulfate [Slow Release Iron] 140 mg PO CHASE 12/19/21 01/12/23 Furosemide [Lasix] 20 mg PO DAILY 12/19/21 01/12/23 Empagliflozin [Jardiance] 25 mg PO DAILY 11/01/22 01/12/23 Fluticasone/Umeclidin/Vilanter 1 puff INHALATION RT-DAILY 11/01/22 01/12/23 [Trelegy Ellipta 200-62.5-25] Losartan Potassium 50 mg PO DAILY 11/01/22 01/12/23 Rosuvastatin [Crestor] 10 mg PO DAILY 11/01/22 01/12/23 Dulaglutide [Trulicity] 1.5 mg SQ SA 01/12/23 01/12/23 FLUoxetine HCL [PROzac] 20 mg PO DAILY 01/12/23 01/12/23 Imiquimod [Aldara] 1 packet TOPICAL HS 01/12/23 01/12/23 Allergies Allergy/AdvReac Type Severity Reaction Status Date / Time Sulfa (Sulfonamide Allergy Severe Unknown Verified 01/12/23 16:42 Antibiotics) Childhood Iodinated Contrast Media Allergy Unknown Anaphylaxis Verified 01/12/23 16:42 [Iodinated Contrast Media - IV Dye] lactose Allergy Unknown Verified 01/12/23 16:42 bupropion HCl AdvReac Severe Seizure Verified 01/12/23 16:42 [From Wellbutrin] iron AdvReac NAUSEA, Verified 01/12/23 16:42 VOMITING. Review of Systems ROS Statement: Those systems with pertinent positive or pertinent negative responses have been documented in the HPI. ROS Other: All systems not noted in ROS Statement are negative. Past Medical History Past Medical History: CVA/TIA, Diabetes Mellitus, Hyperlipidemia, Hypertension, Osteoarthritis (OA) Additional Past Medical History / Comment(s): polycystic kidney disease, migraines, TIA 2012, varicose veins, hx anemia, AORTIC ANEURSYM History of Any Multi-Drug Resistant Organisms: None Reported Past Surgical History: Hysterectomy, Orthopedic Surgery Additional Past Surgical History / Comment(s): bilateral Carpal tunnel sx, D&C, LUMP REMOVED from throat Past Anesthesia/Blood Transfusion Reactions: Previous Problems w/ Anesthesia Additional Past Anesthesia/Blood Transfusion Reaction / Comment(s): "body pain"- severe AFTER D & C Past Psychological History: Anxiety, Depression, PTSD Smoking Status: Current every day smoker Past Alcohol Use History: None Reported Past Drug Use History: None Reported - Past Family History Mother Family Medical History: Cancer Additional Family Medical History / Comment(s): BREAST,THYROID CANCER General Exam Limitations: no limitations General appearance: alert, in no apparent distress Head exam: Present: atraumatic Eye exam: Present: normal appearance, PERRL, EOMI. Absent: scleral icterus, conjunctival injection ENT exam: Present: normal exam, mucous membranes moist Neck exam: Present: normal inspection, full ROM. Absent: tenderness Respiratory exam: Present: normal lung sounds bilaterally. Absent: respiratory distress, wheezes Cardiovascular Exam: Present: regular rate, normal rhythm, normal heart sounds GI/Abdominal exam: Present: soft, normal bowel sounds. Absent: distended, tenderness Neurological exam: Present: alert Course Vital Signs 01/12/23 13:34 Temperature 98.8 F Pulse Rate 95 Respiratory 16 Rate Blood Pressure 165/105 O2 Sat by Pulse 97 Oximetry EKG Findings - EKG Comments: EKG Findings:: Normal sinus rhythm, ventricular rate 92, TN interval 154, QTC 408 Medical Decision Making - Medical Decision Making Vitals are stable. HPI and physical exam as documented. Pain started during a CT which did not show any evidence of dissection. CT was reviewed. Lab evaluation is unremarkable. Troponin negative. Chest x-ray shows no acute process. However given patient's clinical presentation of chest pain and shortness of breath she will be admitted with cardiology consultation. Home meds were not ordered as they were not yet confirmed. Was pt. sent in by a medical professional or institution ([facility]INDA Parrish, AUDOGRAPH OPERATOR, urgent care, hospital, or skilled nursing...) When possible be specific @ -yes, her doctor Did you speak to anyone other than the patient for history (EMS, parent, family, police, friend...)? What history was obtained from this source @ -family member Did you review nursing and triage notes (agree or disagree)? Why? @ -I reviewed and agree with nursing and triage notes Were old charts reviewed (outside hosp., previous admission, EMS record, old EK G, old radiological studies, urgent care reports/EKG's, skilled nursing records)? Report findings @ -yes, old charts were reviewed over the past 2 years Differential Diagnosis (chest pain, altered mental status, abdominal pain women, abdominal pain men, vaginal bleeding, weakness, fever, dyspnea, syncope, headache, dizziness, GI bleed, back pain, seizure, CVA, palpatations, mental health)? @ -chest pain, msk pain, PNA EKG interpreted by me (3pts min.). @ -As above X-rays interpreted by me (1pt min.). @ -CXR CT interpreted by me (1pt min.). @ -none U/S interpreted by me (1pt. min.). @ -None done What testing was considered but not performed or refused? (CT, X-rays, U/S, labs)? Why? @ -None What meds were considered but not given or refused? Why? @ -None Did you discuss the management of the patient with other professionals (professionals i.e. BELINDA Parrish, AUDOGRAPH OPERATOR, lab, RT, psych nurse, social media project manager, plating department helper, teacher, transport corps officer, rn case manager)? Give summary @ -Dr Andrew Was smoking cessation discussed for >3mins.? @ -No Was critical care preformed (if so, how long)? @ -No Were there social determinants of health that impacted care today? How? (Homelessness, low income, unemployed, alcoholism, drug addiction, transportation, low edu. Level, literacy, decrease access to med. care, nursing home, rehab)? @ -No Was there de-escalation of care discussed even if they declined (Discuss DNR or withdrawal of care, Hospice)? DNR status @ -No What co-morbidities impacted this encounter? (DM, HTN, Smoking, COPD, CAD, Cancer, CVA, ARF, Chemo, Hep., AIDS, mental health diagnosis, sleep apnea, morbid obesity)? @ -DM, smoking Was patient admitted / discharged? Hospital course, mention meds given and route, prescriptions, significant lab abnormalities, going to OR and other pertinent info. @ - Vitals are stable. HPI and physical exam as documented. Pain started during a CT which did not show any evidence of dissection. CT was reviewed. Lab evaluation is unremarkable. Troponin negative. Chest x-ray shows no acute process. However given patient's clinical presentation of chest pain and shortness of breath she will be admitted with cardiology consultation. Undiagnosed new problem with uncertain prognosis? @ -yes Drug Therapy requiring intensive monitoring for toxicity (Heparin, Nitro, Insulin, Cardizem)? @ -No Were any procedures done? @ -No Diagnosis/symptom? @ -chest pain Acute, or Chronic, or Acute on Chronic? @ -acute Uncomplicated (without systemic symptoms) or Complicated (systemic symptoms)? @ -complicatedn Side effects of treatment? @ -No Exacerbation, Progression, or Severe Exacerbation? @ -No Poses a threat to life or bodily function? How? (Chest pain, [place], [place], pneumonia, PE, COPD, DKA, ARF, appy, cholecystitis, CVA, Diverticulitis, Homicidal, Suicidal, threat to staff... and all critical care pts) @ -yes, chest pain - Lab Data Result diagrams: 01/12/23 14:03 01/12/23 14:03 Lab Results 01/12/23 01/12/23 01/12/23 Range/Units 14:03 14:03 14:03 WBC 12.8 H (3.8-10.6) k/uL RBC 5.22 (3.80-5.40) m/uL Hgb 16.2 H (11.4-16.0) gm/dL Hct 48.7 H (34.0-46.0) % MCV 93.4 (80.0-100.0) fL MCH 30.9 (25.0-35.0) pg MCHC 33.1 (31.0-37.0) g/dL RDW 14.1 (11.5-15.5) % Plt Count 159 (150-450) k/uL MPV 8.2 Neutrophils % 77 % Lymphocytes % 16 % Monocytes % 3 % Eosinophils % 3 % Basophils % 1 % Neutrophils # 9.8 H (1.3-7.7) k/uL Lymphocytes # 2.1 (1.0-4.8) k/uL Monocytes # 0.4 (0-1.0) k/uL Eosinophils # 0.4 (0-0.7) k/uL Basophils # 0.1 (0-0.2) k/uL PT 9.5 (9.0-12.0) sec INR 0.9 (<1.2) APTT 24.4 (22.0-30.0) sec Sodium 138 (137-145) mmol/L Potassium 4.0 (3.5-5.1) mmol/L Chloride 107 (98-107) mmol/L Carbon Dioxide 25 (22-30) mmol/L Anion Gap 6 mmol/L BUN 24 H (7-17) mg/dL Creatinine 1.08 H (0.52-1.04) mg/dL Est GFR (CKD-EPI)AfAm 73 (>60 ml/min/1.73 sqM) Est GFR (CKD-EPI)NonAf 64 (>60 ml/min/1.73 sqM) Glucose 89 (74-99) mg/dL Calcium 8.8 (8.4-10.2) mg/dL Magnesium 1.7 (1.6-2.3) mg/dL Total Bilirubin 0.3 (0.2-1.3) mg/dL AST 18 (14-36) U/L ALT 25 (4-34) U/L Alkaline Phosphatase 75 (38-126) U/L Troponin I (0.000-0.034) ng/mL NT-Pro-B Natriuret Pep pg/mL Total Protein 6.6 (6.3-8.2) g/dL Albumin 3.7 (3.5-5.0) g/dL Lipase 393 H (23-300) U/L 01/12/23 01/12/23 Range/Units 14:03 14:03 WBC (3.8-10.6) k/uL RBC (3.80-5.40) m/uL Hgb (11.4-16.0) gm/dL Hct (34.0-46.0) % MCV (80.0-100.0) fL MCH (25.0-35.0) pg MCHC (31.0-37.0) g/dL RDW (11.5-15.5) % Plt Count (150-450) k/uL MPV Neutrophils % % Lymphocytes % % Monocytes % % Eosinophils % % Basophils % % Neutrophils # (1.3-7.7) k/uL Lymphocytes # (1.0-4.8) k/uL Monocytes # (0-1.0) k/uL Eosinophils # (0-0.7) k/uL Basophils # (0-0.2) k/uL PT (9.0-12.0) sec INR (<1.2) APTT (22.0-30.0) sec Sodium (137-145) mmol/L Potassium (3.5-5.1) mmol/L Chloride (98-107) mmol/L Carbon Dioxide (22-30) mmol/L Anion Gap mmol/L BUN (7-17) mg/dL Creatinine (0.52-1.04) mg/dL Est GFR (CKD-EPI)AfAm (>60 ml/min/1.73 sqM) Est GFR (CKD-EPI)NonAf (>60 ml/min/1.73 sqM) Glucose (74-99) mg/dL Calcium (8.4-10.2) mg/dL Magnesium (1.6-2.3) mg/dL Total Bilirubin (0.2-1.3) mg/dL AST (14-36) U/L ALT (4-34) U/L Alkaline Phosphatase (38-126) U/L Troponin I <0.012 (0.000-0.034) ng/mL NT-Pro-B Natriuret Pep 58 pg/mL Total Protein (6.3-8.2) g/dL Albumin (3.5-5.0) g/dL Lipase (23-300) U/L Disposition Clinical Impression: Chest pain Disposition: ADMITTED IP TO THIS HOSP Is patient prescribed a controlled substance at d/c from ED?: No Referrals: Allen Winchester MD [Primary Care Provider] - 1-2 days Time of Disposition: 16:57
[2023-01-12 14:39] LABS: Basophils # (A) 0.1 k/uL (0-0.2); Basophils % (A) 1 %; Eosinophils # (A) 0.4 k/uL (0-0.7); Eosinophils % (A) 3 %; HCT 48.7 % (34.0-46.0); HGB 16.2 gm/dL (11.4-16.0); Lymphocytes # (A) 2.1 k/uL (1.0-4.8); Lymphocytes % (A) 16 %; MCH 30.9 pg (25.0-35.0); MCHC 33.1 g/dL (31.0-37.0); MCV 93.4 fL (80.0-100.0); Mean Platelet Volume 8.2; Monocytes # (A) 0.4 k/uL (0-1.0); Monocytes % (A) 3 %; Neutrophils # (A) 9.8 k/uL (1.3-7.7); Neutrophils % (A) 77 %; Platelet Count 159 k/uL (150-450); RBC 5.22 m/uL (3.80-5.40); RDW 14.1 % (11.5-15.5); WBC 12.8 k/uL (3.8-10.6)
[2023-01-12 14:44] LABS: Albumin 3.7 g/dL (3.5-5.0); Calcium 8.8 mg/dL (8.4-10.2); Magnesium 1.7 mg/dL (1.6-2.3); Total Bilirubin 0.3 mg/dL (0.2-1.3); Total Protein 6.6 g/dL (6.3-8.2)
--- NOTE | 2023-01-12 14:46 | XR ---
EXAMINATION TYPE: XR chest 2V DATE OF EXAM: 01/12/2023 COMPARISON: 06/02/2022 HISTORY: Chest pain TECHNIQUE: Frontal and lateral views of the chest are obtained. FINDINGS: There is no focal air space opacity. No evidence for pneumothorax. No pleural effusion. The cardiac silhouette size is within normal limits. The osseous structures are grossly intact. IMPRESSION: 1. No acute cardiopulmonary process.
[2023-01-12 14:48] LABS: INR 0.9 (<1.2); Partial Thromboplastin Time 24.4 sec (22.0-30.0); Prothrombin Time 9.5 sec (9.0-12.0)
[2023-01-12] MEDS ORDERED: MORPHINE SULFATE 2 MG/ML SYRINGE IVP PRN (16:37)
[2023-01-12] MEDS ORDERED: DEXTROSE 50% SYRINGE 50 ML IVP PRN ×2 (16:38)
[2023-01-12] MEDS ORDERED: ASPIRIN 325 MG TAB PO STA (16:39)
[2023-01-12 17:06] VITALS: RESP 18
[2023-01-12] MEDS ORDERED: NALOXONE 0.4 MG/ML 1 ML VIAL IVP PRN (17:10)
[2023-01-12] MEDS ORDERED: ACETAMINOPHEN TAB 325 MG TAB PO PRN (17:10)
[2023-01-12] MEDS ORDERED: NITROGLYCERIN SL TABS 0.4 MG TAB SUBLINGUAL PRN (17:12)
[2023-01-12] MEDS ORDERED: ALPRAZolam 0.5 MG TAB PO PRN (17:13)
[2023-01-12] MEDS ORDERED: ALBUTEROL NEBULIZED 2.5 MG/3 ML INHALATION PRN (17:13)
--- NOTE | 2023-01-12 17:21 | P.HPIM ---
History of Present Illness H&P Date: 01/12/23 Chief Complaint: chest pain 42-year-old woman with medical history of TIA, polycystic kidney disease, moderate persistent asthma, hypertension, hyperlipidemia, diabetes type 2 presented with chest pain. Patient says that her chest pain started after she received a computed tomography scan proximally 4 days ago. The pain is dull and in the center of her chest. She denies fevers, chills, nausea, vomiting, palpitations, syncope, presyncope, cough, abdominal pain, constipation, diarrhea, dysuria, dyschezia, numbness/weakness of extremities. She does report associated dyspnea. She denies diaphoresis. In the emergency room, patient was afebrile, 165/105, heart rate 95, 97% on room air. CBC had mild leukocytosis of 12.8, otherwise unremarkable. Chemistries showed BUN 24, creatinine of 1.08 which is close to her baseline. Liver function tests are unremarkable. BNP was 58, troponin was less than 0.012. Lipase was 393. Coags were negative. EKG showed normal sinus rhythm with no evidence of ischemia. Chest x-ray showed no acute cardiopulmonary pathology. This was discussed the emergency room provider decision was made to admit the patient to observation for chest pain. All Systems reviewed and pertinent positives and negatives noted in HPI, all other symptoms are negative Gen: in no apparent distress, resting comfortably in bed Eyes: PERRL, no scleral injection or icterus HENT: normocephalic, atraumatic, good hearing acuity, moist mucous membranes Neck: no tracheal deviation, full range of motion Resp: good air exchange, breathing comfortably with no accessory muscle use, no tactile fremitus CVS: good distal perfusion x 4, no pitting edema GI: soft, NTTP, ND, no hepatosplenomegaly : no suprapubic tenderness, no CVAT, odom catheter [is/not] present MSK: no clubbing, no cyanosis, no noted contractures of extremities Skin: no noted rashes, petechiae; temperature of skin is appropriate Neuro: moving all extremities without signs of weakness, CN II-XII intact Psych: cooperative, euthymic mood, insight and judgment intact Assessment: Chest pain History of TIA Hypertension Hyperlipidemia Diabetes type 2 Moderate persistent asthma Polycystic kidney disease Plan: Vital signs reviewed and noted in HPI Lab work reviewed and noted in HPI EKG and chest x-ray personally interpreted in noted in HPI Case was discussed the emergency room provider and decision was made to admit the patient to observation Ordered CBC, basic metabolic panel, magnesium, TSH, A1c, lipid panel for tomorrow Agree with trending troponins every 3 hours Start aspirin 81 mg daily, atorvastatin 80 mg daily at bedtime 0.4 mg sublingual nitro when necessary for chest pain EKG when necessary for chest pain Patient will be monitored on telemetry We will defer beta geeta at this time in case of stress test Patient is full code Past Medical History Past Medical History: CVA/TIA, Diabetes Mellitus, Hyperlipidemia, Hypertension, Osteoarthritis (OA) Additional Past Medical History / Comment(s): polycystic kidney disease, migraines, TIA 2012, varicose veins, hx anemia, AORTIC ANEURSYM History of Any Multi-Drug Resistant Organisms: None Reported Past Surgical History: Hysterectomy, Orthopedic Surgery Additional Past Surgical History / Comment(s): bilateral Carpal tunnel sx, D&C, LUMP REMOVED from throat Past Anesthesia/Blood Transfusion Reactions: Previous Problems w/ Anesthesia Additional Past Anesthesia/Blood Transfusion Reaction / Comment(s): "body pain"-severe AFTER D & C Past Psychological History: Anxiety, Depression, PTSD Smoking Status: Current every day smoker Past Alcohol Use History: None Reported Past Drug Use History: None Reported - Past Family History Mother Family Medical History: Cancer Additional Family Medical History / Comment(s): BREAST,THYROID CANCER Medications and Allergies Home Medications Medication Instructions Recorded Confirmed Type ALPRAZolam [Xanax] 0.5 mg PO DAILY PRN 04/26/14 01/12/23 History Cetirizine HCl [Zyrtec] 10 mg PO DAILY 05/26/17 01/12/23 History Albuterol Sulfate [Ventolin HFA] 2 puff INHALATION RT-Q6H PRN 12/19/21 01/12/23 History Ferrous Sulfate [Slow Release Iron] 140 mg PO CHASE 12/19/21 01/12/23 History Furosemide [Lasix] 20 mg PO DAILY 12/19/21 01/12/23 History Empagliflozin [Jardiance] 25 mg PO DAILY 11/01/22 01/12/23 History Fluticasone/Umeclidin/Vilanter 1 puff INHALATION RT-DAILY 02/09/23 04/22/23 History [Trelegy Ellipta 200-62.5-25] Losartan Potassium 50 mg PO DAILY 11/01/22 01/12/23 History Rosuvastatin [Crestor] 10 mg PO DAILY 11/01/22 01/12/23 History Dulaglutide [Trulicity] 1.5 mg SQ SA 01/12/23 01/12/23 History FLUoxetine HCL [PROzac] 20 mg PO DAILY 01/12/23 01/12/23 History Imiquimod [Aldara] 1 packet TOPICAL HS 01/12/23 01/12/23 History Allergies Allergy/AdvReac Type Severity Reaction Status Date / Time Sulfa (Sulfonamide Allergy Severe Unknown Verified 01/12/23 16:42 Antibiotics) Childhood Iodinated Contrast Media Allergy Unknown Anaphylaxis Verified 01/12/23 16:42 [Iodinated Contrast Media - IV Dye] lactose Allergy Unknown Verified 01/12/23 16:42 bupropion HCl AdvReac Severe Seizure Verified 01/12/23 16:42 [From Wellbutrin] iron AdvReac NAUSEA, Verified 01/12/23 16:42 VOMITING. Physical Exam Osteopathic Statement: *. No significant issues noted on an osteopathic structural exam other than those noted in the History and Physical/Consult. Vitals: Vital Signs Temp Pulse Resp BP Pulse Ox 01/12/23 17:05 86 18 146/60 98 01/12/23 13:34 98.8 F 95 16 165/105 97 Intake and Output 01/12/23 01/12/23 01/12/23 06:59 14:59 22:59 Other: Weight 136.078 kg Results CBC & Chem 7: 01/12/23 14:03 01/12/23 14:03 Labs: Abnormal Lab Results - Last 24 Hours (Table) 01/12/23 01/12/23 Range/Units 14:03 14:03 WBC 12.8 H (3.8-10.6) k/uL Hgb 16.2 H (11.4-16.0) gm/dL Hct 48.7 H (34.0-46.0) % Neutrophils # 9.8 H (1.3-7.7) k/uL BUN 24 H (7-17) mg/dL Creatinine 1.08 H (0.52-1.04) mg/dL Lipase 393 H (23-300) U/L
[2023-01-12 18:18] VITALS: BP 153/84; PULSE 83; TEMP 98.4
[2023-01-12] MEDS ORDERED: ATORVASTATIN 80 MG TAB PO SCH (21:00)
[2023-01-13] MEDS ORDERED: FERROUS SULFATE 325 MG TAB PO SCH (07:30)
[2023-01-13] MEDS ORDERED: IPRATROPIUM 0.5 MG/2.5 ML NEBU INHALATION SCH (08:00)
[2023-01-13] MEDS ORDERED: SYMBICORT 160-4.5 MCG INHALER INHALATION SCH (08:00)
[2023-01-13] MEDS ORDERED: NON FORMULARY DRUG (Fluticasone/Umeclidin/Vilanter [Trelegy Ellipta 200-62.5-25] 1 EACH Bl INHALATION SCH (08:00)
[2023-01-13] MEDS ORDERED: LORATADINE 10 MG TAB PO SCH (09:00)
[2023-01-13] MEDS ORDERED: FUROSEMIDE 20 MG TAB PO SCH (09:00)
[2023-01-13] MEDS ORDERED: ASPIRIN 81 MG PO SCH (09:00)
[2023-01-13] MEDS ORDERED: LOSARTAN 50 MG TAB PO SCH (09:00)
[2023-01-13] MEDS ORDERED: FLUoxetine HCL 20 MG CAP PO SCH (09:00)
--- NOTE | 2023-01-13 13:48 | P.DS ---
Providers Date of admission: 01/12/23 16:04 Expected date of discharge: 01/13/23 Attending physician: Nicholas Hoffman MD Primary care physician: Allen Winchester [facility] Course: Assessment: Chest pain History of TIA Hypertension Hyperlipidemia Diabetes type 2 Moderate persistent asthma Polycystic kidney disease 42-year-old woman with medical history of TIA, polycystic kidney disease, moderate persistent asthma, hypertension, hyperlipidemia, diabetes type 2 presented with chest pain. In the emergency room, patient was afebrile, 165/105, heart rate 95, 97% on room air. CBC had mild leukocytosis of 12.8, otherwise unremarkable. Chemistries showed BUN 24, creatinine of 1.08 which is close to her baseline. Liver function tests are unremarkable. BNP was 58, troponin was less than 0.012. Lipase was 393. Coags were negative. EKG showed normal sinus rhythm with no evidence of ischemia. Chest x-ray showed no acute cardiopulmonary pathology. This was discussed the emergency room provider decision was made to admit the patient to observation for chest pain. Patient had negative troponins x 3. She was scheduled to be monitored overnight, but then decided to leave [facility] prior to my evaluation this morning. Patient Condition at Discharge: Undetermined Plan - Discharge Summary Discharge Rx Participant: No New Discharge Prescriptions: No Action ALPRAZolam [Xanax] 0.5 mg PO DAILY PRN PRN Reason: Anxiety Cetirizine HCl [Zyrtec] 10 mg PO DAILY Albuterol Sulfate [Ventolin HFA] 2 puff INHALATION RT-Q6H PRN PRN Reason: Shortness Of Breath Ferrous Sulfate [Slow Release Iron] 140 mg PO CHASE Furosemide [Lasix] 20 mg PO DAILY Losartan Potassium 50 mg PO DAILY Fluticasone/Umeclidin/Vilanter [Trelegy Ellipta 200-62.5-25] 1 puff INHALATION RT-DAILY Dulaglutide [Trulicity] 1.5 mg SQ SA Imiquimod [Aldara] 1 packet TOPICAL HS Rosuvastatin [Crestor] 10 mg PO DAILY Empagliflozin [Jardiance] 25 mg PO DAILY FLUoxetine HCL [PROzac] 20 mg PO DAILY Discharge Medication List ALPRAZolam [Xanax] 0.5 mg PO DAILY PRN 04/26/14 [History] Cetirizine HCl [Zyrtec] 10 mg PO DAILY 05/26/17 [History] Albuterol Sulfate [Ventolin HFA] 2 puff INHALATION RT-Q6H PRN 12/19/21 [History] Ferrous Sulfate [Slow Release Iron] 140 mg PO CHASE 12/19/21 [History] Furosemide [Lasix] 20 mg PO DAILY 12/19/21 [History] Empagliflozin [Jardiance] 25 mg PO DAILY 11/01/22 [History] Fluticasone/Umeclidin/Vilanter [Trelegy Ellipta 200-62.5-25] 1 puff INHALATION RT-DAILY 11/01/22 [History] Losartan Potassium 50 mg PO DAILY 11/01/22 [History] Rosuvastatin [Crestor] 10 mg PO DAILY 11/01/22 [History] Dulaglutide [Trulicity] 1.5 mg SQ SA 01/12/23 [History] FLUoxetine HCL [PROzac] 20 mg PO DAILY 01/12/23 [History] Imiquimod [Aldara] 1 packet TOPICAL HS 01/12/23 [History] Follow up Appointment(s)/Referral(s): Allen Winchester MD [Primary Care Provider] - 1-2 days Discharge Disposition: Left Against Medical Advice
== END 2023-01-12 20:47 | disposition left against medical advice (07) ==
LOC: EC 13:29 → 6NMEDSUR 16:04
PROVIDERS: ADMIT Internal Medicine; ATTEND Internal Medicine
DX: R07.89 Other chest pain (principal); J45.40 Moderate persistent asthma, uncomplicated; E11.9 Type 2 diabetes mellitus without complications; I10 Essential (primary) hypertension; D72.829 Elevated white blood cell count, unspecified; E78.5 Hyperlipidemia, unspecified; Q61.3 Polycystic kidney, unspecified; G43.909 Migraine, unspecified, not intractable, without status migrainosus; Z53.29 Procedure and treatment not carried out because of patient's decision for other reasons; D64.9 Anemia, unspecified; I83.90 Asymptomatic varicose veins of unspecified lower extremity; I71.9 Aortic aneurysm of unspecified site, without rupture; M19.90 Unspecified osteoarthritis, unspecified site; F32.A Depression, unspecified; F43.10 Post-traumatic stress disorder, unspecified; F41.9 Anxiety disorder, unspecified; F17.200 Nicotine dependence, unspecified, uncomplicated; Z79.84 Long term (current) use of oral hypoglycemic drugs; Z79.899 Other long term (current) drug therapy; Z79.51 Long term (current) use of inhaled steroids; Z79.85 Long-term (current) use of injectable non-insulin antidiabetic drugs; Z88.2 Allergy status to sulfonamides; Z88.8 Allergy status to other drugs, medicaments and biological substances; Z91.041 Radiographic dye allergy status; Z91.011 Allergy to milk products; Z90.710 Acquired absence of both cervix and uterus; Z98.890 Other specified postprocedural states; Z86.73 Personal history of transient ischemic attack (TIA), and cerebral infarction without residual deficits; Z80.8 Family history of malignant neoplasm of other organs or systems; Z80.3 Family history of malignant neoplasm of breast
CPT/HCPCS: 99285; 36415; 93005; 83880; 80053; 83690; 83735; 84484; 85025; 85610; 85730; 71046; G0378

== ENCOUNTER → 2023-01-18 | Outpatient (CLI) | payer OTHER ==
[~2023-01-18] MED LIST changes: -LACTATED RINGERS 1,000 ML IV SCH; +REGADENOSON 0.4 MG/5 ML SYRINGE IV ONE
--- NOTE | 2023-01-18 19:42 | CA ---
Lexiscan Nuclear Stress Test Report Name: Dawna Bustamante Exam Date: 01/18/2023 14:09 Exam Location: [facility] Ht (in): 67 Wt (lb): 300 BSA: 2.40 Ordering Phys: Allen Winchester MD Referring Phys: Paulette Pineda PAC Technologist: Tyrese Salmeron Age: 42 Gender: F : 1980 Procedure CPT: Indications: R07.89 ICD-10 Codes: Patient History: Medications: Meds past 24 hrs: Pretest Chest Pain: STRESS TEST Lexiscan Protocol Exercise Duration (min:sec): 02:[address] Depressions (mm): Angina Score: Bah Score: Resting HR (bpm): 83 Peak HR (bpm): 119 Resting BP (mmHg): 163 / 81 Peak BP (mmHg): 211 / 81 MPHR: 178 Target HR: 151 % MPHR: 67 METS: 1.0 Total Dose: Peak Dose: Atropine: Double Product: 56669 BP Response: Stress Termination: PROTOCOL COMPLETE Stress Symptoms: NO SYMPTOMS Stress Summary: ECG ANALYSIS Resting ECG: Stress ECG: CONCLUSIONS Nondiagnostic electrocardiogram stress testing Dr. Rich Blackman MD (Electronically Signed) Final Date: 18 January 2023 19:41
--- NOTE | 2023-01-21 13:00 | NM ---
EXAMINATION TYPE: NM stress cardiolite complete DATE OF EXAM: 01/21/2023 COMPARISON: NONE CLINICAL INDICATION: Female, 42 years old with history of R07.89; TECHNIQUE: After the intravenous administration of 10.2 mCi Tc 99m Sestamibi - Rest images obtained 60 minutes post injection. The patient was unable to tolerate exercise protocol and exam was convert ed to a Lexiscan with 0.4 mg IV Lexiscan administered. Subsequent 25.3 mCi Tc 99m Sestamibi - Stress images obtained 30 minutes post injection. FINDINGS: Targeted heart rate (151 BPM) cannot be achieved. Patient could not tolerate the exercise stress. Exa m converted to Lexiscan with administration of 0.4 mg IV Lexiscan. Review of stress and rest SPECT im ages demonstrates large area of decreased perfusion along the anterior wall. This slightly accentuate s on stress images. Gated analysis shows mild global hypokinesis with estimated left ventricular ejec tion fraction of 43 %. TID is normal at 0.89. IMPRESSION: 1. Decreased LVEF of 43%. 2. Large area of fixed perfusion defect along the anterior wall could represent combination of old in farct and body wall attenuation artifact. Correlate with patient's history. 3. Positive findings suggesting the presence of inducible ebonie-infarct ischemia.
== END | disposition home or self-care (01) ==
LOC: RADNMMAIN 08:09
PROVIDERS: ATTEND Family Medicine
DX: R07.89 Other chest pain (principal)
CPT/HCPCS: 93017; 78452; A9500

== ENCOUNTER 2023-01-24 12:11 | Observation (INO) | payer OTHER ==
[2023-01-24] MEDS ORDERED: ASPIRIN 81 MG PO STA (13:10)
[2023-01-24] MEDS ORDERED: NITROGLYCERIN OINT 1 INCH/GM PACKET TOPICAL STA (13:10)
[2023-01-24 13:42] LABS: Basophils % (A) 0 %; Eosinophils # (A) 0.2 k/uL (0-0.7); Eosinophils % (A) 2 %; HCT 45.6 % (34.0-46.0); Lymphocytes % (A) 16 %; MCH 29.7 pg (25.0-35.0); MCHC 32.8 g/dL (31.0-37.0); MCV 90.6 fL (80.0-100.0); Mean Platelet Volume 8.2; Monocytes # (A) 0.4 k/uL (0-1.0); Monocytes % (A) 4 %; Neutrophils # (A) 9.2 k/uL (1.3-7.7); Neutrophils % (A) 77 %; Platelet Count 169 k/uL (150-450); RBC 5.03 m/uL (3.80-5.40); RDW 14.2 % (11.5-15.5); WBC 11.9 k/uL (3.8-10.6)
--- NOTE | 2023-01-24 13:42 | ED ---
General Adult HPI - General Chief complaint: Chest Pain Stated complaint: Chest Pain Time Seen by Provider: 01/24/23 12:30 Source: patient, RN notes reviewed, old records reviewed Mode of arrival: ambulatory Limitations: no limitations - History of Present Illness Initial comments: This is a 42-year-old female presents emergency department stating that she had seen her primary care doctor and had a chest x-ray done that showed a questionable aneurysm on CAT scan done that showed a 4.1 cm thoracic aneurysm. Patient had a stress test and it showed some inducible ischemia and a 43% ejection fraction. Patient states the chest pain is been occurring for the last 3 weeks has been constant going from a 5 to about an 8 but never getting any better. Patient also states she's has occasional shortness of breath - Related Data Home Medications Medication Instructions Recorded Confirmed ALPRAZolam [Xanax] 0.5 mg PO DAILY PRN 04/26/14 01/24/23 Cetirizine HCl [Zyrtec] 10 mg PO DAILY 05/26/17 01/24/23 Albuterol Sulfate [Ventolin HFA] 2 puff INHALATION RT-Q6H PRN 12/19/21 01/24/23 Ferrous Sulfate [Slow Release Iron] 140 mg PO CHASE 12/19/21 01/24/23 Furosemide [Lasix] 20 mg PO DAILY 12/19/21 01/24/23 Empagliflozin [Jardiance] 25 mg PO DAILY 11/01/22 01/24/23 Fluticasone/Umeclidin/Vilanter 1 puff INHALATION RT-DAILY 11/01/22 01/24/23 [Trelegy Ellipta 200-62.5-25] Losartan Potassium 50 mg PO DAILY 11/01/22 01/24/23 Rosuvastatin [Crestor] 10 mg PO DAILY 11/01/22 01/24/23 Dulaglutide [Trulicity] 1.5 mg SQ SA 01/12/23 01/24/23 FLUoxetine HCL [PROzac] 20 mg PO DAILY 01/12/23 01/24/23 Imiquimod [Aldara] 1 packet TOPICAL HS 01/12/23 01/24/23 Allergies Allergy/AdvReac Type Severity Reaction Status Date / Time Sulfa (Sulfonamide Allergy Severe Unknown Verified 01/24/23 14:08 Antibiotics) Childhood Iodinated Contrast Media Allergy Unknown Anaphylaxis Verified 01/24/23 14:08 [Iodinated Contrast Media - IV Dye] lactose Allergy Unknown Verified 01/24/23 14:08 bupropion HCl AdvReac Severe Seizure Verified 01/24/23 14:08 [From Wellbutrin] iron AdvReac NAUSEA, Verified 01/24/23 14:08 VOMITING. Review of Systems ROS Statement: Those systems with pertinent positive or pertinent negative responses have been documented in the HPI. ROS Other: All systems not noted in ROS Statement are negative. Past Medical History Past Medical History: CVA/TIA, Diabetes Mellitus, Hyperlipidemia, Hypertension, Osteoarthritis (OA) Additional Past Medical History / Comment(s): polycystic kidney disease, migraines, TIA 2012, varicose veins, hx anemia, AORTIC ANEURSYM History of Any Multi-Drug Resistant Organisms: None Reported Past Surgical History: Hysterectomy, Orthopedic Surgery Additional Past Surgical History / Comment(s): bilateral Carpal tunnel sx, D&C, LUMP REMOVED from throat Past Anesthesia/Blood Transfusion Reactions: Previous Problems w/ Anesthesia Additional Past Anesthesia/Blood Transfusion Reaction / Comment(s): "body pain"- severe AFTER D & C Past Psychological History: Anxiety, Depression, PTSD Smoking Status: Current every day smoker Past Alcohol Use History: None Reported Past Drug Use History: None Reported - Past Family History Mother Family Medical History: Cancer Additional Family Medical History / Comment(s): BREAST,THYROID CANCER General Exam - General Exam Comments Initial Comments: GENERAL: Patient is well-developed and well-nourished. Patient is nontoxic and well- hydrated and is in mild distress. ENT: Neck is soft and supple. No significant lymphadenopathy is noted. Oropharynx is clear. Moist mucous membranes. Neck has full range of motion without eliciting any pain. EYES: The sclera were anicteric and conjunctiva were pink and moist. Extraocular movements were intact and pupils were equal round and reactive to light. Eyelids were unremarkable. PULMONARY: Unlabored respirations. Good breath sounds bilaterally. No audible rales rhonchi or wheezing was noted. CARDIOVASCULAR: There is a regular rate and rhythm without any murmurs gallops or rubs. ABDOMEN: Soft and nontender with normal bowel sounds. SKIN: Skin is clear with no lesions or rashes and otherwise unremarkable. NEUROLOGIC: Patient is alert and oriented x3. Cranial nerves II through XII are grossly intact. Motor and sensory are also intact. Normal speech, volume and content. Symmetrical smile. MUSCULOSKELETAL: Normal extremities with adequate strength and full range of motion. LYMPHATICS: No significant lymphadenopathy is noted PSYCHIATRIC: Normal psychiatric evaluation. Limitations: no limitations Course Vital Signs 01/24/23 01/24/23 01/24/23 12:26 14:00 14:38 Temperature 98.6 F Pulse Rate 88 87 Respiratory 16 18 Rate Blood Pressure 142/82 121/79 130/74 O2 Sat by Pulse 96 95 Oximetry Medical Decision Making - Medical Decision Making EKG is interpreted by myself shows a sinus rhythm at 86 bpm SD interval 155 QRSs 88 QT interval 364 QTC is 397. Patient's EKG shows no ST segment elevation or depression Was pt. sent in by a medical professional or institution (, PA, ROBOTICS APPLICATION ENGINEER, urgent care, hospital, or correction...) When possible be specific @ -The physician assistant food service director sent the patient to be evaluated in the emergency department Did you speak to anyone other than the patient for history (EMS, parent, family, police, friend...)? What history was obtained from this source @ -Physician assistant food service director called me and gave me a breakdown of the history on this patient. Did you review nursing and triage notes (agree or disagree)? Why? @ -[I reviewed and agree with nursing and triage notes] Were old charts reviewed (outside hosp., previous admission, EMS record, old EKG, old radiological studies, urgent care reports/EKG's, correction records)? Report findings @ -I reviewed prior stress tests prior CAT scans prior lab work on this patient Differential Diagnosis (chest pain, altered mental status, abdominal pain women, abdominal pain men, vaginal bleeding, weakness, fever, dyspnea, syncope, headache, dizziness, GI bleed, back pain, seizure, CVA, palpatations, mental health, musculoskeletal)? @ -Differential Chest Pain: Stable Angina, Unstable Angina, STEMI, NSTEMI Aortic Dissection, Pneumothorax, Musculoskeletal, Esophageal Spasm GERD, Cholecystitis, Pancreatitis, Zoster, this is not meant to be an all-inclusive list. EKG interpreted by me (3pts min.). @ -[As above] X-rays interpreted by me (1pt min.). @ -Chest x-ray was interpreted by myself as no acute abnormalities CT interpreted by me (1pt min.). @ -[None done] U/S interpreted by me (1pt. min.). @ -[None done] What testing was considered but not performed or refused? (CT, X-rays, U/S, labs)? Why? @ -[None] What meds were considered but not given or refused? Why? @ -[None] Did you discuss the management of the patient with other professionals (professionals i.e. , PA, ROBOTICS APPLICATION ENGINEER, lab, RT, psych nurse, elementary school social worker, facilities painter, teacher, correction officer head, director of casework)? Give summary @ -I spoke with Dr. Hoffman he agreed to admit the patient Was smoking cessation discussed for >3mins.? @ -[No] Was critical care preformed (if so, how long)? @ -[No] Were there social determinants of health that impacted care today? How? (Homelessness, low income, unemployed, alcoholism, drug addiction, transportation, low edu. Level, literacy, decrease access to med. care, assisted, rehab)? @ -[No] Was there de-escalation of care discussed even if they declined (Discuss DNR or withdrawal of care, Hospice)? DNR status @ -[No] What co-morbidities impacted this encounter? (DM, HTN, Smoking, COPD, CAD, Cancer, CVA, ARF, Chemo, Hep., AIDS, mental health diagnosis, sleep apnea, morbid obesity)? @ -[None] Was patient admitted / discharged? Hospital course, mention meds given and route, prescriptions, significant lab abnormalities, going to OR and other pertinent info. @ -Patient has a descending aortic aneurysm that measures 4.1 cm on the prior CAT scan. Patient also had a stress test that showed inducible ischemia. I spoke with Dr. Hoffman he agreed to admit the patient admitted the patient remaining orders I consulted cardiology. Undiagnosed new problem with uncertain prognosis? @ -[No] Drug Therapy requiring intensive monitoring for toxicity (Heparin, Nitro, Insulin, Cardizem)? @ -[No] Were any procedures done? @ -[No] Diagnosis/symptom? @ -Chest pain Acute, or Chronic, or Acute on Chronic? @ -Acute Uncomplicated (without systemic symptoms) or Complicated (systemic symptoms)? @ -Complicated Side effects of treatment? @ -[No] Exacerbation, Progression, or Severe Exacerbation? @ -[No] Poses a threat to life or bodily function? How? (Chest pain, USA, MD, pneumonia, PE, COPD, DKA, ARF, appy, cholecystitis, CVA, Diverticulitis, Homicidal, Suicidal, threat staff... and all critical care pts) @ -Yes this could lead to cardiac ischemia and significant morbidity - Lab Data Result diagrams: 01/24/23 13:14 01/24/23 13:14 Lab Results 01/24/23 01/24/23 01/24/23 Range/Units 13:14 13:14 13:14 WBC 11.9 H (3.8-10.6) k/uL RBC 5.03 (3.80-5.40) m/uL Hgb 15.0 (11.4-16.0) gm/dL Hct 45.6 (34.0-46.0) % MCV 90.6 (80.0-100.0) fL MCH 29.7 (25.0-35.0) pg MCHC 32.8 (31.0-37.0) g/dL RDW 14.2 (11.5-15.5) % Plt Count 169 (150-450) k/uL MPV 8.2 Neutrophils % 77 % Lymphocytes % 16 % Monocytes % 4 % Eosinophils % 2 % Basophils % 0 % Neutrophils # 9.2 H (1.3-7.7) k/uL Lymphocytes # 2.0 (1.0-4.8) k/uL Monocytes # 0.4 (0-1.0) k/uL Eosinophils # 0.2 (0-0.7) k/uL Basophils # 0.0 (0-0.2) k/uL PT 9.7 (9.0-12.0) sec INR 0.9 (<1.2) APTT 24.5 (22.0-30.0) sec Sodium 138 (137-145) mmol/L Potassium 4.2 (3.5-5.1) mmol/L Chloride 107 (98-107) mmol/L Carbon Dioxide 23 (22-30) mmol/L Anion Gap 8 mmol/L BUN 21 H (7-17) mg/dL Creatinine 1.04 (0.52-1.04) mg/dL Est GFR (CKD-EPI)AfAm 77 (>60 ml/min/1.73 sqM) Est GFR (CKD-EPI)NonAf 67 (>60 ml/min/1.73 sqM) Glucose 98 (74-99) mg/dL Calcium 8.5 (8.4-10.2) mg/dL Magnesium 1.7 (1.6-2.3) mg/dL Total Bilirubin 0.3 (0.2-1.3) mg/dL AST 17 (14-36) U/L ALT 19 (4-34) U/L Alkaline Phosphatase 66 (38-126) U/L Troponin I (0.000-0.034) ng/mL Total Protein 6.4 (6.3-8.2) g/dL Albumin 3.5 (3.5-5.0) g/dL 01/24/23 Range/Units 13:14 WBC (3.8-10.6) k/uL RBC (3.80-5.40) m/uL Hgb (11.4-16.0) gm/dL Hct (34.0-46.0) % MCV (80.0-100.0) fL MCH (25.0-35.0) pg MCHC (31.0-37.0) g/dL RDW (11.5-15.5) % Plt Count (150-450) k/uL MPV Neutrophils % % Lymphocytes % % Monocytes % % Eosinophils % % Basophils % % Neutrophils # (1.3-7.7) k/uL Lymphocytes # (1.0-4.8) k/uL Monocytes # (0-1.0) k/uL Eosinophils # (0-0.7) k/uL Basophils # (0-0.2) k/uL PT (9.0-12.0) sec INR (<1.2) APTT (22.0-30.0) sec Sodium (137-145) mmol/L Potassium (3.5-5.1) mmol/L Chloride (98-107) mmol/L Carbon Dioxide (22-30) mmol/L Anion Gap mmol/L BUN (7-17) mg/dL Creatinine (0.52-1.04) mg/dL Est GFR (CKD-EPI)AfAm (>60 ml/min/1.73 sqM) Est GFR (CKD-EPI)NonAf (>60 ml/min/1.73 sqM) Glucose (74-99) mg/dL Calcium (8.4-10.2) mg/dL Magnesium (1.6-2.3) mg/dL Total Bilirubin (0.2-1.3) mg/dL AST (14-36) U/L ALT (4-34) U/L Alkaline Phosphatase (38-126) U/L Troponin I <0.012 (0.000-0.034) ng/mL Total Protein (6.3-8.2) g/dL Albumin (3.5-5.0) g/dL Disposition Clinical Impression: Chest pain Disposition: ADMITTED IP TO THIS HOSP Referrals: Allen Winchester MD [Primary Care Provider] - 1-2 days Time of Disposition: 14:47
--- NOTE | 2023-01-24 13:56 | XR ---
EXAMINATION TYPE: XR chest 2V DATE OF EXAM: 01/24/2023 1:40 PM COMPARISON: Chest radiographs from 01/12/2023 TECHNIQUE: XR chest 2V Frontal and lateral views of the chest. CLINICAL INDICATION:Female, 42 years old with history of Chest Pain; FINDINGS: Lungs/Pleura: There is no evidence of pleural effusion, focal consolidation, or pneumothorax. Pulmonary vascularity: Unremarkable. Heart/mediastinum: Cardiomediastinal silhouette is unremarkable. Musculoskeletal: No acute osseous pathology. IMPRESSION: No acute cardiopulmonary disease/process.
[2023-01-24 14:03] LABS: INR 0.9 (<1.2); Partial Thromboplastin Time 24.5 sec (22.0-30.0); Prothrombin Time 9.7 sec (9.0-12.0)
[2023-01-24 14:17] LABS: Albumin 3.5 g/dL (3.5-5.0); Calcium 8.5 mg/dL (8.4-10.2); Magnesium 1.7 mg/dL (1.6-2.3); Potassium 4.2 mmol/L (3.5-5.1); Total Bilirubin 0.3 mg/dL (0.2-1.3); Total Protein 6.4 g/dL (6.3-8.2)
[2023-01-24] MEDS ORDERED: NITROGLYCERIN SL TABS 0.4 MG TAB SUBLINGUAL PRN (14:48)
[2023-01-24] MEDS ORDERED: ALPRAZolam 0.5 MG TAB PO PRN (16:24)
[2023-01-24] MEDS ORDERED: ALBUTEROL HFA INHALER INHALATION PRN (16:24)
--- NOTE | 2023-01-24 16:38 | P.HPIM ---
History of Present Illness H&P Date: 01/24/23 Chief Complaint: Chest pain 42-year-old woman with medical history of TIA, polycystic kidney disease, moderate persistent asthma, hypertension, hyperlipidemia, diabetes type 2 presented with chest pain. Patient says that her chest pain started after she received a computed tomography scan approximately 2 weeks ago. She presented to the hospital for this complaint on January 12, and was supposed to stay for chest pain rule out, however, patient left AGAINST MEDICAL ADVICE. She did follow-up with her ostomy rn who recommended stress testing. She was asked to come ba ck to her ostomy rn office today to discuss results of stress testing and was told that she had evidence of reversible ischemia, therefore it was recommended she come to the hospital to be admitted for left heart catheterization. Patient continues to report ongoing chest pressure. She denies fevers, chills, nausea, vomiting, palpitations, syncopal, presyncopal, cough, dyspnea, abdominal pain, constipation, diarrhea, dysuria, dyschezia, numbness/weakness of extremities. In the emergency room, patient was afebrile, 142/82, heart rate 88, 96% on room air. Chemistries were unremarkable. Liver function tests were unremarkable. Troponin is less than 0.012. Coags were unremarkable. EKG demonstrated normal sinus rhythm with appropriate axis, no evidence of active ischemia. Chest x-ray shows clear parenchyma bilaterally with a normal sized heart with evidence of left atrial enlargement. Lexiscan stress test from 01/21 was reviewed and showed reduced ejection fraction of 43%, large area of fixed perfusion defect along the anterior wall could represent combination of old infarct and body wall attenuation artifact which slightly attenuates on stress imaging. Case was discussed with the emergency room physician and decision was made to admit the patient for cardiology evaluation and likely left heart catheterization. All Systems reviewed and pertinent positives and negatives noted in HPI, all other symptoms are negative Gen: in no apparent distress, resting comfortably in bed Eyes: PERRL, no scleral injection or icterus HENT: normocephalic, atraumatic, good hearing acuity, moist mucous membranes Neck: no tracheal deviation, full range of motion Resp: good air exchange, breathing comfortably with no accessory muscle use, no tactile fremitus, clear to auscultation bilaterally CVS: good distal perfusion x 4, trace bilateral pitting edema, regular rate and rhythm without murmurs GI: soft, NTTP, ND, no hepatosplenomegaly : no suprapubic tenderness, no CVAT, odom catheter not present MSK: no clubbing, no cyanosis, no noted contractures of extremities Skin: no noted rashes, petechiae; temperature of skin is appropriate Neuro: moving all extremities without signs of weakness, CN II-XII intact Psych: cooperative, euthymic mood, insight and judgment intact Labs and imaging as above Assessment: Chest pain in setting of positive stress test History of TIA Hypertension Hyperlipidemia Diabetes type 2 Moderate persistent asthma Polycystic kidney disease Plan: Vital signs reviewed and noted in HPI Lab work reviewed and noted in HPI EKG and chest x-ray personally interpreted in noted in HPI Case was discussed the emergency room provider and decision was made to admit the patient to observation Ordered CBC, basic metabolic panel, magnesium, TSH, A1c, lipid panel for tomorrow Continue ASA 81mg daily Continue Rosuvastatin 10mg daily Pending cardiology consultation, NPO for consideration of LHC Continue SL Nitro PRN Continue losartan 50mg daily Continue Trelegy Patient is full code Past Medical History Past Medical History: CVA/TIA, Diabetes Mellitus, Hyperlipidemia, Hypertension, Osteoarthritis (OA) Additional Past Medical History / Comment(s): polycystic kidney disease, migraines, TIA 2012, varicose veins, hx anemia, AORTIC ANEURSYM History of Any Multi-Drug Resistant Organisms: None Reported Past Surgical History: Hysterectomy, Orthopedic Surgery Additional Past Surgical History / Comment(s): bilateral Carpal tunnel sx, D&C, LUMP REMOVED from throat Past Anesthesia/Blood Transfusion Reactions: Previous Problems w/ Anesthesia Additional Past Anesthesia/Blood Transfusion Reaction / Comment(s): "body pain"- severe AFTER D & C Past Psychological History: Anxiety, Depression, PTSD Smoking Status: Current every day smoker Past Alcohol Use History: None Reported Past Drug Use History: None Reported - Past Family History Mother Family Medical History: Cancer Additional Family Medical History / Comment(s): BREAST,THYROID CANCER Medications and Allergies Home Medications Medication Instructions Recorded Confirmed Type ALPRAZolam [Xanax] 0.5 mg PO DAILY PRN 04/26/14 01/24/23 History Cetirizine HCl [Zyrtec] 10 mg PO DAILY 05/26/17 01/24/23 History Albuterol Sulfate [Ventolin HFA] 2 puff INHALATION RT-Q6H PRN 12/19/21 01/24/23 History Ferrous Sulfate [Slow Release Iron] 140 mg PO CHASE 12/19/21 01/24/23 History Furosemide [Lasix] 20 mg PO DAILY 12/19/21 01/24/23 History Empagliflozin [Jardiance] 25 mg PO DAILY 11/01/22 01/24/23 History Fluticasone/Umeclidin/Vilanter 1 puff INHALATION RT-DAILY 11/01/22 01/24/23 History [Trelegy Ellipta 200-62.5-25] Losartan Potassium 50 mg PO DAILY 11/01/22 01/24/23 History Rosuvastatin [Crestor] 10 mg PO DAILY 11/01/22 01/24/23 History Dulaglutide [Trulicity] 1.5 mg SQ SA 01/12/23 01/24/23 History FLUoxetine HCL [PROzac] 20 mg PO DAILY 01/12/23 01/24/23 History Imiquimod [Aldara] 1 packet TOPICAL HS 01/12/23 01/24/23 History Allergies Allergy/AdvReac Type Severity Reaction Status Date / Time Sulfa (Sulfonamide Allergy Severe Unknown Verified 01/24/23 14:08 Antibiotics) Childhood Iodinated Contrast Media Allergy Unknown Anaphylaxis Verified 01/24/23 14:08 [Iodinated Contrast Media - IV Dye] lactose Allergy Unknown Verified 01/24/23 14:08 bupropion HCl AdvReac Severe Seizure Verified 01/24/23 14:08 [From Wellbutrin] iron AdvReac NAUSEA, Verified 01/24/23 14:08 VOMITING. Physical Exam Osteopathic Statement: *. No significant issues noted on an osteopathic structural exam other than those noted in the History and Physical/Consult. Vitals: Vital Signs Temp Pulse Resp BP Pulse Ox 01/24/23 16:04 87 22 110/71 96 01/24/23 14:38 130/74 01/24/23 14:00 87 18 121/79 95 01/24/23 12:26 98.6 F 88 16 142/82 96 Intake and Output 01/24/23 01/24/23 01/24/23 06:59 14:59 22:59 Other: Weight 136.078 kg Results CBC & Chem 7: 01/24/23 13:14 01/24/23 13:14 Labs: Abnormal Lab Results - Last 24 Hours (Table) 01/24/23 01/24/23 Range/Units 13:14 13:14 WBC 11.9 H (3.8-10.6) k/uL Neutrophils # 9.2 H (1.3-7.7) k/uL BUN 21 H (7-17) mg/dL
[2023-01-24] MEDS ORDERED: DEXTROSE 50% SYRINGE 50 ML IVP PRN ×2 (17:34)
[2023-01-24 17:36] LABS: Glucose,Whole Blood 96 mg/dL (70-110)
[2023-01-24] MEDS: INSULIN ASPART (NovoLOG) 100 UNIT/ML VIAL SQ SCH ×2 (17:39→21:38)
[2023-01-24] MEDS ORDERED: NITROGLYCERIN OINT 1 INCH/GM PACKET TOPICAL SCH (18:00)
[2023-01-24 20:48] LABS: Glucose,Whole Blood 112 mg/dL (70-110)
[2023-01-24] MEDS ORDERED: IMIQUIMOD TOPICAL SCH (21:00)
[2023-01-25 03:04] VITALS: RESP 16
[2023-01-25] MEDS ORDERED: ACETAMINOPHEN TAB 325 MG TAB PO PRN (03:06)
[2023-01-25 05:40] LABS: Glucose,Whole Blood 104 mg/dL (70-110)
[2023-01-25] MEDS: INSULIN ASPART (NovoLOG) 100 UNIT/ML VIAL SQ SCH ×2 (06:11→13:14)
[2023-01-25] MEDS ORDERED: HEPARIN SODIUM,PORCINE 2,500 UNIT in SODIUM CHLORIDE 0.9% 250 ML IRRIGATION PRN (07:00)
[2023-01-25] MEDS ORDERED: HEPARIN SODIUM,PORCINE 10,000 UNIT in SODIUM CHLORIDE 0.9% 1,000 ML IRRIGATION PRN (07:00)
[2023-01-25] MEDS ORDERED: SYMBICORT 160-4.5 MCG INHALER INHALATION SCH (08:00)
[2023-01-25 08:34] LABS: Basophils # (A) 0.04 X 10*3/uL (0.00-0.10); Basophils % (A) 0.3 %; Eosinophils # (A) 0.24 X 10*3/uL (0.04-0.35); HCT 43.9 % (37.2-46.3); Immature Grans, Automated 0.6 %; Lymphocytes # (A) 2.54 X 10*3/uL (0.90-5.00); Lymphocytes % (A) 21.7 %; MCH 30.2 pg (27.0-32.0); MCHC 31.9 g/dL (32.0-37.0); MCV 94.6 fL (80.0-97.0); Mean Platelet Volume 11.4 fL (9.5-12.2); Monocytes # (A) 0.65 X 10*3/uL (0.20-1.00); Monocytes % (A) 5.5 %; NRBC Per 100 WBC 0 /100 WBCS (0.0-0.0); Neutrophils # (A) 8.18 X 10*3/uL (1.80-7.70); Neutrophils % (A) 69.9 %; Platelet Count 162 X 10*3/uL (140-440); RBC 4.64 X 10*6/uL (4.10-5.20); WBC 11.72 X 10*3/uL (4.50-10.00)
[2023-01-25] MEDS ORDERED: ALPRAZolam 0.5 MG TAB PO PRN (08:39)
[2023-01-25] MEDS ORDERED: NITROGLYCERIN SL TABS 0.4 MG TAB SUBLINGUAL PRN (08:39)
[2023-01-25] MEDS ORDERED: ATORVASTATIN 80 MG TAB PO STA (08:39)
[2023-01-25] MEDS ORDERED: ASPIRIN 325 MG TAB PO STA (08:39)
[2023-01-25] MEDS ORDERED: ALPRAZolam 0.25 MG TAB PO PRN (08:39)
[2023-01-25] MEDS: IPRATROPIUM 0.5 MG/2.5 ML NEBU INHALATION SCH ×2 (08:48→12:06)
[2023-01-25] MEDS ORDERED: FUROSEMIDE 20 MG TAB PO SCH (09:00)
[2023-01-25] MEDS ORDERED: FLUoxetine HCL 20 MG CAP PO SCH (09:00)
[2023-01-25] MEDS ORDERED: ASPIRIN 81 MG PO SCH (09:00)
[2023-01-25] MEDS ORDERED: LOSARTAN 50 MG TAB PO SCH (09:00)
[2023-01-25] MEDS ORDERED: LORATADINE 10 MG TAB PO SCH (09:00)
[2023-01-25] MEDS ORDERED: ASPIRIN 325 MG TAB PO SCH (09:00)
[2023-01-25] MEDS ORDERED: ATORVASTATIN 20 MG TAB PO SCH (09:00)
[2023-01-25] MEDS ORDERED: IV FLUID CONTINUATION 1,000 ML IV ONE (09:48)
--- NOTE | 2023-01-25 09:49 | P.CRDCN ---
History of Present Illness Consult date: 01/25/23 Consult reason: chest pain History of present illness: History of present illness: This is a 42 year old female with past medical history of diabetes mellitus type 2, hypertension, hyperlipidemia. She does not have a previous cardiac history. Patient gives history that she has a constant dull ache in her chest on the left upper anterior area. It is worse when she lays on her side or sometimes with activity or when she gets upset. Pain has been present since January 08 at which time she underwent a CAT scan angiogram of the chest. This test revealed mild ascending thoracic aortic aneurysm of 4.1 cm at the aortic root. Patient unfortunately had a contrast reaction despite being premedicated before the test and was sent to the ER for additional treatment. Patient then presented on 01/12 with complaints of dull chest pain and had troponins negative 3 but decided to leave AMA from the hospital. Patient subsequently had an outpatient Lexiscan stress test that revealed EF of 43%. Large area of fixed perfusion defect along the anterior wall could represent combination of old infarct and body wall attenuation artifact. Positive findings suggesting the presence of inducible ebonie-infarct ischemia. Results of stress test reviewed with the patient and recommendation for cardiac catheterization was made and patient was agreeable to move forward. EKG normal sinus rhythm with no acute ST changes Chest x-ray: No acute cardiopulmonary disease. WBC 11.7, hemoglobin 14, platelet count 162. INR 0.9. Electrolytes normal. BUN 21 creatinine 1.04. Liver function tests are normal. Troponin negative 3. Home cardiac medications: Lasix 20 mg daily, losartan 50 mg daily, Crestor 10 mg daily Review Of Systems: At the time of my evaluation: Constitutional: No fever, no chills. No weakness, fatigue or lethargy. EENT: No headache. No dizziness. Lungs: No shortness of breath, cough, no sputum production. No wheezing. Occas ional dyspnea with exertion Cardiovascular: Reports chest pain, no lower extremity edema. No palpitations. No paroxysmal nocturnal dyspnea. No orthopnea. Occasional lightheadedness or dizziness. No syncopal episodes. Abdominal: No abdominal pain. No nausea, vomiting. No diarrhea. No constipa tion. No bloody or tarry stools. Genitourinary: No dysuria.. No urinary retention. Musculoskeletal: No myalgias. No muscle weakness, no frequent falls. No back pain. No neck pain. Integumentary: No wounds. No rash. No unusual bruising. Neurologic: No aphasia. No facial droop. No change in mentation. No head injury. No headache. Physical examination: Gen: This is a morbidly obese 42-year-old female. She is resting in bed and appears to be comfortable and in no acute distress VS: reviewed HEENT: Head is atraumatic, normocephalic. Pupils equal, round. Sclerae is anicteric. NECK: Supple. No JVD. . LUNGS: Clear to auscultation. No wheezes or rhonchi. No intercostal retra ctions. HEART: Regular rate and rhythm. No murmur. ABDOMEN: Soft No tenderness. EXTREMITIES: No pedal edema. No calf tenderness. NEUROLOGICAL: Patient is awake, alert and oriented x3. Assessment: Chest pain with abnormal Lexiscan stress test Diabetes mellitus type 2 Hypertension Hyperlipidemia Morbid obesity Plan: Continue patient's home cardiac medications Patient scheduled for cardiac catheterization today with Dr. Elizabeth Obtain 2-D echocardiogram and Doppler study to assess cardiac structure and function Further recommendations to follow based upon clinical course Thank you kindly for this consultation. Nurse practitioner note has been reviewed, I agree with documented findings and plan of care. Patient was seen and examined. Past Medical History Past Medical History: CVA/TIA, Diabetes Mellitus, Hyperlipidemia, Hypertension, Osteoarthritis (OA) Additional Past Medical History / Comment(s): polycystic kidney disease, migraines, TIA 2012, varicose veins, hx anemia, AORTIC ANEURSYM History of Any Multi-Drug Resistant Organisms: None Reported Past Surgical History: Hysterectomy, Orthopedic Surgery Additional Past Surgical History / Comment(s): bilateral Carpal tunnel sx, D&C, LUMP REMOVED from throat Past Anesthesia/Blood Transfusion Reactions: Previous Problems w/ Anesthesia Additional Past Anesthesia/Blood Transfusion Reaction / Comment(s): "body pain"- severe AFTER D & C Past Psychological History: Anxiety, Depression, PTSD Smoking Status: Current every day smoker Past Alcohol Use History: None Reported Past Drug Use History: None Reported - Past Family History Mother Family Medical History: Cancer Additional Family Medical History / Comment(s): BREAST,THYROID CANCER Medications and Allergies Home Medications Medication Instructions Recorded Confirmed Type ALPRAZolam [Xanax] 0.5 mg PO DAILY PRN 04/26/14 01/24/23 History Cetirizine HCl [Zyrtec] 10 mg PO DAILY 05/26/17 01/24/23 History Albuterol Sulfate [Ventolin HFA] 2 puff INHALATION RT-Q6H PRN 12/19/21 01/24/23 History Ferrous Sulfate [Slow Release Iron] 140 mg PO CHASE 12/19/21 01/24/23 History Furosemide [Lasix] 20 mg PO DAILY 12/19/21 01/24/23 History Empagliflozin [Jardiance] 25 mg PO DAILY 11/01/22 01/24/23 History Fluticasone/Umeclidin/Vilanter 1 puff INHALATION RT-DAILY 11/01/22 01/24/23 History [Trelegy Ellipta 200-62.5-25] Losartan Potassium 50 mg PO DAILY 11/01/22 01/24/23 History Rosuvastatin [Crestor] 10 mg PO DAILY 11/01/22 01/24/23 History Dulaglutide [Trulicity] 1.5 mg SQ SA 01/12/23 01/24/23 History FLUoxetine HCL [PROzac] 20 mg PO DAILY 01/12/23 01/24/23 History Imiquimod [Aldara] 1 packet TOPICAL HS 01/12/23 01/24/23 History Allergies Allergy/AdvReac Type Severity Reaction Status Date / Time Sulfa (Sulfonamide Allergy Severe Unknown Verified 01/24/23 14:08 Antibiotics) Childhood Iodinated Contrast Media Allergy Unknown Anaphylaxis Verified 01/24/23 14:08 [Iodinated Contrast Media - IV Dye] lactose Allergy Unknown Verified 01/24/23 14:08 bupropion HCl AdvReac Severe Seizure Verified 01/24/23 14:08 [From Wellbutrin] iron AdvReac NAUSEA, Verified 01/24/23 14:08 VOMITING. Physical Exam Vitals: Vital Signs Temp Pulse Pulse Resp BP BP Pulse Ox 01/25/23 02:12 97.9 F 79 16 111/68 97 01/24/23 19:17 98.0 F 82 17 110/64 96 01/24/23 16:47 98.0 F 90 16 123/78 97 01/24/23 16:43 22 01/24/23 16:04 87 22 110/71 96 01/24/23 14:38 130/74 01/24/23 14:00 87 18 121/79 95 01/24/23 12:26 98.6 F 88 16 142/82 96 Intake and Output 01/24/23 01/25/23 01/25/23 22:59 06:59 14:59 Intake Total 480 Balance 480 Intake: Oral 480 Other: Voiding Method Toilet # Voids 1 2 Weight 136.078 kg Results 01/25/23 05:32 01/24/23 13:14 Cardiac Enzymes 01/24/23 01/24/23 01/24/23 Range/Units 13:14 13:14 15:54 AST 17 (14-36) U/L Troponin I <0.012 <0.012 (0.000-0.034) ng/mL 01/24/23 Range/Units 18:13 AST (14-36) U/L Troponin I <0.012 (0.000-0.034) ng/mL Coagulation 01/24/23 Range/Units 13:14 PT 9.7 (9.0-12.0) sec APTT 24.5 (22.0-30.0) sec CBC 01/24/23 Range/Units 13:14 WBC 11.9 H (3.8-10.6) k/uL RBC 5.03 (3.80-5.40) m/uL Hgb 15.0 (11.4-16.0) gm/dL Hct 45.6 (34.0-46.0) % Plt Count 169 (150-450) k/uL Comprehensive Metabolic Panel 01/24/23 Range/Units 13:14 Sodium 138 (137-145) mmol/L Potassium 4.2 (3.5-5.1) mmol/L Chloride 107 (98-107) mmol/L Carbon Dioxide 23 (22-30) mmol/L BUN 21 H (7-17) mg/dL Creatinine 1.04 (0.52-1.04) mg/dL Glucose 98 (74-99) mg/dL Calcium 8.5 (8.4-10.2) mg/dL AST 17 (14-36) U/L ALT 19 (4-34) U/L Alkaline Phosphatase 66 (38-126) U/L Total Protein 6.4 (6.3-8.2) g/dL Albumin 3.5 (3.5-5.0) g/dL Current Medications Generic Name Dose Route Start Last Admin Trade Name Freq PRN Reason Stop Dose Admin Acetaminophen 650 mg 01/25/23 03:06 01/25/23 03:10 Acetaminophen Tab 325 Mg Tab PO 650 mg Q4HR PRN Administration Fever and/ or Pain Albuterol Sulfate 2 puff 01/24/23 16:24 Albuterol Hfa Inhaler INHALATION RT-Q6H PRN Shortness Of Breath Alprazolam 0.5 mg 01/24/23 16:24 Alprazolam 0.5 Mg Tab PO DAILY PRN Anxiety Aspirin 81 mg 01/25/23 09:00 Aspirin 81 Mg PO DAILY [facility]1983 Atorvastatin Calcium 20 mg 01/25/23 09:00 Atorvastatin 20 Mg Tab PO DAILY [facility]1983 Budesonide/Formoterol Fumarate 2 puff 01/25/23 08:00 Symbicort 160-4.5 Mcg Inhaler INHALATION RT-BID [facility]–1983 Dextrose/Water 25 ml 01/24/23 17:34 Dextrose 50% Syringe 50 Ml IVP PER PROTOCOL PRN Hypoglycemia Protocol Dextrose/Water 50 ml 01/24/23 17:34 Dextrose 50% Syringe 50 Ml IVP PER PROTOCOL PRN Hypoglycemia Protocol Fluoxetine HCl 20 mg 01/25/23 09:00 Fluoxetine Hcl 20 Mg Cap PO DAILY [facility]1983 Furosemide 20 mg 01/25/23 09:00 Furosemide 20 Mg Tab PO DAILY [facility]1983 Insulin Aspart 0 unit 01/24/23 17:34 01/25/23 06:11 Insulin Aspart (Novolog) 100 Unit/Ml Vial SQ Not Given ACHS [facility]–1983 Protocol Ipratropium [place] 0.5 mg 01/25/23 08:00 Ipratropium 0.5 Mg/2.5 Ml Nebu INHALATION RT-QID [facility]1983 Loratadine 10 mg 01/25/23 09:00 Loratadine 10 Mg Tab PO DAILY [facility] Losartan Potassium 50 mg 01/25/23 09:00 Losartan 50 Mg Tab PO DAILY [facility] Nitroglycerin 0.4 mg 01/24/23 14:48 Nitroglycerin Sl Tabs 0.4 Mg Tab SUBLINGUAL Q5M PRN Chest Pain Ferrous Sulfate [ 140 mg 01/27/23 09:00 Slow Release Iron] PO 140 Mg Tablet CHASE [facility] Imiquimod [Aldara] 1 1 packet 01/24/23 21:00 01/24/23 19:50 Each Cream.Pack TOPICAL Not Given HS BENNY Intake and Output 01/24/23 01/25/23 01/25/23 22:59 06:59 14:59 Intake Total 480 Balance 480 Intake: Oral 480 Other: Voiding Method Toilet # Voids 1 2 Weight 136.078 kg 01/24/23 13:14 01/24/23 13:14
[2023-01-25] MEDS ORDERED: HEPARIN SODIUM 1,000 UN/ML (10ML VL) ONE (09:51)
[2023-01-25] MEDS ORDERED: VERAPAMIL 2.5 MG/ML 2 ML AMP ONE (09:51)
[2023-01-25] MEDS ORDERED: diphenhydrAMINE 50 MG/ML 1 ML VIAL ONE (09:52)
[2023-01-25] MEDS ORDERED: fentaNYL (PF) 50 MCG/ML 2 ML AMP ONE (09:53)
[2023-01-25] MEDS ORDERED: methylPREDNISolone SOD SUCCI 125 MG/2 ML VIAL ONE (09:53)
[2023-01-25 09:54] LABS: African American GFR (CKD) 71.7 (60.0-200.0); BUN/Creat Ratio 19.73 Ratio (12.00-20.00); Blood Urea Nitrogen 21.7 mg/dL (9.0-27.0); Calcium 8.4 mg/dL (8.7-10.3); Carbon Dioxide 22.5 mmol/L (20.0-27.5); Chloride 108 mmol/L (96-109); Chol/HDL Ratio 4.72 Ratio; Glucose 96 mg/dL (70-110); LDL Cholesterol,Calculated 49.9 mg/dL (0.0-131.0); Magnesium 1.8 mg/dL (1.5-2.4); Non-African American GFR(CKD) 61.9 (60.0-200.0); Potassium 4.2 mmol/L (3.5-5.5); Sodium 140 mmol/L (135-145)
[2023-01-25] MEDS ORDERED: diphenhydrAMINE 50 MG/ML 1 ML VIAL IVP ONE (10:00)
[2023-01-25] MEDS ORDERED: methylPREDNISolone SOD SUCCI 125 MG/2 ML VIAL IV ONE (10:00)
[2023-01-25] MEDS ORDERED: fentaNYL (PF) 50 MCG/ML 2 ML AMP IV ONE (10:10)
[2023-01-25] MEDS ORDERED: LIDOCAINE 1% INJ 10MG/ML (5 ML VIAL-PF) SQ ONE (10:13)
[2023-01-25] MEDS: VERAPAMIL SYRINGE (5 MG/10 ML) INTRAARTER ONE ×2 (10:14→10:25)
[2023-01-25] MEDS: MIDAZOLAM 2 MG/2 ML VIAL IV ONE ×2 (10:18→10:23)
[2023-01-25] MEDS ORDERED: HEPARIN SODIUM 1,000 UN/ML (10ML VL) IV ONE (10:22)
[2023-01-25] MEDS ORDERED: IOPAMIDOL-370 100ML BTL INJ ONE (10:25)
[2023-01-25] MEDS ORDERED: ONDANSETRON 4 MG/2 ML VIAL ONE (10:31)
[2023-01-25] MEDS ORDERED: ONDANSETRON 4 MG/2 ML VIAL IVP ONE (10:35)
[2023-01-25] MEDS ORDERED: RX INFO: IV CONTRAST WAS GIVEN 1 EACH MISC MISCELLANE PRN (10:38)
[2023-01-25] MEDS ORDERED: SODIUM CHLORIDE 0.9% 1,000 ML IV SCH (10:45)
--- NOTE | 2023-01-25 10:45 | P.CARDCATH ---
Date of Procedure: 01/25/23 Description of Procedure: Cardiac Catheterization: The patient is a 42-year-old female with known history of diabetes, tobacco use, hypertension and hyperlipidemia who presented with chest discomfort and had an abnormal MPI. Recommendations were made regarding cardiac catheterization, the risks and the complications were discussed with the patient who is in full understanding and agreement. Procedure Description: Patient was brought to radiographer cardiac catheterization in fasting semi-sedated state after receiving Fentanyl and Benadryl achieiving moderate conscious sedated state. Using Xylocaine Anesthesia and Seldinger technique, a 6-Palauan sheath was introduced in the right radial artery . Subsequently, selective coronary angiography was performed using a 5-Palauan 3.5 bend right Margie and 6-Palauan 3.5 bend left Margie catheter. Multiple views of the coronary artery including hemiaxial views were obtained. The left Margie catheter was used to cross the aortic valve and LVEDP was calculated. Following that, catheter and sheath were removed. Hemostasis was obtained with deployment of TR band . There was no immediate complication. Patient was returned to room in stable condition. Of note, the patient received a total of 5000 units of intravenous heparin as well as intra-arterial verapamil. Findings: Left main: This is a large size vessel, bifurcating into LAD and left circumflex, left main has no high-grade stenosis LAD: This is a large size vessel, reaching to the apex with a wraparound the apex segment giving rise to 2 large diagonal branch, the LAD has no obstructive disease Left circumflex: This is a nondominant vessel large in caliber, giving rise to a large first marginal branch that has no evidence of high-grade stenosis RCA: This is a dominant vessel bifurcating distally PDA and PLV the distal RCA has 10-20% plaque with no high-grade stenosis Left Ventriculogram: Not performed Hemodynamics: There was no gradient across the aortic valve, LVEDP was 10-12 mmHg Conclusion: 1. Minimal obstructive disease in the distal RCA 2. Normal LAD and left circumflex 3. Right dominance 4. Normal LVEDP Recommendations: Have recommended to continue medical therapy with the aggressive coronary risk modification. The findings and the recommendations were discussed with the patient and the family and they were in full understanding and agreement. Duration of sedation is 18 minutes.
[2023-01-25 12:46] LABS: Glucose,Whole Blood 229 mg/dL (70-110)
--- NOTE | 2023-01-25 14:40 | P.DS ---
Providers Date of admission: 01/24/23 14:49 Expected date of discharge: 01/25/23 Attending physician: Nicholas Hoffman MD Consults: 01/24/23 14:48 Consult Physician Urgent Consulting Provider: [facility] Consult Reason/Comments: Chest pain Do you want consulting provider notified?: Yes Primary care physician: Allen Winchester Hospital Course: Assessment: Chest pain in setting of positive stress test History of TIA Hypertension Hyperlipidemia Diabetes type 2 Moderate persistent asthma Polycystic kidney disease Hospital Course: 42-year-old woman with medical history of TIA, polycystic kidney disease, moderate persistent asthma, hypertension, hyperlipidemia, diabetes type 2 presented with chest pain. In the emergency room, patient was afebrile, 142/82, heart rate 88, 96% on room air. Chemistries were unremarkable. Liver function tests were unremarkable. Troponin is less than 0.012. Coags were unremarkable. EKG demonstrated normal sinus rhythm with appropriate axis, no evidence of active ischemia. Chest x-ray shows clear parenchyma bilaterally with a normal sized heart with evidence of left atrial enlargement. Lexiscan stress test from 01/21 was reviewed and showed reduced ejection fraction of 43%, large area of fixed perfusion defect along the anterior wall could represent combination of old infarct and body wall attenuation artifact which slightly attenuates on stress imaging. Case was discussed with the emergency room physician and decision was made to admit the patient for cardiology evaluation and likely left heart catheterization. Patient was seen by cardiology and taken to the catheterization suite today on 01/25, and was found to have nonobstructive coronary disease of the distal RCA. She was advised for aggressive medical risk factor modification as well as initiation of aspirin. She should follow-up with her primary care physician as well as her clipper and turner. I spent 34 minutes corrugating this discharge and 01/25 Gen: in no apparent distress, resting comfortably in bed Eyes: PERRL, no scleral injection or icterus HENT: normocephalic, atraumatic, good hearing acuity, moist mucous membranes Neck: no tracheal deviation, full range of motion Resp: good air exchange, breathing comfortably with no accessory muscle use, no tactile fremitus, clear to auscultation bilaterally CVS: good distal perfusion x 4, trace bilateral pitting edema, regular rate and rhythm without murmurs GI: soft, NTTP, ND, no hepatosplenomegaly : no suprapubic tenderness, no CVAT, odom catheter not present MSK: no clubbing, no cyanosis, no noted contractures of extremities Skin: no noted rashes, petechiae; temperature of skin is appropriate Neuro: moving all extremities without signs of weakness, CN II-XII intact Psych: cooperative, euthymic mood, insight and judgment intact Patient Condition at Discharge: Good Plan - Discharge Summary Discharge Rx Participant: No New Discharge Prescriptions: New Aspirin 81 mg PO DAILY #30 tab Acetaminophen Tab [Tylenol] 650 mg PO Q4HR PRN tab PRN Reason: Fever And/ Or Pain Continue ALPRAZolam [Xanax] 0.5 mg PO DAILY PRN PRN Reason: Anxiety Cetirizine HCl [Zyrtec] 10 mg PO DAILY Albuterol Sulfate [Ventolin HFA] 2 puff INHALATION RT-Q6H PRN PRN Reason: Shortness Of Breath Ferrous Sulfate [Slow Release Iron] 140 mg PO CHASE Furosemide [Lasix] 20 mg PO DAILY Losartan Potassium 50 mg PO DAILY Fluticasone/Umeclidin/Vilanter [Trelegy Ellipta 200-62.5-25] 1 puff INHALATION RT-DAILY Dulaglutide [Trulicity] 1.5 mg SQ SA Imiquimod [Aldara] 1 packet TOPICAL HS Rosuvastatin [Crestor] 10 mg PO DAILY Empagliflozin [Jardiance] 25 mg PO DAILY FLUoxetine HCL [PROzac] 20 mg PO DAILY Discharge Medication List ALPRAZolam [Xanax] 0.5 mg PO DAILY PRN 04/26/14 [History] Cetirizine HCl [Zyrtec] 10 mg PO DAILY 05/26/17 [History] Albuterol Sulfate [Ventolin HFA] 2 puff INHALATION RT-Q6H PRN 12/19/21 [History] Ferrous Sulfate [Slow Release Iron] 140 mg PO CHASE 12/19/21 [History] Furosemide [Lasix] 20 mg PO DAILY 12/19/21 [History] Empagliflozin [Jardiance] 25 mg PO DAILY 11/01/22 [History] Fluticasone/Umeclidin/Vilanter [Trelegy Ellipta 200-62.5-25] 1 puff INHALATION RT-DAILY 11/01/22 [History] Losartan Potassium 50 mg PO DAILY 11/01/22 [History] Rosuvastatin [Crestor] 10 mg PO DAILY 11/01/22 [History] Dulaglutide [Trulicity] 1.5 mg SQ SA 01/12/23 [History] FLUoxetine HCL [PROzac] 20 mg PO DAILY 01/12/23 [History] Imiquimod [Aldara] 1 packet TOPICAL HS 01/12/23 [History] Acetaminophen Tab [Tylenol] 650 mg PO Q4HR PRN tab 01/25/23 [Rx] Aspirin 81 mg PO DAILY #30 tab 01/25/23 [Rx] Follow up Appointment(s)/Referral(s): Grupo Elizabeth MD [STAFF PHYSICIAN] - 02/05/23 2:30 pm Allen Winchester MD [Primary Care Provider] - 1-2 days Discharge Disposition: HOME SELF-CARE
[2023-01-25 16:04] VITALS: BP 141/92; PULSE 96; TEMP 97.4
--- NOTE | 2023-01-25 17:49 | CA ---
Transthoracic Echo Report Name: Dawna Bustamante Age: 42 Gender: F : 1980 Exam Date: 01/25/2023 12:34 Exam Location: [facility] Ht (in): 67 Wt (lb): 300 Ordering Physician: Grupo Elizabeth MD ([id number]) Attending/Referring Phys: Photography Professor Torito King RDCS Procedure CPT: Indications: CP Cardiac Hx: HTN; Obesity Technical Quality: Fair Contrast 1: Total Dose (mL): Contrast 2: Total Dose (mL): MEASUREMENTS (Male / Female) Normal Values 2D ECHO LV Diastolic Diameter PLAX 4.0 cm 4.2 - 5.9 / 3.9 - 5.3 cm LV Systolic Diameter PLAX 2.8 cm LV Fractional Shortening PLAX 31.3 % IVS Diastolic Thickness 1.3 cm 0.6 - 1.0 / 0.6 - 0.9 cm IVS Systolic Thickness 1.8 cm LVPW Diastolic Thickness 1.6 cm 0.6 - 1.0 / 0.6 - 0.9 cm LVPW Systolic Thickness 2.0 cm LV Relative Wall Thickness 0.7 RV Internal Dim ED PLAX 3.5 cm LVOT Diameter 3.4 cm Aortic Root Diameter 3.9 cm LA Systolic Diameter LX 2.3 cm 3.0 - 4.0 / 2.7 - 3.8 cm LA Ao Ratio 0.6 LV Diastolic Volume MOD BP 143.2 cm??? 67 - 155 / 56 - 104 cm??? LV Systolic Volume MOD BP 73.2 cm??? 22 - 58 / 19 - 49 cm??? LV Ejection Fraction MOD BP 48.9 % >= 55 % LV Stroke Volume MOD BP 70.0 cm??? LV Diastolic Volume MOD 4C 167.3 cm??? LV Systolic Volume MOD 4C 82.3 cm??? LV Ejection Fraction MOD 4C 50.8 % LV Stroke Volume MOD 4C 85.0 cm??? LV Diastolic Length 4C 7.8 cm LV Systolic Length 4C 6.5 cm LV Diastolic Volume MOD 2C 117.9 cm??? LV Systolic Volume MOD 2C 64.7 cm??? LV Ejection Fraction MOD 2C 45.1 % LV Stroke Volume MOD 2C 53.2 cm??? LV Diastolic Length 2C 7.4 cm LV Systolic Length 2C 6.4 cm M-MODE Aortic Root Diameter MM 4.0 cm LA Systolic Diameter MM 4.3 cm LA Ao Ratio MM 1.1 MV E Point Septal Separation 1.1 cm AV Cusp Separation MM 1.8 cm DOPPLER AV Peak Velocity 143.9 cm/s AV Peak Gradient 8.3 mmHg MR Peak Velocity 131.8 cm/s MR Peak Gradient 7.0 mmHg Mitral E Point Velocity 80.3 cm/s Mitral A Point Velocity 86.4 cm/s Mitral E to A Ratio 0.9 MV Deceleration Time 141.6 ms MV E' Velocity 8.9 cm/s Mitral E to MV E' Ratio 9.1 TR Peak Velocity 120.6 cm/s TR Peak Gradient 5.8 mmHg Right Ventricular Systolic Press 15.8 mmHg PV Peak Velocity 111.1 cm/s PV Peak Gradient 4.9 mmHg FINDINGS Left Ventricle Left ventricular ejection fraction is estimated at 55-60 %. Left ventricular cavity size normal. Normal left ventricular diastolic filling pattern. Right Ventricle Normal right ventricular size and function. Right Atrium Normal right atrial size. Left Atrium Mild left atrial dilatation. Mitral Valve Mitral valve thickened. No mitral stenosis. Mild mitral regurgitation. Aortic Valve Trileaflet aortic valve. No aortic valve stenosis or regurgitation. Tricuspid Valve Mild tricuspid regurgitation.structurally normal tricuspid valve. Pulmonic Valve Pulmonic valve not well visualized.trace pulmonic regurgitation. Pericardium Normal pericardium. No pericardial effusion. Aorta Mildly dilated ascending aorta CONCLUSIONS 1. Normal ventricle size and systolic function 2. Mild mitral and tricuspid regurgitation Previewed by: Dr. Grupo Elizabeth MD (Electronically Signed) Final Date: 25 Jan 2023 17:48
[2023-01-26] MEDS ORDERED: ATORVASTATIN 20 MG TAB PO SCH (09:00)
[2023-01-26] MEDS ORDERED: ASPIRIN 81 MG PO SCH (09:00)
[2023-01-27] MEDS ORDERED: FERROUS SULFATE 140 MG PO SCH (09:00)
== END 2023-01-25 18:10 | disposition home or self-care (01) ==
LOC: EC 12:11 → 6NMEDSUR 14:49
PROVIDERS: ADMIT Internal Medicine; ATTEND Internal Medicine
DX: I25.10 Atherosclerotic heart disease of native coronary artery without angina pectoris (principal); E78.5 Hyperlipidemia, unspecified; E11.9 Type 2 diabetes mellitus without complications; I10 Essential (primary) hypertension; G43.909 Migraine, unspecified, not intractable, without status migrainosus; F32.A Depression, unspecified; F43.10 Post-traumatic stress disorder, unspecified; Q61.3 Polycystic kidney, unspecified; J45.40 Moderate persistent asthma, uncomplicated; F17.200 Nicotine dependence, unspecified, uncomplicated; E66.01 Morbid (severe) obesity due to excess calories; Z86.73 Personal history of transient ischemic attack (TIA), and cerebral infarction without residual deficits; Z79.899 Other long term (current) drug therapy; Z79.82 Long term (current) use of aspirin; Z79.84 Long term (current) use of oral hypoglycemic drugs; Z79.51 Long term (current) use of inhaled steroids; Z79.85 Long-term (current) use of injectable non-insulin antidiabetic drugs; Z88.2 Allergy status to sulfonamides
CPT/HCPCS: 36415; 71046; 80048; 80053; 80061; 83735; 84484; 85025; 85610; 85730; 93005; 93306; 99285

== ENCOUNTER → 2023-06-03 | Outpatient (CLI) | payer OTHER ==
--- NOTE | 2023-06-03 07:46 | USB ---
Reason for Exam: Additional evaluation requested from prior study. Patient History: Menarche at age 13. First Full-Term at age 20. Hysterectomy at age 36. Patient used Hormonal Contraceptives for 1 year. 10/08/2017, Benign Core Biopsy on the right side. Paternal aunt had breast cancer, age 41. Maternal aunt had breast cancer, age 33. Paternal grandmother had breast cancer under age 50. Paternal aunt (karan) had breast cancer, age 43. Mother had breast cancer, age 52. Risk Values: Bonnie 5 year model risk: 2.2%. NCI Lifetime model risk: 21.4%. Technique: Method: Targeted. Prior Study Comparison: 08/21/2021 Bilateral Screening Mammogram, [facility]. 03/14/2022 Right MG 3D diag mammo w/cad RT, [facility]. 08/31/2022 Bilateral MG 3D screening mammo w/cad, [facility]. Findings: The lower inner quadrant of the left breast and the retroareolar of the left breast were scanned. Lobulated cystic structure at the left o'clock position measuring 0.9 x 0.4 cm with internal echoes. No solid mass is detected. This likely reflects a complex cyst. Overall Assessment: Probably benign, BI-RAD 3 Management: Diagnostic Breast Ultrasound of the left breast in 6 months. A clinical breast exam by your physician is recommended on an annual basis and results should be correlated with mammographic findings. This exam should not preclude additional follow-up of suspicious palpable abnormalities. Results were given to the patient verbally at the time of exam. Electronically signed and approved by: Jake Hillman M.D. Radiologis
--- NOTE | 2023-06-04 09:11 | MM ---
Reason for Exam: Clinical finding. Last screening mammogram was performed 9 month(s) ago. Patient History: Menarche at age 13. First Full-Term at age 20. Hysterectomy at age 36. Patient used Hormonal Contraceptives for 1 year. 10/08/2017, Benign Core Biopsy on the right side. Paternal aunt had breast cancer, age 41. Maternal aunt had breast cancer, age 33. Paternal grandmother had breast cancer under age 50. Paternal aunt (karan) had breast cancer, age 43. Mother had breast cancer, age 52. Risk Values: Bonnie 5 year model risk: 2.2%. NCI Lifetime model risk: 21.4%. Tissue Density: There are scattered fibroglandular densities. Findings: Analyzed By CAD. There is evidence of breast asymmetry with the left breast being smaller in size in the right-sided breasts. There is a nodular density lower inner left breast 2.7 cm from the nipple measuring 8 mm in size. Ultrasound is recommended. No suspicious calcifications within either breast. No right-sided breast mass is seen at this time. Overall Assessment: Incomplete: need additional imaging evaluation, BI-RAD 0 Management: Diagnostic Breast Ultrasound of the left breast. Results were given to the patient verbally at the time of exam. Patient should continue monthly self-breast exams. A clinical breast exam by your physician is recommended on an annual basis. This exam should not preclude additional follow-up of suspicious palpable abnormalities. Note on Bonnie scores and lifetime risk: 1. A Bonnie score greater than 3% is considered moderate risk. If this is the case, consider specialist referral to assess eligibility for a risk reducing agent. 2. If overall lifetime risk for the development of breast cancer is 20% or higher, the patient may qualify for future screening with alternating mammogram and breast MRI. Electronically signed and approved by: Jake Hillman M.D. Radiologis
== END | disposition home or self-care (01) ==
LOC: RADMAMWWP 06:45
PROVIDERS: ATTEND Family Medicine
DX: N63.24 Unspecified lump in the left breast, lower inner quadrant (principal); N63.10 Unspecified lump in the right breast, unspecified quadrant; Z80.3 Family history of malignant neoplasm of breast
CPT/HCPCS: 77066; 76642; G0279; 77062

== ENCOUNTER → 2023-06-27 | Outpatient (CLI) | payer OTHER ==
--- NOTE | 2023-06-27 15:31 | P.GSHP ---
History of Present Illness H&P Date: 06/27/23 Chief Complaint: Abnormal left breast ultrasound Dawna is a 43-year-old white female who presents with a complaint of left breast pain. She had a bilateral mammogram on . This was followed by a left breast ultrasound. This revealed a lobulated cystic structure in the left breast felt to be a complex cyst. This was BIRADS 3 and repeat left breast ultrasound in 6 months was recommended. She is complaining of pain in her left breast posterior to the nipple without radiation. It is intermittent, it is random in nature. It is sharp. It has been happening for about two months, it occurs every several days. There is no nipple discharge. There is no recent trauma or infection. She had a needle biopsy of the right breast in the past which was benign. The patient used tamoxifen intermittently for 6 months but could not tolerate this. She has had genetic testing done twice which was negative. Bonnie 5 year risk 2.2% NCI lifetime risk 21.4% Note Loreto Pineda PA-C reviewed 06-05-23 caffiene: 1-2 pops/day nicotine: 1/2 PPD for > 30 years chocolate: rare BCP: used them for a year in the remote past hormones: none Family History: mother: from breast cancer, diagnosed at 52 at 65; was on Ibrance but it stopped working; also had thyroid cancer maternal 1/2 sister: breast cancer at 33 maternal great aunt: breast cancer maternal 2nd cousins: breast cancer ? how many maternal: great grandmother breast cancer paternal aunt: 2 diagnosed at 31 and 34 with breast cancer paternal gransmother: breast cancer Hormonal History: menarche: 11 M2, age at first : 20, breast fed: yes Partial hysterectomy in 2016 for cancer cells and uterus hormones: none Surgical History: hysterectomy carpel tunnel lump removed in throat knee surgery torn meniscus Medical History: Polycystic kidney disease diabetic HTN heart aneurysm high WBC, tested every 6 months for [address] Dr[address] Figueroa iron infusion therapy; DR. Carolina VEGAS many Social History: nicotine: as per HPI alcohol: occasional drugs: Marijuana occasionally - Constitutional Constitutional: Denies chills, Denies fever - EENT Eyes: denies blurred vision, denies pain Ears: deny: decreased hearing, tinnitus Ears, nose, mouth and throat: Denies headache, Denies sore throat - Breasts Breasts: bilateral: as per HPI - Cardiovascular Cardiovascular: Reports as per HPI, Reports chest pain, Denies shortness of breath - Respiratory Respiratory: Denies cough, Denies 7 - Gastrointestinal Gastrointestinal: Denies abdominal pain, Denies diarrhea, Denies nausea, Denies vomiting - Genitourinary (Female) Genitourinary: Denies dysuria, Denies hematuria - Menstruation Menstruation: Reports post hysterectomy - Musculoskeletal Musculoskeletal: Denies myalgias - Integumentary Comment: nipple itching Integumentary: Reports pruritus - Neurological Comment: CVA Neurological: Denies numbness, Denies weakness - Psychiatric Psychiatric: Reports anxiety, Reports depression - Endocrine Endocrine: Denies fatigue, Denies weight change - Hematologic/Lymphatic Comment: anemic - Allergic/Immunologic Allergic/Immunologic: Reports seasonal allergies Past Medical History Past Medical History: CVA/TIA, Diabetes Mellitus, Hyperlipidemia, Hypertension, Osteoarthritis (OA) Additional Past Medical History / Comment(s): polycystic kidney disease, migraines, TIA 2012, varicose veins, hx anemia, AORTIC ANEURSYM History of Any Multi-Drug Resistant Organisms: None Reported Past Surgical History: Hysterectomy, Orthopedic Surgery Additional Past Surgical History / Comment(s): bilateral Carpal tunnel sx, D&C, LUMP REMOVED from throat Past Anesthesia/Blood Transfusion Reactions: Previous Problems w/ Anesthesia Additional Past Anesthesia/Blood Transfusion Reaction / Comment(s): "body pain"- severe AFTER D & C Past Psychological History: Anxiety, Depression, PTSD Smoking Status: Current every day smoker Past Alcohol Use History: None Reported Past Drug Use History: None Reported - Past Family History Mother Family Medical History: Cancer Additional Family Medical History / Comment(s): BREAST,THYROID CANCER Medications and Allergies Home Medications Medication Instructions Recorded Confirmed Type ALPRAZolam [Xanax] 0.5 mg PO DAILY PRN 04/26/14 06/27/23 History Cetirizine HCl [Zyrtec] 10 mg PO DAILY 05/26/17 06/27/23 History Albuterol Sulfate [Ventolin HFA] 2 puff INHALATION RT-Q6H PRN 12/19/21 06/27/23 History Ferrous Sulfate [Slow Release Iron] 140 mg PO CHASE 12/19/21 06/27/23 History Furosemide [Lasix] 20 mg PO DAILY 12/19/21 06/27/23 History Empagliflozin [Jardiance] 25 mg PO DAILY 11/01/22 06/27/23 History Fluticasone/Umeclidin/Vilanter 1 puff INHALATION RT-DAILY 11/01/22 06/27/23 History [Trelegy Ellipta 200-62.5-25] Losartan Potassium 50 mg PO DAILY 11/01/22 06/27/23 History Rosuvastatin [Crestor] 10 mg PO DAILY 11/01/22 06/27/23 History Dulaglutide [Trulicity] 1.5 mg SQ SA 01/12/23 06/27/23 History FLUoxetine HCL [PROzac] 20 mg PO DAILY 01/12/23 06/27/23 History Imiquimod [Aldara] 1 packet TOPICAL HS 01/12/23 06/27/23 History Aspirin 81 mg PO DAILY #30 tab 01/25/23 06/27/23 Rx Allergies Allergy/AdvReac Type Severity Reaction Status Date / Time Sulfa (Sulfonamide Allergy Severe Unknown Verified 06/27/23 14:56 Antibiotics) Childhood Iodinated Contrast Media Allergy Unknown Anaphylaxis Verified 06/27/23 14:56 [Iodinated Contrast Media - IV Dye] lactose Allergy Unknown Verified 06/27/23 14:56 bupropion HCl AdvReac Severe Seizure Verified 06/27/23 14:56 [From Wellbutrin] iron AdvReac NAUSEA, Verified 06/27/23 14:56 VOMITING. Surgical - Exam - General moderate distress - Eyes normal ocular movement - Neck trachea midline - Respiratory normal respiratory effort, clear to auscultation - Cardiovascular Rhythm: regular Heart Sounds: normal: S1, S2 - Abdomen Abdomen: soft, non tender, no guarding, no rigid, no rebound - Integumentary normal turgor - Musculoskeletal normal gait, normal posture - Psychiatric oriented to time, oriented to person, oriented to place, speech is normal, memory intact Breast Exam: BRA: 44DD Inspection: Bilateral grade 2 ptosis, left breast smaller than right breast Palpation: Right breast: Multiple positional exam fibrocystic changes no dominant masses or nodules of concern Right axilla: No adenopathy of concern Left breast: Multi-positional exam fibrocystic changes no dominant masses or nodules of concern Left axilla: No adenopathy of concern Results Mammogram and ultrasound reviewed Assessment and Plan Assessment: Impression: Asymmetry of the breast Left breast mastodynia Abnormal left breast ultrasound with 0.9 x 0.4 cm lobulated cystic structure Bonnie five-year risk 2.2%, NCI lifetime risk 21.4% Genetic testing negative in the past Strong family history of breast cancer Plan: Alternating MRI and mammogram every 6 months Consider chemoprophylaxis to discuss with Dr. Figueroa BRCA given on breast pain At this time there is nothing discrete on examination or radiographically to warrant interventional biopsy CC: Dr. Winchester
[2023-06-27 15:49] VITALS: BP 130/87; PULSE 91; RESP 17; TEMP 98.3
== END ==
LOC: WWCWWP 14:47
PROVIDERS: ATTEND Surgery
DX: N60.02 Solitary cyst of left breast (principal); N64.4 Mastodynia; N64.89 Other specified disorders of breast; Q61.3 Polycystic kidney, unspecified; M19.90 Unspecified osteoarthritis, unspecified site; I10 Essential (primary) hypertension; F32.A Depression, unspecified; F17.210 Nicotine dependence, cigarettes, uncomplicated; E11.9 Type 2 diabetes mellitus without complications; E78.5 Hyperlipidemia, unspecified; F41.9 Anxiety disorder, unspecified; Z79.82 Long term (current) use of aspirin; Z79.84 Long term (current) use of oral hypoglycemic drugs; Z80.3 Family history of malignant neoplasm of breast; Z86.73 Personal history of transient ischemic attack (TIA), and cerebral infarction without residual deficits; Z88.1 Allergy status to other antibiotic agents; Z88.2 Allergy status to sulfonamides; Z88.8 Allergy status to other drugs, medicaments and biological substances; Z79.85 Long-term (current) use of injectable non-insulin antidiabetic drugs; Z91.041 Radiographic dye allergy status; Z91.011 Allergy to milk products

== ENCOUNTER → 2023-07-10 | Day surgery (SDC) | payer OTHER ==
--- NOTE | 2023-07-12 13:57 | MM ---
Reason for Exam: Post Procedure Mammogram. Last screening mammogram was performed 1 month(s) ago. Patient History: Menarche at age 13. First Full-Term at age 20. Hysterectomy at age 36. Patient used Hormonal Contraceptives for 1 year. 10/08/2017, Benign Core Biopsy on the right side. Paternal aunt had breast cancer, age 41. Maternal aunt had breast cancer, age 33. Paternal grandmother had breast cancer under age 50. Paternal aunt (karan) had breast cancer, age 43. Mother had breast cancer, age 52. Risk Values: Bonnie 5 year model risk: 2.2%. NCI Lifetime model risk: 21.4%. Prior Study Comparison: 03/14/2022 Right MG 3D diag mammo w/cad RT, [facility]. 08/31/2022 Bilateral MG 3D screening mammo w/cad, [facility]. 06/03/2023 Bilateral MG 3D diag mammo w/cad [place], [facility]. Tissue Density: Left: There are scattered fibroglandular densities. Pathology Description: Location: 8 o'clock. Marker Left Behind. Needle Type: CelVaximm Cores: 2 Gauge: 12 The procedure of ultrasound guided core biopsy was explained to the patient. Benefits, alternatives, and risks were discussed. An informed consent was then obtained. The patient was placed in supine positioning for imaging and for the procedure. The overlying skin was prepped and draped in usual sterile fashion. Lidocaine buffered with bicarbonate was used as anesthetic into the skin and subcutaneous tissue up to area of concern in the left 8:00 breast. A roberto was made with surgical scalpel. Under ultrasound guidance, a 12-gauge vacuum assisted biopsy gun device was used to obtain 2 core samples. Following this, a biopsy clip was left in lesion. The patient tolerated the procedure well without any immediate complication. The patient was kept in the radiology department for short stay after the procedure and then discharged home in stable condition. Postprocedure mammogram: The patient was transferred to mammography for physician ordered post procedure mammogram for clip placement verification. Impression: Successful, uncomplicated ultrasound guided core biopsy of area of concern in the left 8:00 breast, full pathology results to follow. 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 LEFT BREAST, EIGHT O'CLOCK, ULTRASOUND GUIDED NEEDLE CORE BIOPSY: Intraductal papilloma and background fibrocystic changes. Overall Assessment: High risk Assessment: MG diagnostic mammo LT wo CAD. - Left: Suspicious, BI-RAD 4. Management: Surgical Consultation of the left breast. Electronically signed and approved by: Jake Hillman M.D. Radiologis
== END ==
LOC: RADUSWWP 10:19
PROVIDERS: ATTEND Surgery
DX: D24.2 Benign neoplasm of left breast (principal); N60.12 Diffuse cystic mastopathy of left breast; Z80.3 Family history of malignant neoplasm of breast
CPT/HCPCS: 88305; 77065; 19083; A4648

== ENCOUNTER → 2023-07-31 | Outpatient (CLI) | payer OTHER ==
--- NOTE | 2023-07-31 14:54 | US ---
EXAMINATION TYPE: US arterial LE single level DATE OF EXAM: 07/31/2023 2:22 PM CLINICAL INDICATION: Female, 43 years old with history of G25.81 RESTLESS LEG SYNDROME; History of: Smoker: Yes Hypertension: Yes Diabetic: Yes Hyperlipidemia: Yes TIA/CVA: Yes Previous Vascular Surgery: No CAD: No PR: No Vascular Ulcers: No Claudication: No Gangrene: No Right Brachial Pressure: 143 Left Brachial Pressure: 138 Ankle-Brachial Indices: Right: 1.04 Left: 0.99 Toe Brachial Indices: Right: 0.67 Left: 0.73 IMPRESSION: 1. Normal bilateral REKHA indices.
== END | disposition home or self-care (01) ==
LOC: RADUSWWP 13:22
PROVIDERS: ATTEND Family Medicine
DX: G25.81 Restless legs syndrome (principal); I10 Essential (primary) hypertension; E78.5 Hyperlipidemia, unspecified; E11.9 Type 2 diabetes mellitus without complications
CPT/HCPCS: 93922

== ENCOUNTER 2023-08-19 06:04 | Day surgery (SDC) | payer OTHER ==
[~2023-08-19 06:04] MED LIST changes: +ACETAMINOPHEN TAB 500 MG TAB PO PRN; +DEXAMETHASONE SOD PHOSPHATE 4 MG/ML 1 ML VIAL IV ONE; +HEPARIN SODIUM,PORCINE/PF 5,000 UNIT/0.5 ML SYRINGE SQ PRN; +HYDROmorphone 0.5 MG/0.5 ML SYRINGE IVP PRN; +LACTATED RINGERS 1,000 ML IV SCH; +LIDOCAINE 1% (10MG/ML) FOR IV START INTRADERMA PRN; +ONDANSETRON 4 MG/2 ML VIAL IVP ONE; -REGADENOSON 0.4 MG/5 ML SYRINGE IV ONE; +ceFAZolin 3 GM in SODIUM CHLORIDE 0.9% 100 ML IVPB PRN; +droPERidol 5 MG/2 ML VIAL IVP PRN
--- NOTE | 2023-08-19 07:32 | P.GSHP ---
History of Present Illness H&P Date: 08/19/23 Chief Complaint: Abnormal left mammogram 43-year-old female underwent recent left breast workup. Patient found have an atypical lesion left breast on mammogram and ultrasound. She underwent ultrasound-guided core biopsy showing intraductal papilloma. No atypia was seen. Patient very apprehensive about any breast abnormalities given a strong family history of breast cancer. The patient is interested in surgical excision. Past Medical History Past Medical History: Asthma, Chest Pain / Angina, CVA/TIA, Diabetes Mellitus, Hyperlipidemia, Hypertension, Liver Disease, Osteoarthritis (OA), Sleep Apnea/CPAP/BIPAP Additional Past Medical History / Comment(s): polycystic kidney disease, migraines, TIA 2012, varicose veins, hx anemia, AORTIC ANEURSYM, Type 2. fatty liver, stage 3 kidney disease. wears cpap. History of Any Multi-Drug Resistant Organisms: None Reported Past Surgical History: Hysterectomy, Orthopedic Surgery Additional Past Surgical History / Comment(s): bilateral Carpal tunnel sx, D&C, LUMP REMOVED from throat, Right knee meniscus repair 2020 Past Anesthesia/Blood Transfusion Reactions: Previous Problems w/ Anesthesia Additional Past Anesthesia/Blood Transfusion Reaction / Comment(s): "body pain"- severe with several procedure. Smoking Status: Current every day smoker - Past Family History Mother Family Medical History: Cancer Additional Family Medical History / Comment(s): BREAST,THYROID CANCER Medications and Allergies Home Medications Medication Instructions Recorded Confirmed Type ALPRAZolam [Xanax] 0.5 mg PO DAILY PRN 04/26/14 08/19/23 History Cetirizine HCl [Zyrtec] 10 mg PO HS 05/26/17 08/19/23 History Albuterol Sulfate [Ventolin HFA] 2 puff INHALATION RT-Q6H PRN 12/19/21 08/19/23 History Ferrous Sulfate [Slow Release Iron] 140 mg PO CHASE 12/19/21 08/19/23 History Furosemide [Lasix] 20 mg PO HS 12/19/21 08/19/23 History Empagliflozin [Jardiance] 25 mg PO HS 11/01/22 08/19/23 History Fluticasone/Umeclidin/Vilanter 1 puff INHALATION HS 11/01/22 08/19/23 History [Trelegy Ellipta 200-62.5-25] Losartan Potassium 50 mg PO HS 11/01/22 08/19/23 History Rosuvastatin [Crestor] 5 mg PO HS 11/01/22 08/19/23 History FLUoxetine HCL [PROzac] 40 mg PO HS 01/12/23 08/19/23 History Pramipexole [Mirapex] 1 mg PO HS 07/04/23 08/19/23 History Aspirin 81 mg PO HS 08/14/23 08/19/23 History Unk Garlic 1 tab PO HS 08/14/23 08/19/23 History Unk Vitamin C 1 tab PO HS 08/14/23 08/19/23 History Unk Vitamin D 1 tab PO HS 08/14/23 08/19/23 History Unk Zinc 1 tab PO HS 08/14/23 08/19/23 History Allergies Allergy/AdvReac Type Severity Reaction Status Date / Time Iodinated Contrast Media Allergy Anaphylaxis Verified 08/19/23 06:57 Sulfa (Sulfonamide Allergy Unknown Verified 08/19/23 06:57 Antibiotics) Childhood bupropion HCl AdvReac Severe Seizure Verified 08/19/23 06:57 [From Wellbutrin] iron AdvReac NAUSEA, Verified 08/19/23 06:57 VOMITING. Surgical - Exam Vital Signs Temp Pulse Resp BP Pulse Ox 98.5 F 89 16 136/64 97 08/19/23 07:05 08/19/23 07:05 08/19/23 07:05 08/19/23 07:05 08/19/23 07:05 Physical exam: General: Well-developed, well-nourished HEENT: Normocephalic, sclerae nonicteric Right breast: No masses, no adenopathy Left breast: No masses, no adenopathy, recent biopsy site noted Abdomen: Nontender, nondistended Extremities: No edema Neuro: Alert and oriented Assessment and Plan (1) Abnormality of left breast on screening mammogram Narrative/Plan: 43-year-old female with intraductal papilloma left breast. We'll proceed with wire localization excisional biopsy left breast. Likely benign nature discussed in detail with the patient. Observation discussed as an option but patient would like to proceed with excision. Risks of bleeding, infection, scarring, dimpling, possible need for further surgery reviewed with the patient. She understands and wishes to proceed. Current Visit: Yes Status: Acute Code(s): R92.8 - OTH ABN AND INCONCLUSIVE FINDINGS ON DX IMAGING OF BREAST SNOMED Code(s): 761010539
[2023-08-19 07:42] LABS: Glucose,Whole Blood 148 mg/dL (70-110)
[2023-08-19] MEDS ORDERED: FAMOTIDINE 20 MG/2 ML VIAL IVP ONE (07:46)
[2023-08-19] MEDS ORDERED: LIDOCAINE 1% INJ 10MG/ML (20 ML MDV) SQ ONE (08:15)
[2023-08-19] MEDS ORDERED: LIDOCAINE 1% INJ 10MG/ML (20 ML MDV) ONE (08:54)
[2023-08-19] MEDS ORDERED: PHENYLEPHRINE-0.9% NACL SYG 1,000 MCG/10 ML SYRINGE ONE (08:54)
[2023-08-19] MEDS ORDERED: SUCCINYLCHOLINE CHLORIDE 200 MG/10 ML VIAL IV ONE (08:54)
[2023-08-19] MEDS ORDERED: ROCURONIUM 10 MG/ML (5 ML VIAL) IV ONE (08:54)
[2023-08-19] MEDS ORDERED: fentaNYL (PF) 50 MCG/ML 2 ML AMP ONE (08:54)
[2023-08-19] MEDS ORDERED: PROPOFOL 10 MG/ML 20 ML VIAL IV ONE (08:54)
[2023-08-19] MEDS ORDERED: MIDAZOLAM 2 MG/2 ML VIAL ONE (08:54)
[2023-08-19] MEDS ORDERED: BUPIVACAINE (PF) 0.25% 30 ML VIAL SQ ONE ×2 (09:12→09:30)
[2023-08-19] MEDS ORDERED: HYDROcodone/APAP 5-325MG 1 EACH TAB PO PRN (09:39)
[2023-08-19] MEDS ORDERED: NALOXONE 0.4 MG/ML 1 ML VIAL IV PRN (09:39)
--- NOTE | 2023-08-19 09:44 | P.OP ---
Date of Procedure: 08/19/23 Procedure(s) Performed: PREOPERATIVE DIAGNOSIS: Abnormal left mammogram POSTOPERATIVE DIAGNOSIS: Same PROCEDURE: Left Breast wire localization biopsy SURGEON: Maurice EBL: Minimal ANESTHESIA: General plus local COMPLICATIONS: None OPERATIVE PROCEDURE: Patient was placed on the operating room table in the supi ne position. The patient's breast was prepped and draped in usual sterile fashion. A curvilinear incision was made adjacent to the areola medially. The wire was present at that location.. I followed the wire down into the breast tissue. The breast tissue around the tip of the wire was fully excised using electrocautery. The specimen was sent for specimen radiogram. The clip was present within the specimen. The subcutaneous tissues were inspected. No bleeding was seen. The subcutaneous tissues were closed using 3-0 Vicryl sutures. The skin was closed using a running 4-0 Monocryl stitch. Skin glue and sterile dressings were applied. DISPOSITION: Stable to recovery room
[2023-08-19 09:57] VITALS: TEMP 97
[2023-08-19] MEDS ORDERED: ONDANSETRON 4 MG/2 ML VIAL IVP ONE (10:35)
[2023-08-19] MEDS ORDERED: hydrALAZINE HCL 20 MG/ML 1 ML VIAL IVP ONE (10:55)
[2023-08-19 11:58] VITALS: BP 144/83; PULSE 89; RESP 18
--- NOTE | 2023-08-26 11:02 | MM ---
Risk Values: Bonnie 5 year model risk: 3.6%. NCI Lifetime model risk: 27.3%. Pathology Description: Approach: Medial to Lateral Needle Type: 5 cm K[place] The procedure of needle localization with wire placement and than surgical excision was explained to the patient. Benefits, alternatives, and risks were discussed. An informed consent was then obtained. The shortest pathway for procedure was chosen. The overlying skin was prepped and draped in usual sterile fashion. Lidocaine was used as anesthetic into the skin and subcutaneous tissue up to the level of area of concern. A 5 cm needle was used. It was placed via a lateral approach under mammographic guidance. Subsequent 90 degrees mammogram show the needle to be in satisfactory position relative to the targeted area. At this point, wire was placed and the needle was withdrawn. The wire was fixed to patient's skin. Images were marked for surgeon. The patient tolerated the procedure well without any immediate complication. The patient was kept in the radiology department for short stay after the procedure and then taken to surgery for surgical excision. Targeted clip and wire are identified in specimen mammogram. The patient was kept in hospital for short stay after the procedure and then discharged home in stable condition. Impression: Successful, uncomplicated needle localization with wire placement and surgical excision of suspicious group of calcifications in the left breast, full pathology results to follow. 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 LEFT BREAST, NEEDLE LOCALIZATION EXCISION: Intraductal papilloma, margins negative. Focal atypical lobular hyperplasia (ALH), background fibrocystic changes and previous biopsy site. See note. Notes E-Cadherin immunostain performed on block A1 and evaluated with an appropriate positive control shows absent staining of atypical cells within enlarged lobular units. The resutls confirm the diagnosis of focal atypical lobular hyperplasia. Overall Assessment: High risk Management: Special View Mammogram of the left breast in 6 months. Surgical Consultation of the left breast. Electronically signed and approved by: Dony West DO
== END 2023-08-19 12:33 | disposition home or self-care (01) ==
LOC: OR 06:04
PROVIDERS: ATTEND Surgery
DX: R92.8 Other abnormal and inconclusive findings on diagnostic imaging of breast (principal); J45.909 Unspecified asthma, uncomplicated; E11.9 Type 2 diabetes mellitus without complications; E78.5 Hyperlipidemia, unspecified; M19.90 Unspecified osteoarthritis, unspecified site; G47.33 Obstructive sleep apnea (adult) (pediatric); K76.0 Fatty (change of) liver, not elsewhere classified; I12.9 Hypertensive chronic kidney disease with stage 1 through stage 4 chronic kidney disease, or unspecified chronic kidney disease; N18.30 Chronic kidney disease, stage 3 unspecified; F17.200 Nicotine dependence, unspecified, uncomplicated; Z86.73 Personal history of transient ischemic attack (TIA), and cerebral infarction without residual deficits; Z90.710 Acquired absence of both cervix and uterus; Z98.890 Other specified postprocedural states; Z79.51 Long term (current) use of inhaled steroids; Z91.041 Radiographic dye allergy status; Z88.2 Allergy status to sulfonamides; Z88.8 Allergy status to other drugs, medicaments and biological substances
CPT/HCPCS: 19125; 94660; 88342; 88307; 76098; 19281; C1819; J2250; J0330; J0360; J1100; J0690; J2405; J2001; J3010; J3490; J2704; J1644; J2371; J0665

== ENCOUNTER → 2023-10-15 | Outpatient (CLI) | payer BC, OTHER ==
--- NOTE | 2023-10-20 17:15 | MR ---
EXAMINATION TYPE: MR cervical spine wo con DATE OF EXAM: 10/15/2023 COMPARISON: None HISTORY: 43-year-old female M54.2, Neck pain, worse in lower neck, headaches. TECHNIQUE: Multiplanar, multisequence images of the cervical spine were acquired without contrast. FINDINGS: No craniocervical junction abnormality, predental space widening, or prevertebral soft tissue swellin g. Diffusely diminished bone marrow signal intensity likely relates to the presence of prominent red mar row in keeping with patient's age. It may also relate to underlying obesity or smoking, correlate cli nically. No suspicious bone marrow replacement Mild multilevel degenerative disc. Posterior disc bulging at C4-C5, C6, and C6-C7. No focal disc herniation or significant spinal canal stenosis. Straightening of the normal cervical lordosis. Preserved alignment. There is mild facet arthropathy. Mild right-sided neuroforaminal narrowing C4-C5. Otherwise, no signi ficant neuroforaminal stenosis. Normal course, caliber, and signal intensity of the cervical spinal cord. A couple incidental mucosal retention cysts left maxillary sinus measuring up to 1.8 cm. Nodule measuring up to 9 mm left lobe of thyroid gland. IMPRESSION: 1. Straightening of the normal cervical lordosis could be positional or due to muscle spasm. 2. There is mild degenerative disc desiccation and minimal disc bulging. No focal disc herniation or significant spinal canal stenosis. 3. Scattered early facet degenerative change. This contributes to a mild left-sided neural foraminal narrowing at C4-C5.
== END | disposition home or self-care (01) ==
LOC: RADMRIMAIN 11:24
PROVIDERS: ATTEND Family Medicine
DX: M50.20 Other cervical disc displacement, unspecified cervical region (principal); M47.812 Spondylosis without myelopathy or radiculopathy, cervical region; M99.71 Connective tissue and disc stenosis of intervertebral foramina of cervical region
CPT/HCPCS: 72141

== ENCOUNTER → 2023-10-22 | Outpatient (CLI) | payer BC, OTHER ==
[2023-10-22 18:00] LABS: % Iron Saturation 15.52 (12.00-45.00); ALT 17 U/L (8-44); AST 15 U/L (13-35); Albumin 3.7 g/dL (3.8-4.9); Albumin/Globulin Ratio 1.42 Ratio (1.60-3.17); Alkaline Phosphatase 72 U/L (41-126); BUN/Creat Ratio 18.55 Ratio (12.00-20.00); Blood Urea Nitrogen 20.4 mg/dL (9.0-27.0); Calcium 9.2 mg/dL (8.7-10.3); Carbon Dioxide 19.7 mmol/L (21.6-31.8); Chloride 110 mmol/L (96-109); Creatine Kinase 43 U/L (26-186); Globulin 2.6 g/dL (1.6-3.3); Glucose 101 mg/dL (70-110); Iron 43 UG/DL (50-170); Magnesium 1.6 mg/dL (1.5-2.4); Potassium 4.5 mmol/L (3.5-5.5); Rheumatoid Factor, Qnt <15 IU/mL (0-15); Sodium 141 mmol/L (135-145); Total Bilirubin <0.2 mg/dL (0.3-1.2); Total Iron Binding Capacity 277 UG/DL (228-460); Total Protein 6.3 g/dL (6.2-8.2)
[2023-10-22 19:40] LABS: Basophils # (A) 0.05 X 10*3/uL (0.00-0.10); Basophils % (A) 0.5 %; Eosinophils # (A) 0.28 X 10*3/uL (0.04-0.35); Eosinophils % (A) 2.6 %; HCT 45.7 % (37.2-46.3); HGB 14.5 g/dL (12.0-15.0); Lymphocytes % (A) 21.3 %; MCH 29.6 pg (27.0-32.0); MCHC 31.7 g/dL (32.0-37.0); MCV 93.3 FL (80.0-97.0); Mean Platelet Volume 11.1 FL (9.5-12.2); Monocytes # (A) 0.71 X 10*3/uL (0.20-1.00); Monocytes % (A) 6.6 %; NRBC Per 100 WBC 0 X 10*3/uL (0.00-0.01); Neutrophils # (A) 7.41 X 10*3/uL (1.80-7.70); Neutrophils % (A) 68.4 %; Platelet Count 168 X 10*3/uL (140-440); WBC 10.82 X 10*3/uL (4.50-10.00)
[2023-10-22 19:48] LABS: Erythrocyte Sedimentation Rate 51 mm/Hr (0-20)
== END | disposition home or self-care (01) ==
LOC: LABWHC1 12:05
PROVIDERS: ATTEND Family Medicine
DX: M25.50 Pain in unspecified joint (principal)
CPT/HCPCS: 36415; 80053; 82550; 82728; 83540; 83550; 83735; 85025; 85652; 86038; 86140; 86431

== ENCOUNTER → 2023-12-11 | Outpatient (CLI) | payer BC, OTHER ==
--- NOTE | 2023-12-11 17:24 | US ---
EXAMINATION TYPE: US kidneys/renal and bladder DATE OF EXAM: 12/11/2023 COMPARISON: CT 2021; US 2021 CLINICAL INDICATION: Female, 43 years old with history of Q61.3 POLYCYSTIC KIDNEY, UNSPECIFIED; EXAM MEASUREMENTS: Right Kidney: 18.1 x 8.2 x 7.0 cm Left Kidney: 18.7 x 8.6 x 8.5 cm Right Kidney: Loss of cortical medullary differentiation. Multiple cystic areas noted throughout the hypertrophic kidney. Left Kidney: Loss of cortical medullary differentiation. Multiple cystic areas noted throughout the h ypertrophic kidney. Bladder: Not fully distended Bilateral Jets seen: No There is no evidence for hydronephrosis at this point in time. No nephrolithiasis is seen. No velma s are identified. The urinary bladder is anechoic. Bilateral ureteral jets are seen. Incidental finding: hypoechoic circumscribed area noted superior to bladder and adjacent to iliac v essels - ovary versus mass within right adnexa. IMPRESSION: 1. Polycystic kidneys with enlarged kidneys. Consider MRI for complete evaluation of the cyst. 2. Possible ovary versus mass seen in the pelvis. Cross-sectional imaging of the pelvis recommended.
== END | disposition home or self-care (01) ==
LOC: RADUSWWP 16:20
PROVIDERS: ATTEND Internal Medicine
DX: Q61.3 Polycystic kidney, unspecified (principal); N28.89 Other specified disorders of kidney and ureter
CPT/HCPCS: 76770

== ENCOUNTER → 2023-12-24 | Outpatient (CLI) | payer BC, OTHER | END | disposition home or self-care (01) | LOC: RADMRIMAIN 09:10 | PROVIDERS: ATTEND Surgery | DX: Z53.9 Procedure and treatment not carried out, unspecified reason (principal) ==

== ENCOUNTER → 2023-12-27 | Outpatient (CLI) | payer BC, OTHER ==
--- NOTE | 2023-12-27 16:55 | US ---
EXAMINATION TYPE: US pelvic complete DATE OF EXAM: 12/27/2023 COMPARISON: US 12/11/2023 CLINICAL INDICATION: Female, 43 years old with history of N83.291 OVARIAN CYST; ? Pelvic mass seen on renal US TECHNIQUE: . Transabdominal sonographic images of the pelvis were acquired. Transvaginal sonographi c images were not medically necessary due to the lie of the ovaries Date of LMP: 2015 EXAM MEASUREMENTS: Uterus: Surgically absent cm Endometrial Stripe: Surgically absent cm Right Ovary: 3.5 x 3.8 x 2.5 cm Left Ovary: 3.2 x 4.4 x 3.1 cm 1. Uterus: Surgically absent 2. Endometrium: Surgically absent 3. Right Ovary: wnl 4. Left Ovary: wnl 5. Bilateral Adnexa: wnl 6. Posterior cul-de-sac: wnl ? Ovary noted on renal exam; ovaries lie superior and superficial IMPRESSION No discrete abnormality appreciated at this time.
== END | disposition home or self-care (01) ==
LOC: RADUSWWP 15:14
PROVIDERS: ATTEND Internal Medicine Hematology & Oncology
DX: N83.291 Other ovarian cyst, right side (principal); D50.9 Iron deficiency anemia, unspecified; D72.829 Elevated white blood cell count, unspecified; Z80.3 Family history of malignant neoplasm of breast; Z71.3 Dietary counseling and surveillance; Z90.710 Acquired absence of both cervix and uterus
CPT/HCPCS: 76856

== ENCOUNTER → 2023-12-31 | Outpatient (CLI) | payer BC, OTHER ==
--- NOTE | 2023-12-31 10:59 | CT ---
EXAMINATION TYPE: CT chest wo con CT DLP: 723.6 mGycm, Automated exposure control for dose reduction was used. DATE OF EXAM: 12/31/2023 10:46 AM COMPARISON: 01/08/2023 CLINICAL INDICATION:Female, 43 years old with history of I71.20 thoracic aortic aneurysm; PHH, thorac ic aortic aneurysm TECHNIQUE: Multiple axial images were obtained through the chest. Sagittal and coronal reformats were created for review. Contrast used: mL of (None if empty) Oral contrast used: (None if empty) FINDINGS: LUNGS/ PLEURA: The lung parenchyma appears unremarkable. AIRWAY: Patent and unremarkable. HEART: Size within normal limits. Mild atherosclerotic pulsations of the aorta. MEDIASTINUM: No gross evidence of adenopathy. VASCULATURE: No aortic aneurysm. Ascending thoracic aorta is borderline ectatic measuring 40 mm. MUSCULOSKELETAL: No acute osseous abnormalities SOFT TISSUES/LYMPH NODES: Unremarkable. LOWER NECK: No significant findings. UPPER ABDOMEN: Multicystic kidneys bilaterally. No liver is enlarged for size is low-attenuation. The spleen is enlarged for size measuring up to 16 mm. IMPRESSION: 1. Borderline ectasia of the ascending thoracic aorta. No evidence for aortic aneurysm. Hepatospleno megaly. 2. Polycystic kidneys. 3. Hepatic steatosis.
== END | disposition home or self-care (01) ==
LOC: RADCTMAIN 10:02
PROVIDERS: ATTEND Surgery
DX: I71.20 Thoracic aortic aneurysm, without rupture, unspecified (principal); Q61.3 Polycystic kidney, unspecified; K76.0 Fatty (change of) liver, not elsewhere classified; R16.2 Hepatomegaly with splenomegaly, not elsewhere classified
CPT/HCPCS: 71250

== ENCOUNTER → 2024-02-10 | Outpatient (CLI) | payer BC, OTHER ==
[2024-02-10 21:16] LABS: NT-Pro-B-Type Natriuretic Pept 571 pg/mL (0-125)
[2024-02-10 21:17] LABS: BUN/Creat Ratio 20.18 Ratio (12.00-20.00); Blood Urea Nitrogen 22.2 mg/dL (9.0-27.0); Calcium 9.2 mg/dL (8.7-10.3); Carbon Dioxide 17.7 mmol/L (21.6-31.8); Chloride 107 mmol/L (96-109); Glucose 113 mg/dL (70-110); Potassium 4.3 mmol/L (3.5-5.5); Sodium 140 mmol/L (135-145)
== END | disposition home or self-care (01) ==
LOC: LABWHC1 12:47
PROVIDERS: ATTEND Nurse Practitioner Adult Health
DX: R60.0 Localized edema (principal)
CPT/HCPCS: 36415; 80048; 83880

== ENCOUNTER 2024-02-14 12:30 | Observation (INO) | payer BC, OTHER ==
[2024-02-14 13:32] LABS: Basophils % (A) 0 %; Eosinophils # (A) 0.2 k/uL (0-0.7); Eosinophils % (A) 3 %; HCT 45.3 % (34.0-46.0); Lymphocytes # (A) 1.9 k/uL (1.0-4.8); Lymphocytes % (A) 20 %; MCH 30.9 pg (25.0-35.0); MCV 93.5 fL (80.0-100.0); Monocytes # (A) 0.4 k/uL (0-1.0); Monocytes % (A) 5 %; Neutrophils # (A) 6.7 k/uL (1.3-7.7); Neutrophils % (A) 71 %; Platelet Count 138 k/uL (150-450); RBC 4.85 m/uL (3.80-5.40); WBC 9.4 k/uL (3.8-10.6)
[2024-02-14 13:42] LABS: INR 0.9 (<1.2); Partial Thromboplastin Time 26.5 sec (22.0-30.0)
[2024-02-14 13:59] LABS: ALT 22 U/L (4-34); AST 24 U/L (14-36); African American GFR (CKD) 67 (>60 ml/min/1.73 sqM); Albumin 3.7 g/dL (3.5-5.0); Alkaline Phosphatase 65 U/L (38-126); Anion Gap 7 mmol/L; Blood Urea Nitrogen 23 mg/dL (7-17); Calcium 8.5 mg/dL (8.4-10.2); Carbon Dioxide 17 mmol/L (22-30); Chloride 113 mmol/L (98-107); Glucose 116 mg/dL (74-99); Magnesium 1.7 mg/dL (1.6-2.3); Non-African American GFR(CKD) 59 (>60 ml/min/1.73 sqM); Potassium 4.2 mmol/L (3.5-5.1); Sodium 137 mmol/L (137-145); Total Bilirubin 0.5 mg/dL (0.2-1.3); Total Protein 6.7 g/dL (6.3-8.2)
[2024-02-14 14:07] LABS: NT-Pro-B-Type Natriuretic Pept 75 pg/mL
--- NOTE | 2024-02-14 15:01 | ED ---
General Adult HPI - General Chief complaint: Chest Pain Stated complaint: Dizziness,AMS Time Seen by Provider: 02/14/24 14:38 Source: patient Mode of arrival: ambulatory Limitations: no limitations - History of Present Illness Initial comments: Dictation was produced using [employer] dictation software. please excuse any grammatical, word or spelling errors. Chief Complaint: 43-year-old female presents emergency department for chest pain and dizziness History of Present Illness: Patient is a 43-year-old female she has extensive medical history including thoracic aneurysm, allegedly heart failure, coronary artery disease and polycystic kidney disease. Patient has chronic chest pain however it felt slightly worse along with worsening dizziness that occurred today. Patient states that the pain is general pressure. Nonradiating. Not associated with any diaphoresis. She has follow-up with cardiothoracic and cardiology on multiple occasions in the past. The ROS documented in this emergency department record has been reviewed and confirmed by me. Those systems with pertinent positive or negative responses have been documented in the HPI. All other systems are other negative and/or noncontributory. - Related Data Home Medications Medication Instructions Recorded Confirmed ALPRAZolam [Xanax] 0.5 mg PO DAILY PRN 04/26/14 08/19/23 Cetirizine HCl [Zyrtec] 10 mg PO HS 05/26/17 08/19/23 Albuterol Sulfate [Ventolin HFA] 2 puff INHALATION RT-Q6H PRN 12/19/21 08/19/23 Ferrous Sulfate [Slow Release Iron] 140 mg PO CHASE 12/19/21 08/19/23 Furosemide [Lasix] 20 mg PO HS 12/19/21 08/19/23 Empagliflozin [Jardiance] 25 mg PO HS 11/01/22 08/19/23 Fluticasone/Umeclidin/Vilanter 1 puff INHALATION HS 11/01/22 08/19/23 [Trelegy Ellipta 200-62.5-25] Losartan Potassium 50 mg PO HS 11/01/22 08/19/23 Rosuvastatin [Crestor] 5 mg PO HS 11/01/22 08/19/23 FLUoxetine HCL [PROzac] 40 mg PO HS 01/12/23 08/19/23 Pramipexole [Mirapex] 1 mg PO HS 07/04/23 08/19/23 Aspirin 81 mg PO HS 08/14/23 08/19/23 Unk Garlic 1 tab PO HS 08/14/23 08/19/23 Unk Vitamin C 1 tab PO HS 08/14/23 08/19/23 Unk Vitamin D 1 tab PO HS 08/14/23 08/19/23 Unk Zinc 1 tab PO HS 08/14/23 08/19/23 Previous Rx's Medication Instructions Recorded HYDROcodone/APAP 5-325MG [[place] 1 tab PO Q6HR PRN 3 Days #6 tab 08/19/23 5-325] Allergies Allergy/AdvReac Type Severity Reaction Status Date / Time Iodinated Contrast Media Allergy Anaphylaxis Verified 02/14/24 15:46 Sulfa (Sulfonamide Allergy Unknown Verified 02/14/24 15:46 Antibiotics) Childhood bupropion HCl AdvReac Severe Seizure Verified 02/14/24 15:46 [From Wellbutrin] iron AdvReac NAUSEA, Verified 02/14/24 15:46 VOMITING. Review of Systems ROS Statement: Those systems with pertinent positive or pertinent negative responses have been documented in the HPI. ROS Other: All systems not noted in ROS Statement are negative. Past Medical History Past Medical History: Heart Failure, CVA/TIA, Diabetes Mellitus, Hyperlipidemia, Hypertension, Osteoarthritis (OA) Additional Past Medical History / Comment(s): polycystic kidney disease, migraines, TIA 2012, varicose veins, hx anemia, AORTIC ANEURSYM, Type 2 DM History of Any Multi-Drug Resistant Organisms: None Reported Past Surgical History: Hysterectomy, Orthopedic Surgery Additional Past Surgical History / Comment(s): bilateral Carpal tunnel sx, D&C, LUMP REMOVED from throat, Right knee meniscus repair 2019 Past Anesthesia/Blood Transfusion Reactions: Previous Problems w/ Anesthesia Additional Past Anesthesia/Blood Transfusion Reaction / Comment(s): "body pain"- severe AFTER D & C Past Psychological History: Anxiety, Depression, PTSD Smoking Status: Current every day smoker Past Alcohol Use History: None Reported Past Drug Use History: Marijuana - Past Family History Mother Family Medical History: Cancer Additional Family Medical History / Comment(s): BREAST,THYROID CANCER General Exam - General Exam Comments Initial Comments: PHYSICAL EXAM: General Impression: Alert and oriented x3, not in acute distress HEENT: Normocephalic atraumatic, extra-ocular movements intact, pupils equal and reactive to light bilaterally, mucous membranes moist. Cardiovascular: Heart regular rate and rhythm Chest: Able to complete full sentences, no retractions, no tachypnea Abdomen: abdomen soft, non-tender, non-distended, no organomegaly Musculoskeletal: Pulses present and equal in all extremities, no peripheral edema Motor: no focal deficits noted Neurological: CN II-XII grossly intact, no focal motor or sensory deficits noted Skin: Intact with no visualized rashes Psych: Normal affect and mood Limitations: no limitations Course Vital Signs 02/14/24 12:49 Temperature 98.5 F Pulse Rate 81 Respiratory 20 Rate Blood Pressure 126/82 O2 Sat by Pulse 97 Oximetry EKG Findings - EKG Comments: EKG Findings:: My EKG interpretation: Ventricular rate 78, sinus rhythm,. 140, QRS 93, QTc 4 5. No TX prolongation, no QTC prolongation, no ST or T-wave changes noted. Overall, this EKG is unremarkable Medical Decision Making - Medical Decision Making Was pt. sent in by a medical professional or institution (, PA, TONSORIAL ARTIST, urgent care, hospital, or fdc...) When possible be specific @ -No Did you speak to anyone other than the patient for history (EMS, parent, family, police, friend...)? What history was obtained from this source @ -No Did you review nursing and triage notes (agree or disagree)? Why? @ -I reviewed and agree with nursing and triage notes Were old charts reviewed (outside hosp., previous admission, EMS record, old EKG, old radiological studies, urgent care reports/EKG's, fdc records)? Report findings @ -Cardiac cath reviewed showing that patient has some coronary artery disease Differential Diagnosis (chest pain, altered mental status, abdominal pain women, abdominal pain men, vaginal bleeding, musculoskeletal, weakness, fever, dyspnea, syncope, headache, dizziness, GI bleed, back pain, seizure, CVA, palpatations, mental health)? @ -Differential Chest Pain: Stable Angina, Unstable Angina, STEMI, NSTEMI Aortic Dissection, Pneumothorax, Musculoskeletal, Esophageal Spasm GERD, Cholecystitis, Pancreatitis, Zoster, thi s is not meant to be an all-inclusive list. EKG interpreted by me (3pts min.). @ -See above X-rays interpreted by me (1pt min.). @ -Chest x-ray is nonacute CT interpreted by me (1pt min.). @ -None done U/S interpreted by me (1pt. min.). @ -None done What testing was considered but not performed or refused? (CT, X-rays, U/S, labs)? Why? @ -None What meds were considered but not given or refused? Why? @ -None Did you discuss the management of the patient with other professionals (professionals i.e. Dr., PA, TONSORIAL ARTIST, lab, RT, psych nurse, social worker health services, continuous wave operator, teacher, legal officer, machine adjuster leader case trim)? Give summary @ -Case discussed with hospitalist for admission Was smoking cessation discussed for >3mins.? @ -No Was critical care preformed (if so, how long)? @ -No Were there social determinants of health that impacted care today? How? (Homelessness, low income, unemployed, alcoholism, drug addiction, transportation, low edu. Level, literacy, decrease access to med. care, half-way, rehab)? @ -No Was there de-escalation of care discussed even if they declined (Discuss DNR or withdrawal of care, Hospice)? DNR status @ -No What co-morbidities impacted this encounter? (DM, HTN, Smoking, COPD, CAD, Cancer, CVA, ARF, Chemo, Hep., AIDS, mental health diagnosis, sleep apnea, morbid obesity)? @ -None Was patient admitted / discharged? Hospital course, mention meds given and route, prescriptions, significant lab abnormalities, going to OR and other pertinent info. @ -43-year-old female presents emergency department chest pain and dizziness. Vital signs upon arrival are within acceptable limits. Cardiac catheter was reviewed showing that patient does have some nonobstructive disease. EKG is unremarkable. Laboratory evaluation is unremarkable. Patient will be admitted consultation to cardiology. Patient given aspirin Undiagnosed new problem with uncertain prognosis? @ -No Drug Therapy requiring intensive monitoring for toxicity (Heparin, Nitro, Insulin, Cardizem)? @ -No Were any procedures done? @ -No Diagnosis/symptom? Acute, or Chronic, or Acute on Chronic? Uncomplicated (without systemic symptoms) or Complicated (systemic symptoms)? @ -Chest pain Side effects of treatment? @ -No Exacerbation, Progression, or Severe Exacerbation? @ -No Poses a threat to life or bodily function? How? (Chest pain, [place], [place], pneumonia, PE, COPD, DKA, ARF, appy, cholecystitis, CVA, Diverticulitis, Homicidal, Suicidal, threat to staff... and all critical care pts) @ -yes - Lab Data Result diagrams: 02/14/24 12:58 02/14/24 12:58 Lab Results 02/14/24 02/14/24 02/14/24 Range/Units 12:58 12:58 12:58 WBC 9.4 (3.8-10.6) k/uL RBC 4.85 (3.80-5.40) m/uL Hgb 15.0 (11.4-16.0) gm/dL Hct 45.3 (34.0-46.0) % MCV 93.5 (80.0-100.0) fL MCH 30.9 (25.0-35.0) pg MCHC 33.0 (31.0-37.0) g/dL RDW 14.0 (11.5-15.5) % Plt Count 138 L (150-450) k/uL MPV 9.0 Neutrophils % 71 % Lymphocytes % 20 % Monocytes % 5 % Eosinophils % 3 % Basophils % 0 % Neutrophils # 6.7 (1.3-7.7) k/uL Lymphocytes # 1.9 (1.0-4.8) k/uL Monocytes # 0.4 (0-1.0) k/uL Eosinophils # 0.2 (0-0.7) k/uL Basophils # 0.0 (0-0.2) k/uL PT 10.0 (10.0-12.5) sec INR 0.9 (<1.2) APTT 26.5 (22.0-30.0) sec Sodium 137 (137-145) mmol/L Potassium 4.2 (3.5-5.1) mmol/L Chloride 113 H (98-107) mmol/L Carbon Dioxide 17 L (22-30) mmol/L Anion Gap 7 mmol/L BUN 23 H (7-17) mg/dL Creatinine 1.15 H (0.52-1.04) mg/dL Est GFR (CKD-EPI)AfAm 67 (>60 ml/min/1.73 sqM) Est GFR (CKD-EPI)NonAf 59 (>60 ml/min/1.73 sqM) Glucose 116 H (74-99) mg/dL Calcium 8.5 (8.4-10.2) mg/dL Magnesium 1.7 (1.6-2.3) mg/dL Total Bilirubin 0.5 (0.2-1.3) mg/dL AST 24 (14-36) U/L ALT 22 (4-34) U/L Alkaline Phosphatase 65 (38-126) U/L Troponin I (0.000-0.034) ng/mL NT-Pro-B Natriuret Pep 75 pg/mL Total Protein 6.7 (6.3-8.2) g/dL Albumin 3.7 (3.5-5.0) g/dL 02/14/24 Range/Units 12:58 WBC (3.8-10.6) k/uL RBC (3.80-5.40) m/uL Hgb (11.4-16.0) gm/dL Hct (34.0-46.0) % MCV (80.0-100.0) fL MCH (25.0-35.0) pg MCHC (31.0-37.0) g/dL RDW (11.5-15.5) % Plt Count (150-450) k/uL MPV Neutrophils % % Lymphocytes % % Monocytes % % Eosinophils % % Basophils % % Neutrophils # (1.3-7.7) k/uL Lymphocytes # (1.0-4.8) k/uL Monocytes # (0-1.0) k/uL Eosinophils # (0-0.7) k/uL Basophils # (0-0.2) k/uL PT (10.0-12.5) sec INR (<1.2) APTT (22.0-30.0) sec Sodium (137-145) mmol/L Potassium (3.5-5.1) mmol/L Chloride (98-107) mmol/L Carbon Dioxide (22-30) mmol/L Anion Gap mmol/L BUN (7-17) mg/dL Creatinine (0.52-1.04) mg/dL Est GFR (CKD-EPI)AfAm (>60 ml/min/1.73 sqM) Est GFR (CKD-EPI)NonAf (>60 ml/min/1.73 sqM) Glucose (74-99) mg/dL Calcium (8.4-10.2) mg/dL Magnesium (1.6-2.3) mg/dL Total Bilirubin (0.2-1.3) mg/dL AST (14-36) U/L ALT (4-34) U/L Alkaline Phosphatase (38-126) U/L Troponin I <0.012 (0.000-0.034) ng/mL NT-Pro-B Natriuret Pep pg/mL Total Protein (6.3-8.2) g/dL Albumin (3.5-5.0) g/dL Disposition Clinical Impression: Chest pain Disposition: ADMITTED IP TO THIS HOSP Condition: Fair Referrals: Allen Winchester MD [Primary Care Provider] - 1-2 days Decision Time: 15:00
--- NOTE | 2024-02-14 15:01 | XR ---
EXAMINATION TYPE: XR chest 2V DATE OF EXAM: 02/14/2024 2:15 PM CLINICAL INDICATION:Female, 43 years old with history of Chest Pain; H COMPARISON: CT chest 12/31/2023 TECHNIQUE: XR chest 2V. Frontal and lateral views of the chest.. FINDINGS: Lines/Tubes/Devices: No indwelling lines are seen. Heart/mediastinum: Heart size is normal. Mediastinal silhouette appears normal. Mildly tortuous mil dly ectatic aorta. Pulmonary vascularity: Not increased, Lungs/Pleura: There is no evidence of sizable pleural effusion, focal consolidation, or pneumothorax. Tiny left effusion cannot be ruled out. Musculoskeletal: No acute osseous abnormality demonstrated in the limits of the exam. Mild degenerat king changes. Other findings: None. IMPRESSION: No acute cardiopulmonary abnormality.
[2024-02-14] MEDS ORDERED: NITROGLYCERIN SL TABS 0.4 MG TAB SUBLINGUAL PRN (15:49)
--- NOTE | 2024-02-14 16:59 | P.HPIM ---
History of Present Illness H&P Date: 02/14/24 History of Presenting Illness: Patient is a very pleasant 43-year-old female with a past medical history of hypertension, hyperlipidemia, chronic diastolic congestive heart failure, type II jvs-lsisusi-xhljxoaii diabetes mellitus, migraine headaches, TIA, polycystic kidney disease with stage IIIa CKD, aortic aneurysm (reports follows with Dr. Elizabeth), anxiety, depression, and nicotine dependence. She presented to the emergency department with a chief complaint of dizziness and chest pain. 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 She thought maybe this was secondary to not eating breakfast so after the appointment they went down and got some breakfast in the cafeteria but reports dizziness remained then became accompanied by mild chest discomfort/pain, double vision, and a brain fog/fuzziness with her memory. Reports dizziness and double vision remains at rest and with movement and even with her eyes closed. She states chest pain seems to have improved at this current time. Patient denies having any diaphoresis, chills, headache, tinnitus, or changes in hearing, palpitations, shortness of breath, cough or congestion, abdominal pain, nausea, vomiting, or experiencing any numbness/tingling/weakness/swelling in her e xtremities. Upon arrival to the emergency department, patient underwent evaluation. Vital signs upon arrival show blood pressure 126/82, heart rate 81, respiratory rate 20, temp 98.5 F, and SpO2 of 97% on room air. EKG was completed showing normal sinus rhythm at 78 bpm with no noted T wave or ST abnormalities showing no signs of acute ischemia upon personal review and interpretation. Chest x-ray negative for acute cardiopulmonary process. Labs completed and reviewed. CBC unremarkable with exception of thrombocytopenia with platelet count of 138. Coagulation profile normal findings. BMP showing mild metabolic acidosis with chloride of 113, bicarb of 17, and anion gap of 7 with renal function at baseline with BUN of 23, creatinine 1.15, and GFR 59 with baseline creatinine of 1.1. Glucose 116. Magnesium slightly low at 1.7. Liver profile unremarkable. Troponin negative at less than 0.012. proBNP 75. Patient being admitted under our services with consultation to cardiology and neurology. Review of systems: Pertinent positives and negatives as discussed in HPI, a complete review of systems was performed and all other systems are negative. Physical exam: Vital signs reviewed and stable. General: Nontoxic, no distress and appears stated age. Derm: Skin warm and dry, normal coloration for ethnicity. Head: Atraumatic, normocephalic and symmetric. Eyes: EOMs intact, no lid lag, and anicteric sclera Mouth: no lip lesions, mucus membranes moist Cardiovascular: regular rate and rhythm with normal S1S2, no murmur, positive posterior tibial pulses bilaterally, and cap refill < 2 seconds. Lungs: Respirations even, regular, and unlabored on room air. Lungs CTA bilaterally, no rhonchi, no rales, no wheezing, and no accessory muscle usage. Abdominal: soft, nontender to palpation, no guarding, no appreciable organomegaly Ext: ROM intact. No gross muscle atrophy, no edema, no contractures Neuro: Speech clear, face symmetrical and CN II-XII grossly intact with no noted focal neuro deficits Psych: Alert and oriented to person, place, time, and situation. Appropriate and pleasant affect. Assessment and Plan of Care: Intractable dizziness with double vision and reports of brain fog/fuzziness Chest pain, rule out acute coronary event Hypertension Hyperlipidemia HFpEF History of TIA History of migraine headaches History of aortic aneurysm -Cardiology consulted, appreciate recommendations -Neurology consulted, appreciate recommendations -Telemetry monitoring -Trend troponins -Cardiac diet, NPO at midnight -Continue cardiac medication regimen with aspirin 81 mg daily, atorvastatin 10 mg daily, furosemide 20 mg daily, and losartan 50 mg daily. -Lipid profile with a.m. labs. -Order placed for CT head -D-dimer to be obtained -Neurochecks every 4 hours and fall precautions in place. -Visual acuity Ygh-dzlimuu-qddlnzyvy diabetes mellitus Hold Jardiance and Ozempic and place patient on glycemic protocol with NovoLog sliding scale. Polycystic kidney disease with stage IIIa chronic kidney disease Renal function stable and at baseline. Patient to follow-up outpatient with magnet maker, Dr. Cullen for continued monitoring and management. Data and imaging reviewed: As stated above in HPI The patient is admitted with an anticipated less than 2 midnight stay for evaluation of intractable dizziness and chest pain CODE STATUS: Full code DVT prophylaxis: Lovenox Anticipated discharge date: Clinical course to determine likely 24 to [address]: Home Patient was seen independently by Nurse Practitioner. This document was prepared using [employer] dictation software. Please allow for errors in bag cutter while rare they do occur. Sujit Mckee NP rendered care for this patient independently, reviewed the findings and plan as documented in the note above. I did not physically speak with or examine the patient on this date. Past Medical History Past Medical History: Heart Failure, CVA/TIA, Diabetes Mellitus, Hyperlipidemia, Hypertension, Osteoarthritis (OA) Additional Past Medical History / Comment(s): polycystic kidney disease, migraines, TIA 2012, varicose veins, hx anemia, AORTIC ANEURSYM, Type 2 DM History of Any Multi-Drug Resistant Organisms: None Reported Past Surgical History: Hysterectomy, Orthopedic Surgery Additional Past Surgical History / Comment(s): bilateral Carpal tunnel sx, D&C, LUMP REMOVED from throat, Right knee meniscus repair 2020 Past Anesthesia/Blood Transfusion Reactions: Previous Problems w/ Anesthesia Additional Past Anesthesia/Blood Transfusion Reaction / Comment(s): "body pain"- severe AFTER D & C Past Psychological History: Anxiety, Depression, PTSD Smoking Status: Current every day smoker Past Alcohol Use History: None Reported Past Drug Use History: Marijuana - Past Family History Mother Family Medical History: Cancer Additional Family Medical History / Comment(s): BREAST,THYROID CANCER Medications and Allergies Home Medications Medication Instructions Recorded Confirmed Type Cetirizine HCl [Zyrtec] 10 mg PO DAILY 05/26/17 02/14/24 History Albuterol Sulfate [Ventolin HFA] 2 puff INHALATION RT-Q6H PRN 12/19/21 02/14/24 History Furosemide [Lasix] 20 mg PO DAILY 12/19/21 02/14/24 History Empagliflozin [Jardiance] 25 mg PO DAILY 11/01/22 02/14/24 History Fluticasone/Umeclidin/Vilanter 1 puff INHALATION RT-DAILY 11/01/22 02/14/24 History [Trelegy Ellipta 200-62.5-25] Losartan Potassium 50 mg PO DAILY 11/01/22 02/14/24 History Aspirin 81 mg PO DAILY 08/14/23 02/14/24 History ALPRAZolam [Xanax] 0.25 mg PO DAILY PRN 02/14/24 02/14/24 History Amoxic-Pot Clav 875-125Mg 1 tab PO BID 02/14/24 02/14/24 History [Augmentin 875-125] Cyclobenzaprine [Flexeril] 10 mg PO TID PRN 02/14/24 02/14/24 History DULoxetine HCL [Cymbalta] 30 mg PO DAILY 02/14/24 02/14/24 History Ergocalciferol [Vitamin D2 (1250 1,250 mcg PO CHASE 02/14/24 02/14/24 History Mcg = 83434 Iu)] Mirabegron [Myrbetriq] 50 mg PO DAILY 02/14/24 02/14/24 History Nicotine 21Mg/24Hr Patch [Habitrol] 1 patch TRANSDERM DAILY 02/14/24 02/14/24 History Ozempic 0.5mg 0.5 mg SQ DIRECTED 02/14/24 02/14/24 History Pregabalin [Lyrica] 75 mg PO BID 02/14/24 02/14/24 History Rosuvastatin Calcium 5 mg PO DAILY 02/14/24 02/14/24 History Tramadol 100mg 1 tab PO BID PRN 02/14/24 02/14/24 History Allergies Allergy/AdvReac Type Severity Reaction Status Date / Time Iodinated Contrast Media Allergy Anaphylaxis Verified 02/14/24 15:46 Sulfa (Sulfonamide Allergy Unknown Verified 02/14/24 15:46 Antibiotics) Childhood bupropion HCl AdvReac Severe Seizure Verified 02/14/24 15:46 [From Wellbutrin] iron AdvReac NAUSEA, Verified 02/14/24 15:46 VOMITING. Physical Exam Vitals: Vital Signs Temp Pulse Resp BP Pulse Ox 02/14/24 12:49 98.5 F 81 20 126/82 97 Intake and Output 02/14/24 02/14/24 02/14/24 06:59 14:59 22:59 Other: Weight 136.078 kg Results CBC & Chem 7: 02/14/24 12:58 02/14/24 12:58 Labs: Abnormal Lab Results - Last 24 Hours (Table) 02/14/24 02/14/24 Range/Units 12:58 12:58 Plt Count 138 L (150-450) k/uL Chloride 113 H (98-107) mmol/L Carbon Dioxide 17 L (22-30) mmol/L BUN 23 H (7-17) mg/dL Creatinine 1.15 H (0.52-1.04) mg/dL Glucose 116 H (74-99) mg/dL
[2024-02-14] MEDS ORDERED: traMADol 50 MG TAB PO PRN (17:04)
[2024-02-14] MEDS ORDERED: ALPRAZolam 0.25 MG TAB PO PRN (17:04)
[2024-02-14] MEDS ORDERED: ALBUTEROL HFA INHALER INHALATION PRN (17:04)
[2024-02-14] MEDS ORDERED: DEXTROSE 50% SYRINGE 50 ML IVP PRN ×2 (17:24)
--- NOTE | 2024-02-14 17:43 | CT ---
EXAMINATION TYPE: CT brain wo con DATE OF EXAM: 02/14/2024 COMPARISON: 03/01/2013 INDICATION: dizziness DLP: 1214.4 mGycm, Automated exposure control for dose reduction was used. CONTRAST: None CT of the brain is performed utilizing 3 mm thick sections through the posterior fossa and 3 mm thick sections through the remaining calvarium. Study is performed within 24 hours of arrival to the hosp [facility]. No abnormal hyperdensity is present to suggest an acute intracranial hemorrhage. No mass lesion is evident. No acute infarcts are evident. Ventricles and sulci are appropriate for the patient age. There is a retention cyst within the left maxillary sinus. Remaining paranasal sinuses and mastoid ai r cells are clear. IMPRESSION: 1. No acute intracranial process radiographically apparent. Follow-up MRI can be performed as clini sonja indicated.
[2024-02-14] MEDS: ASPIRIN 81 MG PO STA (19:00)
[2024-02-14] MEDS: INSULIN ASPART (NovoLOG) 100 UNIT/ML VIAL SQ SCH (19:01)
[2024-02-14] MEDS: MAGNESIUM OXIDE 400 MG TAB PO STA (19:11)
[2024-02-14] MEDS: IPRATROPIUM 0.5 MG/2.5 ML NEBU INHALATION SCH (19:38)
[2024-02-14 21:34] LABS: Glucose,Whole Blood 177 mg/dL (70-110)
[2024-02-14] MEDS: PREGABALIN 75 MG CAP PO SCH (21:42)
[2024-02-15 07:37] LABS: Glucose,Whole Blood 102 mg/dL (70-110)
[2024-02-15 08:24] VITALS: BP 120/81; RESP 17; TEMP 98
[2024-02-15] MEDS: ENOXAPARIN 40 MG/0.4 ML SYRINGE SQ SCH (08:28)
[2024-02-15] MEDS: NON FORMULARY DRUG (Mirabegron [Myrbetriq] 50 MG Tab.Er.24h) PO SCH (08:29)
[2024-02-15] MEDS: ASPIRIN 81 MG PO SCH (08:29)
[2024-02-15] MEDS: NICOTINE 21MG/24HR PATCH TRANSDERM SCH (08:29)
[2024-02-15] MEDS: LORATADINE 10 MG TAB PO SCH (08:29)
[2024-02-15] MEDS: FUROSEMIDE 20 MG TAB PO SCH (08:29)
[2024-02-15] MEDS: DULoxetine HCL 30 MG CAPSULE.DR PO SCH (08:29)
[2024-02-15] MEDS: LOSARTAN 50 MG TAB PO SCH (08:29)
[2024-02-15] MEDS: ATORVASTATIN 10 MG TAB PO SCH (08:29)
[2024-02-15] MEDS ORDERED: ASPIRIN 325 MG TAB PO SCH (09:00)
[2024-02-15] MEDS: SYMBICORT 80-4.5 MCG INHALER INHALATION SCH (09:12)
[2024-02-15 10:03] VITALS: PULSE 70
[2024-02-15 10:34] LABS: Chol/HDL Ratio 4.93 Ratio; LDL Cholesterol,Calculated 54.6 mg/dL (0.0-131.0)
[2024-02-15 11:37] LABS: Glucose,Whole Blood 139 mg/dL (70-110)
--- NOTE | 2024-02-15 11:45 | CA ---
Transthoracic Echo Report Name: Dawna Hickman Age: 43 Gender: F : 1980 Exam Date: 02/15/2024 10:24 Exam Location: [place] [facility] Ht (in): 67 Wt (lb): 300 Ordering Physician: Mei Elmore Attending/Referring Phys: Washer Engineer Cindy Oropeza RDCS Procedure CPT: Indications: chest pain, shortness of breath Cardiac Hx: Technical Quality: Fair Contrast 1: Total Dose (mL): Contrast 2: Total Dose (mL): MEASUREMENTS (Male / Female) Normal Values 2D ECHO LV Diastolic Diameter PLAX 6.3 cm 4.2 - 5.9 / 3.9 - 5.3 cm LV Systolic Diameter PLAX 4.7 cm IVS Diastolic Thickness 0.8 cm 0.6 - 1.0 / 0.6 - 0.9 cm LVPW Diastolic Thickness 0.8 cm 0.6 - 1.0 / 0.6 - 0.9 cm LV Relative Wall Thickness 0.2 RV Internal Dim ED PLAX 3.1 cm LVOT Diameter 2.3 cm LV Diastolic Volume MOD BP 146.0 cm??? 67 - 155 / 56 - 104 cm??? LV Systolic Volume MOD BP 66.3 cm??? 22 - 58 / 19 - 49 cm??? LV Ejection Fraction MOD BP 54.6 % >= 55 % LV Cardiac Index MOD BP 2229.4 cm???/min???m??? LV Diastolic Volume MOD 4C 156.7 cm??? LV Systolic Volume MOD 4C 77.8 cm??? LV Ejection Fraction MOD 4C 50.4 % LV Cardiac Index MOD 4C 2205.8 cm???/min???m??? LV Diastolic Length 4C 8.9 cm LV Systolic Length 4C 7.2 cm LV Diastolic Volume MOD 2C 134.3 cm??? LV Systolic Volume MOD 2C 57.1 cm??? LV Ejection Fraction MOD 2C 57.5 % LV Cardiac Index MOD 2C 2157.8 cm???/min???m??? LV Diastolic Length 2C 8.7 cm LV Systolic Length 2C 7.1 cm LA Volume 60.1 cm??? 18 - 58 / 22 - 52 cm??? LA Volume Index 23.0 cm???/m??? 16 - 28 cm???/m??? Ascending Aorta Diameter 3.6 cm DOPPLER AV Peak Velocity 138.9 cm/s AV Peak Gradient 7.7 mmHg AV Mean Velocity 100.1 cm/s AV Mean Gradient 4.5 mmHg AV Velocity Time Integral 27.6 cm MV Area PHT 4.6 cm??? Mitral E Point Velocity 66.2 cm/s Mitral A Point Velocity 64.3 cm/s Mitral E to A Ratio 1.0 MV Deceleration Time 163.8 ms PV Peak Velocity 87.5 cm/s PV Peak Gradient 3.1 mmHg FINDINGS Left Ventricle Left ventricular ejection fraction is estimated at 50-55 %. Severely increased left ventricular diastolic diameter. Severely increased left ventricular diastolic volume. Moderately increased left ventricular systolic volume. Mildly decreased left ventricular ejection fraction. No obvious regional wall motion abnormalities. Right Ventricle Normal right ventricular size and function. Unable to estimate the right ventricular systolic pressure. Right Atrium Normal right atrial size. Left Atrium Mildly increased left atrial volume. Mildly increased left atrial area. Mitral Valve Structurally normal mitral valve. No evidence for mitral valve prolapse. No mitral stenosis. Trace mitral regurgitation. Aortic Valve Trileaflet aortic valve. No aortic stenosis. Trace aortic regurgitation. Tricuspid Valve Structurally normal tricuspid valve. No tricuspid stenosis. No tricuspid regurgitation. Pulmonic Valve Pulmonic valve not well visualized. No pulmonic stenosis. No pulmonic regurgitation. Pericardium No pericardial effusion. Aorta Normal size aortic root and proximal ascending aorta. CONCLUSIONS Left ventricular ejection fraction 50-55% Mildly dilated left atrium Trace mitral regurgitation Trace aortic regurgitation No pericardial effusion Previewed by: Dr. Lee Borrego DO (Electronically Signed) Final Date: 15 Feb 2024 11:44
--- NOTE | 2024-02-15 12:04 | P.CRDCN ---
History of Present Illness Consult date: 02/15/24 Consult reason: chest pain Chief complaint: chest pain, dizziness, shortness of breath History of present illness: History of present illness: Pleasant 43-year-old female with significant past medical history of hyperte nsion, hyperlipidemia, chronic diastolic congestive heart failure, diabetes type 2, migraine headaches, AAA, polycystic kidney disease, aortic aneurysm, anxiety, and tobacco use who presented to the emergency department with dizziness and chest pain. He does follow with Dr. Elizabeth in the office and was seen approximately 1 week ago and has a repeat echo scheduled for March. Her BNP was elevated 571 at that time. 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 Said for a couple hours and was not getting better therefore she sought care. She was still having symptoms of until this morning. She did have a recent kidney infection. She also has a recent ear infection and is still on Augmentin for this. Labs reviewed: Troponin negative x 3, D-dimer negative, creatinine 1.15, BNP 75. Head CT was negative. Prior workup with left heart catheterization 01/24/2023 revealed mild CAD 10-20% RCA. Prior echocardiogram 01/25/2023 with EF 55-60%, mild mitral and tricuspid regurgitation. She also reports that she was having increased breast swelling about a month ago and was concerned about retaining fluid also states that she has been having difficulty with her memory. She does get short of breath that is worse with activity over the past few weeks. This morning she is feeling better with no further chest pain. She feels back to her baseline other than some difficulty remembering things. She is ambulatory in the room without difficulty. REVIEW OF SYSTEMS: No fever or chills. No cough or expectoration. No diaphoresis. Patient denies headache, dizziness, blurred vision, double vision. Patient denies any stomach discomfort. No nausea, vomiting. No hematochezia. No hematemesis. Denies any black stools or blood in his stools. Denies dysuria or hematuria. No muscle weakness or numbness. No chest pain or pressure. PHYSICAL EXAMINATION: This is a 43-year-old in no apparent distress at the time of my examination. HEENT: Head is atraumatic, normocephalic. Pupils are equal, round. Sclerae anicteric. Conjunctivae are clear. Mucous membranes of the mouth are moist. Neck is supple. There is no jugular venous distention. No carotid bruit is heard. CHEST EXAMINATION: Lungs are clear to auscultation. No chest wall tenderness is noted on palpation or with deep breathing. HEART EXAMINATION: Heart regular rate and rhythm. S1, S2 heard. No murmurs, gallops or rub. ABDOMEN: Soft, nontender. Bowel sounds are heard. EXTREMITIES: 2+ peripheral pulses with trace peripheral edema and no calf tenderness noted. NEUROLOGIC EXAMINATION: Patient is awake, alert and oriented x3. IMPRESSION AND PLAN: Hypertension Hyperlipidemia Chest pain Chronic diastolic heart failure Diabetes type 2 Shortness of breath Aortic aneurysm Migraine headaches Polycystic kidney disease Tobacco use Dizziness PLAN: We checked Echocardiogram which revealed EF 50-55%, no significant valve issues, no pericardial effusion. BNP normal. She is feeling back to her baseline. Continue with current medications. Monitor blood pressure at home once daily and keep a log. Cleared for discharge to home from cardiology standpoint. Follow in office in 1-2 weeks. I am dictating on behalf of Dr. Lee Borrego's history/physical and assessment/plan. Past Medical History Past Medical History: Heart Failure, CVA/TIA, Diabetes Mellitus, Hyperlipidemia, Hypertension, Osteoarthritis (OA) Additional Past Medical History / Comment(s): polycystic kidney disease, migraines, TIA 2012, varicose veins, hx anemia, AORTIC ANEURSYM, Type 2 DM History of Any Multi-Drug Resistant Organisms: None Reported Past Surgical History: Hysterectomy, Orthopedic Surgery Additional Past Surgical History / Comment(s): bilateral Carpal tunnel sx, D&C, LUMP REMOVED from throat, Right knee meniscus repair 2019 Past Anesthesia/Blood Transfusion Reactions: Previous Problems w/ Anesthesia Additional Past Anesthesia/Blood Transfusion Reaction / Comment(s): "body pain"- severe AFTER D & C Past Psychological History: Anxiety, Depression, PTSD Smoking Status: Current every day smoker Past Alcohol Use History: None Reported Past Drug Use History: Marijuana - Past Family History Mother Family Medical History: Cancer Additional Family Medical History / Comment(s): BREAST,THYROID CANCER Medications and Allergies Home Medications Medication Instructions Recorded Confirmed Type Cetirizine HCl [Zyrtec] 10 mg PO DAILY 05/26/17 02/14/24 History Albuterol Sulfate [Ventolin HFA] 2 puff INHALATION RT-Q6H PRN 12/19/21 02/14/24 History Furosemide [Lasix] 20 mg PO DAILY 12/19/21 02/14/24 History Empagliflozin [Jardiance] 25 mg PO DAILY 11/01/22 02/14/24 History Fluticasone/Umeclidin/Vilanter 1 puff INHALATION RT-DAILY 11/01/22 02/14/24 His tory [Trelegy Ellipta 200-62.5-25] Losartan Potassium 50 mg PO DAILY 11/01/22 02/14/24 History Aspirin 81 mg PO DAILY 08/14/23 02/14/24 History ALPRAZolam [Xanax] 0.25 mg PO DAILY PRN 02/14/24 02/14/24 History Amoxic-Pot Clav 875-125Mg 1 tab PO BID 02/14/24 02/14/24 History [Augmentin 875-125] Cyclobenzaprine [Flexeril] 10 mg PO TID PRN 02/14/24 02/14/24 History DULoxetine HCL [Cymbalta] 30 mg PO DAILY 02/14/24 02/14/24 History Ergocalciferol [Vitamin D2 (1250 1,250 mcg PO CHASE 02/14/24 02/14/24 History Mcg = 90077 Iu)] Mirabegron [Myrbetriq] 50 mg PO DAILY 02/14/24 02/14/24 History Nicotine 21Mg/24Hr Patch [Habitrol] 1 patch TRANSDERM DAILY 02/14/24 02/14/24 H istory Ozempic 0.5mg 0.5 mg SQ DIRECTED 02/14/24 02/14/24 History Pregabalin [Lyrica] 75 mg PO BID 02/14/24 02/14/24 History Rosuvastatin Calcium 5 mg PO DAILY 02/14/24 02/14/24 History Tramadol 100mg 1 tab PO BID PRN 02/14/24 02/14/24 History Allergies Allergy/AdvReac Type Severity Reaction Status Date / Time Iodinated Contrast Media Allergy Anaphylaxis Verified 02/14/24 15:46 Sulfa (Sulfonamide Allergy Unknown Verified 02/14/24 15:46 Antibiotics) Childhood bupropion HCl AdvReac Severe Seizure Verified 02/14/24 15:46 [From Wellbutrin] iron AdvReac NAUSEA, Verified 02/14/24 15:46 VOMITING. Physical Exam Vitals: Vital Signs Temp Pulse Pulse Pulse Resp BP BP 02/15/24 09:24 70 02/15/24 09:14 68 02/15/24 07:00 98.0 F 84 17 120/81 02/15/24 02:21 97.4 F L 90 15 102/65 02/14/24 22:15 97.9 F 95 16 166/89 02/14/24 19:04 76 02/14/24 18:51 97.1 F L 81 20 132/91 02/14/24 18:00 20 02/14/24 12:49 98.5 F 81 20 126/82 Pulse Ox 02/15/24 09:24 02/15/24 09:14 02/15/24 07:00 97 02/15/24 02:21 95 02/14/24 22:15 96 02/14/24 19:04 02/14/24 18:51 98 02/14/24 18:00 02/14/24 12:49 97 Intake and Output 02/14/24 02/15/24 02/15/24 22:59 06:59 14:59 Other: # Voids 1 2 Weight 136.078 kg Results 02/14/24 12:58 02/14/24 12:58 Cardiac Enzymes 02/14/24 02/14/24 02/14/24 Range/Units 12:58 12:58 16:48 AST 24 (14-36) U/L Troponin I <0.012 <0.012 (0.000-0.034) ng/mL 02/14/24 Range/Units 19:34 AST (14-36) U/L Troponin I <0.012 (0.000-0.034) ng/mL Coagulation 02/14/24 Range/Units 12:58 PT 10.0 (10.0-12.5) sec APTT 26.5 (22.0-30.0) sec CBC 02/14/24 Range/Units 12:58 WBC 9.4 (3.8-10.6) k/uL RBC 4.85 (3.80-5.40) m/uL Hgb 15.0 (11.4-16.0) gm/dL Hct 45.3 (34.0-46.0) % Plt Count 138 L (150-450) k/uL Comprehensive Metabolic Panel 02/14/24 Range/Units 12:58 Sodium 137 (137-145) mmol/L Potassium 4.2 (3.5-5.1) mmol/L Chloride 113 H (98-107) mmol/L Carbon Dioxide 17 L (22-30) mmol/L BUN 23 H (7-17) mg/dL Creatinine 1.15 H (0.52-1.04) mg/dL Glucose 116 H (74-99) mg/dL Calcium 8.5 (8.4-10.2) mg/dL AST 24 (14-36) U/L ALT 22 (4-34) U/L Alkaline Phosphatase 65 (38-126) U/L Total Protein 6.7 (6.3-8.2) g/dL Albumin 3.7 (3.5-5.0) g/dL Current Medications Generic Name Dose Route Start Last Admin Trade Name Freq PRN Reason Stop Dose Admin Albuterol Sulfate 2 puff 02/14/24 17:04 Albuterol Hfa Inhaler INHALATION RT-Q6H PRN Shortness Of Breath Alprazolam 0.25 mg 02/14/24 17:04 Alprazolam 0.25 Mg Tab PO DAILY PRN Anxiety Aspirin 81 mg 02/15/24 09:00 02/15/24 08:29 Aspirin 81 Mg PO 81 mg DAILY BENNY Administration Atorvastatin Calcium 10 mg 02/15/24 09:00 02/15/24 08:29 Atorvastatin 10 Mg Tab PO 10 mg DAILY BENNY Administration Budesonide/Formoterol Fumarate 2 puff 02/15/24 08:00 02/15/24 09:12 Symbicort 80-4.5 Mcg Inhaler INHALATION 2 puff RT-BID BENNY Administration Dextrose/Water 25 ml 02/14/24 17:24 Dextrose 50% Syringe 50 Ml IVP PER PROTOCOL PRN Hypoglycemia Protocol Dextrose/Water 50 ml 02/14/24 17:24 Dextrose 50% Syringe 50 Ml IVP PER PROTOCOL PRN Hypoglycemia Protocol Duloxetine HCl 30 mg 02/15/24 09:00 02/15/24 08:29 Duloxetine Hcl 30 Mg Capsule. PO 30 mg DAILY BENNY Administration Enoxaparin Sodium 40 mg 02/15/24 09:00 02/15/24 08:28 Enoxaparin 40 Mg/0.4 Ml Syringe SQ Not Given DAILY [facility] Furosemide 20 mg 02/15/24 09:00 02/15/24 08:29 Furosemide 20 Mg Tab PO 20 mg DAILY BENNY Administration Insulin Aspart 0 unit 02/14/24 17:30 02/15/24 07:37 Insulin Aspart (Novolog) 100 Unit/Ml Vial SQ Not Given ACHS [facility] Protocol Ipratropium [place] 0.5 mg 02/14/24 20:00 02/15/24 09:13 Ipratropium 0.5 Mg/2.5 Ml Nebu INHALATION 0.5 mg RT-QID [facility] Administration Loratadine 10 mg 02/15/24 09:00 02/15/24 08:29 Loratadine 10 Mg Tab PO 10 mg DAILY [facility] Administration Losartan Potassium 50 mg 02/15/24 09:00 02/15/24 08:29 Losartan 50 Mg Tab PO 50 mg DAILY [facility] Administration Nicotine 1 patch 02/15/24 09:00 02/15/24 08:29 Nicotine 21mg/24hr Patch TRANSDERM 1 patch DAILY [facility] Administration Nitroglycerin 0.4 mg 02/14/24 15:49 Nitroglycerin Sl Tabs 0.4 Mg Tab SUBLINGUAL Q5M PRN Chest Pain Non-Formulary Medication 50 mg 02/15/24 09:00 02/15/24 08:29 Mirabegron [Myrbetriq] PO Not Given DAILY [facility] Pregabalin 75 mg 02/14/24 21:00 02/15/24 08:29 Pregabalin 75 Mg Cap PO 75 mg BID [facility] Administration Tramadol HCl 1 mg 02/14/24 17:04 Tramadol 50 Mg Tab PO BID PRN Pain Intake and Output 02/14/24 02/15/24 02/15/24 22:59 06:59 14:59 Other: # Voids 1 2 Weight 136.078 kg 02/14/24 12:58 02/14/24 12:58
--- NOTE | 2024-02-15 12:39 | P.CNNES ---
History of Present Illness Consult date: 02/15/24 Requesting physician: Sujit Mckee Reason for Consult: intracratable dizzines, double vision and reprots brain fog/fuzziness. History of Present Illness: This is a 43-year-old woman with history of migraine, congestive heart failure, diabetes mellitus, hypertension presents to the emergency department because of chest pain. Neurology is consulted for dizziness. Patient stated that she had recent ear infection and she is on antibiotic and she has 2 more days left. Yesterday she noticed to having dizziness mostly with movement but at rest but mostly with movement more than rest. She had nausea but no vomiting. Denies any visual disturbance. Denies any focal weakness or numbness. She felt she was kind of foggy yesterday. But currently she is back to baseline. The dizziness is drastically better. Denies of any headache any nausea any vomiting any focal deficit. No further fogginess sensation. Denies any history of stroke. She had MRI of head and was told looked normal in past and had screening for a neurysm of head in past and was told negative and she stated was 2-3 years ago. Some of the workup during this hospital visit consisted of: CT of the head is reported as no acute intracranial process. I personally reviewed the CT and agree with the report. Echo is reported as left ventricular ejection fraction 50 to 55%. Mild dilated left atrium. Review of Systems The positive and negative as per HPI. Past Medical History Past Medical History: Heart Failure, CVA/TIA, Diabetes Mellitus, Hyperlipidemia, Hypertension, Osteoarthritis (OA) Additional Past Medical History / Comment(s): polycystic kidney disease, migraines, TIA 2012, varicose veins, hx anemia, AORTIC ANEURSYM, Type 2 DM History of Any Multi-Drug Resistant Organisms: None Reported Past Surgical History: Hysterectomy, Orthopedic Surgery Additional Past Surgical History / Comment(s): bilateral Carpal tunnel sx, D&C, LUMP REMOVED from throat, Right knee meniscus repair 2019 Past Anesthesia/Blood Transfusion Reactions: Previous Problems w/ Anesthesia Additional Past Anesthesia/Blood Transfusion Reaction / Comment(s): "body pain"- severe AFTER D & C Past Psychological History: Anxiety, Depression, PTSD Smoking Status: Current every day smoker Past Alcohol Use History: None Reported Past Drug Use History: Marijuana - Past Family History Mother Family Medical History: Cancer Additional Family Medical History / Comment(s): BREAST,THYROID CANCER Medications and Allergies Home Medications Medication Instructions Recorded Confirmed Type Cetirizine HCl [Zyrtec] 10 mg PO DAILY 05/26/17 02/14/24 History Albuterol Sulfate [Ventolin HFA] 2 puff INHALATION RT-Q6H PRN 12/19/21 02/14/24 History Furosemide [Lasix] 20 mg PO DAILY 12/19/21 02/14/24 History Empagliflozin [Jardiance] 25 mg PO DAILY 11/01/22 02/14/24 History Fluticasone/Umeclidin/Vilanter 1 puff INHALATION RT-DAILY 11/01/22 02/14/24 History [Trelegy Ellipta 200-62.5-25] Losartan Potassium 50 mg PO DAILY 11/01/22 02/14/24 History Aspirin 81 mg PO DAILY 08/14/23 02/14/24 History ALPRAZolam [Xanax] 0.25 mg PO DAILY PRN 02/14/24 02/14/24 History Amoxic-Pot Clav 875-125Mg 1 tab PO BID 02/14/24 02/14/24 History [Augmentin 875-125] Cyclobenzaprine [Flexeril] 10 mg PO TID PRN 02/14/24 02/14/24 History DULoxetine HCL [Cymbalta] 30 mg PO DAILY 02/14/24 02/14/24 History Ergocalciferol [Vitamin D2 (1250 1,250 mcg PO CHASE 02/14/24 02/14/24 History Mcg = 45182 Iu)] Mirabegron [Myrbetriq] 50 mg PO DAILY 02/14/24 02/14/24 History Nicotine 21Mg/24Hr Patch [Habitrol] 1 patch TRANSDERM DAILY 02/14/24 02/14/24 History Ozempic 0.5mg 0.5 mg SQ DIRECTED 02/14/24 02/14/24 History Pregabalin [Lyrica] 75 mg PO BID 02/14/24 02/14/24 History Rosuvastatin Calcium 5 mg PO DAILY 02/14/24 02/14/24 History Tramadol 100mg 1 tab PO BID PRN 02/14/24 02/14/24 History Allergies Allergy/AdvReac Type Severity Reaction Status Date / Time Iodinated Contrast Media Allergy Anaphylaxis Verified 02/14/24 15:46 Sulfa (Sulfonamide Allergy Unknown Verified 02/14/24 15:46 Antibiotics) Childhood bupropion HCl AdvReac Severe Seizure Verified 02/14/24 15:46 [From Wellbutrin] iron AdvReac NAUSEA, Verified 02/14/24 15:46 VOMITING. Physical Examination - Vital Signs Vital Signs: Vital Signs Temp Pulse Pulse Pulse Resp BP BP 02/15/24 09:24 70 02/15/24 09:14 68 02/15/24 07:00 98.0 F 84 17 120/81 02/15/24 02:21 97.4 F L 90 15 102/65 02/14/24 22:15 97.9 F 95 16 166/89 02/14/24 19:04 76 02/14/24 18:51 97.1 F L 81 20 132/91 02/14/24 18:00 20 02/14/24 12:49 98.5 F 81 20 126/82 Pulse Ox 02/15/24 09:24 02/15/24 09:14 02/15/24 07:00 97 02/15/24 02:21 95 02/14/24 22:15 96 02/14/24 19:04 02/14/24 18:51 98 02/14/24 18:00 02/14/24 12:49 97 Intake and Output 02/14/24 02/15/24 02/15/24 22:59 06:59 14:59 Other: Voiding Method Toilet # Voids 1 2 Weight 136.078 kg GENERAL: The patient is lying in bed and is not in acute distress. NEUROLOGICAL: Higher mental function: The patient is awake, alert, oriented to self, place and time. Patient is following commands. No aphasia and no neglect. Cranial nerves: The pupils are round, equal and reactive to light and accommodation. Visual torres are full to confrontation throughout. Extraocular movement is intact no nystagmus is noted. Facial sensation is normal to touch throughout. The facial strength is normal throughout. Hearing is normal bilaterally to hand rub. Tongue is midline and moved [id number] without any difficulty. No dysarthria is noted. Shoulder shrug is normal bilaterally. Motor: Gait is normal. The strength is 5 over 5 throughout. Normal tone and bulk. Cerebellum: Normal finger to nose heel to [place] bilaterally. Sensation: Sensation is normal to touch throughout. Reflexes (right/left): 2+ throughout Plantars are downgoing bilaterally. Results - Laboratory Findings CBC and BMP: 02/14/24 12:58 02/14/24 12:58 Abnormal Lab Findings: Abnormal Labs 02/14/24 02/14/24 02/14/24 12:58 12:58 12:58 Plt Count 138 L Chloride 113 H Carbon Dioxide 17 L BUN 23 H Creatinine 1.15 H Glucose 116 H POC Glucose (mg/dL) Triglycerides 269.00 H VLDL Cholesterol, Calc 53.80 H HDL Cholesterol 27.60 L 02/14/24 02/15/24 21:33 11:35 Plt Count Chloride Carbon Dioxide BUN Creatinine Glucose POC Glucose (mg/dL) 177 H 139 H Triglycerides VLDL Cholesterol, Calc HDL Cholesterol Assessment and Plan Assessment: This is a 43-year-old woman who presents because of chest pain. Yesterday she had also dizziness and felt dizziness is worse with movement and had nausea with feeling sensation of fogginess. She stated she had recent ear infection and is on antibiotic and not completed entire regimen. Today feels dizziness has resolved. Acute vertigo seems more peripheral especially with recent ear infection.---CT head is normal. No focal deficit Chest pain History of migraine Chronic congestive heart failure Type 2 diabetes Possible kidney disease History of aortic aneurysm Nicotine use Plan: Unable to obtain CT angiography because of patient allergy contrast I would recommend MRI of the brain which I ordered initially but since the patient symptoms has resolved was discontinued and since will take a while to be completed since there are many MRI pending and possible will be completed Saturday. The patient is in agreement as outpatient if continues to have symptoms. She stated she had screening for brain aneurysm because of history of polycystic disease and was told no aneurysm. Cardiology is consulted and Recommend the patient to follow-up with a neurologist as an outpatient within 2 to 3 weeks. Also follow-up with ENT if continues to have dizziness with vestibular rehab therapy. Will defer the rest of the medical management to primary and other specialist Plan discussed with the patient and her who is at bedside as well as the primary team. Thank for the consultation Time with Patient: Greater than 30
--- NOTE | 2024-02-15 13:16 | P.DS ---
Providers Date of admission: 02/14/24 15:50 Expected date of discharge: 02/15/24 Attending physician: Star Villar MD Consults: 02/14/24 15:49 Consult Physician Urgent Consulting Provider: Grupo Elizabeth Consult Reason/Comments: chest pain Do you want consulting provider notified?: Yes 02/14/24 17:15 Consult Physician Routine Consulting Provider: Reymundo Pizano Consult Reason/Comments: intractable dizziness, double vision, and reports of brain fog/fuzziness Do you want consulting provider notified?: Yes Primary care physician: Allen Winchester Hospital Course: Discharge Diagnosis: Intractable dizziness with double vision and reports of brain fog/fuzziness Chest pain, rule out acute coronary event Hypertension Hyperlipidemia HFpEF History of TIA History of migraine headaches History of aortic aneurysm Cdk-[id number]-cafmmbyla diabetes mellitus Polycystic kidney disease with stage IIIa chronic kidney disease Hospital Course: Patient is a very pleasant 43-year-old female with a past medical history of hypertension, hyperlipidemia, chronic diastolic congestive heart failure, type II [id number] diabetes mellitus, migraine headaches, TIA, polycystic kidney disease with stage IIIa CKD, aortic aneurysm (reports follows with Dr. Elizabeth), anxiety, depression, and nicotine dependence. She presented to the emergency department with a chief complaint of dizziness and chest pain. 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 She thought maybe this was secondary to not eating breakfast so after the appointment they went down and got some breakfast in the cafeteria but reports dizziness remained then became accompanied by mild chest discomfort/pain, double vision, and a brain fog/fuzziness with her memory. Reports dizziness and double vision remains at rest and with movement and even with her eyes closed. She states chest pain seems to have improved at this current time. Patient denies having any diaphoresis, chills, headache, tinnitus, or changes in hearing, palpitations, shortness of breath, cough or congestion, abdominal pain, nausea, vomiting, or experiencing any numbness/tingling/weakness/swelling in her extremities. Upon arrival to the emergency department, patient underwent evaluation. Vital signs upon arrival show blood pressure 126/82, heart rate 81, respiratory rate 20, temp 98.5 F, and SpO2 of 97% on room air. EKG was completed showing normal sinus rhythm at 78 bpm with no noted T wave or ST abnormalities showing no signs of acute ischemia upon personal review and interpretation. Chest x-ray negative for acute cardiopulmonary process. Labs completed and reviewed. CBC unremarkable with exception of thrombocytopenia with platelet count of 138. Coagulation profile normal findings. BMP showing mild metabolic acidosis with chloride of 113, bicarb of 17, and anion gap of 7 with renal function at baseline with BUN of 23, creatinine 1.15, and GFR 59 with baseline creatinine of 1.1. Glucose 116. Magnesium slightly low at 1.7. Liver profile unremarkable. Troponin negative at less than 0.012. proBNP 75. Patient was admitted under our services with consultation to cardiology and neurology. Patient reports symptoms of intractable dizziness double vision lasted throughout the evening and until falling asleep last night and were spontaneously resolved upon awakening this morning. Troponins were trended throughout the night all negative at less than 0.012 x 3 draws. She was evaluated by cardiology and an echocardiogram was completed showing preserved EF of 50 to 55% with mildly dilated left atrium, trace mitral regurgitation, and trace aortic regurgitation. Cardiology clearing patient from their perspective for discharge recommending outpatient follow-up in their office in 1 week. Neurology evaluated and recommending outpatient MRI and discussed with patient need to follow-up outpatient with her neurologist in 2 to 3 weeks. Cardiology clearing patient from neuro perspective for discharge. Patient is medically stable for discharge at this time free from any complaints. Patient to follow- up outpatient with PCP in 1 to 2 days, casket trimmer in 1 week, and to schedule appointment with her pbx supervisor for continued monitoring and management of her polycystic kidney disease, and her neurologist for scheduling of MRI. Physical exam: Vital signs reviewed and stable. General: Nontoxic, no distress and appears stated age. Derm: Skin warm and dry, normal coloration for ethnicity. Head: Atraumatic, normocephalic and symmetric. Eyes: EOMs intact, no lid lag, and anicteric sclera Mouth: no lip lesions, mucus membranes moist Cardiovascular: regular rate and rhythm with normal S1S2, no murmur, positive posterior tibial pulses bilaterally, and cap refill < 2 seconds. Lungs: Respirations even, regular, and unlabored on room air. Lungs CTA bilaterally, no rhonchi, no rales, no wheezing, and no accessory muscle usage. Abdominal: soft, nontender to palpation, no guarding, no appreciable organomegaly Ext: ROM intact. No gross muscle atrophy, no edema, no contractures Neuro: Speech clear, face symmetrical and CN II-XII grossly intact with no noted focal neuro deficits Psych: Alert and oriented to person, place, time, and situation. Appropriate and pleasant affect. A total of minutes of time were spent preparing this complex discharge summary. Pt was discharged on at 12:30 PM. Patient was seen independently by Nurse Practitioner. This document was prepared using [employer] dictation software. Please allow for errors in ecommerce merchandising manager while rare they do occur. I reviewed the documentation as provided by the SANDI above, who is the original author of this note. I agree with the documented assessment and plan, with the following changes: none Patient Condition at Discharge: Stable Plan - Discharge Summary Discharge Rx Participant: No New Discharge Prescriptions: Continue Cetirizine HCl [Zyrtec] 10 mg PO DAILY Albuterol Sulfate [Ventolin HFA] 2 puff INHALATION RT-Q6H PRN PRN Reason: Shortness Of Breath Furosemide [Lasix] 20 mg PO DAILY Losartan Potassium 50 mg PO DAILY Fluticasone/Umeclidin/Vilanter [Trelegy Ellipta 200-62.5-25] 1 puff INHALATION RT-DAILY Nicotine 21Mg/24Hr Patch [Habitrol] 1 patch TRANSDERM DAILY DULoxetine HCL [Cymbalta] 30 mg PO DAILY Tramadol 100mg 1 tab PO BID PRN PRN Reason: Pain ALPRAZolam [Xanax] 0.25 mg PO DAILY PRN PRN Reason: Anxiety Mirabegron [Myrbetriq] 50 mg PO DAILY Empagliflozin [Jardiance] 25 mg PO DAILY Aspirin 81 mg PO DAILY Amoxic-Pot Clav 875-125Mg [Augmentin 875-125] 1 tab PO BID Ergocalciferol [Vitamin D2 (1250 Mcg = 20890 Iu)] 1,250 mcg PO CHASE Rosuvastatin Calcium 5 mg PO DAILY Cyclobenzaprine [Flexeril] 10 mg PO TID PRN PRN Reason: Muscle Spasm Pregabalin [Lyrica] 75 mg PO BID Ozempic 0.5mg 0.5 mg SQ DIRECTED Discharge Medication List Cetirizine HCl [Zyrtec] 10 mg PO DAILY 05/26/17 [History] Albuterol Sulfate [Ventolin HFA] 2 puff INHALATION RT-Q6H PRN 12/19/21 [History] Furosemide [Lasix] 20 mg PO DAILY 12/19/21 [History] Empagliflozin [Jardiance] 25 mg PO DAILY 11/01/22 [History] Fluticasone/Umeclidin/Vilanter [Trelegy Ellipta 200-62.5-25] 1 puff INHALATION RT-DAILY 11/01/22 [History] Losartan Potassium 50 mg PO DAILY 11/01/22 [History] Aspirin 81 mg PO DAILY 08/14/23 [History] ALPRAZolam [Xanax] 0.25 mg PO DAILY PRN 02/14/24 [History] Amoxic-Pot Clav 875-125Mg [Augmentin 875-125] 1 tab PO BID 02/14/24 [History] Cyclobenzaprine [Flexeril] 10 mg PO TID PRN 02/14/24 [History] DULoxetine HCL [Cymbalta] 30 mg PO DAILY 02/14/24 [History] Ergocalciferol [Vitamin D2 (1250 Mcg = 12086 Iu)] 1,250 mcg PO CHASE 02/14/24 [History] Mirabegron [Myrbetriq] 50 mg PO DAILY 02/14/24 [History] Nicotine 21Mg/24Hr Patch [Habitrol] 1 patch TRANSDERM DAILY 02/14/24 [History] Ozempic 0.5mg 0.5 mg SQ DIRECTED 02/14/24 [History] Pregabalin [Lyrica] 75 mg PO BID 02/14/24 [History] Rosuvastatin Calcium 5 mg PO DAILY 02/14/24 [History] Tramadol 100mg 1 tab PO BID PRN 02/14/24 [History] Follow up Appointment(s)/Referral(s): Lee Borrego DO [STAFF PHYSICIAN] - 1 Week Allen Winchester MD [Primary Care Provider] - 1-2 days Patient Instructions/Handouts: Chest Pain (DC), Dizziness (GEN) Activity/Diet/Wound Care/Special Instructions: Activity: As tolerated. Take breaks as needed. Diet: Heart healthy and carb consistent diet. Avoid salts, or foods with hidden salts such as canned or boxed foods and frozen dinners. Extra salt makes your heart work harder and traps the fluid in your body for longer. Special Instructions: Take all of your medications as directed and remember to keep all of your doctor's appointments and follow-up as needed. Thank you for allowing us to participate in your care, it was truly a pleasure having you for our patient!!! Discharge Disposition: HOME SELF-CARE
== END 2024-02-15 13:29 | disposition home or self-care (01) ==
LOC: EC 12:30 → 6NMEDSUR 15:50
PROVIDERS: ADMIT Student in an Organized Health Care Education/Training Program; ATTEND Student in an Organized Health Care Education/Training Program
DX: R07.89 Other chest pain (principal); H53.2 Diplopia; R42 Dizziness and giddiness; I13.0 Hypertensive heart and chronic kidney disease with heart failure and stage 1 through stage 4 chronic kidney disease, or unspecified chronic kidney disease; I50.32 Chronic diastolic (congestive) heart failure; N18.31 Chronic kidney disease, stage 3a; Q61.3 Polycystic kidney, unspecified; E11.22 Type 2 diabetes mellitus with diabetic chronic kidney disease; D69.6 Thrombocytopenia, unspecified; E87.20 Acidosis, unspecified; I25.10 Atherosclerotic heart disease of native coronary artery without angina pectoris; I71.20 Thoracic aortic aneurysm, without rupture, unspecified; I08.1 Rheumatic disorders of both mitral and tricuspid valves; E78.5 Hyperlipidemia, unspecified; G43.909 Migraine, unspecified, not intractable, without status migrainosus; I71.40 Abdominal aortic aneurysm, without rupture, unspecified; R41.9 Unspecified symptoms and signs involving cognitive functions and awareness; R41.3 Other amnesia; F41.9 Anxiety disorder, unspecified; G89.29 Other chronic pain; F17.200 Nicotine dependence, unspecified, uncomplicated; Z79.84 Long term (current) use of oral hypoglycemic drugs; Z79.82 Long term (current) use of aspirin; Z79.51 Long term (current) use of inhaled steroids; Z79.899 Other long term (current) drug therapy; Z88.2 Allergy status to sulfonamides; Z88.8 Allergy status to other drugs, medicaments and biological substances; Z91.041 Radiographic dye allergy status; Z86.73 Personal history of transient ischemic attack (TIA), and cerebral infarction without residual deficits
CPT/HCPCS: 99285; 36415; 94640; 93005; 93306; 85379; 83880; 80061; 80053; 83735; 84484; 85025; 85610; 85730; 71046; 70450; G0378 ×2; S4990

== ENCOUNTER → 2024-03-10 | Outpatient (CLI) | payer BC, OTHER ==
--- NOTE | 2024-03-10 21:07 | MR ---
EXAMINATION TYPE: MR angio head wo con DATE OF EXAM: 03/10/2024 8:51 PM CLINICAL INDICATION:Female, 44 years old with history of Q61.3 POLYCYSTIC KIDNEY DISEASE; PHH, Polycy stic kidney disease, Dizziness COMPARISON: None Technical: 3-D [id number] Axial with MIP reconstruction created on a separate workstation.. IV Contrast: None Findings: Vertebral arteries: The vertebral arteries are patent. Vertebral arteries are: Codominant. Basilar artery: The basilar artery is intact. The basilar artery bifurcation is normal. Internal Carotid arteries: The cervical, petrous, cavernous and supraclinoid segments are normal. VENANCIO: Patent with no evidence of aneurysm. ACOM: Present without evidence of aneurysm. MCA: Patent with no evidence of aneurysm. PARTITION ASSEMBLY MACHINE OPERATOR: Patent with no evidence of aneurysm. PCOM: Patent on the right and suspected hypoplastic on the left. IMPRESSION: No evidence of aneurysm or significant stenosis.
== END | disposition home or self-care (01) ==
LOC: RADMRIMAIN 21:01
PROVIDERS: ATTEND Family Medicine
DX: Q61.3 Polycystic kidney, unspecified (principal); R42 Dizziness and giddiness
CPT/HCPCS: 70544

== ENCOUNTER 2024-03-11 17:20 | Emergency (ER) | payer BC, OTHER ==
[2024-03-11 17:29] VITALS: RESP 16; TEMP 98.2
--- NOTE | 2024-03-11 18:00 | ED ---
Overdose HPI - General Chief Complaint: Overdose Stated Complaint: Poss Overdose Time Seen by Provider: 03/11/24 17:25 Source: patient, RN notes reviewed, old records reviewed Mode of arrival: EMS Limitations: no limitations - History of Present Illness Initial Comments: This is a 44-year-old female with accidental drug ingestion patient denies taking too much medication but the concern is that patient took too much of her Xanax, she is currently awake alert has no complaints no homicidal or suicidal thoughts MD Complaint: accidental overdose -: days(s) Intent: unwilling to say How Overdose Was Discovered: called family/friend Context: Accidental Overdose: wanted to get high Associated Symptoms: depression Treatments Prior to Arrival: none - Related Data Home Medications Medication Instructions Recorded Confirmed Cetirizine HCl [Zyrtec] 10 mg PO DAILY 05/26/17 02/14/24 Albuterol Sulfate [Ventolin HFA] 2 puff INHALATION RT-Q6H PRN 12/19/21 02/14/24 Furosemide [Lasix] 20 mg PO DAILY 12/19/21 02/14/24 Empagliflozin [Jardiance] 25 mg PO DAILY 11/01/22 02/14/24 Fluticasone/Umeclidin/Vilanter 1 puff INHALATION RT-DAILY 11/01/22 02/14/24 [Trelegy Ellipta 200-62.5-25] Losartan Potassium 50 mg PO DAILY 11/01/22 02/14/24 Aspirin 81 mg PO DAILY 08/14/23 02/14/24 ALPRAZolam [Xanax] 0.25 mg PO DAILY PRN 02/14/24 02/14/24 Amoxic-Pot Clav 875-125Mg 1 tab PO BID 02/14/24 02/14/24 [Augmentin 875-125] Cyclobenzaprine [Flexeril] 10 mg PO TID PRN 02/14/24 02/14/24 DULoxetine HCL [Cymbalta] 30 mg PO DAILY 02/14/24 02/14/24 Ergocalciferol [Vitamin D2 (1250 1,250 mcg PO CHASE 02/14/24 02/14/24 Mcg = 52958 Iu)] Mirabegron [Myrbetriq] 50 mg PO DAILY 02/14/24 02/14/24 Nicotine 21Mg/24Hr Patch [Habitrol] 1 patch TRANSDERM DAILY 02/14/24 02/14/24 Ozempic 0.5mg 0.5 mg SQ DIRECTED 02/14/24 02/14/24 Pregabalin [Lyrica] 75 mg PO BID 02/14/24 02/14/24 Rosuvastatin Calcium 5 mg PO DAILY 02/14/24 02/14/24 Tramadol 100mg 1 tab PO BID PRN 02/14/24 02/14/24 Allergies Allergy/AdvReac Type Severity Reaction Status Date / Time Iodinated Contrast Media Allergy Anaphylaxis Verified 03/18/24 15:22 Sulfa (Sulfonamide Allergy Unknown Verified 03/18/24 15:22 Antibiotics) Childhood bupropion HCl AdvReac Severe Seizure Verified 03/18/24 15:22 [From Wellbutrin] iron AdvReac NAUSEA, Verified 03/18/24 15:22 VOMITING. Review of Systems ROS Statement: Those systems with pertinent positive or pertinent negative responses have been documented in the HPI. ROS Other: All systems not noted in ROS Statement are negative. Past Medical History Past Medical History: Heart Failure, CVA/TIA, Diabetes Mellitus, Hyperlipidemia, Hypertension, Osteoarthritis (OA) Additional Past Medical History / Comment(s): polycystic kidney disease, migraines, TIA 2012, varicose veins, hx anemia, AORTIC ANEURSYM, Type 2 DM History of Any Multi-Drug Resistant Organisms: None Reported Past Surgical History: Hysterectomy, Orthopedic Surgery Additional Past Surgical History / Comment(s): bilateral Carpal tunnel sx, D&C, LUMP REMOVED from throat, Right knee meniscus repair 2019 Past Anesthesia/Blood Transfusion Reactions: Previous Problems w/ Anesthesia Additional Past Anesthesia/Blood Transfusion Reaction / Comment(s): "body pain"- severe AFTER D & C Past Psychological History: Anxiety, Depression, PTSD Smoking Status: Current every day smoker Past Alcohol Use History: None Reported Past Drug Use History: Marijuana - Past Family History Mother Family Medical History: Cancer Additional Family Medical History / Comment(s): BREAST,THYROID CANCER General Exam Limitations: no limitations General appearance: alert, in no apparent distress, anxious Head exam: Present: atraumatic, normocephalic, normal inspection Eye exam: Present: normal appearance, PERRL, EOMI. Absent: scleral icterus, conjunctival injection, periorbital swelling ENT exam: Present: normal exam, mucous membranes moist Neck exam: Present: normal inspection. Absent: tenderness, meningismus, lymphadenopathy Respiratory exam: Present: normal lung sounds bilaterally. Absent: respiratory distress, wheezes, rales, rhonchi, stridor Cardiovascular Exam: Present: regular rate, normal rhythm, normal heart sounds. Absent: systolic murmur, diastolic murmur, rubs, gallop, clicks GI/Abdominal exam: Present: soft, normal bowel sounds. Absent: distended, tenderness, guarding, rebound, rigid Extremities exam: Present: normal inspection, full ROM, normal capillary refill. Absent: tenderness, pedal edema, joint swelling, calf tenderness Back exam: Present: normal inspection Neurological exam: Present: alert, oriented X3, CN II-XII intact Psychiatric exam: Present: normal affect, normal mood Skin exam: Present: warm, dry, intact, normal color. Absent: rash Course Vital Signs 03/11/24 03/11/24 17:22 22:17 Temperature 98.2 F Pulse Rate 79 74 Respiratory 16 16 Rate Blood Pressure 145/100 132/78 O2 Sat by Pulse 98 97 Oximetry - Reevaluation(s) Reevaluation #1: Medical records reviewed Reevaluation #2: Patient symptoms improving Reevaluation #3: Patient informed of results and questions answered Reevaluation #4: Was pt. sent in by a medical professional or institution ([facility], [employer], urgent ca re, hospital, or jail...) When possible be specific @ -no Did you speak to anyone other than the patient for history (EMS, parent, family, police, friend...)? What history was obtained from this source @ -no Did you review nursing and triage notes (agree or disagree)? Why? @ -agree Are old charts reviewed (outside hosp., previous admission, EMS record, old EKG, old radiological studies, urgent care reports/EKG's, jail records)? Report findings @ -yes Differential Diagnosis (chest pain, altered mental status, abdominal pain women, abdominal pain men, vaginal bleeding, weakness, fever, dyspnea, syncope, headache, dizziness, GI bleed, back pain, seizure, CVA, palpatations, mental health, musculoskeletal)? @ -prior EKG interpreted by me (3pts min.). @ -no X-rays interpreted by me (1pt min.). @ -no CT interpreted by me (1pt min.). @ -no U/S interpreted by me (1pt. min.). @ -no What testing was considered but not performed or refused? (CT, X-rays, U/S, labs)? Why? @ -none What meds were considered but not given or refused? Why? @ -none Did you discuss the management of the patient with other professionals (professionals i.e. Dr., PA, [employer], lab, RT, psych nurse, social worker school, horticultural farmworker, teacher, customer service officer, case investigator)? Give summary @ -no Was smoking cessation discussed for >3mins.? @ -no Was critical care preformed (if so, how long)? @ -no Were there social determinants of health that impacted care today? How? (Homelessness, low income, unemployed, alcoholism, drug addiction, transportation, low edu. Level, literacy, decrease access to med. care, custodial, rehab)? @ -none Was there de-escalation of care discussed even if they declined (Discuss DNR or withdrawal of care, Hospice)? DNR status @ -no What co-morbidities impacted this encounter? (DM, HTN, Smoking, COPD, CAD, Cancer, CVA, ARF, Chemo, Hep., AIDS, mental health diagnosis, sleep apnea, morbid obesity)? @ -none Was patient admitted / discharged? Hospital course, mention meds given and route, prescriptions, significant lab abnormalities, going to OR and other pertinent info. @ - 44 male to ER for accidental drug ingestion. No acute overdose found here in the ER patient feels well and can be discharged home Discharge Undiagnosed new problem with uncertain prognosis? @ -no Drug Therapy requiring intensive monitoring for toxicity (Heparin, Nitro, Insulin, Cardizem)? @ -no Were any procedures done? @ -no Diagnosis/symptom? @ -Accidental drug ingestion Acute, or Chronic, or Acute on Chronic? @ -Acute Uncomplicated (without systemic symptoms) or Complicated (systemic symptoms)? @ -Complicated Side effects of treatment? @ -no Exacerbation, Progression, or Severe Exacerbation? @ -exacerbation Poses a threat to patient's life @ -no Medical Decision Making - Medical Decision Making 44 male to ER for accidental drug ingestion. No acute overdose found here in the ER patient feels well and can be discharged home - Lab Data Result diagrams: 03/11/24 16:08 03/11/24 16:08 Lab Results 03/11/24 03/11/24 03/11/24 Range/Units 16:08 16:08 17:29 WBC 10.8 H (3.8-10.6) k/uL RBC 4.95 (3.80-5.40) m/uL Hgb 14.9 (11.4-16.0) gm/dL Hct 46.5 H (34.0-46.0) % MCV 93.9 (80.0-100.0) fL MCH 30.1 (25.0-35.0) pg MCHC 32.0 (31.0-37.0) g/dL RDW 13.6 (11.5-15.5) % Plt Count 163 (150-450) k/uL MPV 7.9 Neutrophils % 73 % Lymphocytes % 18 % Monocytes % 5 % Eosinophils % 3 % Basophils % 0 % Neutrophils # 7.8 H (1.3-7.7) k/uL Lymphocytes # 1.9 (1.0-4.8) k/uL Monocytes # 0.5 (0-1.0) k/uL Eosinophils # 0.4 (0-0.7) k/uL Basophils # 0.1 (0-0.2) k/uL Sodium 139 (137-145) mmol/L Potassium 3.9 (3.5-5.1) mmol/L Chloride 112 H (98-107) mmol/L Carbon Dioxide 22 (22-30) mmol/L Anion Gap 5 mmol/L BUN 20 H (7-17) mg/dL Creatinine 1.19 H (0.52-1.04) mg/dL Est GFR (CKD-EPI)AfAm 64 (>60 ml/min/1.73 sqM) Est GFR (CKD-EPI)NonAf 56 (>60 ml/min/1.73 sqM) Glucose 98 (74-99) mg/dL Calcium 8.8 (8.4-10.2) mg/dL Total Bilirubin 0.5 (0.2-1.3) mg/dL AST 21 (14-36) U/L ALT 20 (4-34) U/L Alkaline Phosphatase 68 (38-126) U/L Total Protein 6.5 (6.3-8.2) g/dL Albumin 3.8 (3.5-5.0) g/dL Lipase 293 (23-300) U/L Urine Color Colorless Urine Appearance Clear (Clear) Urine pH 6.0 (5.0-8.0) Ur Specific Barker 1.009 (1.001-1.035) Urine Protein 2+ H (Negative) Urine Glucose (UA) 2+ H (Negative) Urine Ketones Negative (Negative) Urine Blood Negative (Negative) Urine Nitrite Negative (Negative) Urine Bilirubin Negative (Negative) Urine Urobilinogen <2.0 (<2.0) mg/dL Ur Leukocyte Esterase Negative (Negative) Urine WBC <1 (0-5) /hpf Ur Squamous Epith Cells 2 (0-4) /hpf Urine HCG, Qual (Not Detectd) Salicylates <1.0 mg/dL Urine Opiates Screen Not Detected (NotDetected) Ur Oxycodone Screen Not Detected (NotDetected) Urine Methadone Screen Not Detected (NotDetected) Acetaminophen <10.0 ug/mL Ur Barbiturates Screen Not Detected (NotDetected) U Tricyclic Antidepress Not Detected (NotDetected) Ur Phencyclidine Scrn Not Detected (NotDetected) Ur Amphetamines Screen Not Detected (NotDetected) U Methamphetamines Scrn Not Detected (NotDetected) U Benzodiazepines Scrn Not Detected (NotDetected) Urine Cocaine Screen Not Detected (NotDetected) U Marijuana (THC) Screen Detected H (NotDetected) Serum Alcohol <10 mg/dL 03/11/24 Range/Units 17:29 WBC (3.8-10.6) k/uL RBC (3.80-5.40) m/uL Hgb (11.4-16.0) gm/dL Hct (34.0-46.0) % MCV (80.0-100.0) fL MCH (25.0-35.0) pg MCHC (31.0-37.0) g/dL RDW (11.5-15.5) % Plt Count (150-450) k/uL MPV Neutrophils % % Lymphocytes % % Monocytes % % Eosinophils % % Basophils % % Neutrophils # (1.3-7.7) k/uL Lymphocytes # (1.0-4.8) k/uL Monocytes # (0-1.0) k/uL Eosinophils # (0-0.7) k/uL Basophils # (0-0.2) k/uL Sodium (137-145) mmol/L Potassium (3.5-5.1) mmol/L Chloride (98-107) mmol/L Carbon Dioxide (22-30) mmol/L Anion Gap mmol/L BUN (7-17) mg/dL Creatinine (0.52-1.04) mg/dL Est GFR (CKD-EPI)AfAm (>60 ml/min/1.73 sqM) Est GFR (CKD-EPI)NonAf (>60 ml/min/1.73 sqM) Glucose (74-99) mg/dL Calcium (8.4-10.2) mg/dL Total Bilirubin (0.2-1.3) mg/dL AST (14-36) U/L ALT (4-34) U/L Alkaline Phosphatase (38-126) U/L Total Protein (6.3-8.2) g/dL Albumin (3.5-5.0) g/dL Lipase (23-300) U/L Urine Color Urine Appearance (Clear) Urine pH (5.0-8.0) Ur Specific Barker (1.001-1.035) Urine Protein (Negative) Urine Glucose (UA) (Negative) Urine Ketones (Negative) Urine Blood (Negative) Urine Nitrite (Negative) Urine Bilirubin (Negative) Urine Urobilinogen (<2.0) mg/dL Ur Leukocyte Esterase (Negative) Urine WBC (0-5) /hpf Ur Squamous Epith Cells (0-4) /hpf Urine HCG, Qual Not Detected (Not Detectd) Salicylates mg/dL Urine Opiates Screen (NotDetected) Ur Oxycodone Screen (NotDetected) Urine Methadone Screen (NotDetected) Acetaminophen ug/mL Ur Barbiturates Screen (NotDetected) U Tricyclic Antidepress (NotDetected) Ur Phencyclidine Scrn (NotDetected) Ur Amphetamines Screen (NotDetected) U Methamphetamines Scrn (NotDetected) U Benzodiazepines Scrn (NotDetected) Urine Cocaine Screen (NotDetected) U Marijuana (THC) Screen (NotDetected) Serum Alcohol mg/dL - EKG Data -: EKG Interpreted by Me (EKG is sinus 78 CA 160 QRS 94 QTc 407) EKG shows normal: sinus rhythm Disposition Clinical Impression: Accidental drug overdose, Drug overdose Disposition: HOME SELF-CARE Condition: Fair Instructions (If sedation given, give patient instructions): Adult Overdose (ED) Is patient prescribed a controlled substance at d/c from ED?: No Referrals: Allen Winchester MD [Primary Care Provider] - 1-2 days
[2024-03-11 18:14] LABS: Appearance,Urine Clear (Clear); Bilirubin,Urine Negative (Negative); Blood,Urine Negative (Negative); Color,Urine Colorless; Glucose,Urine (UA) 2+ (Negative); Ketones,Urine Negative (Negative); Leukocyte Esterase,Urine Negative (Negative); Nitrite,Urine Negative (Negative); Protein,Urine 2+ (Negative); Specific Gravity,Urine 1.009 (1.001-1.035); Squamous Epithelial Cell,Urine 2 /hpf (0-4); Urobilinogen,Urine <2.0 mg/dL (<2.0); WBC,Urine <1 /hpf (0-5)
[2024-03-11 18:17] LABS: Basophils # (A) 0.1 k/uL (0-0.2); Basophils % (A) 0 %; Eosinophils # (A) 0.4 k/uL (0-0.7); Eosinophils % (A) 3 %; HCT 46.5 % (34.0-46.0); HGB 14.9 gm/dL (11.4-16.0); Lymphocytes # (A) 1.9 k/uL (1.0-4.8); Lymphocytes % (A) 18 %; MCH 30.1 pg (25.0-35.0); MCV 93.9 fL (80.0-100.0); Mean Platelet Volume 7.9; Monocytes # (A) 0.5 k/uL (0-1.0); Monocytes % (A) 5 %; Neutrophils # (A) 7.8 k/uL (1.3-7.7); Neutrophils % (A) 73 %; Platelet Count 163 k/uL (150-450); RBC 4.95 m/uL (3.80-5.40); RDW 13.6 % (11.5-15.5); WBC 10.8 k/uL (3.8-10.6)
[2024-03-11] MEDS: SODIUM CHLORIDE 0.9% 1,000 ML IV STA (18:21)
[2024-03-11 18:27] LABS: Amphetamine Screen,Urine Not Detected (NotDetected); Barbiturate Screen,Urine Not Detected (NotDetected); Benzodiazepines Screen,Urine Not Detected (NotDetected); Cocaine Screen,Urine Not Detected (NotDetected); Methadone Screen, Urine Not Detected (NotDetected); Opiate Screen,Urine Not Detected (NotDetected); Oxycodone Screen, Urine Not Detected (NotDetected); Phencyclidine Screen,Urine Not Detected (NotDetected); Tricyclic Antidepressant,Urine Not Detected (NotDetected); Urn Cannabinoid Scrn Detected (NotDetected)
[2024-03-11 18:34] LABS: ALT 20 U/L (4-34); AST 21 U/L (14-36); Acetaminophen <10.0 ug/mL; African American GFR (CKD) 64 (>60 ml/min/1.73 sqM); Albumin 3.8 g/dL (3.5-5.0); Alcohol <10 mg/dL; Alkaline Phosphatase 68 U/L (38-126); Anion Gap 5 mmol/L; Blood Urea Nitrogen 20 mg/dL (7-17); Calcium 8.8 mg/dL (8.4-10.2); Carbon Dioxide 22 mmol/L (22-30); Chloride 112 mmol/L (98-107); Glucose 98 mg/dL (74-99); Lipase 293 U/L (23-300); Non-African American GFR(CKD) 56 (>60 ml/min/1.73 sqM); Potassium 3.9 mmol/L (3.5-5.1); Salicylate <1.0 mg/dL; Sodium 139 mmol/L (137-145); Total Bilirubin 0.5 mg/dL (0.2-1.3); Total Protein 6.5 g/dL (6.3-8.2)
[2024-03-11 22:18] VITALS: BP 132/78; PULSE 74
== END 2024-03-11 22:17 | disposition home or self-care (01) ==
LOC: EC 17:20
DX: T42.4X1A Poisoning by benzodiazepines, accidental (unintentional), initial encounter (principal); F17.200 Nicotine dependence, unspecified, uncomplicated; F12.90 Cannabis use, unspecified, uncomplicated; Z91.041 Radiographic dye allergy status; Z88.2 Allergy status to sulfonamides; Z88.6 Allergy status to analgesic agent; Z88.8 Allergy status to other drugs, medicaments and biological substances; Z88.1 Allergy status to other antibiotic agents
CPT/HCPCS: 36415; 80053; 80143; 80179; 80306; 80320; 81001; 81025; 82075; 83690; 85025; 93005; 96360; 99285

== ENCOUNTER 2024-03-18 15:15 | Emergency (ER) | payer OTHER, BC ==
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
[2024-03-18 18:53] VITALS: BP 133/94; PULSE 79; RESP 18; TEMP 98.1
== END 2024-03-18 18:53 | disposition home or self-care (01) ==
LOC: EC 15:15
DX: S16.1XXA Strain of muscle, fascia and tendon at neck level, initial encounter (principal); F17.200 Nicotine dependence, unspecified, uncomplicated; F12.90 Cannabis use, unspecified, uncomplicated; Z91.041 Radiographic dye allergy status; Z88.2 Allergy status to sulfonamides; Z88.8 Allergy status to other drugs, medicaments and biological substances; V89.2XXA Person injured in unspecified motor-vehicle accident, traffic, initial encounter; Y92.411 Interstate highway as the place of occurrence of the external cause
CPT/HCPCS: 72125; 72128; 99284

== ENCOUNTER → 2024-05-06 | Outpatient (CLI) | payer BC, OTHER | END | disposition home or self-care (01) | LOC: LABWHC1 13:21 | PROVIDERS: ATTEND Internal Medicine Nephrology | DX: Q61.3 Polycystic kidney, unspecified (principal) | CPT/HCPCS: 36415; 83735 ==

== ENCOUNTER → 2024-09-24 | Outpatient (CLI) | payer BC ==
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
== END | disposition home or self-care (01) ==
LOC: RADUSWWP 15:49
PROVIDERS: ATTEND Family Medicine
DX: R09.89 Other specified symptoms and signs involving the circulatory and respiratory systems (principal); E04.2 Nontoxic multinodular goiter
CPT/HCPCS: 76536

== ENCOUNTER → 2024-10-15 | Outpatient (CLI) | payer BC ==
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
== END | disposition home or self-care (01) ==
LOC: RADMRIMAIN 18:56
PROVIDERS: ATTEND Family Medicine
DX: J34.89 Other specified disorders of nose and nasal sinuses (principal); Z86.73 Personal history of transient ischemic attack (TIA), and cerebral infarction without residual deficits
CPT/HCPCS: 70551

== ENCOUNTER → 2024-10-20 | Outpatient (CLI) | payer BC ==
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
== END ==
LOC: NEUROMAIN 07:52
PROVIDERS: ATTEND Family Medicine
DX: R25.1 Tremor, unspecified (principal); F17.210 Nicotine dependence, cigarettes, uncomplicated; Z91.041 Radiographic dye allergy status; Z88.2 Allergy status to sulfonamides; Z88.5 Allergy status to narcotic agent; Z91.048 Other nonmedicinal substance allergy status
CPT/HCPCS: 95812

== ENCOUNTER 2025-02-26 19:25 | Observation (INO) | payer BC, OTHER ==
[2025-02-26 19:35] VITALS: RESP 18
--- NOTE | 2025-02-26 20:57 | ED ---
General Adult HPI - General Chief complaint: Chest Pain Stated complaint: chest pain, arm pain, jaw pain Time Seen by Provider: 02/26/25 19:40 Source: patient, RN notes reviewed Mode of arrival: ambulatory Limitations: no limitations - History of Present Illness Initial comments: 45-year-old female with a history of hypertension, hyperlipidemia, diabetes p resents to the emergency room with complaints of left sided substernal chest pain that started this afternoon at 1600 while she was at work. Patient states the pain is exacerbated on exertion and is radiate into her jaw and down her left arm. States the pain feels like it radiates into her back as well. She endorses associated nausea and diaphoresis. Denies history of DVT or PE. Denies recent travel, surgeries, hemoptysis, peripheral edema. - Related Data Home Medications Medication Instructions Recorded Confirmed Cetirizine HCl [Zyrtec] 10 mg PO DAILY 05/26/17 10/19/24 Albuterol Sulfate [Ventolin HFA] 2 puff INHALATION RT-Q6H PRN 12/19/21 10/23/24 Furosemide [Lasix] 20 mg PO DAILY 12/19/21 10/19/24 Empagliflozin [Jardiance] 25 mg PO DAILY 11/01/22 10/19/24 Fluticasone/Umeclidin/Vilanter 1 puff INHALATION RT-DAILY 11/01/22 10/19/24 [Trelegy Ellipta 200-62.5-25] Losartan Potassium 100 mg PO DAILY 11/01/22 10/19/24 Aspirin 81 mg PO DAILY 08/14/23 10/19/24 ALPRAZolam [Xanax] 0.25 mg PO DAILY PRN 02/14/24 10/23/24 Ergocalciferol [Vitamin D2 (1250 1,250 mcg PO CHASE 02/14/24 10/19/24 Mcg = 77073 Iu)] Mirabegron [Myrbetriq] 50 mg PO DAILY 02/14/24 10/19/24 Pregabalin [Lyrica] 75 mg PO DAILY 02/14/24 10/19/24 Rosuvastatin Calcium 10 mg PO DAILY 02/14/24 10/19/24 Magnesium 500 mg PO DAILY 10/19/24 10/19/24 Metoprolol Tartrate [Lopressor] 25 mg PO DAILY 10/19/24 10/19/24 Omeprazole [PriLOSEC] 40 mg PO DAILY 10/19/24 10/19/24 Sodium Bicarbonate Tab 650 mg PO DAILY 10/19/24 10/19/24 Allergies Allergy/AdvReac Type Severity Reaction Status Date / Time Iodinated Contrast Media Allergy Anaphylaxis Verified 02/26/25 19:35 Sulfa (Sulfonamide Allergy Unknown Verified 02/26/25 19:35 Antibiotics) Childhood bupropion HCl AdvReac Severe Seizure Verified 02/26/25 19:35 [From Wellbutrin] iron AdvReac NAUSEA, Verified 02/26/25 19:35 VOMITING. Review of Systems ROS Statement: Those systems with pertinent positive or pertinent negative responses have been documented in the HPI. ROS Other: All systems not noted in ROS Statement are negative. Past Medical History Past Medical History: Heart Failure, COPD, CVA/TIA, Diabetes Mellitus, Hyperlipidemia, Hypertension, Osteoarthritis (OA) Additional Past Medical History / Comment(s): polycystic kidney disease, migraines, TIA 2012, varicose veins, hx anemia, AORTIC ANEURSYM, Type 2 DM History of Any Multi-Drug Resistant Organisms: None Reported Past Surgical History: Hysterectomy, Orthopedic Surgery Additional Past Surgical History / Comment(s): bilateral Carpal tunnel sx, D&C, LUMP REMOVED from throat, Right knee meniscus repair 2020 Past Anesthesia/Blood Transfusion Reactions: Previous Problems w/ Anesthesia Additional Past Anesthesia/Blood Transfusion Reaction / Comment(s): "body pain"- severe AFTER D & C Past Psychological History: Anxiety, Depression, PTSD Smoking Status: Current every day smoker Past Alcohol Use History: Rare Past Drug Use History: Marijuana - Past Family History Mother Family Medical History: Cancer Additional Family Medical History / Comment(s): BREAST,THYROID CANCER General Exam Limitations: no limitations General appearance: alert, in no apparent distress ENT exam: Present: normal exam, mucous membranes moist Neck exam: Present: normal inspection. Absent: tenderness, meningismus, lymphadenopathy Respiratory exam: Present: normal lung sounds bilaterally. Absent: respiratory distress, wheezes, rales, rhonchi, stridor Cardiovascular Exam: Present: regular rate, normal rhythm, normal heart sounds. Absent: systolic murmur, diastolic murmur, rubs, gallop, clicks GI/Abdominal exam: Present: soft, normal bowel sounds. Absent: distended, tenderness, guarding, rebound, rigid Extremities exam: Present: normal inspection, full ROM, normal capillary refill. Absent: tenderness, pedal edema, joint swelling, calf tenderness Back exam: Present: normal inspection Course Vital Signs 02/26/25 02/26/25 02/26/25 19:31 20:51 21:40 Temperature 97.6 F 98.3 F Pulse Rate 71 74 75 Respiratory 18 18 18 Rate Blood Pressure 106/74 100/71 103/70 O2 Sat by Pulse 99 98 97 Oximetry Medical Decision Making - Medical Decision Making Was pt. sent in by a medical professional or institution (, PA, BIOMEDICAL ENGINEERING SUPERVISOR, urgent care, hospital, or detention...) When possible be specific @ -No Did you speak to anyone other than the patient for history (EMS, parent, family, police, friend...)? What history was obtained from this source @ -No Did you review nursing and triage notes (agree or disagree)? Why? @ -I reviewed and agree with nursing and triage notes Were old charts reviewed (outside hosp., previous admission, EMS record, old EKG, old radiological studies, urgent care reports/EKG's, detention records)? Report findings @ -No old charts were reviewed Differential Diagnosis (chest pain, altered mental status, abdominal pain women, abdominal pain men, vaginal bleeding, weakness, fever, dyspnea, syncope, headache, dizziness, GI bleed, back pain, seizure, CVA, palpatations, mental health, musculoskeletal)? @ -Differential Chest Pain: Stable Angina, Unstable Angina, STEMI, NSTEMI Aortic Dissection, Pneumothorax, Musculoskeletal, Esophageal Spasm GERD, Cholecystitis, Pancreatitis, Zoster, this is not meant to be an all-inclusive list. EKG interpreted by me (3pts min.). @ -Completed at 1940 sinus rhythm with a ventricular to 74, AR interval 133, QRS 85, QT 396, QTc 423. X-rays interpreted by me (1pt min.). @ -Chest x-ray reveals no acute cardiopulmonary process or disease CT interpreted by me (1pt min.). @ -None done U/S interpreted by me (1pt. min.). @ -None done What testing was considered but not performed or refused? (CT, X-rays, U/S, labs)? Why? @ -None What meds were considered but not given or refused? Why? @ -None Did you discuss the management of the patient with other professionals (professionals i.e. DrRashi, PA, BIOMEDICAL ENGINEERING SUPERVISOR, lab, RT, psych nurse, social work assistant, marine structural welder, teacher, press officer, case advocate)? Give summary @ -Spoke with sound internal medicine physician, Dr. Manuel, was agreed to admit the patient for trending cardiac enzymes with cardiology consult. Was smoking cessation discussed for >3mins.? @ -No Was critical care preformed (if so, how long)? @ -No Were there social determinants of health that impacted care today? How? (Homelessness, low income, unemployed, alcoholism, drug addiction, holguin sportation, low edu. Level, literacy, decrease access to med. care, senior living, rehab)? @ -No Was there de-escalation of care discussed even if they declined (Discuss DNR or withdrawal of care, Hospice)? DNR status @ -No What co-morbidities impacted this encounter? (DM, HTN, Smoking, COPD, CAD, Cancer, CVA, ARF, Chemo, Hep., AIDS, mental health diagnosis, sleep apnea, morbid obesity)? @ -Hypertension, hyperlipidemia, diabetes mellitus Was patient admitted / discharged? Hospital course, mention meds given and route, prescriptions, significant lab abnormalities, going to OR and other pertinent info. @ -Admitted. 45-year-old female presented emergency room with complaints of chest pain. Initial vitals are stable and overall patient is resting comfortably in examination bed. EKG is in sinus rhythm. Patient is right with dose of aspirin. Laboratory testing including CBC, CMP, troponin is unremarkable. Chest x-ray no acute process. Patient will be admitted to internal medicine with cardiology consult and will trend cardiac enzymes. Case discussed with Dr. Leos. patient admitted to Dr. Manuel Undiagnosed new problem with uncertain prognosis? @ -No Drug Therapy requiring intensive monitoring for toxicity (Heparin, Nitro, Insulin, Cardizem)? @ -No Were any procedures done? @ -No Diagnosis/symptom? @ -Chest pain Acute, or Chronic, or Acute on Chronic? @ -Acute Uncomplicated (without systemic symptoms) or Complicated (systemic symptoms)? @ -Complicated Side effects of treatment? @ -No Exacerbation, Progression, or Severe Exacerbation? @ -No Poses a threat to life or bodily function? How? (Chest pain, USA, IA, pneumonia, PE, COPD, DKA, ARF, appy, cholecystitis, CVA, Diverticulitis, Homicidal, Suicidal, threat to staff... and all critical care pts) @ -Yes can lead to endorgan dysfunction and possible - Lab Data Result diagrams: 02/26/25 21:00 02/26/25 21:00 Lab Results 02/26/25 02/26/25 02/26/25 Range/Units 21:00 21:00 21:00 WBC 12.02 H (4.50-10.00) 10*3/uL RBC 5.25 H (4.10-5.20) 10*6/uL Hgb 16.2 H (12.0-15.0) g/dL Hct 48.1 H (37.2-46.3) % MCV 91.6 (80.0-97.0) fL MCH 30.9 (27.0-32.0) pg MCHC 33.7 (32.0-37.0) g/dL Plt Count 201 (140-440) 10*3/uL MPV 10.5 (9.5-12.2) fL Immature Gran % (Auto) 0.3 % Neutrophils % 67.1 % Lymphocytes % 24.0 % Monocytes % 5.8 % Eosinophils % 2.5 % Basophils % 0.3 % Immature Gran # 0.04 (0.00-0.04) 10*3/uL Neutrophils # 8.05 H (1.80-7.70) 10*3/uL Lymphocytes # 2.89 (0.90-5.00) 10*3/uL Monocytes # 0.70 (0.20-1.00) 10*3/uL Eosinophils # 0.30 (0.04-0.35) 10*3/uL Basophils # 0.04 (0.00-0.10) 10*3/uL PT 10.9 (10.0-12.5) sec INR 1.0 (<1.2) APTT 26.0 (22.0-30.0) sec Sodium 137 (137-145) mmol/L Potassium 4.1 (3.5-5.1) mmol/L Chloride 110 H (98-107) mmol/L Carbon Dioxide 18 L (22-30) mmol/L Anion Gap 9 mmol/L BUN 28 H (7-17) mg/dL Creatinine 1.51 H (0.52-1.04) mg/dL Est GFR (CKD-EPI)AfAm 48 (>60 ml/min/1.73 sqM) Est GFR (CKD-EPI)NonAf 42 (>60 ml/min/1.73 sqM) Glucose 79 (74-99) mg/dL Calcium 9.4 (8.4-10.2) mg/dL Magnesium 1.7 (1.6-2.3) mg/dL Total Bilirubin 0.6 (0.2-1.3) mg/dL AST 19 (14-36) U/L ALT 15 (4-34) U/L Alkaline Phosphatase 60 (38-126) U/L Troponin I (0.000-0.034) ng/mL NT-Pro-B Natriuret Pep <20 pg/mL Total Protein 7.1 (6.3-8.2) g/dL Albumin 4.0 (3.5-5.0) g/dL Lipase 339 H (23-300) U/L /03/17 Range/Units 21:00 WBC (4.50-10.00) 10*3/uL RBC (4.10-5.20) 10*6/uL Hgb (12.0-15.0) g/dL Hct (37.2-46.3) % MCV (80.0-97.0) fL MCH (27.0-32.0) pg MCHC (32.0-37.0) g/dL Plt Count (140-440) 10*3/uL MPV (9.5-12.2) fL Immature Gran % (Auto) % Neutrophils % % Lymphocytes % % Monocytes % % Eosinophils % % Basophils % % Immature Gran # (0.00-0.04) 10*3/uL Neutrophils # (1.80-7.70) 10*3/uL Lymphocytes # (0.90-5.00) 10*3/uL Monocytes # (0.20-1.00) 10*3/uL Eosinophils # (0.04-0.35) 10*3/uL Basophils # (0.00-0.10) 10*3/uL PT (10.0-12.5) sec INR (<1.2) APTT (22.0-30.0) sec Sodium (137-145) mmol/L Potassium (3.5-5.1) mmol/L Chloride (98-107) mmol/L Carbon Dioxide (22-30) mmol/L Anion Gap mmol/L BUN (7-17) mg/dL Creatinine (0.52-1.04) mg/dL Est GFR (CKD-EPI)AfAm (>60 ml/min/1.73 sqM) Est GFR (CKD-EPI)NonAf (>60 ml/min/1.73 sqM) Glucose (74-99) mg/dL Calcium (8.4-10.2) mg/dL Magnesium (1.6-2.3) mg/dL Total Bilirubin (0.2-1.3) mg/dL AST (14-36) U/L ALT (4-34) U/L Alkaline Phosphatase (38-126) U/L Troponin I <0.012 (0.000-0.034) ng/mL NT-Pro-B Natriuret Pep pg/mL Total Protein (6.3-8.2) g/dL Albumin (3.5-5.0) g/dL Lipase (23-300) U/L Disposition Clinical Impression: Chest pain Disposition: ADMITTED IP TO THIS [facility] Condition: Stable Decision to Admit Reason: Admit from EC Decision Date: 02/26/25 Decision Time: 21:56
[2025-02-26 21:07] LABS: Basophils # (A) 0.04 10*3/uL (0.00-0.10); Basophils % (A) 0.3 %; Eosinophils % (A) 2.5 %; HCT 48.1 % (37.2-46.3); HGB 16.2 g/dL (12.0-15.0); Lymphocytes # (A) 2.89 10*3/uL (0.90-5.00); MCH 30.9 pg (27.0-32.0); MCHC 33.7 g/dL (32.0-37.0); MCV 91.6 fL (80.0-97.0); Mean Platelet Volume 10.5 fL (9.5-12.2); Monocytes % (A) 5.8 %; Neutrophils # (A) 8.05 10*3/uL (1.80-7.70); Neutrophils % (A) 67.1 %; Platelet Count 201 10*3/uL (140-440); RBC 5.25 10*6/uL (4.10-5.20); RDW 13.3 % (11.5-14.5); WBC 12.02 10*3/uL (4.50-10.00)
[2025-02-26 21:18] LABS: Prothrombin Time 10.9 sec (10.0-12.5)
[2025-02-26 21:19] LABS: ALT 15 U/L (4-34); AST 19 U/L (14-36); African American GFR (CKD) 48 (>60 ml/min/1.73 sqM); Alkaline Phosphatase 60 U/L (38-126); Anion Gap 9 mmol/L; Blood Urea Nitrogen 28 mg/dL (7-17); Calcium 9.4 mg/dL (8.4-10.2); Carbon Dioxide 18 mmol/L (22-30); Chloride 110 mmol/L (98-107); Glucose 79 mg/dL (74-99); Lipase 339 U/L (23-300); Magnesium 1.7 mg/dL (1.6-2.3); Non-African American GFR(CKD) 42 (>60 ml/min/1.73 sqM); Potassium 4.1 mmol/L (3.5-5.1); Sodium 137 mmol/L (137-145); Total Bilirubin 0.6 mg/dL (0.2-1.3); Total Protein 7.1 g/dL (6.3-8.2)
--- NOTE | 2025-02-26 21:21 | XR ---
EXAMINATION TYPE: XR chest 2V DATE OF EXAM: 02/26/2025 9:12 PM COMPARISON: 02/14/2024 CLINICAL INDICATION: Female, 45 years old with history of Chest Pain, TECHNIQUE: XR chest 2V view(s) obtained. FINDINGS: The heart size is normal. The pulmonary vasculature is normal. The lungs are clear. IMPRESSION: 1. No acute pulmonary process. [facility], , 02/26/2025 9:19 PM
[2025-02-26 21:27] LABS: NT-Pro-B-Type Natriuretic Pept <20 pg/mL
[2025-02-26] MEDS: ASPIRIN 81 MG PO STA (21:41)
[2025-02-26] MEDS ORDERED: NALOXONE 0.4 MG/ML 1 ML VIAL IV PRN (21:56)
[2025-02-26] MEDS ORDERED: ACETAMINOPHEN TAB 325 MG TAB PO PRN (21:56)
--- NOTE | 2025-02-26 23:05 | P.HPIM ---
History of Present Illness H&P Date: 02/26/25 I have seen and evaluated the patient today. Discussed with the resident and agree with the residents finding and plan as documented in the resident's note. Changes highlighted in blue font. History of present illness; 45-year-old female with PMH of hypertension, hyperlipidemia HFpEF (most recent e chocardiogram from 02/15/2024 showed EF 50-55%), osg-gupkzsg-hscogbyxh diabetes mellitus, migraine headaches, TIA, polycystic kidney disease with stage IIIa CKD, aortic aneurysm (follows with Dr. Wright), anxiety/depression, and nicotine dependence who presents to the ED with complaints of left-sided substernal chest pain that started saturating around 1600 while at work. She states the pain is exacerbated on any exertion and it radiates into her jaw as well as down her left arm and into her back. She states the pain was a tight, squeezing type of feeling. She endorses having nausea as well as diaphoresis. When seen at bedside today, she states that the pain has resolved. She does note that she had pain in a similar location on Saturday of this week, however she states it was not as severe. She did go to the urgent care at that time, and had a emergent follow-up with her score caller (Dr. Elizabeth) yesterday 02/25/2025 in which it was determined no further workup was needed. She does state that she has a history of panic attacks, however notes that the sensation on the whole was different/more severe. Social history: - Smoking history: Current half pack per day smoker, overall smoking history of 37 years - Alcohol use: Social Labratory review: - WBCs 12.02, hemoglobin 16.2, medic 48.1, platelet 201; sodium 137, potassium 4.1, bicarb 18, BUN 28, creatinine 1.51, calcium 9.4, magnesium 1.7, total bilirubin 0.6, AST 19, ALT 15, alkaline phosphatase 60; lipase 339 - Troponin <0.012, proBNP <20 Imaging: - Chest x-ray done in the ER no acute pulmonary process - EKG done in the ER independently read and interpreted, showed heart rate of 74, sinus rhythm, no ST segment elevation or depression seen, no T-wave inversions seen; QTc 423 Vitals: - On arrival: Blood pressure 106/74, heart rate 71, respiratory rate 18, SpO2 99% on room air - Most recently: Blood pressure 103/70, heart rate 75, respiratory rate 18, SpO2 97% on room air Patient admitted to internal medicine service REVIEW OF SYSTEMS: Pertinent positives and negatives noted in HPI. The rest of the 14-point review of systems is negative. Physical Exam: General: nontoxic, no distress, appears at stated age Derm: warm, dry, intact Head: atraumatic, normocephalic, symmetric Eyes: EOMI, anicteric sclera Mouth: no lip lesion, mucus membranes moist Cardiovascular: S1 S2 reg, no murmur, rubs, or gallops Lungs: CTA bilateral, no rales, no accessory muscle use Abdominal: soft, non-tender to palpataion, no appreciable organomegaly Extremities: no gross muscle atrophy, no edema, no contractures Neuro: Alert, Oriented, CNII-XII grossly intact, gait normal Psych: well appearing, appropriate affect Assessment and plan 45-year-old female with PMH of hypertension, hyperlipidemia, HFpEF (most recent echocardiogram from 02/15/2024 showed EF 50-55%), byp-gjxtgrq-picxlmbhx diabetes mellitus, migraine headaches, TIA, polycystic kidney disease with stage IIIa CKD, aortic aneurysm (follows with Dr. Wright), anxiety/depression, and nicotine dependence who presents to the ED with complaints of left-sided substernal chest pain that started saturating around 1600 while at work. #Atypical chest pain r/o ACS - Trend troponins: Initial troponin <0.012 - EKG done in the ER showed heart rate of 74, sinus rhythm, no ST segment elevation or depression seen, no T-wave inversions seen; QTc 423 - Continue with nitroglycerin as needed for pain - Continue with aspirin 81 mg daily - Continue with Lipitor 40 mg nightly - Cardiac monitoring - Supplemental oxygen as needed - Heart healthy diet - Echocardiogram ordered #Polycythemia - Hemoglobin 16.2, hematocrit 48.1 on arrival - 1 L bolus LR - Continue to monitor CBC #MARGIE, likely prerenal, with CKD stage IIIa, with baseline creatinine 1.1 - On arrival creatinine 1.51, BUN 28 - 1 L bolus LR - Continue to monitor BMP - Consider renal ultrasound if does not improve with fluids - Avoid nephrotoxic agents #Leukocytosis, likely reactive - WBCs 12.02 on arrival - Continue to monitor CBC #Nicotine dependence - Patient states she does not feel as though she would need a nicotine patch at this time - Smoking cessation counseling was offered Chronic conditions: #HFpEF, not currently in exacerbation #Anxiety/depression -Resume home medications once verified by pharmacy GI prophylaxis: Continue home Prilosec 40 mg daily DVT prophylaxis: Heparin 5000 units subcu every 12 hours The patient is admitted with an anticipated less than 2 midnight stay for evaluation of atypical chest pain. CODE STATUS: Full code Discussed with: Patient Anticipated discharge place: Home Dictation was produced using [employer] dictation software. please excuse any grammatical, word or spelling errors. Zhen Cárdenas MD PGY-1 IM Past Medical History Past Medical History: Heart Failure, COPD, CVA/TIA, Diabetes Mellitus, Hyperlipidemia, Hypertension, Osteoarthritis (OA) Additional Past Medical History / Comment(s): polycystic kidney disease, migra rodolfo, TIA 2012, varicose veins, hx anemia, AORTIC ANEURSYM, Type 2 DM History of Any Multi-Drug Resistant Organisms: None Reported Past Surgical History: Hysterectomy, Orthopedic Surgery Additional Past Surgical History / Comment(s): bilateral Carpal tunnel sx, D&C, LUMP REMOVED from throat, Right knee meniscus repair 2019 Past Anesthesia/Blood Transfusion Reactions: Previous Problems w/ Anesthesia Additional Past Anesthesia/Blood Transfusion Reaction / Comment(s): "body pain"- severe AFTER D & C Past Psychological History: Anxiety, Depression, PTSD Smoking Status: Current every day smoker Past Alcohol Use History: Rare Past Drug Use History: Marijuana - Past Family History Mother Family Medical History: Cancer Additional Family Medical History / Comment(s): BREAST,THYROID CANCER Medications and Allergies Home Medications Medication Instructions Recorded Confirmed Type Cetirizine HCl [Zyrtec] 10 mg PO DAILY 05/26/17 10/19/24 History Albuterol Sulfate [Ventolin HFA] 2 puff INHALATION RT-Q6H PRN 12/19/21 10/23/24 History Furosemide [Lasix] 20 mg PO DAILY 12/19/21 10/19/24 History Empagliflozin [Jardiance] 25 mg PO DAILY 11/01/22 10/19/24 History Fluticasone/Umeclidin/Vilanter 1 puff INHALATION RT-DAILY 11/01/22 10/19/24 History [Trelegy Ellipta 200-62.5-25] Losartan Potassium 100 mg PO DAILY 11/01/22 10/19/24 History Aspirin 81 mg PO DAILY 08/14/23 10/19/24 History ALPRAZolam [Xanax] 0.25 mg PO DAILY PRN 02/14/24 10/23/24 History Ergocalciferol [Vitamin D2 (1250 1,250 mcg PO CHASE 02/14/24 10/19/24 History Mcg = 43467 Iu)] Mirabegron [Myrbetriq] 50 mg PO DAILY 02/14/24 10/19/24 History Pregabalin [Lyrica] 75 mg PO DAILY 02/14/24 10/19/24 History Rosuvastatin Calcium 10 mg PO DAILY 02/14/24 10/19/24 History Magnesium 500 mg PO DAILY 10/19/24 10/19/24 History Metoprolol Tartrate [Lopressor] 25 mg PO DAILY 10/19/24 10/19/24 History Omeprazole [PriLOSEC] 40 mg PO DAILY 10/19/24 10/19/24 History Sodium Bicarbonate Tab 650 mg PO DAILY 10/19/24 10/19/24 History Allergies Allergy/AdvReac Type Severity Reaction Status Date / Time Iodinated Contrast Media Allergy Anaphylaxis Verified 02/26/25 19:35 Sulfa (Sulfonamide Allergy Unknown Verified 02/26/25 19:35 Antibiotics) Childhood bupropion HCl AdvReac Severe Seizure Verified 02/26/25 19:35 [From Wellbutrin] iron AdvReac NAUSEA, Verified 02/26/25 19:35 VOMITING. Physical Exam Vitals: Vital Signs Temp Pulse Resp BP Pulse Ox 02/26/25 21:40 98.3 F 75 18 103/70 97 02/26/25 20:51 74 18 100/71 98 02/26/25 19:31 97.6 F 71 18 106/74 99 Intake and Output 02/26/25 02/26/25 02/26/25 06:59 14:59 22:59 Other: Weight 117.934 kg Results CBC & Chem 7: 02/26/25 21:00 02/26/25 21:00 Labs: Abnormal Lab Results - Last 24 Hours (Table) 02/26/25 02/26/25 Range/Units 21:00 21:00 WBC 12.02 H (4.50-10.00) 10*3/uL RBC 5.25 H (4.10-5.20) 10*6/uL Hgb 16.2 H (12.0-15.0) g/dL Hct 48.1 H (37.2-46.3) % Neutrophils # 8.05 H (1.80-7.70) 10*3/uL Chloride 110 H (98-107) mmol/L Carbon Dioxide 18 L (22-30) mmol/L BUN 28 H (7-17) mg/dL Creatinine 1.51 H (0.52-1.04) mg/dL Lipase 339 H (23-300) U/L
[2025-02-26] MEDS ORDERED: NITROGLYCERIN SL TABS 0.4 MG TAB SUBLINGUAL PRN (23:31)
[2025-02-26] MEDS ORDERED: DEXTROSE 50% SYRINGE 50 ML IVP PRN ×2 (23:51)
[2025-02-27] MEDS: LACTATED RINGERS 1,000 ML IV ONE (00:04)
[2025-02-27 00:40] LABS: Glucose,Whole Blood 75 mg/dL (70-110)
[2025-02-27 06:10] VITALS: TEMP 98.4
[2025-02-27 07:18] LABS: Glucose,Whole Blood 80 mg/dL (70-110)
[2025-02-27 07:19] LABS: Basophils # (A) 0.04 10*3/uL (0.00-0.10); Basophils % (A) 0.4 %; Eosinophils # (A) 0.24 10*3/uL (0.04-0.35); Eosinophils % (A) 2.6 %; HCT 45.6 % (37.2-46.3); HGB 15.1 g/dL (12.0-15.0); Lymphocytes # (A) 2.19 10*3/uL (0.90-5.00); Lymphocytes % (A) 23.6 %; MCH 30.7 pg (27.0-32.0); MCHC 33.1 g/dL (32.0-37.0); MCV 92.7 fL (80.0-97.0); Mean Platelet Volume 10.5 fL (9.5-12.2); Monocytes # (A) 0.64 10*3/uL (0.20-1.00); Monocytes % (A) 6.9 %; Neutrophils # (A) 6.13 10*3/uL (1.80-7.70); Neutrophils % (A) 66.1 %; Platelet Count 170 10*3/uL (140-440); RBC 4.92 10*6/uL (4.10-5.20); RDW 13.6 % (11.5-14.5); WBC 9.28 10*3/uL (4.50-10.00)
[2025-02-27] MEDS: INSULIN LISPRO (HumaLOG) 100 UNIT/ML 10 mL VL SQ SCH (07:20)
[2025-02-27 07:31] LABS: ALT 14 U/L (4-34); AST 17 U/L (14-36); African American GFR (CKD) 50 (>60 ml/min/1.73 sqM); Albumin 3.4 g/dL (3.5-5.0); Alkaline Phosphatase 62 U/L (38-126); Anion Gap 9 mmol/L; Blood Urea Nitrogen 26 mg/dL (7-17); Carbon Dioxide 21 mmol/L (22-30); Chloride 108 mmol/L (98-107); Glucose 69 mg/dL (74-99); Non-African American GFR(CKD) 44 (>60 ml/min/1.73 sqM); Sodium 138 mmol/L (137-145); Total Bilirubin 0.5 mg/dL (0.2-1.3)
[2025-02-27] MEDS: ASPIRIN 81 MG PO SCH (08:08)
[2025-02-27] MEDS: HEPARIN SODIUM,PORCINE 5,000 UNIT/ML 1 ML VIAL SQ SCH (08:09)
--- NOTE | 2025-02-27 11:53 | P.DS ---
Providers Date of admission: 02/26/25 21:46 Expected date of discharge: 02/27/25 Attending physician: Courtney Manuel MD Consults: 02/26/25 21:56 Consult Physician Routine Consulting Provider: [facility] Consult Reason/Comments: chest pain Do you want consulting provider notified?: Yes, Notify in am Primary care physician: Allen Winchester Hospital Course: Discharge diagnosis: Atypical chest pain r/o ACS Polycythemia MARGIE, likely prerenal, with CKD stage IIIa, with baseline creatinine 1.1 Leukocytosis, likely reactive Nicotine dependence HFpEF, not currently in exacerbation Anxiety/depression Hospital Course: 45-year-old female with PMH of hypertension, hyperlipidemia HFpEF (most recent echocardiogram from 02/15/2024 showed EF 50-55%), wvq-mwnuxbv-eceevsone diabetes mellitus, migraine headaches, TIA, polycystic kidney disease with stage IIIa CKD, aortic aneurysm (follows with Dr. Wright), anxiety/depression, and nicotine dependence who presents to the ED with complaints of left-sided substernal chest pain that started saturating around 1600 while at work. She states the pain is exacerbated on any exertion and it radiates into her jaw as well as down her left arm and into her back. She states the pain was a tight, squeezing type of feeling. She endorses having nausea as well as diaphoresis. When seen at bedside today, she states that the pain has resolved. She does note that she had pain in a similar location on Saturday of this week, however she states it was not as severe. She did go to the urgent care at that time, and had a emergent follow-up with her bmx rider (Dr. Elizabeth) yesterday 02/25/2025 in which it was determined no further workup was needed. She does state that she has a history of panic attacks, however notes that the sensation on the whole was different/more severe. Her workup showed vitals Blood pressure 106/74, heart rate 71, respiratory rate 18, SpO2 99% on room air. Chest x-ray done in the ER no acute pulmonary process. EKG done in the ER independently read and interpreted, showed heart rate of 74, sinus rhythm, no ST segment elevation or depression seen, no T-wave inversions seen; QTc 423. Echocardiogram was ordered, pending read. Troponin I < 0.012 x3. Patient was treated on aspirin 81 mg, Lipitor 40 mg. She also had MARGIE and was given a bolus of fluids. Patient has been optimized for discharge. Patient seen at bedside today and is feeling good and excited about discharge. Patient will be discharged today. Patient is given a handout for chest pain and is advised to be compliant with medications. Patient is advised to follow-up with PCP in 1-2 days [address] rider Dr[address] Elizabeth in 1 week. Vital signs are reviewed and stable General: nontoxic, no distress, appears at stated age Derm: warm, dry, intact Head: atraumatic, normocephalic, symmetric Eyes: EOMI, anicteric sclera Mouth: no lip lesion, mucus membranes moist Cardiovascular: S1 S2 reg, no murmur, rubs, or gallops Lungs: CTA bilateral, no rales, no accessory muscle use Abdominal: soft, non-tender to palpataion, no appreciable organomegaly Extremities: no gross muscle atrophy, no edema, no contractures Neuro: Alert, Oriented, CNII-XII grossly intact, gait normal Psych: well appearing, appropriate affect A total of 30 minutes of time were spent preparing this complex discharge summary. Patient was discharged on 02/27/25 at 1151. Dictation was produced using [employer] dictation software. please excuse any grammatical, word or spelling error Andrzej Weiss MD PGY-1 IM I have seen and evaluated the patient today. Discussed with the resident and agree with the residents finding and plan as documented in the resident's note. Changes highlighted in blue font. Patient Condition at Discharge: Stable Plan - Discharge Summary New Discharge Prescriptions: Continue Cetirizine HCl [Zyrtec] 10 mg PO DAILY Albuterol Sulfate [Ventolin HFA] 2 puff INHALATION RT-Q6H PRN PRN Reason: Shortness Of Breath Furosemide [Lasix] 20 mg PO DAILY Fluticasone/Umeclidin/Vilanter [Trelegy Ellipta 200-62.5-25] 1 puff INHALATION RT-DAILY Mirabegron [Myrbetriq] 50 mg PO DAILY Nicotine 21Mg/24Hr Patch [Habitrol] 1 patch TRANSDERM DAILY PRN PRN Reason: Nicotine Cravings calcitrioL [Rocaltrol (GEQ)] 0.5 mcg PO WE ARIPiprazole [Abilify] 2 mg PO DAILY Empagliflozin [Jardiance] 25 mg PO DAILY Aspirin 81 mg PO DAILY Ergocalciferol [Vitamin D2 (1250 Mcg = 80172 Iu)] 1,250 mcg PO SUWE Pregabalin [Lyrica] 75 - 150 mg PO DAILY Sodium Bicarbonate Tab 650 mg PO DAILY busPIRone HCl [Buspar] 5 mg PO DAILY Metoprolol Succinate (ER) [Toprol XL] 25 mg PO DAILY Tirzepatide [Mounjaro] 12.5 mg SQ FR Magnesium Oxide [Magnesium] 500 mg PO DAILY Fluticasone Nasal [place] [Flonase Nasal [place]] 1 spray EA NOSTRIL BID Rosuvastatin [Crestor] 10 mg PO DAILY Losartan Potassium [Cozaar] 100 mg PO DAILY FLUoxetine HCL [PROzac] 40 mg PO DAILY Discharge Medication List Cetirizine HCl [Zyrtec] 10 mg PO DAILY 05/26/17 [History] Albuterol Sulfate [Ventolin HFA] 2 puff INHALATION RT-Q6H PRN 12/19/21 [History] Furosemide [Lasix] 20 mg PO DAILY 12/19/21 [History] Empagliflozin [Jardiance] 25 mg PO DAILY 11/01/22 [History] Fluticasone/Umeclidin/Vilanter [Trelegy Ellipta 200-62.5-25] 1 puff INHALATION RT-DAILY 11/01/22 [History] Aspirin 81 mg PO DAILY 08/14/23 [History] Ergocalciferol [Vitamin D2 (1250 Mcg = 13171 Iu)] 1,250 mcg PO SUWE 02/14/24 [History] Mirabegron [Myrbetriq] 50 mg PO DAILY 02/14/24 [History] Pregabalin [Lyrica] 75 - 150 mg PO DAILY 02/14/24 [History] Sodium Bicarbonate Tab 650 mg PO DAILY 10/19/24 [History] ARIPiprazole [Abilify] 2 mg PO DAILY 02/27/25 [History] FLUoxetine HCL [PROzac] 40 mg PO DAILY 02/27/25 [History] Fluticasone Nasal [place] [Flonase Nasal [place]] 1 spray EA NOSTRIL BID 02/27/25 [History] Losartan Potassium [Cozaar] 100 mg PO DAILY 02/27/25 [History] Magnesium Oxide [Magnesium] 500 mg PO DAILY 02/27/25 [History] Metoprolol Succinate (ER) [Toprol XL] 25 mg PO DAILY 02/27/25 [History] Nicotine 21Mg/24Hr Patch [Habitrol] 1 patch TRANSDERM DAILY PRN 02/27/25 [History] Rosuvastatin [Crestor] 10 mg PO DAILY 02/27/25 [History] Tirzepatide [Mounjaro] 12.5 mg SQ FR 02/27/25 [History] busPIRone HCl [Buspar] 5 mg PO DAILY 02/27/25 [History] calcitrioL [Rocaltrol (GEQ)] 0.5 mcg PO WE 02/27/25 [History] Follow up Appointment(s)/Referral(s): Grupo Elizabeth MD [STAFF PHYSICIAN] - 1 Week Allen Winchester MD [Primary Care Provider] - 1-2 days Patient Instructions/Handouts: Chest Pain (GEN) Discharge Disposition: HOME SELF-CARE
[2025-02-27 12:03] VITALS: BP 126/74; PULSE 74
--- NOTE | 2025-02-27 12:35 | CA ---
Transthoracic Echo Report Name: Dawna Bustamante Age: 45 Gender: F : 1980 Exam Date: 02/27/2025 09:08 Exam Location: [facility] Ht (in): 67 Wt (lb): 260 Ordering Physician: Bala Cárdenas MD Attending/Referring Phys: [place] Worker Susanna Ceballos RDCS Procedure CPT: Indications: Chest Pain, Cardiomyopathy, unspecified Cardiac Hx: Technical Quality: Good Contrast 1: Total Dose (mL): Contrast 2: Total Dose (mL): MEASUREMENTS (Male / Female) Normal Values 2D ECHO LV Diastolic Diameter PLAX 5.4 cm 4.2 - 5.9 / 3.9 - 5.3 cm LV Systolic Diameter PLAX 3.2 cm IVS Diastolic Thickness 1.0 cm 0.6 - 1.0 / 0.6 - 0.9 cm LVPW Diastolic Thickness 1.2 cm 0.6 - 1.0 / 0.6 - 0.9 cm LV Relative Wall Thickness 0.4 RV Internal Dim ED PLAX 3.4 cm LA Systolic Diameter LX 3.7 cm 3.0 - 4.0 / 2.7 - 3.8 cm LV Diastolic Volume MOD BP 97.7 cm??? 67 - 155 / 56 - 104 cm??? LV Systolic Volume MOD BP 48.4 cm??? - 58 / 19 - 49 cm??? LV Ejection Fraction MOD BP 50.5 % >= 55 % LV Cardiac Index MOD BP 1653.4 cm???/min???m??? LV Diastolic Volume MOD 4C 102.3 cm??? LV Systolic Volume MOD 4C 53.9 cm??? LV Ejection Fraction MOD 4C 47.3 % LV Cardiac Index MOD 4C 1620.4 cm???/min???m??? LV Diastolic Length 4C 7.0 cm LV Systolic Length 4C 6.2 cm LV Diastolic Volume MOD 2C 87.9 cm??? LV Systolic Volume MOD 2C 41.6 cm??? LV Ejection Fraction MOD 2C 52.7 % LV Cardiac Index MOD 2C 1550.4 cm???/min???m??? LV Diastolic Length 2C 7.5 cm LV Systolic Length 2C 6.6 cm LA Volume 47.8 cm??? 18 - 58 / 22 - 52 cm??? LA Volume Index 19.8 cm???/m??? 16 - 28 cm???/m??? M-MODE Aortic Root Diameter MM 3.9 cm AV Cusp Separation MM 2.5 cm DOPPLER MV Area PHT 3.4 cm??? Mitral E Point Velocity 70.2 cm/s Mitral A Point Velocity 62.1 cm/s Mitral E to A Ratio 1.1 MV Deceleration Time 223.0 ms FINDINGS Left Ventricle Left ventricular ejection fraction is estimated at 50-55 %. Mildly increased posterior wall thickness. Mildly increased left ventricular diastolic diameter. Mildly decreased left ventricular ejection fraction. Right Ventricle Normal right ventricular size. Unable to estimate the right ventricular systolic pressure. Right Atrium Normal right atrial size. No right atrial thrombus or mass seen. Left Atrium Mildly increased left atrial area. No left atrial thrombus or mass present. Mitral Valve Structurally normal mitral valve. No mitral stenosis, regurgitation or prolapse. Aortic Valve Trileaflet aortic valve. No aortic valve stenosis or regurgitation. Tricuspid Valve Structurally normal tricuspid valve. No tricuspid stenosis, regurgitation or prolapse. Pulmonic Valve Pulmonic valve not well visualized. No pulmonic regurgitation. Pericardium No pericardial effusion. Aorta Normal size aortic root and proximal ascending aorta. CONCLUSIONS LVEF 50 to 55% Mild concentric LVH Normal RV size and systolic function Mild left atrial dilatation No significant valvular dysfunction Previewed by: Dr Ronal Zuluaga (Electronically Signed) Final Date: 27 February 2025 12:34
[2025-02-27] MEDS ORDERED: ATORVASTATIN 40 MG TAB PO SCH (21:00)
== END 2025-02-27 12:04 | disposition home or self-care (01) ==
LOC: EC 19:25 → 6NMEDSUR 21:46
PROVIDERS: ADMIT Student in an Organized Health Care Education/Training Program; ATTEND Student in an Organized Health Care Education/Training Program
DX: R07.89 Other chest pain (principal); N17.9 Acute kidney failure, unspecified; D75.1 Secondary polycythemia; I13.0 Hypertensive heart and chronic kidney disease with heart failure and stage 1 through stage 4 chronic kidney disease, or unspecified chronic kidney disease; I50.32 Chronic diastolic (congestive) heart failure; N18.31 Chronic kidney disease, stage 3a; E11.22 Type 2 diabetes mellitus with diabetic chronic kidney disease; E78.5 Hyperlipidemia, unspecified; G43.909 Migraine, unspecified, not intractable, without status migrainosus; Q61.3 Polycystic kidney, unspecified; I71.9 Aortic aneurysm of unspecified site, without rupture; D72.829 Elevated white blood cell count, unspecified; R07.2 Precordial pain; F41.9 Anxiety disorder, unspecified; F32.A Depression, unspecified; F41.0 Panic disorder [episodic paroxysmal anxiety]; F17.210 Nicotine dependence, cigarettes, uncomplicated; Z79.84 Long term (current) use of oral hypoglycemic drugs; Z79.82 Long term (current) use of aspirin; Z79.51 Long term (current) use of inhaled steroids; Z79.899 Other long term (current) drug therapy; Z88.2 Allergy status to sulfonamides; Z88.8 Allergy status to other drugs, medicaments and biological substances; Z91.041 Radiographic dye allergy status; Z86.73 Personal history of transient ischemic attack (TIA), and cerebral infarction without residual deficits
CPT/HCPCS: 96360; 96361; 96372; 99285; 36415; 93005; 93306; 83880; 80053 ×2; 83690; 83735; 84484 ×2; 85025 ×2; 85610; 85730; 83036; 71046; G0378 ×2; J1644

== ENCOUNTER → 2025-04-08 | Outpatient (CLI) | payer OTHER ==
--- NOTE | 2025-04-08 11:37 | US ---
EXAMINATION TYPE: US thyroid st tissue head/neck DATE OF EXAM: 04/08/2025 COMPARISON: CLINICAL INDICATION: Female, 45 years old with history of E04.1 NONTOXIC SINGLE THY NOD I71.21 ANEURY SM; Follow up nodules. Not on thyroid meds. TECHNIQUE: Grayscale and color Doppler imaging of the thyroid gland. FINDINGS: GLAND SIZE: Right Lobe: 5.5 x 1.9 x 2.3 cm Overall Parenchyma: homogeneous Left Lobe: 5.3 x 2.0 x 1.6 cm Overall Parenchyma: homogeneous Isthmus Thickness: 0.6 cm NODULES- Multiple nodules bilaterally, largest measured RIGHT: # of nodules measured on right: 2 1. 1.8 X 1.3 x 1.3 cm, upper mid, Prior size: 1.0 x 0.9 x 1.0 cm TIRADS Score: 4 TIRADS Category 4: Composition: Solid or almost completely solid (2 points). Echogenicity: Hypoechoic (2 points). Shape: Wider than tall (0 points). Margin: Smooth (0 points). Echogenic foci: None or large comet-tail artifacts (0 points) Recommendation: If >1.5cm: FNA; If >1cm: Follow up at 1,2, 3,5 years 2. 0.8 X 0.6 x 0.5 cm, mid mid, Prior size: 0.8 x 0.6 x 0.7 cm TIRADS Score: 4 TIRADS Category 4: Composition: Solid or almost completely solid (2 points). Echogenicity: Hypoechoic (2 points). Shape: Wider than tall (0 points). Margin: Smooth (0 points). Echogenic foci: None or large comet-tail artifacts (0 points) Recommendation: If >1.5cm: FNA; If >1cm: Follow up at 1,2, 3,5 years LEFT: # of nodules measured on left: 2 1. 1.6 X 1.3 x 0.9 cm, lower mid, Prior size: 1.5 x 0.9 x 1.2 cm TIRADS Score: 3 TIRADS Category 3: Composition: Mixed cystic and solid (1 point). Echogenicity: Hypoechoic (2 points). Shape: Wider than tall (0 points). Margin: Smooth (0 points). Echogenic foci: None or large comet-tail artifacts (0 points) Recommendation: Previously biopsied 10/23/2024 2. 1.1 X 0.9 x 0.9 cm, upper mid, Prior size: 1.2 x 0.9 x 0.9 cm TIRADS Score: 4 TIRADS Category 4: Composition: Solid or almost completely solid (2 points). Echogenicity: Hypoechoic (2 points). Shape: Wider than tall (0 points). Margin: Smooth (0 points). Echogenic foci: None or large comet-tail artifacts (0 points) Recommendation: Previously biopsied 10/23/2024 ISTHMUS: # of nodules measured in the isthmus: 1 1. 1.0 X 0.9 x 0.5 cm Prior size: No prior TIRADS Score: 4 TIRADS Category 4: Composition: Solid or almost completely solid (2 points). Echogenicity: Hypoechoic (2 points). Shape: Wider than tall (0 points). Margin: Smooth (0 points). Echogenic foci: None or large comet-tail artifacts (0 points) Recommendation: If >1.5cm: FNA; If >1cm: Follow up at 1,2, 3,5 years Bilateral neck scanned, no evidence of lymphadenopathy. IMPRESSION: Right thyroid nodule measuring up to 1.8 cm meets criteria for fine-needle aspiration if not already performed. Highest TI-RADS level nodule reported: 2017 ACR TI-RADS LEVEL: TI-RADS 4 - Moderately Suspicious: Follow if > 1 cm, FNA if > 1.5 cm TI-RADS assessment score and recommendation for follow-up based on appropriate scoring and treatment protocols. TR1 Benign No FNA TR2 Not suspicious No FNA TR3: If nodule size is ? 2.5 cm, FNA is recommended. If nodule size is ? 1.5 cm, follow-up imaging at 1, 3, and 5 years is recommended. TR4: If nodule size is ? 1.5 cm, FNA is recommended. If nodule size is ? 1.0 cm, follow-up imaging at 1, 2, 3, and 5 years is recommended. TR5: If nodule size is ? 1.0 cm, FNA is recommended. If nodule size is ? 0.5 cm, annual follow-up for up to 5 years is recommended. TR 1 thyroid nodules have a 0.3 % risk of malignancy. TR 2 thyroid nodules have a 1.5 % risk of malignancy. TR 3 thyroid nodules have a 4.8 % risk of malignancy. TR 4 thyroid nodules have a 9.1 % risk of malignancy. TR 5 thyroid nodules have a 35 % risk of malignancy. [email or web address] [facility], , 04/08/2025 11:34 AM
== END | disposition home or self-care (01) ==
LOC: RADUSWWP 10:51
PROVIDERS: ATTEND Family Medicine
DX: E04.1 Nontoxic single thyroid nodule (principal); I71.21 Aneurysm of the ascending aorta, without rupture
CPT/HCPCS: 76536

== ENCOUNTER → 2025-04-23 | Outpatient (CLI) | payer OTHER ==
--- NOTE | 2025-04-23 11:44 | CT ---
EXAMINATION TYPE: CT chest wo con DATE OF EXAM: 04/23/2025 COMPARISON: 12/31/2023 CLINICAL INDICATION: Female, 45 years old with history of I71.21 aneurysm ascending aorta; PHH, f/u a neurysm TECHNIQUE: CT scan of the thorax is performed without IV contrast. CT DLP: [address] CTDI: mGy Automated exposure control for dose reduction was used. FINDINGS: LUNGS: The lungs are grossly clear, there is no concerning parenchymal mass or nodule identified. T here is no pleural effusion or pneumothorax seen. The tracheobronchial tree is patent. MEDIASTINUM: Lack of IV contrast is noted to limit evaluation for mediastinal and especially hilar ad enopathy. There are no definitive greater than 1 cm hilar or mediastinal lymph nodes. No cardiomega ly or pericardial effusion is seen. Mild coronary artery calcification. HEART: Size within normal limit. Mild coronary artery calcifications present. OTHER: Thoracic aorta measures a maximal dimension of 3.7 cm. Liver and spleen are prominent in size with spleen measuring 15.4 cm. There are polycystic kidney disease with hypo and hyperdense lesions w hich are incompletely evaluated. Most likely representing a combination of Bosniak classification 1 a nd Bosniak classification 2 hemorrhagic\high proteinaceous cyst. Adrenal thickening suggestive of adr enal hyperplasia or adenoma.. IMPRESSION: 1. Mild ectasia of the thoracic aorta measuring a maximal dimension of 3.7 cm. No sizable aneurysm. 2. Hepatosplenomegaly correlate for underlying hepatocellular disease. 3. Polycystic kidney disease with indeterminate renal lesions recommend follow-up MRI. Follow-up recommendations for incidental pulmonary nodules are per [employer] or [employer]. [facility], , 04/23/2025 11:41 AM
== END | disposition home or self-care (01) ==
LOC: RADCTMAIN 11:03
PROVIDERS: ATTEND Family Medicine
DX: R16.2 Hepatomegaly with splenomegaly, not elsewhere classified (principal); Q61.3 Polycystic kidney, unspecified; I77.810 Thoracic aortic ectasia
CPT/HCPCS: 71250